=== PATIENT | male | born 1960 | race Caucasian/White ===

== ENCOUNTER 2017-07-10 01:08 | Emergency (ER) | payer OTHER ==
[~2017-07-10] VITALS: Ht 182.9 cm; Wt 97.9 kg
[2017-07-10 01:13] VITALS: TEMP 36.9; Ht 182.9 cm; Wt 97.9 kg
--- NOTE | 2017-07-10 01:40 | EMERGENCY ROOM VISIT NOTE ---
History Report prepared by [facility]: Adan Mead Under the Supervision of: Dr. Yulissa Tamez D.O. First contact with patient: 01:09 Chief Complaint: ABDOMINAL PAIN Stated Complaint: ABDOMINAL PAIN History of Present Illness The patient is a 57 year old male who presents to the Emergency Room with complaints of worsening abdominal pain beginning this morning. The patient states that he was diagnosed with bladder cancer two months ago. He notes that two weeks after his original diagnosis, he was called back in for a biopsy. He reports that he was told that his cancer metastasized to his right kidney. The patient states that he had a stent placed in his right kidney and notes that the stent is supposed to stay in for six months. He notes that he had a heart attack two months ago, and had two coronary stents placed in his heart. He also reports that he had a chest tube placed two months ago for pneumonia and pleural effusion. The patient states that he has not yet started chemotherapy or radiation. He notes that his pain started this morning and wrapped around to his right back. He reports that his pain felt like a stinging when he went to the bathroom, and that he had to strain to go. He also complains of nausea, vomiting x2, and a cough. He denies any fever, chills, SOB, CP, leg cramping, and leg swelling. The patient states that he is also blind in his right eye, but notes that he has no history of previous UTIs. He notes that he has had kidney stones in the past but reports that he never passed them. The patient states that he smokes 1-2 cigarettes every three days. He rates his pain as a 10 /10. Source of History: patient Onset: this morning Position: abdomen Symptom Intensity: 10/10 Quality: other (stinging) Timing: worsening Associated Symptoms: + cough, + nausea, + vomiting (x2), + back pain, No fevers, No chills, No chest pain, No SOB Note: The patient states that he had to strain to go to the bathroom. He also denies any leg cramping and leg swelling. Review of Systems See HPI for pertinent positives & negatives. A total of 10 systems reviewed and were otherwise negative. Past Medical & Surgical Medical Problems: (1) Abdominal pain of unknown etiology (2) Asthma (3) Back pain (4) Back pain (5) Back pain (6) Back strain (7) Bladder cancer (8) Blindness of right eye (9) Blindness of right eye (10) Cancer of kidney (11) Cellulitis (12) Chest tube in place (13) Chronic dental pain (14) Chronic dental pain (15) Coronary artery disease (16) Dental abscess (17) Dental abscess (18) Dental caries (19) Dental caries (20) Heart attack (21) Hypothyroidism (22) Kidney lesion (23) Kidney stone (24) Kidney stones (25) Low back pain potentially associated with radiculopathy (26) Lower back pain (27) Pain, dental (28) Pain, dental (29) Pain, dental (30) Pleural effusion (31) Pneumonia (32) Pulmonary nodule (33) Pulmonary nodules (34) Pulmonary nodules (35) Spasm of back muscles Surgical Problems: (1) H/O heart artery stent (2) S/P cholecystectomy (3) S/P hernia repair (4) Ureteral stenosis, right Family History Gallbladder disease Kidney disease Kidney stones Social History Smoking Status: Current Every Day Smoker Alcohol Use: none Drug Use: none Marital Status: single Housing Status: lives with significant other Occupation Status: employed Current/Historical Medications Scheduled Aspirin (Aspirin Ec), 81 MG PO DAILY Clopidogrel (Plavix), 75 MG PO DAILY Lisinopril (Zestril), 2.5 MG PO DAILY Metoprolol Tartrate (Lopressor) (Lopressor), 25 MG PO BID Allergies Coded Allergies: Morphine (Verified Allergy, Severe, ANAPHYLAXIS, 07/10/17) Penicillins (Unverified Allergy, Intermediate, HIVES, 07/12/15) Physical Exam Vital Signs Date Time Temp Pulse Resp B/P (MAP) Pulse Ox O2 Delivery O2 Flow Rate FiO2 07/10/17 04:26 88 18 181/101 97 07/10/17 02:32 80 18 162/98 97 Room Air 07/10/17 01:31 Room Air 07/10/17 01:13 36.9 83 18 178/139 97 Room Air Physical Exam HEENT: Head - normocephalic and atraumatic Pupils are equal, round, and reactive to light. Extraocular eye muscles are intact, and sclera are anicteric. Nose - moist nasal mucosa without discharge. Mouth - moist buccal mucosa. Oropharynx is nonerythematous and there is no tonsillar exudate or edema noted. Neck: Supple; no JVD, nuchal rigidity, cervical lymphadenopathy. Heart: Regular rhythm and tachycardic. There is a normal S1 and S2 with no murmurs, clicks, or gallops appreciated. Lungs: Clear to auscultation bilaterally with no wheezes, rales, or rhonchi. Abdomen: Soft, nondistended, with good bowel sounds. There are no palpable pulsatile masses or hepatosplenomegaly. There is no guarding, rigidity, or rebound noted. Pain to palpation to the RUQ, RLQ, and right flank. Extremities: No evidence of cyanosis, clubbing, or edema. There are easily palpable peripheral pulses. Skin: warm and dry with good turgor and no rashes. Medical Decision & Procedures ER Provider Diagnostic Interpretation: Radiology results as stated below per my review and interpretation: PORTABLE CHEST X-RAY: Significant elevated right hemidiaphragm. Pulmonary nodule in left chest, previously measured at 26mm but now measured to be 32mm. Compared to chest X-RAY from 07/12/15. Radiology results as stated below per my review and the radiologist's interpretation: US RENAL: No hydronephrosis. Distal aspect of right ureteral stent seen within bladder, but its proximal portion is not well-visualized. Ureteral jets are not visualized. Radiologist: Mio Pineda MD. Laboratory Results 07/10/17 01:50 Red Blood Count 5.06, Mean Corpuscular Volume 80.4, Mean Corpuscular Hemoglobin 27.3, Mean Corpuscular Hemoglobin Concent 33.9, Mean Platelet Volume 8.5, Neutrophils (%) (Auto) 58.2, Lymphocytes (%) (Auto) 27.8, Monocytes (%) (Auto) 8.6, Eosinophils (%) (Auto) 4.4, Basophils (%) (Auto) 0.3, Neutrophils # (Auto) 3.53, Lymphocytes # (Auto) 1.69, Monocytes # (Auto) 0.52, Eosinophils # (Auto) 0.27, Basophils # (Auto) 0.02 07/10/17 01:50 Test 07/10/17 01:50 07/10/17 01:55 07/10/17 02:03 White Blood Count 6.07 K/uL (4.8-10.8) Red Blood Count 5.06 M/uL (4.7-6.1) Hemoglobin 13.8 g/dL (14.0-18.0) Hematocrit 40.7 % (42-52) Mean Corpuscular Volume 80.4 fL (80-100) Mean Corpuscular Hemoglobin 27.3 pg (25-34) Mean Corpuscular Hemoglobin Concent 33.9 g/dl (32-36) Platelet Count 112 K/uL (130-400) Mean Platelet Volume 8.5 fL (7.4-10.4) Neutrophils (%) (Auto) 58.2 % Lymphocytes (%) (Auto) 27.8 % Monocytes (%) (Auto) 8.6 % Eosinophils (%) (Auto) 4.4 % Basophils (%) (Auto) 0.3 % Neutrophils # (Auto) 3.53 K/uL (1.4-6.5) Lymphocytes # (Auto) 1.69 K/uL (1.2-3.4) Monocytes # (Auto) 0.52 K/uL (0.11-0.59) Eosinophils # (Auto) 0.27 K/uL (0-0.5) Basophils # (Auto) 0.02 K/uL (0-0.2) RDW Standard Deviation 44.2 fL (36.4-46.3) RDW Coefficient of Variation 15.2 % (11.5-14.5) Immature Granulocyte % (Auto) 0.7 % Immature Granulocyte # (Auto) 0.04 K/uL (0.00-0.02) Prothrombin Time 10.0 SECONDS (9.0-12.0) Prothromb Time International Ratio 1.0 (0.9-1.1) Activated Partial Thromboplast Time 24.3 SECONDS (21.0-31.0) Partial Thromboplastin Ratio 0.9 Anion Gap 4.0 mmol/L (3-11) Est Creatinine Clear Calc Drug Dose 96.4 ml/min Estimated GFR () 95.1 Estimated GFR (Non- 82.0 BUN/Creatinine Ratio 13.1 (10-20) Calcium Level 9.4 mg/dl (8.5-10.1) Total Bilirubin 0.5 mg/dl (0.2-1) Aspartate Amino Transf (AST/SGOT) 30 U/L (15-37) Alanine Aminotransferase (ALT/SGPT) 27 U/L (12-78) Alkaline Phosphatase 129 U/L (45-117) Total Protein 9.1 gm/dl (6.4-8.2) Albumin 3.9 gm/dl (3.4-5.0) Globulin 5.2 gm/dl (2.5-4.0) Albumin/Globulin Ratio 0.8 (0.9-2) Urine Color YELLOW Urine Appearance CLEAR (CLEAR) Urine pH 5.5 (4.5-7.5) Urine Specific [place] 1.008 (1.000-1.030) Urine Protein NEG (NEG) Urine Glucose (UA) NEG (NEG) Urine Ketones NEG (NEG) Urine Occult Blood 1+ (NEG) Urine Nitrite NEG (NEG) Urine Bilirubin NEG (NEG) Urine Urobilinogen NEG (NEG) Urine Leukocyte Esterase NEG (NEG) Urine WBC (Auto) 1-5 /hpf (0-5) Urine RBC (Auto) 0-4 /hpf (0-4) Urine Hyaline Casts (Auto) 0 /lpf (0-5) Urine Epithelial Cells (Auto) 5-10 /lpf (0-5) Urine Bacteria (Auto) NEG (NEG) Bedside Lactic Acid Venous 1.03 mmol/L (0.90-1.70) Laboratory results per my review. Medications Administered Medications (Trade) Dose Ordered Sig/Bharat Route Start Time Stop Time Status Last Admin Dose Admin Hydromorphone HCl (Dilaudid Inj) 1 mg NOW STAT IV 07/10/17 02:11 07/10/17 02:13 DC 07/10/17 02:32 1 MG Procedure Dilaudid Inj 1mg IV IV Toradol-the patient refused ECG Per My Interpretation Indication: abdominal pain Rate (beats per minute): 85 Rhythm: normal sinus Findings: no ectopy, other (Prolonged QT at 492, no ischemia) ED Course 0127: The patient was evaluated in room B10. A complete history and physical examination were performed. Nursing notes and previous electronic medical records were reviewed. IV lock was established and labs were drawn as above. 0211: Dilaudid Inj 1mg IV 0303: I ordered an US of the patient's right kidney. 0400: I reevaluated and updated the patient. He is still in severe pain. I told him that I would not give him any stronger pain medication and suggested having a CT done because of his severe pain. He stated that he was not sure if a CT would be necessary. I stated again that we should have a CT done because of his pain. I offered him Toradol. 0411: The patient refused the Toradol and wanted his IV taken out. He states that he wants to go home and does not want a CT. I suggested that he follow up with [facility] about the location of the right ureteral stent. 0421: I spent some time again talking to the patient about the need for CT scan of the right lower quadrant to rule out appendicitis, small bowel obstruction, or diverticulitis. He was not interested in staying for this. He wanted to sign out AMA. 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 He notes that he went to rehab and is no longer addicted. His blood pressure is extremely high, and I suggested that he stay to have that lowered because he could have a stroke. He declined. I also spoke to him about his pulmonary nodule and said that it was important for him to follow up on it because it has gotten larger. 0431: The patient signed out against medical advice. Medical Decision The patient is a 57 year old male who presents to the Emergency Room with complaints of worsening abdominal pain beginning this morning. Differential diagnoses include: sepsis, kidney stone, diverticulitis UTI, appendicitis, small bowel obstruction, ureteral stent obstruction, and pneumonia. Lab Results Show: Normal white count. Stable H&H. Normal lactic. Normal renal function and glucose. Normal LFTs. Normal Coags. Urine 1+ blood but no RBCs. This is a 57-year-old male patient who presents to the emergency department with right lower quadrant abdominal pain, nausea and vomiting. The patient received IV Dilaudid and underwent ultrasound of the right renal collecting system as described above. I spoke with him about the location of the stent. He continued to describe discomfort in the right lower quadrant. There is no evidence of UTI. I ordered a CT scan of the abdomen/pelvis to further evaluate other surrounding structures but the patient declined wanting this test. I offered to give the patient Toradol for his discomfort but he declined stating that it does not work for him. He then decided that he wanted to leave the emergency department without any further testing. I discussed the hazards of this as described above. He was told that he can return to the emergency department at anytime if he wanted to pursue further testing. Medication Reconcilliation Current Medication List: was personally reviewed by me Blood Pressure Screening Patient's blood pressure: Elevated blood pressure Blood pressure disposition: Referred to PCP Impression Primary Impression: Right lower quadrant pain Scribe Attestation The scribe's documentation has been prepared under my direction and personally reviewed by me in its entirety. I confirm that the note above accurately reflects all work, treatment, procedures, and medical decision making performed by me. Departure Information Dispostion Against Medical Advice Referrals No Doctor, Assigned (PCP) Patient Instructions My [facility]
[2017-07-10 02:10] LABS: BASO % 0.3 %; BASO ABS # 0.02 K/uL (0-0.2); EOS % 4.4 %; EOS ABS # 0.27 K/uL (0-0.5); HEMATOCRIT 40.7 % (42-52); HEMOGLOBIN 13.8 g/dL (14.0-18.0); IG# 0.04 K/uL (0.00-0.02); LYMPH % 27.8 %; LYMPH ABS # 1.69 K/uL (1.2-3.4); MEAN CELL VOLUME 80.4 fL (80-100); MEAN CORPUSCULAR HEMOGLOBIN 27.3 pg (25-34); MEAN CORPUSCULAR HGB CONC 33.9 g/dl (32-36); MEAN PLATELET VOLUME 8.5 fL (7.4-10.4); MONO % 8.6 %; MONO ABS # 0.52 K/uL (0.11-0.59); NEUT % 58.2 %; NEUT ABS # 3.53 K/uL (1.4-6.5); PLATELET COUNT 112 K/uL (130-400); RED CELL DISTRIBUTION WIDTH CV 15.2 % (11.5-14.5); RED CELL DISTRIBUTION WIDTH SD 44.2 fL (36.4-46.3); WHITE BLOOD COUNT 6.07 K/uL (4.8-10.8)
[2017-07-10] MEDS ORDERED: HYDROmorphone INJ 1 MG/ML SYR IV STA (02:11)
[2017-07-10 02:19] LABS: PTT PATIENT 24.3 SECONDS (21.0-31.0)
[2017-07-10 02:29] LABS: ALBUMIN 3.9 gm/dl (3.4-5.0); CALCIUM 9.4 mg/dl (8.5-10.1); POTASSIUM 3.9 mmol/L (3.5-5.1)
[2017-07-10 02:32] LABS: TOTAL PROTEIN 9.1 gm/dl (6.4-8.2)
[2017-07-10] MEDS ORDERED: ASPI81TA28 PO (02:44)
[2017-07-10] MEDS ORDERED: METO25TA56 PO (02:45)
[2017-07-10] MEDS ORDERED: CLOP1TAB15 PO (02:45)
[2017-07-10] MEDS ORDERED: LISI-789 PO (02:47)
[2017-07-10] MEDS ORDERED: KETOROLAC TROMETHAMINE 30 MG/ML VIAL IV STA (04:03)
[2017-07-10 04:26] VITALS: BP 181/101; PULSE 88; O2SAT 97
--- NOTE | 2017-07-10 06:31 | DIAGNOSTIC IMAGING REPORT ---
CHEST ONE VIEW PORTABLE CLINICAL HISTORY: Sepsis dyspnea COMPARISON STUDY: 07/14/2015 FINDINGS: Mild elevation right hemidiaphragm with slight blunting right lateral costophrenic angle. Potential interstitial infiltrate right base. Slight increase in volume of a left upper lung nodule currently measuring 2.9 cm at maximum increased from 2.6 cm. IMPRESSION: 1. Potential early infiltrate combine with a small effusion right lung base. 2. Slight increase in volume of the left upper lobe nodule. The above report was generated using voice recognition software. It may contain grammatical, syntax or spelling errors. Electronically signed by: Benito Patel M.D. 07/10/2017 6:30 AM Dictated Date/Time: 07/10/2017 6:29 AM
--- NOTE | 2017-07-10 06:52 | DIAGNOSTIC IMAGING REPORT ---
(RENAL)RETROPERITON COMP HISTORY: Pain. Edema. eval right kidney and stent COMPARISON: None. FINDINGS: Right kidney: Maximum dimension 10.4 cm. No evidence for hydronephrosis. The proximal aspect of the right ureteral stent is not localized. Distal aspect of the stent is identified within the bladder. Normal corticomedullary differentiation and cortical thickness. Left kidney: Maximum dimension 11.2 cm. No evidence for hydronephrosis. Normal corticomedullary differentiation and cortical thickness. Bladder: No bladder wall thickening. The bilateral ureteral jets were identified. IMPRESSION: 1. No evidence renal hydronephrosis. 2. Right ureteral stent is not seen proximally but is confirmed at its distal aspect within the bladder. 3. Incidental note is made of mild splenomegaly at 12 cm. The above report was generated using voice recognition software. It may contain grammatical, syntax or spelling errors. Electronically signed by: Benito Patel M.D. 07/10/2017 6:51 AM Dictated Date/Time: 07/10/2017 6:49 AM
== END 2017-07-10 04:21 | disposition left against medical advice (07) ==
LOC: EDBD 01:08 → C.EDB 01:09
DX: R10.11 Right upper quadrant pain (principal); R10.31 Right lower quadrant pain; C67.9 Malignant neoplasm of bladder, unspecified; C79.01 Secondary malignant neoplasm of right kidney and renal pelvis; J45.909 Unspecified asthma, uncomplicated; I25.2 Old myocardial infarction; F17.200 Nicotine dependence, unspecified, uncomplicated; Z96.0 Presence of urogenital implants; Z95.9 Presence of cardiac and vascular implant and graft, unspecified; Z97.8 Presence of other specified devices; Z87.442 Personal history of urinary calculi; Z79.82 Long term (current) use of aspirin; Z79.899 Other long term (current) drug therapy; Z88.6 Allergy status to analgesic agent; Z88.0 Allergy status to penicillin

== ENCOUNTER 2018-12-24 17:52 | Inpatient (IN) ==
[2018-12-24] MEDS ORDERED: ONDANSETRON INJ 2 MG/ML 2 ML VIAL IV STA (18:06)
[2018-12-24] MEDS ORDERED: HYDROmorphone INJ 1 MG/ML SYRINGE IV STA ×4 (18:06→21:57)
[2018-12-24 18:41] LABS: Basophils # (auto) 0.03 K/uL (0-0.2); Basophils % (auto) 0.5 %; Eosinophils # (auto) 0.41 K/uL (0-0.5); Eosinophils % (auto) 6.4 %; Hematocrit (blood only) 34.3 % (42-52); Hemoglobin 11.6 g/dL (14.0-18.0); Immature Granulocytes # (auto) 0.02 K/uL (0.00-0.02); Immature Granulocytes % (auto) 0.3 %; Lymphocytes # (auto) 1.88 K/uL (1.2-3.4); Lymphocytes % (auto) 29.2 %; Mean Corpuscular Hemoglobin 28.4 pg (25-34); Mean Corpuscular Hgb Conc 33.8 g/dL (32-36); Mean Corpuscular Volume 83.9 fL (80-100); Monocytes # (auto) 0.63 K/uL (0.11-0.59); Monocytes % (auto) 9.8 %; Neutrophils # (auto) 3.47 K/uL (1.4-6.5); Neutrophils % (auto) 53.8 %; Platelet Count 106 K/uL (130-400); RDW Coefficient of Variation 13.3 % (11.5-14.5); RDW Standard Deviation 40.3 fL (36.4-46.3); Red Blood Count 4.09 M/uL (4.7-6.1); White Blood Count 6.44 K/uL (4.8-10.8)
[2018-12-24 18:49] LABS: INR 1.1 (0.9-1.1); Prothrombin Time 10.9 Seconds (9.0-12.0)
[2018-12-24 18:54] LABS: Appearance Urine Turbid (Clear); Bilirubin Urine Negative (Negative); Blood Urine 3+ (Negative); Color Urine Brown; Glucose Urine UA Negative (Negative); Ketones Urine Negative (Negative); Leukocyte Esterase Urine Trace (Negative); Nitrite Urine Positive (Negative); Protein Urine 2+ (Negative); Specific Gravity Urine 1.015 (1.000-1.030); Urobilinogen Urine Negative (Negative); pH Urine 5.5 (4.5-7.5)
[2018-12-24 18:59] LABS: Albumin Level 3.3 gm/dl (3.4-5.0); BUN Creatinine Ratio 16.8 (10-20); Calcium 8.5 mg/dl (8.5-10.1); Creatinine Clr Calc Pharmacy 71.9 ml/min; Est GFR (African American) 64.5; Est GFR (Non-African American) 55.7; Potassium 4.6 mmol/L (3.5-5.1)
[2018-12-24 19:01] LABS: Albumin Globulin Ratio 0.7 (0.9-2); Bacteria Urine 1+ (Negative); Bilirubin,Total 0.4 mg/dl (0.2-1); Globulin 4.5 gm/dl (2.5-4.0); RBC Urine >30 /hpf (0-4); Total Protein 7.8 gm/dl (6.4-8.2); WBC Urine >30 /hpf (0-5)
[2018-12-24] MEDS ORDERED: IOVERSOL 100ml IV PRN (19:27)
--- NOTE | 2018-12-24 20:36 | CT Scan Report ---
CT SCAN OF THE ABDOMEN AND PELVIS WITH IV CONTRAST CLINICAL HISTORY: Hematuria. Lower abdominal pain. History of bladder cancer. COMPARISON STUDY: Abdominal CT dated 07/12/2015. PET/CT dated 06/30/2018. TECHNIQUE: Following the IV administration of 94 cc of Optiray 320, CT scan of the abdomen and pelvi s is performed from the lung bases to the proximal femora. Images are reviewed in the axial, sagittal , and coronal planes. IV contrast was administered without complication. A dose lowering technique wa s utilized adhering to the principles of ALARA. CT DOSE: 1035.72 mGy.cm FINDINGS: Lung bases: The heart is normal in size and without pericardial effusion. The coronary arteries are d ensely calcified. There is a moderate hiatal hernia. There is chronic elevation of the right hemidiap hragm with right basilar atelectasis. There is no airspace consolidation typical for pneumonia or ple ural effusion. A 10 mm nodule the right lung base is seen on image #48. A 3 mm left lower lobe nodule is seen on image #146, and a 3 mm pleural-based nodule at the right lung base is seen on image #36. These are pathologically indeterminant but new from 07/12/2015. Scattered calcified granulomas are obse rved. Liver: The contrast-enhanced liver is cirrhotic in morphology and heterogeneous in attenuation. There is hypertrophy of the left lobe and caudate as well as nodularity of the surface contour. There is m ild central intrahepatic biliary ductal dilatation. The hepatic veins and portal veins are patent. Gallbladder: Surgically absent noting clips in the gallbladder fossa. Spleen: Normal in size and attenuation. Pancreas: Unremarkable. Adrenal glands: Unremarkable. Kidneys: The contrast enhanced kidneys demonstrate cortical atrophy. A right ureteral stent is in jeri ce. There is mild right-sided hydronephrosis. Urothelial thickening and enhancement is identified inv olving the right renal pelvis and the right ureter, and there is mild surrounding inflammation. There is moderate left hydronephrosis. There is heterogeneous enhancement of the right kidney. The left ki dney enhances homogeneously. A 12 mm complex cyst is again seen arising from the upper pole of the ri ght kidney. Subcentimeter cortical hypodensities likely represent cysts but are too small for definit polo characterization. Abdominal vasculature: There is advanced atherosclerotic calcification of the abdominal aorta. There is ectasia of the distal abdominal aorta which measures up to 2.8 cm. Bowel: There are scattered colonic diverticula without CT evidence of acute diverticulitis. No bowel obstruction is seen. The appendix is well-visualized and normal. Peritoneum: There is no intraperitoneal free air or abdominal ascites. There is a fat-containing umbi lical hernia. Lymphadenopathy: There are prominent retroperitoneal lymph nodes. A retrocaval node on image #196 reji sures 8 mm in short axis. Pelvic viscera: There is markedly asymmetric wall thickening seen involving the anterior and left wal l of the bladder consistent with bladder carcinoma. Bladder wall thickening is also seen at the left trigone. This is unchanged to slightly increased in size from the 06/30/2018 PET examination. The pros lópez gland is mildly enlarged and heterogeneous. There is evidence of previous left inguinal herniorr haphy. Skeletal structures: There is evidence of multifocal mixed lytic/blastic osseous metastatic disease. Large lesions are seen within the inferior pubic ring bilaterally, the left ilium, the right posterio r ilium, and several vertebral bodies. This has progressed from 06/30/2018. There is mild lumbosacral spondylosis. IMPRESSION: 1. There are large bladder masses as above. This is unchanged to increased in size from 06/30/2018 and consistent with bladder carcinoma. 2. A right ureteral stent is in place and there is mild right-sided hydronephrosis. 3. There is heterogeneous perfusion of the right kidney, as well as urothelial thickening within the right renal pelvis and the right ureter with surrounding inflammation. Although this could be related to the presence of an indwelling stent, the findings are concerning for superimposed urinary tract i nfection. Correlation with clinical findings and urinalysis will be required. 4. There is moderate left hydroureteronephrosis, likely related to an obstructing lesion at the justine ne. This is unchanged to slightly worsened from 06/30/2018. 5. There is evidence of multifocal mixed lytic/blastic osseous metastatic disease. This has progresse d from 06/30/2018. 6. There are pulmonary nodules present at both lung bases measuring up to 10 mm. These are pathologic ally indeterminant but new from 07/12/2015. These are concerning for metastatic disease. 7. There are pathologically indeterminant subcentimeter retroperitoneal lymph nodes. 8. Cirrhotic liver morphology. 9. Moderate hiatal hernia. 10. Additional findings as above. Electronically signed by: Ceasar Cheung M.D. 12/24/2018 8:33 PM
[2018-12-24] MEDS ORDERED: ONDANSETRON INJ 2 MG/ML 2 ML VIAL IV PRN (23:37)
[2018-12-24] MEDS ORDERED: ALUMINUM/MAGNESIUM/SIMETH (MAALOX MAX) 30 ML UDC PO PRN (23:37)
[2018-12-24] MEDS ORDERED: CHLORASEPTIC 1.4% SOLN 180 ML BTL MT PRN (23:37)
[2018-12-24] MEDS ORDERED: guaiFENesin SUGAR FREE 100 MG/5 ML UDC PO PRN (23:37)
[2018-12-24] MEDS ORDERED: NITROGLYCERIN SL 0.4 MG/TAB TAB SL PRN (23:37)
[2018-12-24] MEDS ORDERED: POLYETHYLENE (MIRALAX) 17 GM PACK PO PRN (23:37)
[2018-12-24] MEDS ORDERED: SODIUM CHLORIDE 0.65% NA SOLN 45 ML (OCEAN) PRN (23:37)
[2018-12-25] MEDS ORDERED: HYDROmorphone INJ 1 MG/ML SYRINGE IV STA (00:13)
--- NOTE | 2018-12-25 00:22 | Emergency Department Note ---
Entered by Libra Taylor acting as a scribe for Reed Cobb M.D. History of Present Illness General Chief complaint: Abdominal Pain Source: patient History of Present Illness Provider complaint: abdominal pain Onset (ago): hour(s) (this morning ) Location: abdomen Quality: + other (abdominal pain) Relieved By: not by medication (Percocet) Associated symptoms: + nausea/vomiting and + other (Positive dysuria; Positive erythuria; Negative fall; Negaitve upper body pain); no fever/chills Treatments prior to arrival: other (Percocet; Oxycodone) The patient, who is a 58 year old male with a medical history of bladder cancer, kidney cancer and coronary artery disease, presents to the Emergency Room with complaints of abdominal pain and erythruria that occurred this morning. The patient states that he had surgery on the of this month in which they "scrapped his bladder on the right side". The patient states that he experienced light erythruria the day after his operation but after had no complications for two weeks. The patient states that this morning he observed dark urine with blood clots, but is still able to urinate. The patient expresses that he has pain in his lower abdominal area. The patient states that his doctor advised that he go to the ED immediately if this is observed. The patient complains of nausea, vomiting and dysuria. The patient denies fever, falls and upper body pain. The patient states that he has been taking Percocet and oxycodone for pain but states that the Percocet is not working. The patient reports that he has bone cancer in his bilateral pelvis and has not had chemotherapy in months. The patient reports taking 91mg of aspirin. Home Medications Home Medications Medication Instructions Recorded Confirmed Type acetaminophen 650 mg PO Q4 PRN 12/24/18 12/24/18 History alum-mag hydroxide-simeth [Maalox 10 ml PO Q4 PRN 12/24/18 12/24/18 History Advanced] aspirin [Aspir-Low] 81 mg PO DAILY 12/24/18 12/24/18 History atorvastatin [Lipitor] 40 mg PO PM 12/24/18 12/24/18 History guaifenesin 200 mg PO Q6H PRN 12/24/18 12/24/18 History hyoscyamine sulfate 0.125 mg PO Q4 PRN 12/24/18 12/24/18 History levothyroxine 100 mcg PO DAILY 12/24/18 12/24/18 History metoprolol succinate 12.5 mg PO DAILY 12/24/18 12/24/18 History multivitamin 1 tab PO DAILY 12/24/18 12/24/18 History ondansetron HCl [Zofran] 4 mg PO QID PRN 12/24/18 12/24/18 History oxycodone [OxyContin] 30 mg PO Q12H 12/24/18 12/24/18 History oxycodone-acetaminophen [Percocet] 2 tab PO Q4 PRN 12/24/18 12/24/18 History phenol [Chloraseptic Throat [place]] 1.4 % MUCOUS MEMBRANE Q8 PRN 12/24/18 12/24/18 History polyethylene glycol 3350 [Miralax] 17 g PO DAILY 12/24/18 12/24/18 History sildenafil 50 mg PO DAILY PRN 12/24/18 12/24/18 History sodium chloride [Saline Nasal] 2 spray INTRANASAL .Q2HRS PRN 12/24/18 12/24/18 History tamsulosin [Flomax] 0.4 mg PO DAILY 12/24/18 12/24/18 History Allergies Allergy/AdvReac Type Severity Reaction Status Date / Time morphine Allergy Severe ANAPHYLAXIS Verified 12/24/18 18:53 Penicillins Allergy Intermediate HIVES Verified 12/24/18 18:53 ketorolac [From Toradol] AdvReac Intermediate Unknown Verified 12/24/18 18:53 Past Med/Surg History Medical History Hypothyroidism (08/31/12) Coronary artery disease (08/31/12) STENTS X 2 (1+ YEARS AGO) Asthma (08/31/12) Back pain Pulmonary nodule Bladder cancer Blindness of right eye Cancer of kidney Anemia CHRONIC; BASELINE HGB 8-9 RANGE PER CHART REVIEW BPH (benign prostatic hyperplasia) Hydroureter Hyperlipidemia Kidney stones Myocardial Infarction Surgical History History of transurethral destruction of bladder lesion S/P cholecystectomy S/P colonoscopy S/P hernia repair Social History Preferred Language: Kyrgyz Communication Ability: Effective 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 and A total of 10 systems reviewed and were otherwise negative Physical Exam Vital Signs Vital Signs - 24 hr 12/24/18 18:04 12/24/18 18:11 12/24/18 19:35 Temperature 36.5 C Temperature Source Oral Sepsis Recent Fever Within 48 Hours No Sepsis New/Unexplained Change in Mental Status No Sepsis Action Taken by Nursing No Action Required Pulse Rate 57 L 81 Pulse Rate [Right Finger] Pulse Rate from SpO2 Sensor 84 Respiratory Rate 18 20 Respiratory Effort / Characteristics Respiratory Depth Blood Pressure 146/102 H 153/87 H Blood Pressure [Right Arm] Blood Pressure Mean 116 109 Blood Pressure Mean [Right Arm] Pulse Oximetry 96 93 98 Oxygen Delivery Method Room Air Room Air 12/24/18 19:38 12/24/18 23:01 Temperature Temperature Source Sepsis Recent Fever Within 48 Hours Sepsis New/Unexplained Change in Mental Status Sepsis Action Taken by Nursing Pulse Rate Pulse Rate [Right Finger] 81 85 Pulse Rate from SpO2 Sensor Respiratory Rate 18 16 Respiratory Effort / Characteristics Non-Labored Respiratory Depth Normal Normal Blood Pressure Blood Pressure [Right Arm] 153/87 H 125/82 Blood Pressure Mean Blood Pressure Mean [Right Arm] 109 96 Pulse Oximetry 92 94 Oxygen Delivery Method Room Air Room Air GENERAL: Awake, alert, fatigue-appearing, in no distress HENT: Normocephalic, atraumatic. Oropharynx unremarkable. EYES: Normal conjunctiva. Sclera non-icteric. NECK: Supple. No nuchal rigidity. CHEST: Right upper chest wall port. RESPIRATORY: Clear to auscultation. No wheezes. Normal respiratory effort. CARDIAC: Normal rate. Normal rhythm. Extremities warm and well perfused. GI: Soft, non-distended. Moderate lower abdominal tenderness. No rebound or guarding. No masses. RECTAL: Deferred. MUSCULOSKELETAL: Atraumatic. Chest examination reveals no tenderness. There is no CVA tenderness to palpation. LOWER EXTREMITIES: Calves are equal size bilaterally and non-tender. No edema NEURO: Normal sensorium. No sensory or motor deficits noted. No facial droop. SKIN: Warm and dry. No rash or jaundice noted. Course 1800: Past medical records reviewed. The patient was evaluated in room B9. A complete history and physical exam was performed. 2149: I reviewed the patient's case with [facility]. He recommends a urine culture and wait on antibiotics. 2156: I reassessed the patient and updated him on my conversation with Dr. Adams. He has agreed to be admitted to [facility]. 2200: I [facility] the [facility] He will evaluate the patient for further management. Consultations Consultation #1: I reviewed the patient's case with [facility]. He recommends a urine culture and wait on antibiotics. Time: 21:50 Consultation #2: I reviewed the patient's case with Dr. Mixon [facility]. He will evaluate the patient for further management. Time: 22:01 Administered Medications Sodium Chloride (Nss 1000ml) 1,000 mls @ 100 mls/hr IV .Q10H TRAV Stop: 01/23/19 23:36 Last Admin: 12/25/18 00:38 Dose: 100 mls/hr Documented by: [id number] Oxycodone HCl (Oxycontin) 30 mg PO Q12 TRAV Stop: 01/07/19 23:36 Last Admin: 12/25/18 00:31 Dose: 30 mg Documented by: [id number] Discontinued Medications Hydromorphone HCl (Dilaudid) 1 mg IV NOW STA Stop: 12/24/18 18:07 Last Admin: 12/24/18 18:35 Dose: 1 mg Documented by: [id number] Hydromorphone HCl (Dilaudid) 1 mg IV NOW STA Stop: 12/24/18 19:13 Last Admin: 12/24/18 19:15 Dose: 1 mg Documented by: [id number] Hydromorphone HCl (Dilaudid) 1 mg IV NOW STA Stop: 12/24/18 20:37 Last Admin: 12/24/18 20:41 Dose: 1 mg Documented by: [id number] Hydromorphone HCl (Dilaudid) 1 mg IV NOW STA Stop: 12/24/18 21:58 Last Admin: 12/24/18 22:11 Dose: 1 mg Documented by: [id number] Hydromorphone HCl (Dilaudid) 1 mg IV NOW STA Stop: 12/25/18 00:14 Last Admin: 12/25/18 00:32 Dose: 1 mg Documented by: [id number] Ioversol (Optiray 320 100ml) 94 ml IV ONCE PRN PRN Reason: Interaction Checking Stop: 12/28/18 19:26 Last Admin: 12/24/18 19:29 Dose: 94 ml Documented by: [id number] Ondansetron HCl (Zofran) 4 mg IV NOW STA Stop: 12/24/18 18:07 Last Admin: 12/24/18 18:35 Dose: 4 mg Documented by: [id number] Medical Decision Making Differential Diagnosis Differential diagnosis includes: appendicitis, diverticulitis, PUD, biliary pathology, UTI, pancreatitis, obstruction, mesenteric ischemia, aortic pathology, infections, inflammatory bowel disease, renal colic, as well as others were entertained. Medical Records Attestation: I reviewed the patient's medical records. Home Medications Current Medication List: was personally reviewed by me Laboratory Data Attestation: I reviewed the patient's lab results. Result diagrams: 12/25/18 00:47 12/24/18 18:27 Lab Results 12/24/18 12/24/18 12/24/18 Range/Units 18:27 18:27 18:27 WBC 6.44 (4.8-10.8) K/uL RBC 4.09 L (4.7-6.1) M/uL Hgb 11.6 L (14.0-18.0) g/dL Hct 34.3 L (42-52) % MCV 83.9 (80-100) fL MCH 28.4 (25-34) pg MCHC 33.8 (32-36) g/dL RDW Std Deviation 40.3 (36.4-46.3) fL RDW Coeff of [place]are[place] 13.3 (11.5-14.5) % Plt Count 106 L (130-400) K/uL MPV 9.0 (7.4-10.4) fL Immature Gran % (Auto) 0.3 % Neut % (Auto) 53.8 % Lymph % (Auto) 29.2 % [place] % (Auto) 9.8 % Eos % (Auto) 6.4 % Baso % (Auto) 0.5 % Immature Gran # (Auto) 0.02 (0.00-0.02) K/uL Neut # (Auto) 3.47 (1.4-6.5) K/uL Lymph # (Auto) 1.88 (1.2-3.4) K/uL [place] # (Auto) 0.63 H (0.11-0.59) K/uL Eos # (Auto) 0.41 (0-0.5) K/uL Baso # (Auto) 0.03 (0-0.2) K/uL PT 10.9 (9.0-12.0) Seconds INR 1.1 (0.9-1.1) Sodium 134 L (136-145) mmol/L Potassium 4.6 (3.5-5.1) mmol/L Chloride 106 (98-107) mmol/L Carbon Dioxide 25 (21-32) mmol/L Anion Gap 3.0 (3-11) BUN 23 H (7-18) mg/dl Creatinine 1.37 (0.6-1.4) mg/dl Est Cr Clr Drug Dosing 71.9 ml/min Est GFR ( Amer) 64.5 Est GFR (Non-Af Amer) 55.7 BUN/Creatinine Ratio 16.8 (10-20) Glucose 85 (70-99) mg/dl Calcium 8.5 (8.5-10.1) mg/dl Total Bilirubin 0.4 (0.2-1) mg/dl AST 85 H (15-37) U/L ALT 130 H (12-78) U/L Alkaline Phosphatase 139 H (45-117) U/L Total Protein 7.8 (6.4-8.2) gm/dl Albumin 3.3 L (3.4-5.0) gm/dl Globulin 4.5 H (2.5-4.0) gm/dl Albumin/Globulin Ratio 0.7 L (0.9-2) Lipase 227 (73-393) U/L Urine Color Urine Appearance (Clear) Urine pH (4.5-7.5) Ur Specific [place] (1.000-1.030) Urine Protein (Negative) Urine Glucose (UA) (Negative) Urine Ketones (Negative) Urine Blood (Negative) Urine Nitrite (Negative) Urine Bilirubin (Negative) Urine Urobilinogen (Negative) Ur Leukocyte Esterase (Negative) Urine RBC (0-4) /hpf Urine WBC (0-5) /hpf Ur Epithelial Cells (0-5) /lpf Urine Bacteria (Negative) Hyaline Casts (0-5) /lpf 12/24/18 Range/Units 18:27 WBC (4.8-10.8) K/uL RBC (4.7-6.1) M/uL Hgb (14.0-18.0) g/dL Hct (42-52) % MCV (80-100) fL MCH (25-34) pg MCHC (32-36) g/dL RDW Std Deviation (36.4-46.3) fL RDW Coeff of Fareed (11.5-14.5) % Plt Count (130-400) K/uL MPV (7.4-10.4) fL Immature Gran % (Auto) % Neut % (Auto) % Lymph % (Auto) % [place] % (Auto) % Eos % (Auto) % Baso % (Auto) % Immature Gran # (Auto) (0.00-0.02) K/uL Neut # (Auto) (1.4-6.5) K/uL Lymph # (Auto) (1.2-3.4) K/uL [place] # (Auto) (0.11-0.59) K/uL Eos # (Auto) (0-0.5) K/uL Baso # (Auto) (0-0.2) K/uL PT (9.0-12.0) Seconds INR (0.9-1.1) Sodium (136-145) mmol/L Potassium (3.5-5.1) mmol/L Chloride (98-107) mmol/L Carbon Dioxide (21-32) mmol/L Anion Gap (3-11) BUN (7-18) mg/dl Creatinine (0.6-1.4) mg/dl Est Cr Clr Drug Dosing ml/min Est GFR ( Amer) Est GFR (Non-Af Amer) BUN/Creatinine Ratio (10-20) Glucose (70-99) mg/dl Calcium (8.5-10.1) mg/dl Total Bilirubin (0.2-1) mg/dl AST (15-37) U/L ALT (12-78) U/L Alkaline Phosphatase (45-117) U/L Total Protein (6.4-8.2) gm/dl Albumin (3.4-5.0) gm/dl Globulin (2.5-4.0) gm/dl Albumin/Globulin Ratio (0.9-2) Lipase (73-393) U/L Urine Color Brown Urine Appearance Turbid A (Clear) Urine pH 5.5 (4.5-7.5) Ur Specific [place] 1.015 (1.000-1.030) Urine Protein 2+ H (Negative) Urine Glucose (UA) Negative (Negative) Urine Ketones Negative (Negative) Urine Blood 3+ H (Negative) Urine Nitrite Positive A (Negative) Urine Bilirubin Negative (Negative) Urine Urobilinogen Negative (Negative) Ur Leukocyte Esterase Trace H (Negative) Urine RBC >30 H (0-4) /hpf Urine WBC >30 H (0-5) /hpf Ur Epithelial Cells 10-20 H (0-5) /lpf Urine Bacteria 1+ H (Negative) Hyaline Casts 10-30 H (0-5) /lpf Imaging Data Radiologist's Impression: Radiology results as stated below per my review and the radiologist's interpretation: CT SCAN OF THE ABDOMEN AND PELVIS WITH IV CONTRAST CLINICAL HISTORY: Hematuria. Lower abdominal pain. History of bladder cancer. COMPARISON STUDY: Abdominal CT dated 07/12/2015. PET/CT dated 06/30/2018. TECHNIQUE: Following the IV administration of 94 cc of Optiray 320, CT scan of the abdomen and pelvis is performed from the lung bases to the proximal femora. Images are reviewed in the axial, sagittal, and coronal planes. IV contrast was administered without complication. A dose lowering technique was utilized adhering to the principles of ALARA. CT DOSE: 1035.72 mGy.cm FINDINGS: Lung bases: The heart is normal in size and without pericardial effusion. The coronary arteries are densely calcified. There is a moderate hiatal hernia. The re is chronic elevation of the right hemidiaphragm with right basilar atelectasis. There is no airspace consolidation typical for pneumonia or pleural effusion. A 10 mm nodule the right lung base is seen on image #48. A 3 mm left lower lobe nodule is seen on image #146, and a 3 mm pleural-based nodule at the right lung base is seen on image #36. These are pathologically indeterminant but new from 07/12/2015. Scattered calcified granulomas are observed. Liver: The contrast-enhanced liver is cirrhotic in morphology and heterogeneous in attenuation. There is hypertrophy of the left lobe and caudate as well as nodularity of the surface contour. There is mild central intrahepatic biliary ductal dilatation. The hepatic veins and portal veins are patent. Gallbladder: Surgically absent noting clips in the gallbladder fossa. Spleen: Normal in size and attenuation. Pancreas: Unremarkable. Adrenal glands: Unremarkable. Kidneys: The contrast enhanced kidneys demonstrate cortical atrophy. A right ureteral stent is in place. There is mild right-sided hydronephrosis. Urothelial thickening and enhancement is identified involving the right renal pelvis and the right ureter, and there is mild surrounding inflammation. There is moderate left hydronephrosis. There is heterogeneous enhancement of the right kidney. The left kidney enhances homogeneously. A 12 mm complex cyst is again seen arising from the upper pole of the right kidney. Subcentimeter cortical hypodensities likely represent cysts but are too small for definitive characterization. Abdominal vasculature: There is advanced atherosclerotic calcification of the abdominal aorta. There is ectasia of the distal abdominal aorta which measures up to 2.8 cm. Bowel: There are scattered colonic diverticula without CT evidence of acute diverticulitis. No bowel obstruction is seen. The appendix is well-visualized and normal. Peritoneum: There is no intraperitoneal free air or abdominal ascites. There is a fat-containing umbilical hernia. Lymphadenopathy: There are prominent retroperitoneal lymph nodes. A retrocaval node on image #196 measures 8 mm in short axis. Pelvic viscera: There is markedly asymmetric wall thickening seen involving the anterior and left wall of the bladder consistent with bladder carcinoma. Bladder wall thickening is also seen at the left trigone. This is unchanged to slightly increased in size from the 06/30/2018 PET examination. The prostate gland is mildly enlarged and heterogeneous. There is evidence of previous left inguinal herniorrhaphy. Skeletal structures: There is evidence of multifocal mixed lytic/blastic osseous metastatic disease. Large lesions are seen within the inferior pubic ring bilaterally, the left ilium, the right posterior ilium, and several vertebral bodies. This has progressed from 06/30/2018. There is mild lumbosacral spondylosis. IMPRESSION: 1. There are large bladder masses as above. This is unchanged to increased in size from 06/30/2018 and consistent with bladder carcinoma. 2. A right ureteral stent is in place and there is mild right-sided hydronephros is. 3. There is heterogeneous perfusion of the right kidney, as well as urothelial thickening within the right renal pelvis and the right ureter with surrounding inflammation. Although this could be related to the presence of an indwelling stent, the findings are concerning for superimposed urinary tract infection. Correlation with clinical findings and urinalysis will be required. 4. There is moderate left hydroureteronephrosis, likely related to an obstructing lesion at the trigone. This is unchanged to slightly worsened from 06/30/2018. 5. There is evidence of multifocal mixed lytic/blastic osseous metastatic disease. This has progressed from 06/30/2018. 6. There are pulmonary nodules present at both lung bases measuring up to 10 mm. These are pathologically indeterminant but new from 07/12/2015. These are concerning for metastatic disease. 7. There are pathologically indeterminant subcentimeter retroperitoneal lymph nodes. 8. Cirrhotic liver morphology. 9. Moderate hiatal hernia. 10. Additional findings as above. Electronically signed by: Ceasar Cheung M.D. 12/24/2018 8:33 PM ECG Data Attestation: I personally reviewed and interpreted this ECG as follows: Indication: abdominal pain Rate (beats per minute): 84 Rhythm: normal sinus Findings: + other (Normal axis deviation; No ischemic changes); no PVC, no ST depression and no ST elevation Comparison ECG Date: from (07/10/2017) Blood Pressure Blood Pressure Findings: Elevated blood pressure Blood Pressure Disposition: further management by hospitalist NATALIE Richter Patient is a 58-year-old gentleman presenting via ambulance today with report of abdominal pain from [facility]. Patient has an unfortunate history of bladder cancer status post resection in September of this year as well as a history of hypothyroidism, CAD, asthma, and renal cancer. States he had a recent stent placement a bladder scraping on the fourth of this month. They have transient hematuria after that but then it stopped. This morning noted gross hematuria. Denies retention symptoms. Endorsing lower abdominal and pelvic pain. States he also has bone cancer in this area as well. His home oxycodone and Percocet are not helping with the pain. Follows closely at [facility] and saw oncology yesterday who plan to restart chemotherapy shortly. Has been off chemotherapy for a month. Laboratory studies show no significant leukocytosis and stable anemia. Renal function appears stable. Slight hyponatremia noted. LFTs slightly elevated without bilirubin elevation. No evidence of pancreatitis. Patient's urine has evidence of blood nitrate white and red cells. CT scan shows bladder masses and a right ureteral stent. Mild right hydronephrosis. Some urothelial thickening of the right pelvis questioning inflammation infection versus presence of the stent. No change in left hydronephrosis or lytic/blastic disease. Pulmonary nodules are noted. Given the positive urinalysis in the presence of stent I discussed this with urology at [facility]. Stated he would wait on urine culture and hold off on them back at this time. As the patient is not septic and has not had a fever in agreement. Discussed with the patient options. Given his poor pain control most of the pain medicine discussed with him admission here for further pain control. He was in agreement to stay for this. Impression & Plan Lower abdominal pain, Hematuria, Intractable pain Discharge Plan Visit Data *Final* Discharge Date/Time: 12/24/18 23:26 Chief Complaint: Abdominal Pain ED Provider: Reed Cobb Discharge Problem: Lower abdominal pain, Hematuria, Intractable pain Patient Disposition: Admitted As Inpatient Discharge Instructions Interventions: ED Discharge Assessment Last Done: 12/24/18 23:26 Discharge Problem: Hematuria Qualifiers: Hematuria type: other microscopic Qualified Code(s): R31.29 - Other microscopic hematuria The scribe's documentation has been prepared under my direction and personally reviewed by me in its entirety. I confirm that the note above accurately reflects all work, treatment, procedures, and medical decision making performed by me.
[2018-12-25] MEDS: OXYCODONE HCL 15 MG TABCR (OXYCONTIN) PO SCH ×3 (00:31→21:59)
[2018-12-25] MEDS: SODIUM CHLORIDE 0.9% 1000ML 1,000 ML IV SCH ×3 (00:38→22:50)
[2018-12-25 00:59] LABS: Hemoglobin 11.3 g/dL (14.0-18.0)
[2018-12-25] MEDS: OXYCODONE/ACETAMINOPHEN 5mg/325mg TAB PO PRN ×4 (02:48→20:09)
--- NOTE | 2018-12-25 02:57 | History and Physical Report ---
DATE OF ADMISSION: 12/24/2018 CHIEF COMPLAINT: Abdominal pain and hematuria. 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 The patient takes Percocet 2 tablets p.o. q. 4 hours p.r.n. and OxyContin for his chronic back pain and for his cancer pain. He recently saw palliative care and recommended to just take oxycodone IR instead of Percocet because of his elevated LFTs and also history of hep C, but the patient declined . He says the pain is under control with his home pain regimen, but today he woke up with hematuria and he has passed some clots and the pain got worse, his home pain medicine not helping, so he came here. In the ER, he received several doses of IV Dilaudid that calmed the pain down, but is coming back, so we are called to admit him for pain control. ER physician also spoke with the urologist timber poisoner from [facility]. His UA is positive. They recommended to follow the blood cultures. No antibiotics currently. Hemodynamics are stable. He has some mild headache, has some lightheadedness, no blurred vision, no earache, no runny nose, no sore throat, no difficulty swallowing. Appetite is okay. No cough, no fever, no chills, no chest pain, no shortness of breath, no nausea, was nauseous earlier, no vomiting. Severe pain in the lower abdomen. Still has hematuria. Denies any constipation or diarrhea, no blood in stools or black stools and also has some burning micturition, no swelling in the legs, no rash. Ambulates okay. ALLERGIES: PENICILLINS, MORPHINE, TORADOL. PAST MEDICAL HISTORY: As mentioned above. PAST SURGICAL HISTORY: Colonoscopy, cardiac catheterization, cystourethroscopy, with fulguration, right renal jugular port insertion, TURBT, thoracotomy. MEDICATIONS: Currently, the patient is on Tylenol 650 mg p.o. q. 4 hours p.r.n., aspirin 81 mg p.o. daily, Lipitor 40 mg p.o. q.p.m., Unasyn 200 mg p.o. q.6 p.r.n., hyoscyamine 0.125 mg p.o. q. 4 hours p.r.n., levothyroxine 100 mcg p.o. daily, Toprol-XL 12.5 mg p.o. daily, multivitamin 1 tablet daily, Zofran 4 mg p.o. q.i.d. p.r.n., OxyContin 30 mg p.o. q. 12 hours, Percocet 5/325 two tablets p.o. q. 4 hours p.r.n., Chloraseptic throat spray q. 8 hours p.r.n., MiraLAX 17 g p.o. daily, Viagra 50 mg p.o. daily p.r.n., nasal spray 2 sprays q. 2 hours p.r.n., Flomax 0.4 mg p.o. daily. FAMILY HISTORY: Significant for father had CAD, mother has CAD. SOCIAL HISTORY: Single, currently living in a residential. Smoked an average of 0.5 pack a day for 35 years. History of alcohol abuse. No drug use. REVIEW OF SYMPTOMS: As per HPI. Rest of the systems are negative. PHYSICAL EXAMINATION: GENERAL: The patient is of moderate build, not in acute distress. VITAL SIGNS: Temperature 36.5, pulse 85, respiratory rate 16, blood pressure 125/82, oxygen 94% room air. HEENT: No pallor, no icterus. Pupils equal, round, reactive to light. NECK: No JVD, no neck masses, no carotid bruits. CARDIOVASCULAR: S1, S2 heard, regular rate and rhythm, no murmur, no gallop. RESPIRATORY SYSTEM: Normal AP diameter. No thyromegaly, no wheezing, no crackles. ABDOMEN: Soft, bowel sounds present. Diffuse tenderness, no rebound tenderness. Mild guarding. No neck rigidity. No distention. CENTRAL NERVOUS SYSTEM: Alert and awake and oriented. Obeys commands. Moves extremities. EXTREMITIES: No edema, no erythema. LABORATORY DATA: WBC 6.4, hemoglobin 11.6, hematocrit 34.3, platelets 106. PT 10.9, INR 1.1, sodium 134, potassium 4.6, chloride 106, bicarbonate 25, BUN 26, creatinine 1.67, serum glucose 85, calcium 8.5, total bilirubin 0.4, AST 85, ALT 130, alkaline phosphatase 139,lipase 227. Urinalysis positive for leukocyte esterase and nitrite and 3+ positive for blood. CT of abdomen and pelvis shows there is large bladder mass, unchanged from 06/30/2018 consistent with bladder carcinoma, right ureteral stent in place and there is mid right-sided hydronephrosis, heterogeneous perfusion of the right kidney as well as urothelial thickening within the right renal pelvis and right ureter with surrounding inflammation. Also, this could be related to the presence of an indwelling stent. Findings are concerning for superimposed urinary tract infection, moderate left hydroureteronephrosis, likely related to an obstructing lesion in the trigone, this is unchanged to slightly worsened from 06/30/2018. There is evidence of multifocal mixed lytic blastic osseous metastatic disease. This has progressed from 06/30/2018. Pulmonary nodules present at both lung bases measuring up to 10 mm. These are pathological indeterminate, but new from 07/12/2015 this is concerning for metastatic disease. Pathological indeterminate subcentimeter retroperitoneal lymph nodes, cirrhotic liver morphology. ASSESSMENT AND PLAN: This is a 58-year-old male with metastatic bladder cancer, presents with hematuria and abdominal pain. 1. Abdominal pain and hematuria. The patient has chronic back pain from his injury and is on Percocet 2 tablets p.o. q. 4 hours p.r.n. and OxyContin 30 mg b.i.d., which generally controls his pain, but today he says he woke up with hematuria and clots and sense of belly pain. He says he still has hematuria, but his hemoglobin is stable He also has a history of drug-seeking behavior. CAT scan findings noted. ER physician talked to [facility] and they advised for follow the urine cultures. No antibiotics at this time. We are admitting for pain control. He was recently seen in the Palliative Care. Advised to stop Percocet as Tylenol can cause liver toxicity but patient declined. The patient says he has hepatology appointment at the end of the month and at that time if they recommends to stop Percocet,he will change it to Oxycodone IR. For now, to continue with Percocet. We will place him on IV Dilaudid p.r.n. Consult urology in a.m. We will keep him n.p.o. after midnight. 2. Hematuria: hematuria, but UA is also positive, but his hemoglobin is stable. Follow H&H. We will consult Urology. 3. Metastatic bladder cancer, getting chemo, follows with Hematology/Oncology and Urology and Radiation Oncology.pulmonary nodules. disease progression. await urology input. Consider Oncology consult. 4. Hypothyroidism: Continue Synthroid. 5. Hyperlipidemia: Continue statin. 6. History of coronary artery disease, status post stent more than a year ago. Continue his Lipitor and Toprol-XL. Hold his aspirin for now for his hematuria. Restart aspirin as possible. 7. Hepatitis C: Has an appointment with hepatology at the end of the month. Follow LFTs. 8. Deep venous thrombosis prophylaxis, sequential compression devices for now. DISPOSITION: Admit to med/surg tele. Level 1 full code. MTDD
[2018-12-25] MEDS: HYDROmorphone INJ 1 MG/ML SYRINGE IV PRN ×7 (03:30→22:49)
[2018-12-25] MEDS: LEVOTHYROXINE SODIUM 100 MCG TABLET PO SCH (06:05)
[2018-12-25 06:16] LABS: Basophils # (auto) 0.02 K/uL (0-0.2); Basophils % (auto) 0.4 %; Eosinophils # (auto) 0.44 K/uL (0-0.5); Eosinophils % (auto) 7.8 %; Hematocrit (blood only) 33.7 % (42-52); Immature Granulocytes # (auto) 0.01 K/uL (0.00-0.02); Immature Granulocytes % (auto) 0.2 %; Lymphocytes # (auto) 1.76 K/uL (1.2-3.4); Lymphocytes % (auto) 31.2 %; Mean Corpuscular Hemoglobin 27.9 pg (25-34); Mean Corpuscular Hgb Conc 32.6 g/dL (32-36); Mean Corpuscular Volume 85.5 fL (80-100); Mean Platelet Volume 9.5 fL (7.4-10.4); Monocytes # (auto) 0.58 K/uL (0.11-0.59); Monocytes % (auto) 10.3 %; Neutrophils # (auto) 2.84 K/uL (1.4-6.5); Neutrophils % (auto) 50.1 %; Platelet Count 102 K/uL (130-400); RDW Coefficient of Variation 13.5 % (11.5-14.5); RDW Standard Deviation 42.2 fL (36.4-46.3); Red Blood Count 3.94 M/uL (4.7-6.1); White Blood Count 5.65 K/uL (4.8-10.8)
[2018-12-25 06:42] LABS: BUN Creatinine Ratio 16.6 (10-20); Calcium 8.1 mg/dl (8.5-10.1); Creatinine Clr Calc Pharmacy 82.6 ml/min; Est GFR (African American) 75.7; Est GFR (Non-African American) 65.3; Magnesium 2.1 mg/dl (1.8-2.4); Potassium 4.3 mmol/L (3.5-5.1)
[2018-12-25] MEDS: MULTIVITAMIN TAB PO SCH (08:19)
[2018-12-25] MEDS: METOPROLOL SUCC 25MG EXT REL TAB PO SCH (08:19)
[2018-12-25] MEDS: HYOSCYAMINE SULFATE 0.125 MG TAB PO PRN (08:19)
[2018-12-25] MEDS: TAMSULOSIN HCL 0.4 MG CAP PO SCH (08:19)
[2018-12-25] MEDS: POLYETHYLENE (MIRALAX) 17 GM PACK PO SCH (08:21)
[2018-12-25] MEDS: HEPARIN 100 UNIT/ML 5ML FLUSH FLUSH PRN (09:35)
[2018-12-25 11:52] LABS: Hematocrit (blood only) 33.2 % (42-52); Hemoglobin 10.8 g/dL (14.0-18.0)
--- NOTE | 2018-12-25 12:54 | Hospitalist Progress Note ---
Date of Service December 25, 2018 Assessment & Plan (1) Hematuria: Admitted with hematuria since yesterday associated with pelvic and hypogastric pain Recent cystoscopy urethroscopy with fulguration in [place] The ER physician did consult with his urologist in [place] Still complains of hematuria Will monitor CBC , H&H and PRP UA suggestive of infection, antibiotic has not been started yet, await for culture and sensitivity Awaiting to be evaluated by local urologist (2) Bladder cancer metastasized to bone: Diagnosed to have metastatic bladder cancer Metastatic to bones and lung CT scan is showing a little progression of the disease We will continue with his outpatient pain medications He will require additional doses of pain medications in the hospital CT of the abdomen and pelvis: IMPRESSION: 1. There are large bladder masses as above. This is unchanged to increased in size from 06/30/2018 and consistent with bladder carcinoma. 2. A right ureteral stent is in place and there is mild right-sided hydronephr osis. 3. There is heterogeneous perfusion of the right kidney, as well as urothelial thickening within the right renal pelvis and the right ureter with surrounding inflammation. Although this could be related to the presence of an indwelling stent, the findings are concerning for superimposed urinary tract infection. Correlation with clinical findings and urinalysis will be required. 4. There is moderate left hydroureteronephrosis, likely related to an obstructing lesion at the trigone. This is unchanged to slightly worsened from 06/30/2018. 5. There is evidence of multifocal mixed lytic/blastic osseous metastatic disease. This has progressed from 06/30/2018. 6. There are pulmonary nodules present at both lung bases measuring up to 10 mm. These are pathologically indeterminant but new from 07/12/2015. These are concerning for metastatic disease. 7. There are pathologically indeterminant subcentimeter retroperitoneal lymph nodes. 8. Cirrhotic liver morphology. 9. Moderate hiatal hernia. 10. Additional findings as above. (3) Intractable pain: Secondary to bladder cancer with metastasis Likely to need additional doses of pain medication (4) Hypothyroidism: Continue supplement (5) Coronary artery disease: No acute pain (6) Asthma: Remains stable without any symptoms Subjective 12/25 The patient was seen and examined in medical floor He has been complaining of more pain in the pelvis and also hypogastrium He has stress for urinary bladder cancer and was admitted with hematuria with more pain in pelvis He denies any fever and/or chills or any other significant symptoms Hematuria has been persisting Review of Systems Review of Systems: All systems reviewed and are unremarkable except as noted below Genitourinary: + dysuria, + hematuria and + flank pain Musculoskeletal: + back pain Pain in the pelvis Physical Exam Physical Exam: Lying in bed with discomfort secondary to pelvic pain Constitutional: well developed, well nourished, + acute distress (Minimal distress due to pain in the pelvis and hypogastrium), + ill appearing and + obese Eyes: PERRL, conjunctivae normal, anicteric sclerae ENMT: external ear and nose normal, oropharynx normal Neck: trachea midline, no thyromegaly Respiratory: normal respiratory effort; no respiratory distress Auscultation: lungs clear to auscultation bilaterally Cardiovascular: Rate/Rhythm: regular rate and regular rhythm Heart Sounds: no murmur Gastrointestinal (Abdomen): Inspection/Auscultation: abdomen normal to inspection and normal bowel sounds Percussion/Palpation: abdomen soft Musculoskeletal: Pain in the pelvis Neurologic: moves all extremities; no focal motor deficits Lymphatic: no cervical or axillary lymphadenopathy Results & Data Vital Signs (Past 12 Hours) Vital Signs Temp Pulse Pulse Resp BP Pulse Ox 12/25/18 11:41 36.4 C L 58 L 16 106/68 97 12/25/18 07:43 36.6 C 62 16 119/72 98 12/25/18 07:21 70 12/25/18 03:41 36.5 C 69 18 115/76 96 12/25/18 02:00 74 Laboratory Results Short CBC 12/24/18 12/25/18 12/25/18 Range/Units 18:27 00:47 04:56 WBC 6.44 5.65 (4.8-10.8) K/uL Hgb 11.6 L 11.3 L 11.0 L (14.0-18.0) g/dL Hct 34.3 L 33.0 L 33.7 L (42-52) % Plt Count 106 L 102 L (130-400) K/uL 12/25/18 Range/Units 11:35 WBC (4.8-10.8) K/uL Hgb 10.8 L (14.0-18.0) g/dL Hct 33.2 L (42-52) % Plt Count (130-400) K/uL BMP 12/24/18 12/25/18 18:27 04:56 Sodium 134 L 137 Potassium 4.6 4.3 Chloride 106 108 H Carbon Dioxide 25 25 BUN 23 H 20 H Creatinine 1.37 1.20 Glucose 85 74 Calcium 8.5 8.1 L Liver Function 12/24/18 Range/Units 18:27 Total Bilirubin 0.4 (0.2-1) mg/dl AST 85 H (15-37) U/L ALT 130 H (12-78) U/L Alkaline Phosphatase 139 H (45-117) U/L Albumin 3.3 L (3.4-5.0) gm/dl Urine 12/24/18 Range/Units 18:27 Urine Color Brown Urine Appearance Turbid A (Clear) Urine pH 5.5 (4.5-7.5) Ur Specific [place] 1.015 (1.000-1.030) Urine Protein 2+ H (Negative) Urine Glucose (UA) Negative (Negative) Medications Administered Current Inpatient Medications Al Hydrox/Mg Hydrox/Simethicone (Maalox Max) 10 ml PO Q4 PRN PRN Reason: Heartburn Atorvastatin Calcium (Lipitor) 40 mg PO PM TRAV Stop: 01/24/19 20:59 Guaifenesin (Robitussin Sugar Free Syrup) 200 mg PO Q6H PRN PRN Reason: Cough Stop: 01/23/19 23:36 Heparin Sodium (Porcine) (Heparin Sod 100 Unit/Ml Flush) 5 ml FLUSH PRN PRN PRN Reason: Flush Stop: 01/24/19 00:44 Hydromorphone HCl (Dilaudid) 1 mg IV Q3H PRN PRN Reason: Pain Stop: 01/07/19 23:01 Last Admin: 12/25/18 12:28 Dose: 1 mg Documented by: Hyoscyamine (Levsin) 0.125 mg PO Q4 PRN PRN Reason: Bladder Spasms Stop: 01/23/19 23:36 Last Admin: 12/25/18 08:19 Dose: 0.125 mg Documented by: Sodium Chloride (Nss 1000ml) 1,000 mls @ 100 mls/hr IV .Q10H TRAV Stop: 01/23/19 23:36 Last Admin: 12/25/18 11:01 Dose: 100 mls/hr Documented by: Levothyroxine Sodium (Synthroid) 100 mcg PO DAILYBB [facility] Stop: 01/24/19 06:29 Last Admin: 12/25/18 06:05 Dose: 100 mcg Documented by: Metoprolol Succinate (Toprol Xl) 12.5 mg PO DAILY [facility] Stop: 01/24/19 08:59 Last Admin: 12/25/18 08:19 Dose: 12.5 mg Documented by: Multivitamins (Multivitamin Tab) 1 tab PO DAILY [facility] Stop: 01/24/19 08:59 Last Admin: 12/25/18 08:19 Dose: 1 tab Documented by: Nitroglycerin (Nitrostat) 0.4 mg SL UD PRN PRN Reason: Chest Pain Stop: 01/23/19 23:36 Ondansetron HCl (Zofran) 4 mg IV Q6H PRN PRN Reason: Nausea Stop: 01/23/19 23:36 Oxycodone HCl (Oxycontin) 30 mg PO Q12 [facility] Stop: 01/07/19 23:36 Last Admin: 12/25/18 08:18 Dose: 30 mg Documented by: Oxycodone/Acetaminophen (Percocet 5mg/325mg) 2 tab PO Q4 PRN PRN Reason: PAIN 8-10 Stop: 01/07/19 23:36 Last Admin: 12/25/18 08:24 Dose: 2 tab Documented by: Phenol (Chloraseptic 1.4% [place]) 2 sprays MT Q8 PRN PRN Reason: Sore Throat Stop: 01/23/19 23:36 Polyethylene Glycol (Miralax Powder Packet) 17 gm PO DAILY [facility] Stop: 01/24/19 08:59 Last Admin: 12/25/18 08:21 Dose: Not Given Documented by: Polyethylene Glycol (Miralax Powder Packet) 17 gm PO DAILY PRN PRN Reason: Constipation Stop: 01/23/19 23:36 Sodium Chloride ([place]ade Nasal) 2 sprays NA .Q2HRS PRN PRN Reason: Nasal Congestion Stop: 01/23/19 23:36 Tamsulosin HCl (Flomax) 0.4 mg PO DAILY [facility] Stop: 01/24/19 08:59 Last Admin: 12/25/18 08:19 Dose: 0.4 mg Documented by: (1) Hematuria Hematuria type: other microscopic Qualified Code(s): R31.29 - Other microscopic hematuria; R31.2 - Other microscopic hematuria
[2018-12-25 17:30] LABS: Hematocrit (blood only) 33.9 % (42-52); Hemoglobin 11.1 g/dL (14.0-18.0)
[2018-12-25] MEDS: ATORVASTATIN 40 MG TAB PO SCH (20:08)
[2018-12-25] MEDS ORDERED: Nursing to Pharmacy Communication ONE (22:21)
--- NOTE | 2018-12-25 23:51 | Urology Consultation ---
Date of Consultation December 25, 2018 Assessment & Plan (1) Bladder cancer metastasized to bone: Agree with recs of [place] urology. Wait for cultures to finalize. Broad spec abx in the meantime Palliative care Pain control No need for surgical intervention at this time (2) Lower abdominal pain: History of Present Illness Attending Physician: Ayan Fritz MD 58 y/o male with a complex past med hx including met urothelial ca. He presented to the ED with severe abd and pelvic pain. The ED staff discussed his case with Urology in [place] who rec admission and follow cultures. CT scan shows progression of disease with large bladder mass and stent. The patient reports abd pain, dysuria, hematuria, and intermit flank pain. Allergies Allergy/AdvReac Type Severity Reaction Status Date / Time morphine Allergy Severe ANAPHYLAXIS Verified 12/24/18 18:53 Penicillins Allergy Intermediate HIVES Verified 12/24/18 18:53 ketorolac [From Toradol] AdvReac Intermediate Unknown Verified 12/24/18 18:53 Home Medications Home Medications Medication Instructions Recorded Confirmed Type acetaminophen 650 mg PO Q4 PRN 12/24/18 12/24/18 History alum-mag hydroxide-simeth [Maalox 10 ml PO Q4 PRN 12/24/18 12/24/18 History Advanced] aspirin [Aspir-Low] 81 mg PO DAILY 12/24/18 12/24/18 History atorvastatin [Lipitor] 40 mg PO PM 12/24/18 12/24/18 History guaifenesin 200 mg PO Q6H PRN 12/24/18 12/24/18 History hyoscyamine sulfate 0.125 mg PO Q4 PRN 12/24/18 12/24/18 History levothyroxine 100 mcg PO DAILY 12/24/18 12/24/18 History metoprolol succinate 12.5 mg PO DAILY 12/24/18 12/24/18 History multivitamin 1 tab PO DAILY 12/24/18 12/24/18 History ondansetron HCl [Zofran] 4 mg PO QID PRN 12/24/18 12/24/18 History oxycodone [OxyContin] 30 mg PO Q12H 12/24/18 12/24/18 History oxycodone-acetaminophen [Percocet] 2 tab PO Q4 PRN 12/24/18 12/24/18 History phenol [Chloraseptic Throat Turin] 1.4 % MUCOUS MEMBRANE Q8 PRN 12/24/18 12/24/18 History polyethylene glycol 3350 [Miralax] 17 g PO DAILY 12/24/18 12/24/18 History sildenafil 50 mg PO DAILY PRN 12/24/18 12/24/18 History sodium chloride [Saline Nasal] 2 spray INTRANASAL .Q2HRS PRN 12/24/18 12/24/18 History tamsulosin [Flomax] 0.4 mg PO DAILY 12/24/18 12/24/18 History Patient History Medical History Hypothyroidism (08/31/12) Coronary artery disease (08/31/12) STENTS X 2 (1+ YEARS AGO) Asthma (08/31/12) Back pain Pulmonary nodule Bladder cancer Blindness of right eye Cancer of kidney Anemia CHRONIC; BASELINE HGB 8-9 RANGE PER CHART REVIEW BPH (benign prostatic hyperplasia) Hydroureter Hyperlipidemia Kidney stones Myocardial Infarction Surgical History History of transurethral destruction of bladder lesion S/P cholecystectomy S/P colonoscopy S/P hernia repair Social History Preferred Language: Hebrew Communication Ability: Effective 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 Beliefs That Will Affect Care: None Current Living Situation: Jail Current Living Situation Comment: [facility] Other Information That Helps Us Care for You: No Feels Safe at Home: Yes Safety Concerns: Feels Safe At This Time Smoking Status: Current some day smoker Tobacco Type: cigarettes ; Cigarettes Per Day: 0-2 ; Do You Dip or Chew Tobacco: No ; Second Hand Exposure: No ; Tobacco Cessation Education Requested by Patient: No Hx Alcohol Use: No Hx Substance Use: No Review of Systems Review of Systems: All systems reviewed & are unremarkable except as noted in HPI & below Physical Exam Constitutional: WD/WN, vitals as above Eyes: PERRL, conjunctivae normal, anicteric sclerae Cardiovascular: RRR, no murmur, no edema Gastrointestinal (Abdomen): Percussion/Palpation: + abdomen tender Skin: no rashes, warm and dry Psychiatric: A+Ox3, euthymic affect Lymphatic: no cervical or axillary lymphadenopathy Results & Data Vital Signs (Past 12 Hours) Vital Signs Temp Pulse Pulse Resp BP Pulse Ox 12/25/18 19:21 36.6 C 64 18 120/77 97 12/25/18 17:51 56 L 12/25/18 15:56 36.3 C L 57 L 16 103/66 96
[2018-12-26] MEDS: OXYCODONE/ACETAMINOPHEN 5mg/325mg TAB PO PRN ×6 (00:13→23:04)
[2018-12-26] MEDS: HYDROmorphone INJ 1 MG/ML SYRINGE IV PRN ×7 (02:05→20:53)
[2018-12-26] MEDS ORDERED: MICONAZOLE NITRATE POWDER 43 GM EXT PRN (02:52)
[2018-12-26] MEDS: LEVOTHYROXINE SODIUM 100 MCG TABLET PO SCH (05:53)
[2018-12-26 07:44] LABS: Hematocrit (blood only) 32.4 % (42-52); Hemoglobin 10.7 g/dL (14.0-18.0); Mean Corpuscular Volume 84.8 fL (80-100); RDW Coefficient of Variation 13.3 % (11.5-14.5); RDW Standard Deviation 40.9 fL (36.4-46.3); Red Blood Count 3.82 M/uL (4.7-6.1)
[2018-12-26 08:26] LABS: Calcium 8.3 mg/dl (8.5-10.1); Creatinine Clr Calc Pharmacy 87.1 ml/min; Est GFR (African American) 79.7; Est GFR (Non-African American) 68.8; Potassium 4.4 mmol/L (3.5-5.1)
[2018-12-26 08:37] LABS: Mean Platelet Volume 8.6 fL (7.4-10.4); Platelet Count 77 K/uL (130-400)
[2018-12-26 08:38] LABS: Basophils # (auto) 0.01 K/uL (0-0.2); Basophils % (auto) 0.2 %; Eosinophils # (auto) 0.44 K/uL (0-0.5); Eosinophils % (auto) 10.5 %; Immature Granulocytes # (auto) 0.01 K/uL (0.00-0.02); Immature Granulocytes % (auto) 0.2 %; Lymphocytes # (auto) 1.37 K/uL (1.2-3.4); Lymphocytes % (auto) 32.6 %; Monocytes # (auto) 0.34 K/uL (0.11-0.59); Monocytes % (auto) 8.1 %; Neutrophils # (auto) 2.03 K/uL (1.4-6.5); Neutrophils % (auto) 48.4 %; Platelet Estimate Decreased (Normal)
[2018-12-26] MEDS: SODIUM CHLORIDE 0.9% 1000ML 1,000 ML IV SCH ×2 (08:49→18:30)
[2018-12-26] MEDS: OXYCODONE HCL 15 MG TABCR (OXYCONTIN) PO SCH ×2 (08:49→20:58)
[2018-12-26] MEDS: MULTIVITAMIN TAB PO SCH (08:50)
[2018-12-26] MEDS: METOPROLOL SUCC 25MG EXT REL TAB PO SCH (08:50)
[2018-12-26] MEDS: TAMSULOSIN HCL 0.4 MG CAP PO SCH (08:50)
[2018-12-26] MEDS: POLYETHYLENE (MIRALAX) 17 GM PACK PO SCH (09:42)
--- NOTE | 2018-12-26 11:50 | Hospitalist Progress Note ---
Date of Service December 26, 2018 Assessment & Plan (1) Hematuria: Admitted with hematuria since yesterday associated with pelvic and hypogastric pain Recent cystoscopy urethroscopy with fulguration in [place] The ER physician did consult with his urologist in [place] Still complains of hematuria Will monitor CBC , H&H and PRP UA suggestive of infection, antibiotic has not been started yet, await for culture and sensitivity Awaiting to be evaluated by local urologist-appreciate input and recommendation No procedure needed Hematuria has been improving (2) Bladder cancer metastasized to bone: Diagnosed to have metastatic bladder cancer Metastatic to bones and lung CT scan is showing a little progression of the disease We will continue with his outpatient pain medications He will require additional doses of pain medications in the hospital We will get palliative care consult tomorrow for further management of his bladder cancer CT of the abdomen and pelvis: IMPRESSION: 1. There are large bladder masses as above. This is unchanged to increased in size from 06/30/2018 and consistent with bladder carcinoma. 2. A right ureteral stent is in place and there is mild right-sided hydronephrosis. 3. There is heterogeneous perfusion of the right kidney, as well as urothelial thickening within the right renal pelvis and the right ureter with surrounding inflammation. Although this could be related to the presence of an indwelling stent, the findings are concerning for superimposed urinary tract infection. Correlation with clinical findings and urinalysis will be required. 4. There is moderate left hydroureteronephrosis, likely related to an obstructing lesion at the trigone. This is unchanged to slightly worsened from 06/30/2018. 5. There is evidence of multifocal mixed lytic/blastic osseous metastatic dise ase. This has progressed from 06/30/2018. 6. There are pulmonary nodules present at both lung bases measuring up to 10 mm. These are pathologically indeterminant but new from 07/12/2015. These are concer crissy for metastatic disease. 7. There are pathologically indeterminant subcentimeter retroperitoneal lymph nodes. 8. Cirrhotic liver morphology. 9. Moderate hiatal hernia. 10. Additional findings as above. (3) Intractable pain: Secondary to bladder cancer with metastasis Likely to need additional doses of pain medication We will continue with his usual pain medications Advised to ambulate more (4) Hypothyroidism: Continue supplement (5) Coronary artery disease: No acute pain (6) Asthma: Remains stable without any symptoms Likely discharge tomorrow Subjective 12/25 The patient was seen and examined in medical floor He has been complaining of more pain in the pelvis and also hypogastrium He has stress for urinary bladder cancer and was admitted with hematuria with more pain in pelvis He denies any fever and/or chills or any other significant symptoms Hematuria has been persisting 12/26 The patient was seen and examined in medical telemetry unit He has been complaining of a lot of pain in the pelvis and hypogastrium as before His hematuria seems to be improving Will ask for a palliative care consult Review of Systems Review of Systems: All systems reviewed and are unremarkable except as noted below Genitourinary: + dysuria, + hematuria and + flank pain Musculoskeletal: + back pain Pain in the pelvis Physical Exam Physical Exam: Lying in bed with some discomfort due to pain Constitutional: well developed, well nourished, + acute distress (Minimal distress due to pain in the pelvis and hypogastrium), + ill appearing and + obese Eyes: PERRL, conjunctivae normal, anicteric sclerae ENMT: external ear and nose normal, oropharynx normal Neck: trachea midline, no thyromegaly Respiratory: normal respiratory effort; no respiratory distress Auscultation: lungs clear to auscultation bilaterally Cardiovascular: Rate/Rhythm: regular rate and regular rhythm Heart Sounds: no murmur Gastrointestinal (Abdomen): Inspection/Auscultation: abdomen normal to inspection and normal bowel sounds Percussion/Palpation: abdomen soft Musculoskeletal: No acute arthritis involving any joint but has pain in the pelvis secondary to metastasis Neurologic: moves all extremities; no focal motor deficits Lymphatic: no cervical or axillary lymphadenopathy Results & Data Vital Signs (Past 12 Hours) Vital Signs Temp Pulse Pulse Resp BP Pulse Ox 12/26/18 07:53 36.4 C L 62 16 134/76 96 12/26/18 07:24 66 12/26/18 03:58 36.7 C 61 18 127/75 93 12/26/18 00:00 36.9 C 66 18 113/76 94 Laboratory Results Short CBC 12/25/18 12/25/18 12/26/18 Range/Units 11:35 17:19 07:31 WBC 4.20 L (4.8-10.8) K/uL Hgb 10.8 L 11.1 L 10.7 L (14.0-18.0) g/dL Hct 33.2 L 33.9 L 32.4 L (42-52) % Plt Count 77 L (130-400) K/uL BMP 12/26/18 07:31 Sodium 139 Potassium 4.4 Chloride 111 H Carbon Dioxide 25 BUN 20 H Creatinine 1.15 Glucose 109 H Calcium 8.3 L Medications Administered Current Inpatient Medications Al Hydrox/Mg Hydrox/Simethicone (Maalox Max) 10 ml PO Q4 PRN PRN Reason: Heartburn Atorvastatin Calcium (Lipitor) 40 mg PO PM TRAV Stop: 01/24/19 20:59 Last Admin: 12/25/18 20:08 Dose: 40 mg Documented by: Guaifenesin (Robitussin Sugar Free Syrup) 200 mg PO Q6H PRN PRN Reason: Cough Stop: 01/23/19 23:36 Heparin Sodium (Porcine) (Heparin Sod 100 Unit/Ml Flush) 5 ml FLUSH PRN PRN PRN Reason: Flush Stop: 01/24/19 00:44 Hydromorphone HCl (Dilaudid) 1 mg IV Q3H PRN PRN Reason: Pain Stop: 01/07/19 23:01 Last Admin: 12/26/18 08:52 Dose: 1 mg Documented by: Hyoscyamine (Levsin) 0.125 mg PO Q4 PRN PRN Reason: Bladder Spasms Stop: 01/23/19 23:36 Last Admin: 12/25/18 08:19 Dose: 0.125 mg Documented by: Sodium Chloride (Nss 1000ml) 1,000 mls @ 100 mls/hr IV .Q10H TRAV Stop: 01/23/19 23:36 Last Admin: 12/26/18 08:49 Dose: 100 mls/hr Documented by: Levothyroxine Sodium (Synthroid) 100 mcg PO DAILYBB TRAV Stop: 01/24/19 06:29 Last Admin: 12/26/18 05:53 Dose: 100 mcg Documented by: Metoprolol Succinate (Toprol Xl) 12.5 mg PO DAILY TRAV Stop: 01/24/19 08:59 Last Admin: 12/26/18 08:50 Dose: 12.5 mg Documented by: Miconazole Nitrate (Desenex) 1 appln EXT PRN PRN PRN Reason: Affected Skin Folds Stop: 01/25/19 02:51 Multivitamins (Multivitamin Tab) 1 tab PO DAILY [facility] Stop: 01/24/19 08:59 Last Admin: 12/26/18 08:50 Dose: 1 tab Documented by: Nitroglycerin (Nitrostat) 0.4 mg SL UD PRN PRN Reason: Chest Pain Stop: 01/23/19 23:36 Ondansetron HCl (Zofran) 4 mg IV Q6H PRN PRN Reason: Nausea Stop: 01/23/19 23:36 Oxycodone HCl (Oxycontin) 30 mg PO Q12 TRAV Stop: 01/07/19 23:36 Last Admin: 12/26/18 08:49 Dose: 30 mg Documented by: Oxycodone/Acetaminophen (Percocet 5mg/325mg) 2 tab PO Q4 PRN PRN Reason: PAIN 8-10 Stop: 01/07/19 23:36 Last Admin: 12/26/18 10:26 Dose: 2 tab Documented by: Phenol (Chloraseptic 1.4% Nelson) 2 sprays MT Q8 PRN PRN Reason: Sore Throat Stop: 01/23/19 23:36 Polyethylene Glycol (Miralax Powder Packet) 17 gm PO DAILY TRAV Stop: 01/24/19 08:59 Last Admin: 12/26/18 09:42 Dose: Not Given Documented by: Polyethylene Glycol (Miralax Powder Packet) 17 gm PO DAILY PRN PRN Reason: Constipation Stop: 01/23/19 23:36 Last Admin: 12/25/18 20:20 Dose: 17 gm Documented by: Sodium Chloride ([place] Nasal) 2 sprays NA .Q2HRS PRN PRN Reason: Nasal Congestion Stop: 01/23/19 23:36 Tamsulosin HCl (Flomax) 0.4 mg PO DAILY TRAV Stop: 01/24/19 08:59 Last Admin: 12/26/18 08:50 Dose: 0.4 mg Documented by: (1) Hematuria Hematuria type: other microscopic Qualified Code(s): R31.29 - Other microscopic hematuria; R31.2 - Other microscopic hematuria
[2018-12-26] MEDS: ATORVASTATIN 40 MG TAB PO SCH (20:54)
[2018-12-27] MEDS: HYDROmorphone INJ 1 MG/ML SYRINGE IV PRN ×7 (03:14→20:51)
[2018-12-27] MEDS: OXYCODONE/ACETAMINOPHEN 5mg/325mg TAB PO PRN ×4 (04:24→22:01)
[2018-12-27] MEDS: SODIUM CHLORIDE 0.9% 1000ML 1,000 ML IV SCH ×2 (04:27→17:06)
[2018-12-27] MEDS ORDERED: HYDROmorphone INJ 0.5 MG/0.5 ML SYR IV STA (04:41)
[2018-12-27] MEDS: HYOSCYAMINE SULFATE 0.125 MG TAB PO PRN (04:56)
[2018-12-27] MEDS: LEVOTHYROXINE SODIUM 100 MCG TABLET PO SCH (05:50)
[2018-12-27 06:37] LABS: Hematocrit (blood only) 33.7 % (42-52); Hemoglobin 10.9 g/dL (14.0-18.0); Mean Corpuscular Hemoglobin 27.9 pg (25-34); Mean Corpuscular Hgb Conc 32.3 g/dL (32-36); Mean Corpuscular Volume 86.4 fL (80-100); RDW Coefficient of Variation 13.6 % (11.5-14.5); RDW Standard Deviation 42.8 fL (36.4-46.3); White Blood Count 4.72 K/uL (4.8-10.8)
[2018-12-27 06:39] LABS: Mean Platelet Volume 9.3 fL (7.4-10.4); Platelet Count 88 K/uL (130-400)
[2018-12-27 07:14] LABS: BUN Creatinine Ratio 14.2 (10-20); Calcium 8.1 mg/dl (8.5-10.1); Creatinine Clr Calc Pharmacy 78.9 ml/min; Est GFR (African American) 70.7; Potassium 4.9 mmol/L (3.5-5.1)
[2018-12-27 07:25] LABS: Basophils # (auto) 0.02 K/uL (0-0.2); Basophils % (auto) 0.4 %; Eosinophils # (auto) 0.44 K/uL (0-0.5); Eosinophils % (auto) 9.3 %; Immature Granulocytes # (auto) 0.01 K/uL (0.00-0.02); Immature Granulocytes % (auto) 0.2 %; Lymphocytes # (auto) 1.49 K/uL (1.2-3.4); Lymphocytes % (auto) 31.6 %; Monocytes # (auto) 0.49 K/uL (0.11-0.59); Monocytes % (auto) 10.4 %; Neutrophils # (auto) 2.27 K/uL (1.4-6.5); Neutrophils % (auto) 48.1 %; Toxic Granulation 1+
[2018-12-27] MEDS: POLYETHYLENE (MIRALAX) 17 GM PACK PO SCH (09:37)
[2018-12-27] MEDS: TAMSULOSIN HCL 0.4 MG CAP PO SCH (09:37)
[2018-12-27] MEDS: OXYCODONE HCL 15 MG TABCR (OXYCONTIN) PO SCH ×3 (09:37→20:57)
[2018-12-27] MEDS: MULTIVITAMIN TAB PO SCH (09:37)
[2018-12-27] MEDS: METOPROLOL SUCC 25MG EXT REL TAB PO SCH (09:38)
--- NOTE | 2018-12-27 10:19 | Palliative Care Consultation ---
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 Patient has somewhat recently-diagnosed TCC with osseous lesions of both acetabulums and pelvic ring. He is seen and followed apparently by [facility] in [place]. Patient has positive UA. Urology has been consulted here, and patient's physician in [place] was consulted unofficially, regarding treatment plan-- hold off on abx for now and follow cultures. Hospitalist is managing. Palliative care consulted for "further management of bladder cancer." -Met with patient in room 276-1. He is somewhat drowsy as he just had Dilaudid administered as well as PRN Percocet 10mg/650. Oriented x4. Patient has been living at the [facility] for about a year, apparently due to his severe back pain and debilitation. patient reports being "completely independent," and wants to eventually go back home with his fiance. Patient has children who are not involved much in his care. -I have no records from [facility] to know what the status of his bladder cancer is. Do not know what the plans are, but patient states he plans to undergo further chemo and XRT. Patient wants to continue with treatment, but did acknowledge that "this is stage IV and there is no cure." -Patient states his pain has not been managed with his regimen at the [facility] which is: Oxycontin 30mg PO BID, Percocet 10/650 Q4h PRN breakthrough. Patient states his pubic/pelvic pain is 10+/10 at its worst, is "stabbing." Also has pain in "both hips," that is 10+/10 at its worst as well. patient states the Oxycontin BID is tolerated well, but he continues to have ongoing breakthrough pain. After PRN dose of Percocet, pain reduces to 3/10 at times. Patient states a 5/10 is an acceptable pain level for him. -Patient has been receiving Dilaudid 1mg IV Q3h PRN and is pretty much taking it on the dot when he is able to receive it. He had 8 doses in 24 hours. Also had 5 doses of percocet in 8 hours. The chart notes concern of drug-seeking behavior. Patient has been in [facility] for about a year, so his narcotic use is currently under management. -Given that patient's pain is somewhat controlled with the Oxycontin and Percocet, but he just feels it doesn't last long enough, will increase the Oxycontin to 30mg TID scheduled. -Continue Percocet 10/650 Q4h PRN breakthrough pain. Per record, patient was seen by "palliative care and recommended to use Oxycodone IR instead of Percocet to decrease apap use, but patient refused." Patient stated to me that he has never seen palliative care. -Would recommend decreasing Dilaudid to 0.5mg IV Q4h PRN after 2pm when Oxycontin dose is administered. Discussed with patient needing to back off of IV Dilaudid to ensure he can be managed with PO medications. -Patient states to me that he prefers to do all of his doctoring at [facility]. If patient wishes to follow with palliative care team, would refer him to [facility]'s team. -Patient has documented aggressive behavior at SNF, would not order Decadron. (2) Bladder cancer metastasized to bone: (3) Intractable pain: (4) Hematuria: Hematuria type: other microscopic Qualified Code(s): R31.29 - Other microscopic hematuria; R31.2 - Other microscopic hematuria Supervising Physician Co-Signing Physician Notes Chart reviewed, patient seen and examined, collaborated with JOEY Lauren Patient seen and examined briefly, PT was at bedside. Collaborated with Chapis Campos regarding increasing his OxyContin to every 8 hours, will monitor his PRN Dilaudid/Percocet use. Agree with not starting Decadron for bone pain as the patient already has anger and behavioral issues as mentioned in his significant records. PE: Patient awake and alert, no acute distress, moving around in bed easily without facial grimace HEENT: EOMI, hearing within normal limits Respiratory: Unlabored CV: Appears well perfused, appears to tolerate with low heart rate -heart rate drops into the high 50s Abdomen: Not distended Neuro: Alert and oriented Agree with above note, assessment and plan as per JOEY Lauren. Patient prefers to have his physician visits in [place]-we will have [place] oncology refer to the [place] palliative clinic. 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 Patient has somewhat recently-diagnosed TCC with osseous lesions of both acetabulums and pelvic ring. He is seen and followed apparently by [facility] in [place]. Patient has positive UA. Urology has been consulted here, and patient's physician in [place] was consulted unofficially, regarding treatment plan-- hold off on abx for now and follow cultures. Hospitalist is managing. Palliative care consulted for "further management of bladder cancer." Thank you kindly for this consult. Palliative care team will follow as needed. Allergies Allergy/AdvReac Type Severity Reaction Status Date / Time morphine Allergy Severe ANAPHYLAXIS Verified 12/24/18 18:53 Penicillins Allergy Intermediate HIVES Verified 12/24/18 18:53 ketorolac [From Toradol] AdvReac Intermediate Unknown Verified 12/24/18 18:53 Home Medications Home Medications Medication Instructions Recorded Confirmed Type acetaminophen 650 mg PO Q4 PRN 12/24/18 12/24/18 History alum-mag hydroxide-simeth [Maalox 10 ml PO Q4 PRN 12/24/18 12/24/18 History Advanced] aspirin [Aspir-Low] 81 mg PO DAILY 12/24/18 12/24/18 History atorvastatin [Lipitor] 40 mg PO PM 12/24/18 12/24/18 History guaifenesin 200 mg PO Q6H PRN 12/24/18 12/24/18 History hyoscyamine sulfate 0.125 mg PO Q4 PRN 12/24/18 12/24/18 History levothyroxine 100 mcg PO DAILY 12/24/18 12/24/18 History metoprolol succinate 12.5 mg PO DAILY 12/24/18 12/24/18 History multivitamin 1 tab PO DAILY 12/24/18 12/24/18 History ondansetron HCl [Zofran] 4 mg PO QID PRN 12/24/18 12/24/18 History oxycodone [OxyContin] 30 mg PO Q12H 12/24/18 12/24/18 History oxycodone-acetaminophen [Percocet] 2 tab PO Q4 PRN 12/24/18 12/24/18 History phenol [Chloraseptic Throat [place]] 1.4 % MUCOUS MEMBRANE Q8 PRN 12/24/18 12/24/18 History polyethylene glycol 3350 [Miralax] 17 g PO DAILY 12/24/18 12/24/18 History sildenafil 50 mg PO DAILY PRN 12/24/18 12/24/18 History sodium chloride [[place] Nasal] 2 spray INTRANASAL .Q2HRS PRN 12/24/18 12/24/18 History tamsulosin [Flomax] 0.4 mg PO DAILY 12/24/18 12/24/18 History Patient History Medical History Hypothyroidism (08/31/12) Coronary artery disease (08/31/12) STENTS X 2 (1+ YEARS AGO) Asthma (08/31/12) Back pain Pulmonary nodule Bladder cancer Blindness of right eye Cancer of kidney Anemia CHRONIC; BASELINE HGB 8-9 RANGE PER CHART REVIEW BPH (benign prostatic hyperplasia) Hydroureter Hyperlipidemia Kidney stones Myocardial Infarction Surgical History History of transurethral destruction of bladder lesion S/P cholecystectomy S/P colonoscopy S/P hernia repair Social History Preferred Language: Martiniquais Communication Ability: Effective 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: No Beliefs That Will Affect Care: None Current Living Situation: [facility] Current Living Situation Comment: [facility] Other Information That Helps Us Care for You: No Feels Safe at Home: Yes Safety Concerns: Feels Safe At This Time Smoking Status: Current some day smoker Tobacco Type: cigarettes ; Cigarettes Per Day: 0-2 ; Do You Dip or Chew Tobacco: No ; Second Hand Exposure: No ; Tobacco Cessation Education Requested by Patient: No Hx Alcohol Use: No Hx Substance Use: No Review of Systems Review of Systems: Const: No weakness, fever, chills ENMT: No dysphagia Resp: No SOB, no cough Cardio: No chest pain, no edema GI: No abdominal pain, no N/V MS: +6/10 in BL hips Neuro: No confusion Psych: No anxiety Physical Exam Constitutional: well developed and well nourished; no acute distress Eyes: PERRL (pinpoint pupils) ENMT: external ear and nose normal, oropharynx normal Respiratory: normal respiratory effort, lungs clear to auscultation Cardiovascular: RRR, no murmur, no edema Gastrointestinal (Abdomen): Inspection/Auscultation: normal bowel sounds Percussion/Palpation: + abdomen tender (mild) and abdomen soft Neurologic: moves all extremities and awake Psychiatric: A+Ox3, euthymic affect Results & Data Vital Signs (Past 12 Hours) Vital Signs Temp Pulse Pulse Resp BP Pulse Ox 12/27/18 09:40 57 L 12/27/18 07:33 36.4 C L 60 20 122/78 95 12/27/18 04:31 36.3 C L 74 20 113/84 96 Time Spent Midlevel 70 minutes with >50% of the time spent at bedside with patient discussing POC and pain management.
--- NOTE | 2018-12-27 11:55 | Hospitalist Progress Note ---
Date of Service December 27, 2018 Assessment & Plan (1) Hematuria: Admitted with hematuria since yesterday associated with pelvic and hypogastric pain Recent cystoscopy urethroscopy with fulguration in [place] The ER physician did consult with his urologist in [place] Still complains of hematuria Will monitor CBC , H&H and PRP UA suggestive of infection, antibiotic has not been started yet, await for culture and sensitivity Awaiting to be evaluated by local urologist-appreciate input and recommendation No procedure needed Hematuria stopped Hemoglobin is maintained and the patient will be going home this afternoon (2) Bladder cancer metastasized to bone: Diagnosed to have metastatic bladder cancer Metastatic to bones and lung CT scan is showing a little progression of the disease We will continue with his outpatient pain medications He will require additional doses of pain medications in the hospital We will get palliative care consult tomorrow for further management of his bladder cancer Appreciate palliative care input and recommendation CT of the abdomen and pelvis: IMPRESSION: 1. There are large bladder masses as above. This is unchanged to increased in size from 06/30/2018 and consistent with bladder carcinoma. 2. A right ureteral stent is in place and there is mild right-sided hydronephrosis. 3. There is heterogeneous perfusion of the right kidney, as well as urothelial thickening within the right renal pelvis and the right ureter with surrounding inflammation. Although this could be related to the presence of an indwelling stent, the findings are concerning for superimposed urinary tract infection. Correlation with clinical findings and urinalysis will be required. 4. There is moderate left hydroureteronephrosis, likely related to an obstructing lesion at the trigone. This is unchanged to slightly worsened from 06/30/2018. 5. There is evidence of multifocal mixed lytic/blastic osseous metastatic disease. This has progressed from 06/30/2018. 6. There are pulmonary nodules present at both lung bases measuring up to 10 mm. These are pathologically indeterminant but new from 07/12/2015. These are concerning for metastatic disease. 7. There are pathologically indeterminant subcentimeter retroperitoneal lymph nodes. 8. Cirrhotic liver morphology. 9. Moderate hiatal hernia. 10. Additional findings as above. (3) Intractable pain: Secondary to bladder cancer with metastasis Likely to need additional doses of pain medication We will continue with his usual pain medications Advised to ambulate more Pain is reasonably controlled with current dose of narcotics Will not provide any additional dose or any increase of the dose at discharge from this hospital Likely be discharged this afternoon Advised to keep appointment with his urologist in [place] (4) Hypothyroidism: Continue supplement (5) Coronary artery disease: No acute pain (6) Asthma: Remains stable without any symptoms Likely discharge tomorrow Subjective 12/25 The patient was seen and examined in medical floor He has been complaining of more pain in the pelvis and also hypogastrium He has stress for urinary bladder cancer and was admitted with hematuria with more pain in pelvis He denies any fever and/or chills or any other significant symptoms Hematuria has been persisting 12/26 The patient was seen and examined in medical telemetry unit He has been complaining of a lot of pain in the pelvis and hypogastrium as before His hematuria seems to be improving Will ask for a palliative care consult 12/27 The patient was seen and examined in medical floor Complains to have increasing pain in the pelvis but his hematuria is completely resolved Has been ambulating with some difficulty Denies any other symptoms except pain Review of Systems Review of Systems: All systems reviewed and are unremarkable except as noted below Genitourinary: + dysuria and + flank pain; no hematuria Musculoskeletal: + back pain Pain in the pelvis Physical Exam Physical Exam: Lying in bed with some discomfort and generalized weakness Constitutional: well developed, well nourished, + acute distress (Minimal distress due to pain in the pelvis and hypogastrium), + ill appearing and + obese Eyes: PERRL, conjunctivae normal, anicteric sclerae ENMT: external ear and nose normal, oropharynx normal Neck: trachea midline, no thyromegaly Respiratory: normal respiratory effort; no respiratory distress Auscultation: lungs clear to auscultation bilaterally Cardiovascular: Rate/Rhythm: regular rate and regular rhythm Heart Sounds: no murmur Gastrointestinal (Abdomen): Inspection/Auscultation: abdomen normal to inspection and normal bowel sounds Percussion/Palpation: abdomen soft Neurologic: moves all extremities; no focal motor deficits Lymphatic: no cervical or axillary lymphadenopathy Results & Data Vital Signs (Past 12 Hours) Vital Signs Temp Pulse Pulse Pulse Resp BP Pulse Ox 12/27/18 11:48 36.4 C L 58 L 20 128/82 96 12/27/18 09:40 57 L 12/27/18 08:00 60 12/27/18 07:33 36.4 C L 60 20 122/78 95 12/27/18 04:31 36.3 C L 74 20 113/84 96 Laboratory Results Short CBC 12/27/18 Range/Units 06:02 WBC 4.72 L (4.8-10.8) K/uL Hgb 10.9 L (14.0-18.0) g/dL Hct 33.7 L (42-52) % Plt Count 88 L (130-400) K/uL BMP 12/27/18 06:02 Sodium 139 Potassium 4.9 Chloride 110 H Carbon Dioxide 26 BUN 18 Creatinine 1.27 Glucose 83 Calcium 8.1 L Medications Administered Current Inpatient Medications Al Hydrox/Mg Hydrox/Simethicone (Maalox Max) 10 ml PO Q4 PRN PRN Reason: Heartburn Atorvastatin Calcium (Lipitor) 40 mg PO PM TRAV Stop: 01/24/19 20:59 Last Admin: 12/26/18 20:54 Dose: 40 mg Documented by: Guaifenesin (Robitussin Sugar Free Syrup) 200 mg PO Q6H PRN PRN Reason: Cough Stop: 01/23/19 23:36 Heparin Sodium (Porcine) (Heparin Sod 100 Unit/Ml Flush) 5 ml FLUSH PRN PRN PRN Reason: Flush Stop: 01/24/19 00:44 Hydromorphone HCl (Dilaudid) 1 mg IV Q3H PRN PRN Reason: Pain Stop: 01/07/19 23:01 Last Admin: 12/27/18 09:28 Dose: 1 mg Documented by: Hyoscyamine (Levsin) 0.125 mg PO Q4 PRN PRN Reason: Bladder Spasms Stop: 01/23/19 23:36 Last Admin: 12/27/18 04:56 Dose: 0.125 mg Documented by: Sodium Chloride (Nss 1000ml) 1,000 mls @ 100 mls/hr IV .Q10H TRAV Stop: 01/23/19 23:36 Last Admin: 12/27/18 04:27 Dose: 100 mls/hr Documented by: Levothyroxine Sodium (Synthroid) 100 mcg PO DAILYBB TRAV Stop: 01/24/19 06:29 Last Admin: 12/27/18 05:50 Dose: 100 mcg Documented by: Metoprolol Succinate (Toprol Xl) 12.5 mg PO DAILY TRAV Stop: 01/24/19 08:59 Last Admin: 12/27/18 09:38 Dose: Not Given Documented by: Miconazole Nitrate (Desenex) 1 appln EXT PRN PRN PRN Reason: Affected Skin Folds Stop: 01/25/19 02:51 Multivitamins (Multivitamin Tab) 1 tab PO DAILY [facility] Stop: 01/24/19 08:59 Last Admin: 12/27/18 09:37 Dose: 1 tab Documented by: Nitroglycerin (Nitrostat) 0.4 mg SL UD PRN PRN Reason: Chest Pain Stop: 01/23/19 23:36 Ondansetron HCl (Zofran) 4 mg IV Q6H PRN PRN Reason: Nausea Stop: 01/23/19 23:36 Oxycodone HCl (Oxycontin) 30 mg PO TID [facility] Stop: 01/10/19 13:59 Oxycodone/Acetaminophen (Percocet 5mg/325mg) 2 tab PO Q4 PRN PRN Reason: PAIN 8-10 Stop: 01/07/19 23:36 Last Admin: 12/27/18 10:38 Dose: 2 tab Documented by: Phenol (Chloraseptic 1.4% [place]) 2 sprays MT Q8 PRN PRN Reason: Sore Throat Stop: 01/23/19 23:36 Polyethylene Glycol (Miralax Powder Packet) 17 gm PO DAILY [facility] Stop: 01/24/19 08:59 Last Admin: 12/27/18 09:37 Dose: 17 gm Documented by: Polyethylene Glycol (Miralax Powder Packet) 17 gm PO DAILY PRN PRN Reason: Constipation Stop: 01/23/19 23:36 Last Admin: 12/25/18 20:20 Dose: 17 gm Documented by: Sodium Chloride ([place] Nasal) 2 sprays NA .Q2HRS PRN PRN Reason: Nasal Congestion Stop: 01/23/19 23:36 Tamsulosin HCl (Flomax) 0.4 mg PO DAILY [facility] Stop: 01/24/19 08:59 Last Admin: 12/27/18 09:37 Dose: 0.4 mg Documented by: (1) Hematuria Hematuria type: other microscopic Qualified Code(s): R31.29 - Other microscopic hematuria; R31.2 - Other microscopic hematuria
[2018-12-27] MEDS: HEPARIN 100 UNIT/ML 5ML FLUSH FLUSH PRN (15:32)
--- NOTE | 2018-12-27 17:53 | Urology Progress Note ---
Date of Service December 27, 2018 Assessment & Plan (1) Bladder cancer metastasized to bone: hematuria spontaneously resolved. Urine growing staph. Looks sensitive to macrobid. His most recent episode of gross hematuria thankfully did not make him anemic. continue care at [facility]. will sing off. Present on Admission?: Yes Subjective Patient sitting up at bedside. He is alert and awake. has filled the bedside urinal half way with yellow urine, no blood no clots. No difficulty passing urine. Pain control improved and he is not overly sedated. Review of Systems Review of Systems: no fever no chills, no shortness of breath. No pain at present, no chest pain. Physical Exam Constitutional: well developed, + well hydrated, average body habitus, well groomed, cooperative and comfortable; no acute distress Psychiatric: A+Ox3, euthymic affect Results & Data Vital Signs (Past 12 Hours) Vital Signs Temp Pulse Pulse Pulse Resp BP Pulse Ox 12/27/18 15:55 36.5 C 67 19 134/83 96 12/27/18 11:48 36.4 C L 58 L 20 128/82 96 12/27/18 09:40 57 L 12/27/18 08:00 60 12/27/18 07:33 36.4 C L 60 20 122/78 95
[2018-12-27] MEDS: ATORVASTATIN 40 MG TAB PO SCH (20:53)
[2018-12-28] MEDS: HYDROmorphone INJ 1 MG/ML SYRINGE IV PRN ×3 (00:44→09:53)
[2018-12-28] MEDS: OXYCODONE/ACETAMINOPHEN 5mg/325mg TAB PO PRN ×3 (02:01→10:54)
[2018-12-28] MEDS: SODIUM CHLORIDE 0.9% 1000ML 1,000 ML IV SCH ×2 (03:14→10:58)
[2018-12-28] MEDS: LEVOTHYROXINE SODIUM 100 MCG TABLET PO SCH (05:56)
[2018-12-28] MEDS: POLYETHYLENE (MIRALAX) 17 GM PACK PO SCH (08:02)
[2018-12-28] MEDS: MULTIVITAMIN TAB PO SCH (08:02)
[2018-12-28] MEDS: METOPROLOL SUCC 25MG EXT REL TAB PO SCH (08:02)
[2018-12-28] MEDS: TAMSULOSIN HCL 0.4 MG CAP PO SCH (08:03)
[2018-12-28] MEDS: OXYCODONE HCL 15 MG TABCR (OXYCONTIN) PO SCH (08:09)
--- NOTE | 2018-12-28 09:59 | Hospitalist Progress Note ---
Date of Service December 28, 2018 Assessment & Plan (1) Hematuria: Admitted with hematuria since yesterday associated with pelvic and hypogastric pain Recent cystoscopy urethroscopy with fulguration in [place] The ER physician did consult with his urologist in [place] Still complains of hematuria Will monitor CBC , H&H and PRP UA suggestive of infection, antibiotic has not been started yet, await for culture and sensitivity Awaiting to be evaluated by local urologist-appreciate input and recommendation No procedure needed Hematuria stopped Hemoglobin is maintained and the patient will be going home this afternoon No more hematuria Will be discharged to [facility] today and is advised to keep appointment with urologist in [place] (2) Bladder cancer metastasized to bone: Diagnosed to have metastatic bladder cancer Metastatic to bones and lung CT scan is showing a little progression of the disease We will continue with his outpatient pain medications He will require additional doses of pain medications in the hospital We will get palliative care consult tomorrow for further management of his bladder cancer Appreciate palliative care input and recommendation Keep appointment with urologist at [place] CT of the abdomen and pelvis: IMPRESSION: 1. There are large bladder masses as above. This is unchanged to increased in size from 06/30/2018 and consistent with bladder carcinoma. 2. A right ureteral stent is in place and there is mild right-sided hydronephrosis. 3. There is heterogeneous perfusion of the right kidney, as well as urothelial thickening within the right renal pelvis and the right ureter with surrounding inflammation. Although this could be related to the presence of an indwelling stent, the findings are concerning for superimposed urinary tract infection. Correlation with clinical findings and urinalysis will be required. 4. There is moderate left hydroureteronephrosis, likely related to an obstructing lesion at the trigone. This is unchanged to slightly worsened from 06/30/2018. 5. There is evidence of multifocal mixed lytic/blastic osseous metastatic disease. This has progressed from 06/30/2018. 6. There are pulmonary nodules present at both lung bases measuring up to 10 mm. These are pathologically indeterminant but new from 07/12/2015. These are concerning for metastatic disease. 7. There are pathologically indeterminant subcentimeter retroperitoneal lymph nodes. 8. Cirrhotic liver morphology. 9. Moderate hiatal hernia. 10. Additional findings as above. (3) Intractable pain: Secondary to bladder cancer with metastasis Likely to need additional doses of pain medication We will continue with his usual pain medications Advised to ambulate more Pain is reasonably controlled with current dose of narcotics Will not provide any additional dose or any increase of the dose at discharge from this hospital Likely be discharged this afternoon Advised to keep appointment with his urologist in [place] We will continue current pain medications (4) Hypothyroidism: Continue supplement (5) Coronary artery disease: No acute pain (6) Asthma: Remains stable without any symptoms Will discharge today Subjective 12/25 The patient was seen and examined in medical floor He has been complaining of more pain in the pelvis and also hypogastrium He has stress for urinary bladder cancer and was admitted with hematuria with more pain in pelvis He denies any fever and/or chills or any other significant symptoms Hematuria has been persisting 12/26 The patient was seen and examined in medical telemetry unit He has been complaining of a lot of pain in the pelvis and hypogastrium as before His hematuria seems to be improving Will ask for a palliative care consult 12/27 The patient was seen and examined in medical floor Complains to have increasing pain in the pelvis but his hematuria is completely resolved Has been ambulating with some difficulty Denies any other symptoms except pain 12/28 The patient was seen and examined in medical floor He has been complaining of more pain He continues to move around without any significant symptoms and even goes out to smoke Will be discharged today to [facility] Review of Systems Review of Systems: All systems reviewed and are unremarkable except as noted below Genitourinary: + dysuria and + flank pain; no hematuria Musculoskeletal: + back pain Pain in the pelvis Physical Exam Physical Exam: No apparent distress at rest Constitutional: well developed, well nourished, + acute distress (Minimal distress due to pain in the pelvis and hypogastrium), + ill appearing and + obese Eyes: PERRL, conjunctivae normal, anicteric sclerae ENMT: external ear and nose normal, oropharynx normal Neck: trachea midline, no thyromegaly Respiratory: normal respiratory effort; no respiratory distress Auscultation: lungs clear to auscultation bilaterally Cardiovascular: Rate/Rhythm: regular rate and regular rhythm Heart Sounds: no murmur Gastrointestinal (Abdomen): Inspection/Auscultation: abdomen normal to inspection and normal bowel sounds Percussion/Palpation: abdomen soft Musculoskeletal: Bilateral hip pain and pelvic pain with movements of the lower extremities Neurologic: moves all extremities; no focal motor deficits Lymphatic: no cervical or axillary lymphadenopathy Results & Data Vital Signs (Past 12 Hours) Vital Signs Temp Pulse Pulse Resp BP Pulse Ox 12/28/18 07:42 93 H 12/28/18 07:00 36.7 C 88 20 119/77 91 12/28/18 04:00 36.6 C 103 H 20 118/72 97 12/28/18 00:20 68 12/28/18 00:00 36.4 C L 68 20 150/89 H 94 12/27/18 22:24 77 Medications Administered Current Inpatient Medications Al Hydrox/Mg Hydrox/Simethicone (Maalox Max) 10 ml PO Q4 PRN PRN Reason: Heartburn Atorvastatin Calcium (Lipitor) 40 mg PO PM TRAV Stop: 01/24/19 20:59 Last Admin: 12/27/18 20:53 Dose: 40 mg Documented by: Guaifenesin (Robitussin Sugar Free Syrup) 200 mg PO Q6H PRN PRN Reason: Cough Stop: 01/23/19 23:36 Heparin Sodium (Porcine) (Heparin Sod 100 Unit/Ml Flush) 5 ml FLUSH PRN PRN PRN Reason: Flush Stop: 01/24/19 00:44 Last Admin: 12/27/18 15:32 Dose: 5 ml Documented by: Hydromorphone HCl (Dilaudid) 0.5 mg IV Q4H PRN PRN Reason: Pain Stop: 01/07/19 23:01 Last Admin: 12/28/18 09:53 Dose: 0.5 mg Documented by: Hyoscyamine (Levsin) 0.125 mg PO Q4 PRN PRN Reason: Bladder Spasms Stop: 01/23/19 23:36 Last Admin: 12/27/18 04:56 Dose: 0.125 mg Documented by: Sodium Chloride (Nss 1000ml) 1,000 mls @ 100 mls/hr IV .Q10H TRAV Stop: 01/23/19 23:36 Last Admin: 12/28/18 03:14 Dose: 100 mls/hr Documented by: Levothyroxine Sodium (Synthroid) 100 mcg PO DAILYBB TRAV Stop: 01/24/19 06:29 Last Admin: 12/28/18 05:56 Dose: 100 mcg Documented by: Metoprolol Succinate (Toprol Xl) 12.5 mg PO DAILY [facility] Stop: 01/24/19 08:59 Last Admin: 12/28/18 08:02 Dose: 12.5 mg Documented by: Miconazole Nitrate (Desenex) 1 appln EXT PRN PRN PRN Reason: Affected Skin Folds Stop: 01/25/19 02:51 Multivitamins (Multivitamin Tab) 1 tab PO DAILY [facility] Stop: 01/24/19 08:59 Last Admin: 12/28/18 08:02 Dose: 1 tab Documented by: Nitroglycerin (Nitrostat) 0.4 mg SL UD PRN PRN Reason: Chest Pain Stop: 01/23/19 23:36 Ondansetron HCl (Zofran) 4 mg IV Q6H PRN PRN Reason: Nausea Stop: 01/23/19 23:36 Oxycodone HCl (Oxycontin) 30 mg PO TID [facility] Stop: 01/10/19 13:59 Last Admin: 12/28/18 08:09 Dose: 30 mg Documented by: Oxycodone/Acetaminophen (Percocet 5mg/325mg) 2 tab PO Q4 PRN PRN Reason: PAIN 8-10 Stop: 01/07/19 23:36 Last Admin: 12/28/18 05:56 Dose: 2 tab Documented by: Phenol (Chloraseptic 1.4% [place]) 2 sprays MT Q8 PRN PRN Reason: Sore Throat Stop: 01/23/19 23:36 Polyethylene Glycol (Miralax Powder Packet) 17 gm PO DAILY [facility] Stop: 01/24/19 08:59 Last Admin: 12/28/18 08:02 Dose: Not Given Documented by: Polyethylene Glycol (Miralax Powder Packet) 17 gm PO DAILY PRN PRN Reason: Constipation Stop: 01/23/19 23:36 Last Admin: 12/25/18 20:20 Dose: 17 gm Documented by: Sodium Chloride ([place] Nasal) 2 sprays NA .Q2HRS PRN PRN Reason: Nasal Congestion Stop: 01/23/19 23:36 Tamsulosin HCl (Flomax) 0.4 mg PO DAILY [facility] Stop: 01/24/19 08:59 Last Admin: 12/28/18 08:03 Dose: 0.4 mg Documented by: (1) Hematuria Hematuria type: other microscopic Qualified Code(s): R31.29 - Other micros copic hematuria; R31.2 - Other microscopic hematuria
[2018-12-28] MEDS ORDERED: HYDROmorphone INJ 1 MG/ML SYRINGE IV STA (12:41)
--- NOTE | 2018-12-29 09:05 | Discharge Summary ---
Date of Service December 29, 2018 Admission HPI Per Admitting Provider DICTATED BY: Amadeo Mixon MD DATE OF ADMISSION: 12/24/2018 CHIEF COMPLAINT: Abdominal pain and hematuria. HISTORY OF PRESENT ILLNESS: This is a 58-year-old male with past medical history significant for metastatic transitional bladder cancer with bone mets, status post chemo, history of hepatitis C, history of chronic lower back pain from back injury, history of hypertension, iron deficiency anemia, drug-seeking behavior as per the Epic notes, history of hematuria, history of CAD status post stent, history of MIKIE, currently at [facility] for his chronic back pain, presents with hematuria , severe abdominal pain and pelvic pain. The patient takes Percocet 2 tablets p.o. q. 4 hours p.r.n. and OxyContin for his chronic back pain and for his cancer pain. He recently saw palliative care and recommended to just take oxycodone IR instead of Percocet because of his elevated LFTs and also history of hep C, but the patient declined . He says the pain is under control with his home pain regimen, but today he woke up with hematuria and he has passed some clots and the pain got worse, his home pain medicine not helping, so he came here. In the ER, he received several doses of IV Dilaudid that calmed the pain down, but is coming back, so we are called to admit him for pain control. ER physician also spoke with the urologist pulmonologist intensivist from [place]. His UA is positive. They recommended to follow the blood cultures. No antibiotics currently. Hemodynamics are stable. He has some mild headache, has some lightheadedness, no blurred vision, no earache, no runny nose, no sore throat, no difficulty swallowing. Appetite is okay. No cough, no fever, no chills, no chest pain, no shortness of breath, no nausea, was nauseous earlier, no vomiting. Severe pain in the lower abdomen. Still has hematuria. Denies any constipation or diarrhea, no blood in stools or black stools and also has some burning micturition, no swelling in the legs, no rash. Ambulates okay. Admission Exam Per Admitting Provider GENERAL: The patient is of moderate build, not in acute distress. VITAL SIGNS: Temperature 36.5, pulse 85, respiratory rate 16, blood pressure 125/82, oxygen 94% room air. HEENT: No pallor, no icterus. Pupils equal, round, reactive to light. NECK: No JVD, no neck masses, no carotid bruits. CARDIOVASCULAR: S1, S2 heard, regular rate and rhythm, no murmur, no gallop. RESPIRATORY SYSTEM: Normal AP diameter. No thyromegaly, no wheezing, no crackles. ABDOMEN: Soft, bowel sounds present. Diffuse tenderness, no rebound tenderness. Mild guarding. No neck rigidity. No distention. CENTRAL NERVOUS SYSTEM: Alert and awake and oriented. Obeys commands. Moves extremities. EXTREMITIES: No edema, no erythema. Principal Diagnosis Hematuria-resolved,Metastatic Bladder Cancer,Cancer related pain Discharge Exam Constitutional well developed, well nourished, + acute distress (Minimal distress due to pain in the pelvis and hypogastrium), + ill appearing and + obese Eyes PERRL, conjunctivae normal, anicteric sclerae ENMT external ear and nose normal, oropharynx normal Neck trachea midline, no thyromegaly Respiratory normal respiratory effort; no respiratory distress Auscultation: lungs clear to auscultation bilaterally Cardiovascular Rate/Rhythm: regular rate and regular rhythm Heart Sounds: no murmur Gastrointestinal (Abdomen) Inspection/Auscultation: abdomen normal to inspection and normal bowel sounds Percussion/Palpation: abdomen soft Neurologic moves all extremities; no focal motor deficits Lymphatic no cervical or axillary lymphadenopathy Discharge Data Allergies Allergy/AdvReac Type Severity Reaction Status Date / Time morphine Allergy Severe ANAPHYLAXIS Verified 12/24/18 18:53 Penicillins Allergy Intermediate HIVES Verified 12/24/18 18:53 ketorolac [From Toradol] AdvReac Intermediate Unknown Verified 12/24/18 18:53 Consultations 12/24/18 21:57 ED Decision to Admit Stat 12/24/18 23:37 Consult Case Management - Discharge Planning Routine 12/25/18 08:00 Consult Urology Routine 12/26/18 11:51 Consult Palliative Care Routine Ordered Studies 12/24/18 18:06 CT abd pelvis IV con only Stat Hospital Course (1) Hematuria: Admitted with hematuria since yesterday associated with pelvic and hypogastric pain Recent cystoscopy urethroscopy with fulguration in [place] The ER physician did consult with his urologist in [place] Still complains of hematuria Will monitor CBC , H&H and PRP UA suggestive of infection, antibiotic has not been started yet, await for culture and sensitivity Awaiting to be evaluated by local urologist-appreciate input and recommendation No procedure needed Hematuria stopped Hemoglobin is maintained and the patient will be going home this afternoon No more hematuria Will be discharged to [facility] today and is advised to keep appointment with urologist in [place] (2) Bladder cancer metastasized to bone: Diagnosed to have metastatic bladder cancer Metastatic to bones and lung CT scan is showing a little progression of the disease We will continue with his outpatient pain medications He will require additional doses of pain medications in the hospital We will get palliative care consult tomorrow for further management of his bladder cancer Appreciate palliative care input and recommendation Keep appointment with urologist at [place] CT of the abdomen and pelvis: IMPRESSION: 1. There are large bladder masses as above. This is unchanged to increased in size from 06/30/2018 and consistent with bladder carcinoma. 2. A right ureteral stent is in place and there is mild right-sided hydronephrosis. 3. There is heterogeneous perfusion of the right kidney, as well as urothelial thickening within the right renal pelvis and the right ureter with surrounding inflammation. Although this could be related to the presence of an indwelling stent, the findings are concerning for superimposed urinary tract infection. Correlation with clinical findings and urinalysis will be required. 4. There is moderate left hydroureteronephrosis, likely related to an obstructing lesion at the trigone. This is unchanged to slightly worsened from 06/30/2018. 5. There is evidence of multifocal mixed lytic/blastic osseous metastatic disease. This has progressed from 06/30/2018. 6. There are pulmonary nodules present at both lung bases measuring up to 10 mm. These are pathologically indeterminant but new from 07/12/2015. These are concerning for metastatic disease. 7. There are pathologically indeterminant subcentimeter retroperitoneal lymph nodes. 8. Cirrhotic liver morphology. 9. Moderate hiatal hernia. 10. Additional findings as above. (3) Intractable pain: Secondary to bladder cancer with metastasis Likely to need additional doses of pain medication We will continue with his usual pain medications Advised to ambulate more Pain is reasonably controlled with current dose of narcotics Will not provide any additional dose or any increase of the dose at discharge from this hospital Likely be discharged this afternoon Advised to keep appointment with his urologist in [place] We will continue current pain medications (4) Hypothyroidism: Continue supplement (5) Coronary artery disease: No acute pain (6) Asthma: Remains stable without any symptoms Will discharge today Total Time Total Time Spent Total Time Spent (In Minutes): 35 minutes Total Time Includes: Examination of the Patient, Discharge Planning, Medication Reconciliation and Communication With Other Providers Discharge Plan Discharge Items Patient Disposition: Transfer Detention Fac Reason For Visit: HEMATURIA,PELVIC PAIN Discharge Diagnosis: Hematuria-resolved,Metastatic Bladder Cancer,Cancer related pain Condition on Discharge: Fair Activity: Resume your previous activity Non-emergency contact: Primary Care Provider Call non-emergency contact if: you have any medication questions and your symptoms worsen Follow-up/Referrals: Keyur Piña [Primary Care Provider] - (Please keep appointment with Urologist in [place]) Diet: Heart Healthy Addtl Attending Provider Instructions: Ms contin has been increased Pending Studies at Discharge: No Stand-Alone Forms: Call Back Authorization, [facility] Skilled Items Patient informed of condition?: Yes DNR: No Discharge Level of Care: Skilled Communicable Disease: No Discharge Prognosis: Stable Lines: None Urinary Catheter: No Medications and DC Order Prescriptions: Continued atorvastatin [Lipitor] 40 mg Tablet 40 mg PO PM RF: 0 polyethylene glycol 3350 [Miralax] 17 gram Powder In Packet 17 g PO DAILY RF: 0 aspirin [Aspir-Low] 81 mg Tablet,Delayed Release (Dr/Ec) 81 mg PO DAILY RF: 0 levothyroxine 100 mcg Tablet 100 mcg PO DAILY RF: 0 tamsulosin [Flomax] 0.4 mg Capsule 0.4 mg PO DAILY RF: 0 metoprolol succinate 25 mg Tablet Extended Release 24 Hr 12.5 mg PO DAILY RF: 0 multivitamin Tablet 1 tab PO DAILY RF: 0 acetaminophen 325 mg Tablet 650 mg PO Q4 PRN (Reason: Fever Or Pain) RF: 0 sildenafil 50 mg Tablet 50 mg PO DAILY PRN (Reason: ERECTILE DISFUNCTION) RF: 0 ondansetron HCl [Zofran] 4 mg Tablet 4 mg PO QID PRN (Reason: Nausea) RF: 0 guaifenesin 100 mg/5 mL Liquid 200 mg PO Q6H PRN (Reason: Cough) RF: 0 oxycodone-acetaminophen [Percocet] 5-325 mg Tablet 2 tab PO Q4 PRN (Reason: PAIN 8-10) RF: 0 hyoscyamine sulfate 0.125 mg Tablet, Sublingual 0.125 mg PO Q4 PRN (Reason: Bladder Spasms) RF: 0 alum-mag hydroxide-simeth [Maalox Advanced] 200-200-20 mg/5 mL Suspension 10 ml PO Q4 PRN (Reason: Heartburn) RF: 0 Chloraseptic Throat Velma 1.4 % Aerosol,Velma 1.4 % MUCOUS MEMBRANE Q8 PRN (Reason: Sore Throat) RF: 0 sodium chloride [Saline Nasal] 0.65 % Aerosol,Velma 2 spray INTRANASAL .Q2HRS PRN (Reason: Nasal Congestion) RF: 0 oxycodone [OxyContin] 30 mg Tablet,Oral Only,Ext.Rel.12 Hr 30 mg PO Q12H RF: 0 Discharge Orders: Discharge Order (Routine); Ordered 12/28/18 Ordered By: Ayan Fritz Admission Data Admit Date/Time: 12/24/18 23:02 Attending Provider: Ayan Fritz Admit Provider: Amadeo Mixon Primary Care Provider: Keyur Piña Other Providers: Amadeo Mixon ; Yuli Ng ; Salome Murdock Other Interventions: Discharge Summary Assessment (RN) Last Done: 12/28/18 11:19 DC Date/Time DO NOT enter until pt leaves facility: 12/28/18 13:25
== END 2018-12-28 13:25 | DRG 687 ==
LOC: ED 17:52 → 2N 23:02

== ENCOUNTER 2019-04-20 07:55 | Inpatient (IN) ==
[2019-04-20] MEDS ORDERED: ONDANSETRON INJ 2 MG/ML 2 ML VIAL IV STA (08:14)
[2019-04-20] MEDS: HYDROmorphone INJ 1 MG/ML SYRINGE IV PRN ×10 (08:21→23:33)
[2019-04-20 08:40] LABS: Basophils # (auto) 0.02 K/uL (0-0.2); Basophils % (auto) 0.2 %; Eosinophils # (auto) 0.14 K/uL (0-0.5); Eosinophils % (auto) 1.5 %; Hematocrit (blood only) 35.4 % (42-52); Hemoglobin 11.7 g/dL (14.0-18.0); Immature Granulocytes # (auto) 0.03 K/uL (0.00-0.02); Immature Granulocytes % (auto) 0.3 %; Lymphocytes # (auto) 1.54 K/uL (1.2-3.4); Lymphocytes % (auto) 16.9 %; Mean Corpuscular Hemoglobin 27.5 pg (25-34); Mean Corpuscular Hgb Conc 33.1 g/dL (32-36); Mean Corpuscular Volume 83.1 fL (80-100); Mean Platelet Volume 8.1 fL (7.4-10.4); Monocytes # (auto) 0.68 K/uL (0.11-0.59); Monocytes % (auto) 7.5 %; Neutrophils # (auto) 6.71 K/uL (1.4-6.5); Neutrophils % (auto) 73.6 %; Platelet Count 102 K/uL (130-400); RDW Coefficient of Variation 14.1 % (11.5-14.5); RDW Standard Deviation 42.3 fL (36.4-46.3); Red Blood Count 4.26 M/uL (4.7-6.1); White Blood Count 9.12 K/uL (4.8-10.8)
[2019-04-20 08:48] LABS: Appearance Urine Cloudy (Clear); Bacteria Urine Automated 1+ (Negative); Bilirubin Urine Negative (Negative); Blood Urine 3+ (Negative); Color Urine Yellow; Epithelial Cell Urine Auto 0-5 /lpf (0-5); Glucose Urine UA Negative (Negative); Ketones Urine Negative (Negative); Leukocyte Esterase Urine 2+ (Negative); Nitrite Urine Positive (Negative); Protein Urine 1+ (Negative); Specific Gravity Urine 1.012 (1.000-1.030); Urobilinogen Urine Negative (Negative); WBC Urine Automated >30 /hpf (0-5)
[2019-04-20 09:00] LABS: Alanine Aminotransferase 43 U/L (12-78); Albumin Level 3.3 gm/dl (3.4-5.0); Aspartate Aminotransferase 50 U/L (15-37); BUN Creatinine Ratio 12.8 (10-20); Blood Urea Nitrogen 29 mg/dl (7-18); Calcium 9.4 mg/dl (8.5-10.1); Carbon Dioxide 23 mmol/L (21-32); Chloride 107 mmol/L (98-107); Est GFR (African American) 34.6; Est GFR (Non-African American) 29.9; Glucose 90 mg/dl (70-99); Sodium 135 mmol/L (136-145)
[2019-04-20 09:03] LABS: Albumin Globulin Ratio 0.6 (0.9-2); Alkaline Phosphatase 439 U/L (45-117); Bilirubin,Total 0.5 mg/dl (0.2-1); Globulin 5.3 gm/dl (2.5-4.0); RBC Urine Automated >30 /hpf (0-4); Total Protein 8.6 gm/dl (6.4-8.2)
[2019-04-20] MEDS ORDERED: cefTRIAXone SODIUM 1,000 MG/50 ML BAG IV STA (09:28)
--- NOTE | 2019-04-20 10:06 | CT Scan Report ---
CT pelvis wo con CT DOSE: 1324.59 mGy.cm CLINICAL HISTORY: severe hip and pelvic pain, known mets TECHNIQUE: Helical images were acquired through the pelvis. No intravenous contrast was administered. A dose lowering technique was utilized adhering to the principles of ALARA. COMPARISON STUDY: CT scan dated 12/24/2018 FINDINGS: There is a right-sided nephroureteral stent. There is ectasia of the infrarenal abdominal aorta which measures 28 mm. There is left-sided hydroureter. There are enlarging bladder masses with evidence of transmural extension. There is no pathologic bowel dilatation. The appendix appears normal. There is no acute diverticuliti s. There are small fat-containing right inguinal hernia. Stable left pelvic soft tissue mass adjacent to the inguinal canal, possibly representing the sequela of prior inguinal hernia repair There are osseous metastasis involving the inferior pubic rami bilaterally with evidence of a patholo gic fracture on the left. There is an enlarging blastic lesion involving the posterior aspect of the right iliac bone currently measuring 16 mm. There is a mixed lytic and sclerotic left acetabular region measuring 25 mm, consis tent with a metastatic deposit. There are mixed lytic and sclerotic changes within the iliac bones, c onsistent with metastasis. IMPRESSION: 1. Progressive skeletal metastasis. Pathologic fracture of the left inferior pubic ramus. 2. No evidence of bowel obstruction. 3. Enlarging bladder masses with transmural extension 4. Moderate left-sided hydroureter. Indwelling right-sided nephroureteral stent 5. Normal appendix. No evidence of acute diverticulitis. ACT 112: Negative or not required by law. Electronically signed by: Leandro Avila M.D. 04/20/2019 10:05 AM
--- NOTE | 2019-04-20 11:51 | Emergency Department Note ---
ED Visit Note Pt seen and examined in conjunction with Dr. Ash. Please see their note for any medical decision making. . Resident Activity Tracking Resident Involvement: Resident Care Provided Care Provided: Adult ED
--- NOTE | 2019-04-20 12:02 | History & Physical Report ---
Date of Service April 20, 2019 Assessment & Plan (1) Pathological fracture of pelvis: (2) Intractable pain: Pt is 59 y/o M Metastatic bladder cancer with mets to thoracic and lumbar spine and pelvis s/p palliative radiation x1 without improvement, palliative chemo, HTN, COPD, iron deficiency anemia, chronic back pain, hepatitis C, CAD S/p stent, right-sided double-J stent presented to ER with complaint of left hip and pelvic pain x1 day. Patient reports chronic low back pain and chronic pelvic and bilateral hip pain however increased pain yesterday to left hip that radiates down left leg. Denies fever/chills, LE or saddle paresthesias In ER vitals stable. No leukocytosis. CT PELVIS:1. Progressive skeletal metastasis. Pathologic fracture of the left inferior pubic ramus. 2. No evidence of bowel obstruction. 3. Enlarging bladder masses with transmural extension. 4. Moderate left-sided hydroureter. Indwelling right-sided nephroureteral stent. 5. Normal appendix. No evidence of acute diverticulitis. -In ER given total of Dilaudid 4mg IV, zofran with some improvement of pain -Continue chronic oxycodone 40mg BID -Hold home Percocet secondary to Tylenol and elevated LFTs and change to oxycodone IR 10mg Q4H -Dilaudid for breakthrough pain -Ortho consult -PT/OT consult -Pain management consult (3) MIKIE (acute kidney injury): BUN: 29, Cr: 2.28, GFR: 29.9 -IVF -Monitor renal functions -Avoid nephrotoxic agents when possible (4) UTI (urinary tract infection): Dysuria x 1 day. UA: +nitrite, 2+leuk esterase, >30 WBC, >30 RBC, 1+ bacteria -In ER given Rocephin -Urine culture pending -Continue Rocephin (5) 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: H/O Metastatic bladder cancer with mets to thoracic and lumbar spine and pelvis s/p palliative radiation x1 without improvement, palliative chemo with last treatment on 10/2018 and further treatments held secondary to elevated LFTs. Follows with Dr Mon - consideration to further chemo treatments if improvement in LFTs - has appointment 04/22/2019 (6) Chronic anemia: Hgb: 11.7. At baseline -Monitor H&H (7) Coronary artery disease: S/P stent Denies CP -Continue metoprolol, statin, aspirin (8) Hypothyroidism: -Continue levothyroxine (9) Hepatitis C: Followed with GI. no treatment started secondary to limited life expectancy with his metastatic bladder CA DVT Prophylaxis -Heparin SQ Full Code as per discussion with pt Follows with Dr Damian at [facility] for routine care Pt was seen and care coordinated with Dr Palacio. See addendum History of Present Illness Chief Complaint: Left pelvic/hip pain Primary Care Provider: Keyur Waltergisell - Dr Damian Pt is 59 y/o M Metastatic bladder cancer with mets to thoracic and lumbar spine and pelvis s/p palliative radiation x1 without improvement, palliative chemo, HTN, COPD, iron deficiency anemia, chronic back pain, hepatitis C, CAD S/p stent, right-sided double-J stent presented to ER with complaint of left hip and pelvic pain x1 day. Patient reports chronic low back pain and chronic pelvic and bilateral hip pain however increased pain yesterday to left hip that radiates down left leg. Patient denies any numbness or tingling. He reports increased pain with any type of movement or attempting ambulation. Patient on chronic Percocet and oxycodone and reports that normally controls his chronic pain for several hours however has not helped with this pain over the past day. He also reports yesterday he started with dysuria. Reports is noticed some hematuria intermittently over the past 3 weeks. Patient denies flank pain, fever, chills. Last chemo treatment October 2018. Further chemo was held secondary to liver abnormalities. Plan was to resume palliative chemo in April 2019 if improvement of LFTs. Reports chronic constipation. Denies fever/chills, diaphoresis, N/V/D, GRAJEDA, dizziness, syncope, vision changes, neck pain, CP, SOB, palpitations, cough, sore throat, choking, otalgia, rhinorrhea, abdominal pain, paresthesias, extremity weakness, extremity edema, rashes, uri nary symptoms. Allergies Allergy/AdvReac Type Severity Reaction Status Date / Time morphine Allergy Severe ANAPHYLAXIS Verified 04/20/19 09:04 Penicillins Allergy Intermediate HIVES Verified 04/20/19 09:04 ketorolac [From Toradol] AdvReac Intermediate Unknown Verified 04/20/19 09:04 Home Medications Home Medications Medication Instructions Recorded Confirmed Type Chloraseptic Throat [place] 1.4 % MUCOUS MEMBRANE Q8 PRN 12/24/18 04/20/19 History acetaminophen 650 mg PO Q4 PRN 12/24/18 04/20/19 History alum-mag hydroxide-simeth [Maalox 10 ml PO Q4 PRN 12/24/18 04/20/19 History Advanced] aspirin [Aspir-Low] 81 mg PO DAILY 12/24/18 04/20/19 History atorvastatin [Lipitor] 40 mg PO PM 12/24/18 04/20/19 History hyoscyamine sulfate 0.125 mg PO Q4 PRN 12/24/18 04/20/19 History levothyroxine 100 mcg PO DAILY 12/24/18 04/20/19 History metoprolol succinate 12.5 mg PO DAILY 12/24/18 04/20/19 History multivitamin 1 tab PO DAILY 12/24/18 04/20/19 History polyethylene glycol 3350 [Miralax] 17 g PO DAILY 12/24/18 04/20/19 History sildenafil 50 mg PO DAILY PRN 12/24/18 04/20/19 History sodium chloride [Saline Nasal] 2 spray INTRANASAL Q2H PRN 12/24/18 04/20/19 History tamsulosin [Flomax] 0.4 mg PO DAILY 12/24/18 04/20/19 History albuterol sulfate 2.5 mg INHALATION Q6H PRN 04/20/19 04/20/19 History bisacodyl 10 mg CA DAILY PRN 04/20/19 04/20/19 History magnesium hydroxide [Milk of 800 mg PO DAILY PRN 04/20/19 04/20/19 History Magnesia] oxycodone [OxyContin] 40 mg PO BID 04/20/19 04/20/19 History oxycodone-acetaminophen [Percocet] 1 tab PO Q4H PRN 04/20/19 04/20/19 History sodium phosphates [Fleet Enema] 118 ml CA DAILY PRN 04/20/19 04/20/19 History Past Med/Surg History Medical History (Updated 04/20/19 @ 13:46 by Amber Miranda PA-C) Anemia CHRONIC; BASELINE HGB 8-9 RANGE PER CHART REVIEW Asthma (08/31/12) Back pain Bladder cancer Blindness of right eye BPH (benign prostatic hyperplasia) Cancer of kidney Chronic anemia Coronary artery disease (08/31/12) STENTS X 2 (1+ YEARS AGO) Hepatitis C Hydroureter Hyperlipidemia Hypothyroidism (08/31/12) Kidney stones Myocardial Infarction Pulmonary nodule Surgical History History of transurethral destruction of bladder lesion S/P cholecystectomy S/P colonoscopy S/P hernia repair Family History (Updated 04/20/19 @ 12:19 by Amber Miranda PA-C) Other Coronary heart disease Diabetes Social History Preferred Language: Portuguese Communication Ability: Effective Director Of Slot Operations Required: No Beliefs That Will Affect Care: None Current Living Situation: Senior Living Current Living Situation Comment: [facility] Other Information That Helps Us Care for You: No Feels Safe at Home: Yes Safety Concerns: Feels Safe At This Time Smoking Status: Current some day smoker Tobacco Type: cigarettes ; Cigarettes Per Day: 0-3 ; Do You Dip or Chew Tobacco: No ; Second Hand Exposure: No ; Tobacco Cessation Education Requested by Patient: No Hx Alcohol Use: No Hx Substance Use: Yes substance use type: prescription drug Substance Use Type Other:: percocet, oxycontin Last Used Substance: Unknown Review of Systems Review of Systems: All systems reviewed & are unremarkable except as noted in HPI & below Physical Exam Physical Exam: General: no acute distress, obese Head: normocephalic, atraumatic Eyes: PERRL, EOM's intact, conjunctiva non-injected, anicteric ENT: normal inspection external ears, nose, mucous membranes moist Neck: supple, trachea midline, non-tender Lungs: clear, no respiratory distress, no wheezing/rhonchi/rales CV: RRR, no murmur, no pretibial edema Abd: normal BS, soft, non-tender Back: no spinous process tenderness to palpation Ext: no cyanosis, no calf tenderness; left hip tenderness to palpation and tender with flexion of hip; distal pulses intact, sensation to light touch intact Neuro: A&O x 3, no focal deficits noted, normal affect Skin: warm, dry Results & Data Vital Signs (Past 12 Hours) Vital Signs Temp Pulse Resp BP Pulse Ox 04/20/19 11:30 81 11 L 04/20/19 11:01 86 14 95 04/20/19 11:00 90 19 160/94 H 92 04/20/19 10:30 85 16 90 04/20/19 10:01 85 14 90 04/20/19 10:00 84 17 164/90 H 91 04/20/19 09:56 85 12 181/91 H 91 04/20/19 09:30 101 H 16 97 04/20/19 09:01 91 H 13 96 04/20/19 09:00 92 H 14 162/94 H 96 04/20/19 08:30 96 H 16 95 04/20/19 08:26 78 17 159/119 H 97 04/20/19 08:10 36.9 C 104 H 24 206/126 H 98 04/20/19 08:01 99 H 16 97 04/20/19 07:59 99 H 16 206/126 H 99 Laboratory Results Short CBC 04/20/19 Range/Units 08:30 WBC 9.12 (4.8-10.8) K/uL Hgb 11.7 L (14.0-18.0) g/dL Hct 35.4 L (42-52) % Plt Count 102 L (130-400) K/uL BMP 04/20/19 08:30 Sodium 135 L Potassium 5.0 Chloride 107 Carbon Dioxide 23 BUN 29 H Creatinine 2.28 H Glucose 90 Calcium 9.4 Liver Function 04/20/19 Range/Units 08:30 Total Bilirubin 0.5 (0.2-1) mg/dl AST 50 H (15-37) U/L ALT 43 (12-78) U/L Alkaline Phosphatase 439 H (45-117) U/L Albumin 3.3 L (3.4-5.0) gm/dl Urine 04/20/19 Range/Units 08:30 Urine Color Yellow Urine Appearance Cloudy A (Clear) Urine pH 7.0 (4.5-7.5) Ur Specific [place] 1.012 (1.000-1.030) Urine Protein 1+ H (Negative) Urine Glucose (UA) Negative (Negative) Diagnostic Findings CT PELVIS: IMPRESSION: 1. Progressive skeletal metastasis. Pathologic fracture of the left inferior pubic ramus. 2. No evidence of bowel obstruction. 3. Enlarging bladder masses with transmural extension 4. Moderate left-sided hydroureter. Indwelling right-sided nephroureteral stent 5. Normal appendix. No evidence of acute diverticulitis. Code Status & VTE Plan VTE Prophylaxis Plan VTE Prophylaxis will be ordered: Yes Supervising Physician Co-Signing Physician Notes I saw this patient with the physician geriatric assistant, I participated in the history, physical, review of systems, and physical exam. I reviewed the medications with the patient and the physician geriatric assistant and helped reconcile the medications. I helped take a detailed family and social history as well. I formulated the assessment and plan personally with the physician geriatric assistant and went over it with the patient. Physical Exam Gen-AAO x 3, NAD, Afebrile Head-NCAT, EOMI, PERRLA, Anicteric Sclera, No Posterior Pharyngeal Erythema Neck-Supple, No JVD, No Thyromegaly, No Masses, No LAD, No Bruits Lungs-Clear to Auscultation Bilaterally, No Rales, No Rhonchi, No Wheezing, No Crepitus Chest-No S4, +S1, +S2, No S3, No Murmurs, No Rubs, No Gallops, No Ectopy Abdomen-Soft, Bowel Sounds Present, Non Tender, Non Distended, No Hepatomegaly, No Splenomegaly, No Palpable Masses, No Rebound, No Rigidity, No Guarding Musculoskeletal-Full Range of Motion Bilaterally, No CVAT Extremities-No Cyanosis, No Clubbing, No Edema Nuero-Cranial Nerves II-XII grossly intact, Motor WNL, DTRs WNL, Strength WNL, Non Focal Psych-Normal Mood (1) Pathological fracture of pelvis Encounter type: initial encounter Pathology associated with fracture: unspecified disease Qualified Code(s): M84.454A - Pathological fracture, pelvis, initial encounter for fracture
[2019-04-20] MEDS ORDERED: bisacodyL 10 MG SUPP PR PRN (13:03)
[2019-04-20] MEDS ORDERED: ONDANSETRON INJ 2 MG/ML 2 ML VIAL IV PRN (13:03)
[2019-04-20] MEDS ORDERED: ALBUTEROL 0.083% NEBU SOLN 3 ML VIAL INH PRN (13:03)
[2019-04-20] MEDS ORDERED: OXYCODONE HCL 40 MG TABCR (OXYCONTIN) PO PRN (13:03)
[2019-04-20] MEDS ORDERED: HYOSCYAMINE SULFATE 0.125 MG TAB PO PRN (13:03)
[2019-04-20] MEDS: SODIUM CHLORIDE 0.9% 1000ML 1,000 ML IV SCH (13:22)
[2019-04-20] MEDS: OXYCODONE HCL 40 MG TABCR (OXYCONTIN) PO SCH ×2 (14:01→20:07)
[2019-04-20] MEDS: OXYCODONE HCL IR 5 MG TAB (IMMEDIATE RELEASE) PO PRN ×3 (15:54→23:34)
--- NOTE | 2019-04-20 15:56 | Orthopedic Consultation ---
Date of Consultation April 20, 2019 Assessment & Plan (1) Pathological fracture of pelvis: Pathologic pelvic ring fracture involving left superior pubic ramus. Some peripheral acetabular mets that do not involve the dome and I do not feel he be at risk for placing weight on his leg but will be painful due to the fracture. Will need protected weightbearing just due to the pain using a walker can advance weightbearing as tolerated. Treatment plan for the metastases is per oncology treatment plan for the metastases and pain management. History of Present Illness Attending Physician: Robbin Palacio DO History of Present Illness 59-year-old male history of metastatic CA acute onset left hip pain Allergies Allergy/AdvReac Type Severity Reaction Status Date / Time morphine Allergy Severe ANAPHYLAXIS Verified 04/20/19 09:04 Penicillins Allergy Intermediate HIVES Verified 04/20/19 09:04 ketorolac [From Toradol] AdvReac Intermediate Unknown Verified 04/20/19 09:04 Home Medications Home Medications Medication Instructions Recorded Confirmed Type Chloraseptic Throat [place] 1.4 % MUCOUS MEMBRANE Q8 PRN 12/24/18 04/20/19 History acetaminophen 650 mg PO Q4 PRN 12/24/18 04/20/19 History alum-mag hydroxide-simeth [Maalox 10 ml PO Q4 PRN 12/24/18 04/20/19 History Advanced] aspirin [Aspir-Low] 81 mg PO DAILY 12/24/18 04/20/19 History atorvastatin [Lipitor] 40 mg PO PM 12/24/18 04/20/19 History hyoscyamine sulfate 0.125 mg PO Q4 PRN 12/24/18 04/20/19 History levothyroxine 100 mcg PO DAILY 12/24/18 04/20/19 History metoprolol succinate 12.5 mg PO DAILY 12/24/18 04/20/19 History multivitamin 1 tab PO DAILY 12/24/18 04/20/19 History polyethylene glycol 3350 [Miralax] 17 g PO DAILY 12/24/18 04/20/19 History sildenafil 50 mg PO DAILY PRN 12/24/18 04/20/19 History sodium chloride [Saline Nasal] 2 spray INTRANASAL Q2H PRN 12/24/18 04/20/19 History tamsulosin [Flomax] 0.4 mg PO DAILY 12/24/18 04/20/19 History albuterol sulfate 2.5 mg INHALATION Q6H PRN 04/20/19 04/20/19 History bisacodyl 10 mg RI DAILY PRN 04/20/19 04/20/19 History magnesium hydroxide [Milk of 800 mg PO DAILY PRN 04/20/19 04/20/19 History Magnesia] oxycodone [OxyContin] 40 mg PO BID 04/20/19 04/20/19 History oxycodone-acetaminophen [Percocet] 1 tab PO Q4H PRN 04/20/19 04/20/19 History sodium phosphates [Fleet Enema] 118 ml RI DAILY PRN 04/20/19 04/20/19 History Patient History Medical History (Updated 04/20/19 @ 13:46 by Amber Miranda PA-C) Anemia CHRONIC; BASELINE HGB 8-9 RANGE PER CHART REVIEW Asthma (08/31/12) Back pain Bladder cancer Blindness of right eye BPH (benign prostatic hyperplasia) Cancer of kidney Chronic anemia Coronary artery disease (08/31/12) STENTS X 2 (1+ YEARS AGO) Hepatitis C Hydroureter Hyperlipidemia Hypothyroidism (08/31/12) Kidney stones Myocardial Infarction Pulmonary nodule Surgical History History of transurethral destruction of bladder lesion S/P cholecystectomy S/P colonoscopy S/P hernia repair Family History (Updated 04/20/19 @ 12:19 by Amber Miranda PA-C) Other Coronary heart disease Diabetes Social History Preferred Language: American Communication Ability: Effective Face Painter Required: No Beliefs That Will Affect Care: None Current Living Situation[facility] Current Living Situation Comment: [facility] Other Information That Helps Us Care for You: No Feels Safe at Home: Yes Safety Concerns: Feels Safe At This Time Smoking Status: Current some day smoker Tobacco Type: cigarettes ; Cigarettes Per Day: 0-3 ; Do You Dip or Chew Tobacco: No ; Second Hand Exposure: No ; Tobacco Cessation Education Requested by Patient: No Hx Alcohol Use: No Hx Substance Use: Yes substance use type: prescription drug Substance Use Type Other:: percocet, oxycontin Last Used Substance: Unknown Review of Systems Review of Systems: Did not present with chronic pain prior to acute pain in left hip. Physical Exam Physical Exam: Right hip was not painful, range of motion left hip he cannot raise off the bed due to pain. He has painful range of motion of the hip his leg is out to length normal length is normal circulation sensorimotor exam normal muscle mass in the left leg. Results & Data ([facility]) Vital Signs (Past 12 Hours) Vital Signs Temp Pulse Pulse Resp BP BP BP 04/20/19 14:31 36.5 C 83 20 119/70 04/20/19 12:45 36.4 C L 85 18 101/67 04/20/19 12:08 84 04/20/19 12:00 132/84 04/20/19 11:30 81 11 L 04/20/19 11:01 86 14 04/20/19 11:00 90 19 160/94 H 04/20/19 10:30 85 16 04/20/19 10:01 85 14 04/20/19 10:00 84 17 164/90 H 04/20/19 09:56 85 12 181/91 H 04/20/19 09:30 101 H 16 04/20/19 09:01 91 H 13 04/20/19 09:00 92 H 14 162/94 H 04/20/19 08:30 96 H 16 04/20/19 08:26 78 17 159/119 H 04/20/19 08:10 36.9 C 104 H 24 206/126 H 04/20/19 08:01 99 H 16 04/20/19 07:59 99 H 16 206/126 H Pulse Ox 04/20/19 14:31 95 04/20/19 12:45 94 04/20/19 12:08 04/20/19 12:00 04/20/19 11:30 04/20/19 11:01 95 04/20/19 11:00 92 04/20/19 10:30 90 04/20/19 10:01 90 04/20/19 10:00 91 04/20/19 09:56 91 04/20/19 09:30 97 04/20/19 09:01 96 04/20/19 09:00 96 04/20/19 08:30 95 04/20/19 08:26 97 04/20/19 08:10 98 04/20/19 08:01 97 04/20/19 07:[address] scan reviewed demonstrates lytic lesion in the left superior pubic ramus with pathological fracture. Infrapubic ramus intact. Also could be some lytic type lesions in the anterior lateral acetabulum but not involving the dome which would be involved in weightbearing. The hip is not involved. (1) Pathological fracture of pelvis Encounter type: initial encounter Pathology associated with fracture: unspecified disease Qualified Code(s): M84.454A - Pathological fracture, pelvis, initial encounter for fracture
--- NOTE | 2019-04-20 16:43 | Emergency Department Note ---
Entered by Mariel Lopez acting as a scribe for Galo Greene MD ED Provider Note CHIEF COMPLAINT: Hip pain HISTORY OF PRESENT ILLNESS: The patient is a 59 year old male who presents to the Emergency Room with complaints of worsening hip pain starting 1 day ago. The patient reports that his hips are severely painful. He currently rates this pain 10/10. He states that he has experienced this pain before as he attribute it to his bladder cancer that metastasized to his bones and then lungs. He explains that he resides in a [facility] and when he experienced this pain yesterday took a Percocet that didnt improve his pain. He notes that trying to walk or move worsens his pain. He adds that he feels generally weak. The patient reports that he has lower abdominal pain. He states that he gets intermittent constipation. He explains that he has been following with [facility] oncology and receives chemotherapy treatments at [facility]. Pt denies LOC, headache, fevers, chills, diaphoresis, visual changes, neck pain, chest pain, breathing difficulties, nausea, vomiting, abdominal pain, melena, hematochezia, urinary symptoms, numbness, lymphadenopathy, rash, or other complaints. REVIEW OF SYSTEMS: See HPI for pertinent positives and negatives. A total of ten systems were reviewed and were otherwise negative. PMHx/PSHx: See pertinent past medical and surgical history lists. SOCIAL HISTORY: Patient lives in [facility]. PHYSICAL EXAM: GENERAL: Patient is uncomfortable appearing. Awake, alert, in no distress HENT: Normocephalic, atraumatic. Oropharynx unremarkable. EYES: PERRL. Normal conjunctiva. Sclera non-icteric. NECK: Inspection normal. Non-tender. Supple. No nuchal rigidity. FROM. No masses. RESPIRATORY: Clear to auscultation. No wheezes. No rales. Normal respiratory effort. CARDIAC: Normal rate. Normal rhythm. No murmurs. No rubs. Extremities warm and well perfused. Pulses equal. No JVD. GI: Suprapubic tenderness to palpation. Soft, non-distended. No rebound or guarding. No masses. RECTAL: Deferred. MUSCULOSKELETAL: ROM left hip limited secondary to pain. Atraumatic. Chest examination reveals no tenderness. The back is symmetrical on inspection without obvious abnormality. There is no CVA tenderness to palpation. No joint edema. LOWER EXTREMITIES: Calves are equal size bilaterally and non-tender. No edema. No discoloration. NEURO: Normal sensorium. No sensory or motor deficits noted. SKIN: No rash or jaundice noted. EMERGENCY DEPARTMENT COURSE: 918: Past medical records reviewed. The patient was evaluated in room C10, and a complete history and physical examination were performed. 1102: I updated the patient at this time. 1115: I discussed the patients case with Dr. Vivian Vincent hospitalist. He will evaluate the patient for further management. MEDICAL DECISION MAKING: Prior records reviewed and summarized above. Triage Nursing notes reviewed and agree them. The patient's history was concerning for pelvic pain and a history of bladder CA that has metastasized Differential diagnosis: Etiologies such as pathologic fracture, dislocation, neurovascular compromise, compartment syndrome, soft tissue injury, as well as others were entertained. Physical examination: No focal findings. Tenderness and discomfort with range of motion of left hip. ER treatment provided: IV lock Zofran 4mg IV IV Dilaudid 1 mg times multiple doses IV Rocephin Bedrest On reassessment the patient felt better. Diagnostics interpreted by me: The labs revealed an unremarkable CBC, coags, and chemistry panel. Baseline renal insufficiency. Urinalysis concerning for infection Imaging studies: CT imaging of the pelvis was performed as noted below. The patient has an isolated pelvic fracture with UTI and will need admission to the hospital. Consultation: A consultation was placed with internal medicine. The case was discussed and diagnostics were reviewed. The patient was evaluated in the ER for further treatment. 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 I confirm that the note above accurately reflects all work, treatment, procedures, and medical decision making performed by me. 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, Acute UTI Past Med/Surg History Medical History (Updated 04/20/19 @ 13:46 by Amber Miranda PA-C) Anemia CHRONIC; BASELINE HGB 8-9 RANGE PER CHART REVIEW Asthma (08/31/12) Back pain Bladder cancer Blindness of right eye BPH (benign prostatic hyperplasia) Cancer of kidney Chronic anemia Coronary artery disease (08/31/12) STENTS X 2 (1+ YEARS AGO) Hepatitis C Hydroureter Hyperlipidemia Hypothyroidism (08/31/12) Kidney stones Myocardial Infarction Pulmonary nodule Surgical History History of transurethral destruction of bladder lesion S/P cholecystectomy S/P colonoscopy S/P hernia repair Family History (Updated 04/20/19 @ 12:19 by Amber Miranda PA-C) Other Coronary heart disease Diabetes Social History Preferred Language: Irish Communication Ability: Effective Pathology Assistant Required: No Beliefs That Will Affect Care: None Current Living Situation: [facility] Current Living Situation Comment: [facility] Other Information That Helps Us Care for You: No Feels Safe at Home: Yes Safety Concerns: Feels Safe At This Time Smoking Status: Current some day smoker Tobacco Type: cigarettes ; Cigarettes Per Day: 0-3 ; Do You Dip or Chew Tobacco: No ; Second Hand Exposure: No ; Tobacco Cessation Education Requested by Patient: No Hx Alcohol Use: No Hx Substance Use: Yes substance use type: prescription drug Substance Use Type Other:: percocet, oxycontin Last Used Substance: Unknown Results & Data Vital Signs Vital Signs - 24 hr 04/20/19 07:59 04/20/19 08:01 04/20/19 08:10 Temperature 36.9 C Temperature Source Oral Pulse Rate 99 H 99 H 104 H Pulse Rate from SpO2 Sensor 99 H 100 H Pulse Rhythm Regular Pulse Strength Normal Respiratory Rate 16 16 24 Respiratory Effort / Characteristics Non-Labored Spontaneous Respiratory Depth Normal Respiratory Pattern Regular Blood Pressure 206/126 H 206/126 H Blood Pressure Mean 155 152 Pulse Oximetry 99 97 98 Oxygen Delivery Method Room Air Sepsis Recent Fever Within 48 Hours No Sepsis Action Taken by Nursing No Action Required 04/20/19 08:21 04/20/19 08:26 04/20/19 08:30 Temperature Temperature Source Pulse Rate 78 96 H Pulse Rate from SpO2 Sensor 98 H 97 H Pulse Rhythm Pulse Strength Respiratory Rate 17 16 Respiratory Effort / Characteristics Respiratory Depth Respiratory Pattern Blood Pressure 159/119 H Blood Pressure Mean 135 Pulse Oximetry 97 95 Oxygen Delivery Method Room Air Sepsis Recent Fever Within 48 Hours Sepsis Action Taken by Nursing 04/20/19 09:00 04/20/19 09:01 04/20/19 09:30 Temperature Temperature Source Pulse Rate 92 H 91 H 101 H Pulse Rate from SpO2 Sensor 91 H 91 H 97 H Pulse Rhythm Pulse Strength Respiratory Rate 14 13 16 Respiratory Effort / Characteristics Respiratory Depth Respiratory Pattern Blood Pressure 162/94 H Blood Pressure Mean 122 Pulse Oximetry 96 96 97 Oxygen Delivery Method Sepsis Recent Fever Within 48 Hours Sepsis Action Taken by Nursing 04/20/19 09:56 04/20/19 10:00 04/20/19 10:01 Temperature Temperature Source Pulse Rate 85 84 85 Pulse Rate from SpO2 Sensor 85 84 84 Pulse Rhythm Pulse Strength Respiratory Rate 12 17 14 Respiratory Effort / Characteristics Respiratory Depth Respiratory Pattern Blood Pressure 181/91 H 164/90 H Blood Pressure Mean 115 104 Pulse Oximetry 91 91 90 Oxygen Delivery Method Sepsis Recent Fever Within 48 Hours Sepsis Action Taken by Nursing 04/20/19 10:30 04/20/19 11:00 04/20/19 11:01 Temperature Temperature Source Pulse Rate 85 90 86 Pulse Rate from SpO2 Sensor 85 90 86 Pulse Rhythm Pulse Strength Respiratory Rate 16 19 14 Respiratory Effort / Characteristics Respiratory Depth Respiratory Pattern Blood Pressure 160/94 H Blood Pressure Mean 109 Pulse Oximetry 90 92 95 Oxygen Delivery Method Sepsis Recent Fever Within 48 Hours Sepsis Action Taken by Nursing 04/20/19 11:30 Temperature Temperature Source Pulse Rate 81 Pulse Rate from SpO2 Sensor Pulse Rhythm Pulse Strength Respiratory Rate 11 L Respiratory Effort / Characteristics Respiratory Depth Respiratory Pattern Blood Pressure Blood Pressure Mean Pulse Oximetry Oxygen Delivery Method Sepsis Recent Fever Within 48 Hours Sepsis Action Taken by Correction Medications Current Medication List: was personally reviewed by me Laboratory Data Attestation: I reviewed the patient's lab results. Result diagrams: 04/20/19 08:30 04/20/19 08:30 Lab Results 04/20/19 04/20/19 04/20/19 Range/Units 08:30 08:30 08:30 WBC 9.12 (4.8-10.8) K/uL RBC 4.26 L (4.7-6.1) M/uL Hgb 11.7 L (14.0-18.0) g/dL Hct 35.4 L (42-52) % MCV 83.1 (80-100) fL MCH 27.5 (25-34) pg MCHC 33.1 (32-36) g/dL RDW Std Deviation 42.3 (36.4-46.3) fL RDW Coeff of [place] 14.1 (11.5-14.5) % Plt Count 102 L (130-400) K/uL MPV 8.1 (7.4-10.4) fL Immature Gran % (Auto) 0.3 % Neut % (Auto) 73.6 % Lymph % (Auto) 16.9 % [place] % (Auto) 7.5 % Eos % (Auto) 1.5 % Baso % (Auto) 0.2 % Immature Gran # (Auto) 0.03 H (0.00-0.02) K/uL Neut # (Auto) 6.71 H (1.4-6.5) K/uL Lymph # (Auto) 1.54 (1.2-3.4) K/uL [place] # (Auto) 0.68 H (0.11-0.59) K/uL Eos # (Auto) 0.14 (0-0.5) K/uL Baso # (Auto) 0.02 (0-0.2) K/uL Sodium 135 L (136-145) mmol/L Potassium 5.0 (3.5-5.1) mmol/L Chloride 107 (98-107) mmol/L Carbon Dioxide 23 (21-32) mmol/L Anion Gap 5.0 (3-11) BUN 29 H (7-18) mg/dl Creatinine 2.28 H (0.6-1.4) mg/dl Est Cr Clr Drug Dosing Not Reportable Est GFR ( Amer) 34.6 Est GFR (Non-Af Amer) 29.9 BUN/Creatinine Ratio 12.8 (10-20) Glucose 90 (70-99) mg/dl Calcium 9.4 (8.5-10.1) mg/dl Total Bilirubin 0.5 (0.2-1) mg/dl AST 50 H (15-37) U/L ALT 43 (12-78) U/L Alkaline Phosphatase 439 H (45-117) U/L Total Protein 8.6 H (6.4-8.2) gm/dl Albumin 3.3 L (3.4-5.0) gm/dl Globulin 5.3 H (2.5-4.0) gm/dl Albumin/Globulin Ratio 0.6 L (0.9-2) Urine Color Yellow Urine Appearance Cloudy A (Clear) Urine pH 7.0 (4.5-7.5) Ur Specific [place] 1.012 (1.000-1.030) Urine Protein 1+ H (Negative) Urine Glucose (UA) Negative (Negative) Urine Ketones Negative (Negative) Urine Blood 3+ H (Negative) Urine Nitrite Positive A (Negative) Urine Bilirubin Negative (Negative) Urine Urobilinogen Negative (Negative) Ur Leukocyte Esterase 2+ H (Negative) Urine WBC (Auto) >30 H (0-5) /hpf Urine RBC (Auto) >30 H (0-4) /hpf U Hyaline Cast (Auto) 1-5 (0-5) /lpf U Epithel Cells (Auto) 0-5 (0-5) /lpf Urine Bacteria (Auto) 1+ H (Negative) Urine Yeast Not Reportable Administered Medications Hydromorphone HCl (Dilaudid) 1 mg IV Q2H PRN PRN Reason: Severe Pain Stop: 05/04/19 13:02 Last Admin: 04/20/19 15:50 Dose: 1 mg Documented by: [id number] Admin: 04/20/19 13:22 Dose: 1 mg Documented by: [id number] Sodium Chloride (Nss 1000ml) 1,000 mls @ 80 mls/hr IV .[id number] [facility] Stop: 04/21/19 14:02 Last Admin: 04/20/19 13:22 Dose: 80 mls/hr Documented by: [id number] Oxycodone HCl (Roxicodone Immediate Rel) 10 mg PO Q4H PRN PRN Reason: Pain Stop: 05/04/19 13:02 Last Admin: 04/20/19 15:54 Dose: 10 mg Documented by: [id number] Oxycodone HCl (Oxycontin) 40 mg PO BID [facility] Stop: 05/04/19 13:44 Last Admin: 04/20/19 14:01 Dose: 40 mg Documented by: [id number] Discontinued Medications Hydromorphone HCl (Dilaudid) 1 mg IV Q15M PRN PRN Reason: Pain Stop: 05/04/19 08:13 Last Admin: 04/20/19 12:30 Dose: 1 mg Documented by: [id number] Admin: 04/20/19 11:04 Dose: 1 mg Documented by: [id number] Admin: 04/20/19 09:36 Dose: 1 mg Documented by: [id number] Admin: 04/20/19 08:47 Dose: 1 mg Documented by: [id number] Admin: 04/20/19 08:21 Dose: 1 mg Documented by: [id number] Ceftriaxone Sodium (Rocephin) 1,000 mg in 50 mls @ 100 mls/hr IV NOW STA Stop: 04/20/19 09:57 Last Infusion: 04/20/19 11:25 Dose: 0 mls/hr Documented by: [id number] Admin: 04/20/19 09:35 Dose: 100 mls/hr Documented by: [id number] Ondansetron HCl (Zofran) 4 mg IV NOW STA Stop: 04/20/19 08:15 Last Admin: 04/20/19 08:21 Dose: 4 mg Documented by: [id number] Imaging Data Radiologist's Impression: Radiology results as stated below per my review and th e radiologist's interpretation: CT pelvis wo con CT DOSE: 1324.59 mGy.cm CLINICAL HISTORY: severe hip and pelvic pain, known mets TECHNIQUE: Helical images were acquired through the pelvis. No intravenous contrast was administered. A dose lowering technique was utilized adhering to the principles of ALARA. COMPARISON STUDY: CT scan dated 12/24/2018 FINDINGS: There is a right-sided nephroureteral stent. There is ectasia of the infrarenal abdominal aorta which measures 28 mm. There is left-sided hydroureter. There are enlarging bladder masses with evidence of transmural extension. There is no pathologic bowel dilatation. The appendix appears normal. There is no acute diverticulitis. There are small fat-containing right inguinal hernia. Stable left pelvic soft tissue mass adjacent to the inguinal canal, possibly representing the sequela of prior inguinal hernia repair There are osseous metastasis involving the inferior pubic rami bilaterally with evidence of a pathologic fracture on the left. There is an enlarging blastic lesion involving the posterior aspect of the right iliac bone currently measuring 16 mm. There is a mixed lytic and sclerotic left acetabular region measuring 25 mm, consistent with a metastatic deposit. There are mixed lytic and sclerotic changes within the iliac bones, consistent with metastasis. IMPRESSION: 1. Progressive skeletal metastasis. Pathologic fracture of the left inferior pubic ramus. 2. No evidence of bowel obstruction. 3. Enlarging bladder masses with transmural extension 4. Moderate left-sided hydroureter. Indwelling right-sided nephroureteral stent 5. Normal appendix. No evidence of acute diverticulitis. ACT 112: Negative or not required by law. Electronically signed by: Leandro Avila M.D. 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 I confirm that the note above accurately re flects all work, treatment, procedures, and medical decision making performed by me.
[2019-04-20] MEDS: ATORVASTATIN 40 MG TAB PO SCH (20:06)
[2019-04-20] MEDS: DOCUSATE SODIUM 100 MG CAP PO SCH (20:06)
[2019-04-20] MEDS: HEPARIN SOD 5,000 UNIT/0.5 ML VIAL SQ SCH (20:06)
[2019-04-21] MEDS: HYDROmorphone INJ 1 MG/ML SYRINGE IV PRN ×9 (01:49→22:37)
[2019-04-21] MEDS: SODIUM CHLORIDE 0.9% 1000ML 1,000 ML IV SCH ×2 (02:47→20:30)
[2019-04-21] MEDS: OXYCODONE HCL IR 5 MG TAB (IMMEDIATE RELEASE) PO PRN ×3 (04:47→17:24)
[2019-04-21] MEDS: LEVOTHYROXINE SODIUM 100 MCG TABLET PO SCH (06:01)
[2019-04-21 06:31] LABS: Hematocrit (blood only) 32.1 % (42-52); Hemoglobin 10.8 g/dL (14.0-18.0); Mean Corpuscular Hemoglobin 28.1 pg (25-34); Mean Corpuscular Hgb Conc 33.6 g/dL (32-36); Mean Corpuscular Volume 83.4 fL (80-100); RDW Coefficient of Variation 14.4 % (11.5-14.5); RDW Standard Deviation 43.9 fL (36.4-46.3); Red Blood Count 3.85 M/uL (4.7-6.1); White Blood Count 7.14 K/uL (4.8-10.8)
[2019-04-21 06:54] LABS: Mean Platelet Volume 7.8 fL (7.4-10.4); Platelet Count 95 K/uL (130-400); Platelet Estimate Decreased (Normal)
[2019-04-21 07:06] LABS: BUN Creatinine Ratio 14.5 (10-20); Calcium 8.9 mg/dl (8.5-10.1); Creatinine Clr Calc Pharmacy 43.3 ml/min; Est GFR (African American) 33.9; Est GFR (Non-African American) 29.2; Potassium 4.7 mmol/L (3.5-5.1)
[2019-04-21] MEDS: cefTRIAXone SODIUM 2,000 MG in DEXTROSE 5% 50 ML IV SCH (08:27)
[2019-04-21] MEDS: MULTIVITAMIN TAB PO SCH (08:28)
[2019-04-21] MEDS: DOCUSATE SODIUM 100 MG CAP PO SCH (08:29)
[2019-04-21] MEDS: OXYCODONE HCL 40 MG TABCR (OXYCONTIN) PO SCH ×3 (08:29→21:03)
[2019-04-21] MEDS: ASPIRIN 81 MG ECTAB PO SCH (08:29)
[2019-04-21] MEDS: METOPROLOL SUCC 25MG EXT REL TAB PO SCH (08:30)
[2019-04-21] MEDS: TAMSULOSIN HCL 0.4 MG CAP PO SCH (08:30)
[2019-04-21] MEDS: HEPARIN SOD 5,000 UNIT/0.5 ML VIAL SQ SCH ×2 (08:31→20:31)
[2019-04-21] MEDS: POLYETHYLENE (MIRALAX) 17 GM PACK PO SCH (08:34)
--- NOTE | 2019-04-21 08:44 | Pain Management Consultation ---
Date of Consultation April 21, 2019 Assessment & Plan (1) Bladder cancer metastasized to bone: (2) Inferior pubic ramus fracture: (3) Intractable pain: 1. OxyContin was increased from 40mg BID to 40mg TID for extra pain relief during this acute flare up of pain. 2. Continue Oxycodone 10mg PRN breakthrough pain. Patient states that the Oxycodone is not as effective as the Percocet he was previously taking. Given elevated LTFs, I explained to the patient that he is not to receive Tylenol. 3. Dilaudid IV will remain if needed for breakthrough pain. I have urged the importance of relying only on the oral pain medications to prepare him for discharge back to [facility]. He is understanding. 4. An order for Narcan if needed for overdose give the high amount of opioids he is receiving. 5. Will check on the patient's progress tomorrow. History of Present Illness Attending Physician: Milton Rodriguez MD History of Present Illness Mr. Ding is a 59 year old white male with metastatic bladder cancer with metastasis to the thoracic and lumbar spine. He did come into the hospital for left hip pain. He was found to have a pubic ramus fracture. Orthopedics recommends weight bearing as tolerated and no surgical intervention. He describes a deep aching and intermittent sharp stabbing pain along the left hip. He has tried walking once yesterday but the pain was so severe he has not tried again. Patient has been on OxyContin and Percocet for over a year and has required several dosage increases. The Percocet was switched to Oxycodone due to elevate LFTs. He states that the Oxycodone is not providing adequate pain relief like Percocet typically does. OxyContin does provide moderate pain relief. He has been receiving IV Dilaudid since admission which is effective towards diminishing his pain. He does report improvement in pain since yesterday. No bowel/bladder incontinence, saddle anesthesia, foot drop, falls. Case discussed with Dr. Yuli Oreilly Pain Assessment Full Body Front + Back: 1. [facility] Combined Pain Scale: 6-Mod to Severe - Significant limitations of ADLs. Hard to do anything Allergies Allergy/AdvReac Type Severity Reaction Status Date / Time morphine Allergy Severe ANAPHYLAXIS Verified 04/20/19 09:04 Penicillins Allergy Intermediate HIVES Verified 04/20/19 09:04 ketorolac [From Toradol] AdvReac Intermediate Unknown Verified 04/20/19 09:04 Home Medications Home Medications Medication Instructions Recorded Confirmed Type Chloraseptic Throat [place] 1.4 % MUCOUS MEMBRANE Q8 PRN 12/24/18 04/20/19 History acetaminophen 650 mg PO Q4 PRN 12/24/18 04/20/19 History alum-mag hydroxide-simeth [Maalox 10 ml PO Q4 PRN 12/24/18 04/20/19 History Advanced] aspirin [Aspir-Low] 81 mg PO DAILY 12/24/18 04/20/19 History atorvastatin [Lipitor] 40 mg PO PM 12/24/18 04/20/19 History hyoscyamine sulfate 0.125 mg PO Q4 PRN 12/24/18 04/20/19 History levothyroxine 100 mcg PO DAILY 12/24/18 04/20/19 History metoprolol succinate 12.5 mg PO DAILY 12/24/18 04/20/19 History multivitamin 1 tab PO DAILY 12/24/18 04/20/19 History polyethylene glycol 3350 [Miralax] 17 g PO DAILY 12/24/18 04/20/19 History sildenafil 50 mg PO DAILY PRN 12/24/18 04/20/19 History sodium chloride [Saline Nasal] 2 spray INTRANASAL Q2H PRN 12/24/18 04/20/19 History tamsulosin [Flomax] 0.4 mg PO DAILY 12/24/18 04/20/19 History albuterol sulfate 2.5 mg INHALATION Q6H PRN 04/20/19 04/20/19 History bisacodyl 10 mg [place] DAILY PRN 04/20/19 04/20/19 History magnesium hydroxide [Milk of 800 mg PO DAILY PRN 04/20/19 04/20/19 History Magnesia] oxycodone [OxyContin] 40 mg PO BID 04/20/19 04/20/19 History oxycodone-acetaminophen [Percocet] 1 tab PO Q4H PRN 04/20/19 04/20/19 History sodium phosphates [Fleet Enema] 118 ml MO DAILY PRN 04/20/19 04/20/19 History Patient History Medical History Anemia CHRONIC; BASELINE HGB 8-9 RANGE PER CHART REVIEW Asthma (08/31/12) Back pain Bladder cancer Blindness of right eye BPH (benign prostatic hyperplasia) Cancer of kidney Chronic anemia Coronary artery disease (08/31/12) STENTS X 2 (1+ YEARS AGO) Hepatitis C Hydroureter Hyperlipidemia Hypothyroidism (08/31/12) Kidney stones Myocardial Infarction Pulmonary nodule Surgical History History of transurethral destruction of bladder lesion S/P cholecystectomy S/P colonoscopy S/P hernia repair Family History Other Coronary heart disease Diabetes Social History Preferred Language: Afghan Communication Ability: Effective 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: No Beliefs That Will Affect Care: None Current Living Situation: Long Term Current Living Situation Comment: [facility] Other Information That Helps Us Care for You: No Feels Safe at Home: Yes Safety Concerns: Feels Safe At This Time Smoking Status: Current some day smoker Tobacco Type: cigarettes ; Cigarettes Per Day: 0-3 ; Do You Dip or Chew Tobacco: No ; Second Hand Exposure: No ; Tobacco Cessation Education Requested by Patient: No Hx Alcohol Use: No Hx Substance Use: Yes substance use type: prescription drug Substance Use Type Other:: percocet, oxycontin Last Used Substance: Unknown Physical Exam Physical Exam: General: This is a 59 year old white male that is resting comfortable in the hospital bed. Head/face: Normocephalic and atraumatic. Eyes: No drainage or conjunctival injection. ENT: Nose without bleeding or discharge. Oral mucosa moist. Neck: Full ROM without apparent pain. No swelling or masses noted. Respiratory: Patient with unlabored breathing. No signs of respiratory distress. Chest/Axilla: Chest movement symmetrical. No deformities noted. Back: Moves without difficulty Skin: [place], warm and dry. No rash noted. MS/Extremity: No swelling, no deformities. Able to internally and externally rotate left hip without pain. Slight pain with left hip flexion. Tenderness along the pubis. Neuro: Alert and appears oriented. Speech is fluent. Cranial Nerves are grossly intact. Psych: Alert, pleasant, affect is calm Results Diagnostic Review CT Findings: CT pelvis wo con CT DOSE: 1324.59 mGy.cm CLINICAL HISTORY: severe hip and pelvic pain, known mets TECHNIQUE: Helical images were acquired through the pelvis. No intravenous contrast was administered. A dose lowering technique was utilized adhering to the principles of ALARA. COMPARISON STUDY: CT scan dated 12/24/2018 FINDINGS: There is a right-sided nephroureteral stent. There is ectasia of the infrarenal abdominal aorta which measures 28 mm. There is left-sided hydroureter. There are enlarging bladder masses with evidence of transmural extension. There is no pathologic bowel dilatation. The appendix appears normal. There is no acute diverticulitis. There are small fat-containing right inguinal hernia. Stable left pelvic soft tissue mass adjacent to the inguinal canal, possibly representing the sequela of prior inguinal hernia repair There are osseous metastasis involving the inferior pubic rami bilaterally with evidence of a pathologic fracture on the left. There is an enlarging blastic lesion involving the posterior aspect of the right iliac bone currently measuring 16 mm. There is a mixed lytic and sclerotic left acetabular region measuring 25 mm, consistent with a metastatic deposit. There are mixed lytic and sclerotic changes within the iliac bones, consistent with metastasis. IMPRESSION: 1. Progressive skeletal metastasis. Pathologic fracture of the left inferior pubic ramus. 2. No evidence of bowel obstruction. 3. Enlarging bladder masses with transmural extension 4. Moderate left-sided hydroureter. Indwelling right-sided nephroureteral stent 5. Normal appendix. No evidence of acute diverticulitis.
[2019-04-21] MEDS ORDERED: NALOXONE HCL 0.4 MG/1 ML VIAL/CARP IV PRN (09:04)
--- NOTE | 2019-04-21 09:52 | Nephrology Consultation ---
Date of Consultation April 21, 2019 Assessment & Plan (1) MIKIE (acute kidney injury): Patient with acute kidney injury likely due to obstructive uropathy. He could have ischemic ATN in setting of infection. Baseline creatinine of 1.2. Creatinine is now up to 2.[address] scan showed enlarging bladder mass, moderate left hydronephrosis and right-sided stent. -Agree with continuing fluids -Urology consultation -Avoid nephrotoxins such as contrast unless lifesaving. (2) 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: Patient is status post palliative chemoradiation. Bladder mass appears to be increasing on CT scan. Patient is being seen by palliative care. We will continue conservative management including pain control and IV fluids as needed. Patient is not a candidate for dialysis if needed due to advanced cancer (3) UTI (urinary tract infection): UA showing pyuria and hematuria. Patient is receiving ceftriaxone per primary team. Follow-up urine cultures. History of Present Illness Reason for Consultation: Acute kidney injury Requesting Physician: Milton Rodriguez MD Attending Physician: Milton Rodriguez MD History of Present Illness This is a 59-year-old male being seen for acute kidney injury with admission creatinine of 2.2 from a fairly normal baseline of 1.2 in December 2018. Past medical history of metastatic bladder cancer with mets to thoracic and lumbar spine and pelvis. He had obstructive uropathy in setting of bladder cancer status post right-sided ureteral stent. He is s/p palliative radiation x1 without improvement, palliative chemo, last chemo in October 2018. Other past medical history include HTN, COPD, iron deficiency anemia, chronic back pain, hepatitis C, and CAD S/p stent. He presented with worsening back and hip pain. He denied NSAID use. No shortness of breath. No gross hematuria. CT abdomen done yesterday still showing moderate left hydronephrosis, enlarging bladder mass and right-sided ureteral stent. His creatinine is up trending to 2.3 today. No vomiting or diarrhea. Patient does not want See catheter. Allergies Allergy/AdvReac Type Severity Reaction Status Date / Time morphine Allergy Severe ANAPHYLAXIS Verified 04/20/19 09:04 Penicillins Allergy Intermediate HIVES Verified 04/20/19 09:04 ketorolac [From Toradol] AdvReac Intermediate Unknown Verified 04/20/19 09:04 Home Medications Home Medications Medication Instructions Recorded Confirmed Type Chloraseptic Throat [place] 1.4 % MUCOUS MEMBRANE Q8 PRN 12/24/18 04/20/19 History acetaminophen 650 mg PO Q4 PRN 12/24/18 04/20/19 History alum-mag hydroxide-simeth [Maalox 10 ml PO Q4 PRN 12/24/18 04/20/19 History Advanced] aspirin [Aspir-Low] 81 mg PO DAILY 12/24/18 04/20/19 History atorvastatin [Lipitor] 40 mg PO PM 12/24/18 04/20/19 History hyoscyamine sulfate 0.125 mg PO Q4 PRN 12/24/18 04/20/19 History levothyroxine 100 mcg PO DAILY 12/24/18 04/20/19 History metoprolol succinate 12.5 mg PO DAILY 12/24/18 04/20/19 History multivitamin 1 tab PO DAILY 12/24/18 04/20/19 History polyethylene glycol 3350 [Miralax] 17 g PO DAILY 12/24/18 04/20/19 History sildenafil 50 mg PO DAILY PRN 12/24/18 04/20/19 History sodium chloride [Saline Nasal] 2 spray INTRANASAL Q2H PRN 12/24/18 04/20/19 History tamsulosin [Flomax] 0.4 mg PO DAILY 12/24/18 04/20/19 History albuterol sulfate 2.5 mg INHALATION Q6H PRN 04/20/19 04/20/19 History bisacodyl 10 mg [place] DAILY PRN 04/20/19 04/20/19 History magnesium hydroxide [Milk of 800 mg PO DAILY PRN 04/20/19 04/20/19 History Magnesia] oxycodone [OxyContin] 40 mg PO BID 04/20/19 04/20/19 History oxycodone-acetaminophen [Percocet] 1 tab PO Q4H PRN 04/20/19 04/20/19 History sodium phosphates [Fleet Enema] 118 ml [place] DAILY PRN 04/20/19 04/20/19 History Patient History Medical History (Updated 04/21/19 @ 08:57 by Noreen Wei PA-C) Anemia CHRONIC; BASELINE HGB 8-9 RANGE PER CHART REVIEW Asthma (08/31/12) Back pain Bladder cancer Blindness of right eye BPH (benign prostatic hyperplasia) Cancer of kidney Chronic anemia Coronary artery disease (08/31/12) STENTS X 2 (1+ YEARS AGO) Hepatitis C Hydroureter Hyperlipidemia Hypothyroidism (08/31/12) Inferior pubic ramus fracture Kidney stones Myocardial Infarction Pulmonary nodule Surgical History History of transurethral destruction of bladder lesion S/P cholecystectomy S/P colonoscopy S/P hernia repair Family History Other Coronary heart disease Diabetes Social History Preferred Language: Gibraltarian Communication Ability: Effective Linker Up Required: No Beliefs That Will Affect Care: None Current Living Situation: Snf Current Living Situation Comment: [facility] Other Information That Helps Us Care for You: No Feels Safe at Home: Yes Safety Concerns: Feels Safe At This Time Smoking Status: Current some day smoker Tobacco Type: cigarettes ; Cigarettes Per Day: 0-3 ; Do You Dip or Chew Tobacco: No ; Second Hand Exposure: No ; Tobacco Cessation Education Requested by Patient: No Hx Alcohol Use: No Hx Substance Use: Yes substance use type: prescription drug Substance Use Type Other:: percocet, oxycontin Last Used Substance: Unknown Review of Systems Review of Systems: All systems reviewed & are unremarkable except as noted in HPI & below Physical Exam Physical Exam: General exam: Appears comfortable, no acute distress HEENT: Pupils are equal and reactive to light Neck: No JVD, neck is supple trachea is midline Respiratory system: Clear breath sounds bilaterally. Gastrointestinal: Abdomen is soft, non distended, non tender, bowel sounds are present CVS: Regular rate and rhythm. No murmurs, rubs or gallops Musculoskeletal: No joint or muscle tenderness Extremities: Non tender, no edema, peripheral pulses are present Neuro: Oriented, no tremors, no focal neurological deficits Skin: No rashes Results & Data Vital Signs (Past 12 Hours) Vital Signs Temp Pulse Resp BP Pulse Ox 04/21/19 07:26 36.6 C 74 18 133/84 94 04/21/19 03:19 36.7 C 78 20 128/79 96 04/20/19 23:00 36.8 C 79 20 112/74 92 Laboratory Results 04/21/19 06:16 04/21/19 06:16 WBC 7.14 RBC 3.85 L MCV 83.4 MCH 28.1 MCHC 33.6 RDW Std Deviation 43.9 RDW Coeff of Fareed 14.4 Plt Count 95 L MPV 7.8
--- NOTE | 2019-04-21 18:09 | Ultrasound Report ---
US venous doppler lower extremity bilateral CLINICAL HISTORY: Bilateral lower extremity swelling COMPARISON STUDY: No previous studies for comparison. FINDINGS: Real-time and color flow Doppler imaging were performed. Flow was seen within the femoral, popliteal and calf veins with no intraluminal thrombus demonstrated. The saphenous vein is patent. IMPRESSION: No evidence of lower extremity DVT. ACT 112: Negative or not required by law. Electronically signed by: Leandro Avila M.D. 04/21/2019 6:08 PM
--- NOTE | 2019-04-21 19:46 | Hospitalist Progress Note ---
Date of Service April 21, 2019 Assessment & Plan (1) Pathological fracture of pelvis: (2) Intractable pain: Per admitting service notes Pt is 59 y/o M Metastatic bladder cancer with mets to thoracic and lumbar spine and pelvis s/p palliative radiation x1 without improvement, palliative chemo, HTN, COPD, iron deficiency anemia, chronic back pain, hepatitis C, CAD S/p stent, right-sided double-J stent presented to ER with complaint of left hip and pelvic pain x1 day. Patient reports chronic low back pain and chronic pelvic and bilateral hip pain however increased pain yesterday to left hip that radiates down left leg. Denies fever/chills, LE or saddle paresthesias In ER vitals stable. No leukocytosis. CT PELVIS:1. Progressive skeletal metastasis. Pathologic fracture of the left inferior pubic ramus. 2. No evidence of bowel obstruction. 3. Enlarging bladder masses with transmural extension. 4. Moderate left-sided hydroureter. Indwelling right-sided nephroureteral stent. 5. Normal appendix. No evidence of acute diverticulitis. 04/21/2019 Evaluated by Ortho service, recommend conservative management at this point Evaluate with pain management service, OxyContin increase to 3 times daily, continue PRN oxycodone and IV Dilaudid Continue to monitor closely (3) MIKIE (acute kidney injury): On admission: BUN: 29, Cr: 2.28, GFR: 29.9 Creatinine still elevated today at 2.3 Nephrology service consulted, appreciate recommendations Continue IV fluids Acute renal failure could be secondary to obstructive uropathy given history of hydronephrosis, right ureter stent placement, increasing bladder mass Urologist consulted (4) UTI (urinary tract infection): Per admitting service notes: Dysuria x 1 day. UA: +nitrite, 2+leuk esterase, >30 WBC, >30 RBC, 1+ bacteria -Urine culture pending -Continue Rocephin (5) 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: Per admitting service notes H/O Metastatic bladder cancer with mets to thoracic and lumbar spine and pelvis s/p palliative radiation x1 without improvement, palliative chemo with last treatment on 10/2018 and further treatments held secondary to elevated LFTs. Follows with Dr Mon - consideration to further chemo treatments if improvement in LFTs - has appointment 04/22/2019 (6) Chronic anemia: Hgb: 11.7. -Hemoglobin 10.8, no signs of active bleeding -Monitor H&H (7) Coronary artery disease: S/P stent -No cardiac symptoms -Continue metoprolol, statin, aspirin (8) Hypothyroidism: -Continue levothyroxine (9) Hepatitis C: Followed with GI. no treatment started secondary to limited life expectancy with his metastatic bladder CA DVT Prophylaxis -Heparin SQ Full Code as per discussion with pt Follows with Dr Damian at [facility] for routine care Admission and Anticipated Discharge Date Admission Date: April 20, 2019 Subjective Follow-up for left inferior pubic rami fracture, pain, acute renal failure Seen resting in bed, comfortable, not in distress Appears somewhat weak Reports left hip/groin pain about the same as yesterday, may be slightly better Denies problems with urination No chest pain, shortness of breath, palpitations, dizziness, abdominal pain, nausea or vomiting No fevers or chills Denies other symptoms Review of Systems Review of Systems: All systems reviewed & are unremarkable except as noted in HPI & below Physical Exam Physical Exam: General- oriented x 3, not in distress, speaks in sentences with no effort or accessory muscle use Head- atraumatic Eyes- PERRL, EOMI, anicteric ENT- oropharynx clear Neck- supple, no JVD, no adenopathy, no thyromegaly; carotids +2/2, no bruits appreciated Lungs- clear to auscultation bilaterally, no rales/wheezes Heart- normal rate, regular rhythm; no murmur, no gallop, no rub appreciated Abdomen- normal bowel sounds, nondistended, soft, nontender, no masses or hepatosplenomegaly Extremities-positive mild lower leg edema, no calf tenderness; peripheral pulses intact Neuro- alert, oriented x 3; CN 2-12 grossly intact; motor 5/5 bilaterally;sensation 100% on all extremities; no other gross focal neurologic deficits Skin- warm & dry Results & Data ([facility]) Vital Signs (Past 12 Hours) Vital Signs Temp Pulse Resp BP BP Pulse Ox 04/21/19 19:27 36.9 C 82 18 110/75 95 04/21/19 15:16 36.8 C 75 18 117/77 92 04/21/19 11:16 36.8 C 80 18 121/81 91 Laboratory Results Laboratory Results - last 24 hr 04/21/19 04/21/19 06:16 06:16 WBC 7.14 RBC 3.85 L Hgb 10.8 L Hct 32.1 L MCV 83.4 MCH 28.1 MCHC 33.6 RDW Std Deviation 43.9 RDW Coeff of Fareed 14.4 Plt Count 95 L MPV 7.8 Platelet Estimate Decreased L Sodium 136 Potassium 4.7 Chloride 108 H Carbon Dioxide 24 Anion Gap 5.0 BUN 34 H Creatinine 2.32 H Est Cr Clr Drug Dosing 43.3 Est GFR ( Amer) 33.9 Est GFR (Non-Af Amer) 29.2 BUN/Creatinine Ratio 14.5 Glucose 83 Calcium 8.9 (1) Pathological fracture of pelvis Encounter type: initial encounter Pathology associated with fracture: unspecified disease Qualified Code(s): M84.454A - Pathological fracture, pelvis, initial encounter for fracture
[2019-04-21] MEDS: ATORVASTATIN 40 MG TAB PO SCH (20:30)
[2019-04-21] MEDS: DOCUSATE SODIUM/SENNA 50/8.6MG TAB PO SCH (21:03)
[2019-04-22] MEDS: HYDROmorphone INJ 1 MG/ML SYRINGE IV PRN ×11 (00:35→23:29)
[2019-04-22] MEDS: OXYCODONE HCL IR 5 MG TAB (IMMEDIATE RELEASE) PO PRN ×2 (04:10→11:38)
[2019-04-22] MEDS: LEVOTHYROXINE SODIUM 100 MCG TABLET PO SCH (06:05)
[2019-04-22] MEDS: MULTIVITAMIN TAB PO SCH (08:14)
[2019-04-22] MEDS: cefTRIAXone SODIUM 2,000 MG in DEXTROSE 5% 50 ML IV SCH (08:14)
[2019-04-22] MEDS: METOPROLOL SUCC 25MG EXT REL TAB PO SCH (08:14)
[2019-04-22] MEDS: OXYCODONE HCL 40 MG TABCR (OXYCONTIN) PO SCH ×3 (08:14→20:54)
[2019-04-22] MEDS: DOCUSATE SODIUM/SENNA 50/8.6MG TAB PO SCH (08:15)
[2019-04-22] MEDS: POLYETHYLENE (MIRALAX) 17 GM PACK PO SCH (08:17)
[2019-04-22] MEDS: TAMSULOSIN HCL 0.4 MG CAP PO SCH (08:18)
[2019-04-22] MEDS: ASPIRIN 81 MG ECTAB PO SCH (08:18)
[2019-04-22] MEDS: HEPARIN SOD 5,000 UNIT/0.5 ML VIAL SQ SCH ×2 (08:19→20:54)
[2019-04-22] MEDS: SODIUM CHLORIDE 0.9% 1000ML 1,000 ML IV SCH ×2 (08:43→20:54)
[2019-04-22 09:28] LABS: Calcium 8.8 mg/dl (8.5-10.1); Est GFR (African American) 34.4; Est GFR (Non-African American) 29.7; Potassium 4.1 mmol/L (3.5-5.1)
--- NOTE | 2019-04-22 10:06 | Nephrology Progress Note ---
Date of Service April 22, 2019 Assessment & Plan (1) MIKIE (acute kidney injury): Patient with acute kidney injury likely due to obstructive uropathy. He could have ischemic ATN in setting of infection. Baseline creatinine of 1.2. Creatinine is stable at 2.[address] scan showed enlarging bladder mass, moderate left hydronephrosis and right-sided stent. -Agree with continuing fluids -Await urology consultation -Avoid nephrotoxins such as contrast unless lifesaving. (2) 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: Patient is status post palliative chemoradiation. Bladder mass appears to be increasing on CT scan. Patient is being seen by palliative care. We will continue conservative management including pain control and IV fluids as needed. Patient is not a candidate for dialysis if needed due to advanced cancer (3) UTI (urinary tract infection): UA showing pyuria and hematuria. Patient is receiving ceftriaxone per primary team. Follow-up urine cultures. Admission and Anticipated Discharge Date Admission Date: April 20, 2019 Subjective Patient complains of bone pain in the hips and back. No vomiting or diarrhea. He continues to make urine about 1.5 L in the past 24 hours. Review of Systems Review of Systems: All systems reviewed & are unremarkable except as noted in HPI & below Physical Exam Physical Exam: General exam: Appears comfortable, no acute distress HEENT: Pupils are equal and reactive to light Neck: No JVD, neck is supple trachea is midline Respiratory system: Clear breath sounds bilaterally. Gastrointestinal: Abdomen is soft, non distended, non tender, bowel sounds are present CVS: Regular rate and rhythm. No murmurs, rubs or gallops Musculoskeletal: No joint or muscle tenderness Extremities: Non tender, no edema, peripheral pulses are present Neuro: Oriented, no tremors, no focal neurological deficits Skin: No rashes Results & Data ([facility]) Vital Signs (Past 12 Hours) Vital Signs Temp Pulse Resp BP BP Pulse Ox 04/22/19 07:21 36.8 C 71 16 117/76 95 04/22/19 07:13 74 18 90 04/22/19 04:04 36.5 C 68 18 128/81 90 04/21/19 23:09 36.7 C 81 18 120/77 94 Laboratory Results 04/22/19 08:53
[2019-04-22] MEDS ORDERED: OXYCODONE/ACETAMINOPHEN 5mg/325mg TAB PO PRN (16:50)
[2019-04-22] MEDS ORDERED: HYDROmorphone HCL 0.5MG/ML 50 ML CASSETTE IV PRN (17:29)
--- NOTE | 2019-04-22 17:46 | Urology Consultation ---
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 If it is to be decompressed he would need a nephrostomy tube in [place]. Given his widely metastatic cancer and progression I do not think a neph tube is going to prolong his survival and it will decrease his quality of life due to tube discomfort and not uncommon tube malfunction and maintenance. He was surprised to hear his cancer is so advanced and his life expectancy shortened. He agreed he did not want to pursue the nephrostomy tube. We discussed him pain management and he would like increased dilaudid iv push every few hours instead of a RECON[employer]ISSANCE MAN pump. He has tried RECONNAISSANCE MAN pumps in past after chest tubes for pneumonia and it did not work. He also wants his percocet changed from 5mg to 10mg because 5mg does not work for him. I made that change. He also decided later that he wants to keep fighting his cancer, that he is not ready to give up. I suggest we get comment from oncology as to if there are any possible additional treatment options for him in near future. If there are, then he is likely going to need neph tube on left to improve kidney function to allow for chemotherapy. I do not think I can place a stent from below due to the bulky tumor over the left trigone seen on CT scan. Present on Admission?: Yes History of Present Illness Reason for Consultation: left hydroureteronephrosis Requesting Physician: Dr Rodriguez Attending Physician: Milton Rodriguez MD History of Present Illness I am asked by Dr Rodriguez to evaluate and treat patient for hydronephrosis. He has locally advanced and metastatic bladder cancer which is progressing on therapy. He has a right sided nephroureteral stent from prior and left sided hydroureteronephrosis on his CT scans Dec 2018 and 04/20/19. He has new pathologic pelvic fracture and is having a lot of pain. His urine culture is growing staph but he admits that when he gave the specimen it was not likely he used clean technique. He was in a lot of pain at the time and is obese. Allergies Allergy/AdvReac Type Severity Reaction Status Date / Time morphine Allergy Severe ANAPHYLAXIS Verified 04/20/19 09:04 Penicillins Allergy Intermediate HIVES Verified 04/20/19 09:04 ketorolac [From Toradol] AdvReac Intermediate Unknown Verified 04/20/19 09:04 Home Medications Home Medications Medication Instructions Recorded Confirmed Type Chloraseptic Throat [place] 1.4 % MUCOUS MEMBRANE Q8 PRN 12/24/18 04/20/19 History acetaminophen 650 mg PO Q4 PRN 12/24/18 04/20/19 History alum-mag hydroxide-simeth [Maalox 10 ml PO Q4 PRN 12/24/18 04/20/19 History Advanced] aspirin [Aspir-Low] 81 mg PO DAILY 12/24/18 04/20/19 History atorvastatin [Lipitor] 40 mg PO PM 12/24/18 04/20/19 History hyoscyamine sulfate 0.125 mg PO Q4 PRN 12/24/18 04/20/19 History levothyroxine 100 mcg PO DAILY 12/24/18 04/20/19 History metoprolol succinate 12.5 mg PO DAILY 12/24/18 04/20/19 History multivitamin 1 tab PO DAILY 12/24/18 04/20/19 History polyethylene glycol 3350 [Miralax] 17 g PO DAILY 12/24/18 04/20/19 History sildenafil 50 mg PO DAILY PRN 12/24/18 04/20/19 History sodium chloride [Saline Nasal] 2 spray INTRANASAL Q2H PRN 12/24/18 04/20/19 History tamsulosin [Flomax] 0.4 mg PO DAILY 12/24/18 04/20/19 History albuterol sulfate 2.5 mg INHALATION Q6H PRN 04/20/19 04/20/19 History bisacodyl 10 mg PA DAILY PRN 04/20/19 04/20/19 History magnesium hydroxide [Milk of 800 mg PO DAILY PRN 04/20/19 04/20/19 History Magnesia] oxycodone [OxyContin] 40 mg PO BID 04/20/19 04/20/19 History oxycodone-acetaminophen [Percocet] 1 tab PO Q4H PRN 04/20/19 04/20/19 History sodium phosphates [Fleet Enema] 118 ml PA DAILY PRN 04/20/19 04/20/19 History Patient History Medical History (Updated 04/22/19 @ 17:50 by Yuli Ng MD) Anemia CHRONIC; BASELINE HGB 8-9 RANGE PER CHART REVIEW Asthma (08/31/12) Back pain Bladder cancer Blindness of right eye BPH (benign prostatic hyperplasia) Cancer of kidney Chronic anemia Coronary artery disease (08/31/12) STENTS X 2 (1+ YEARS AGO) Hepatitis C Hydroureter Hyperlipidemia Hypothyroidism (08/31/12) Inferior pubic ramus fracture Kidney stones Myocardial Infarction Pulmonary nodule Surgical History History of transurethral destruction of bladder lesion S/P cholecystectomy S/P colonoscopy S/P hernia repair Family History Other Coronary heart disease Diabetes Social History Preferred Language: Dutch Communication Ability: Effective [employer] Supervisor Required: No Beliefs That Will Affect Care: None Current Living Situation: Shelter Current Living Situation Comment: [facility] Other Information That Helps Us Care for You: No Feels Safe at Home: Yes Safety Concerns: Feels Safe At This Time Smoking Status: Current some day smoker Tobacco Type: cigarettes ; Cigarettes Per Day: 0-3 ; Do You Dip or Chew Tobacco: No ; Second Hand Exposure: No ; Tobacco Cessation Education Requested by Patient: No Hx Alcohol Use: No Hx Substance Use: Yes substance use type: prescription drug Substance Use Type Other:: percocet, oxycontin Last Used Substance: Unknown Review of Systems Review of Systems: Soc- + tobacco no alcohol retired Fam Hx no cancer ROS- no fever or chills, appetite fine, bowels moving well, no rash, no cough no chest pain Physical Exam Constitutional: + well hydrated, + obese and + in distress Respiratory: normal respiratory effort, lungs clear to auscultation Gastrointestinal (Abdomen): normal bowel sounds, soft, nontender, no hepatosplenomegaly Skin: no rashes, warm and dry Psychiatric: Orientation: alert, oriented x 3 and cooperative Apperance: appropriately groomed Results & Data Vital Signs (Past 12 Hours) Vital Signs Temp Pulse Resp BP Pulse Ox 04/22/19 16:18 36.7 C 82 18 125/72 95 04/22/19 07:21 36.8 C 71 16 117/76 95 04/22/19 07:13 74 18 90 (1) Pathological fracture of pelvis Encounter type: initial encounter Pathology associated with fracture: unspecified disease Qualified Code(s): M84.454A - Pathological fracture, pelvis, initial encounter for fracture
[2019-04-22] MEDS: OXYCODONE/ACETAMINOPHEN 10-325 TAB PO PRN ×2 (17:48→22:24)
--- NOTE | 2019-04-22 18:09 | Hospitalist Progress Note ---
Date of Service April 22, 2019 Assessment & Plan (1) Pathological fracture of pelvis: (2) Intractable pain: Per admitting service notes Pt is 59 y/o M Metastatic bladder cancer with mets to thoracic and lumbar spine and pelvis s/p palliative radiation x1 without improvement, palliative chemo, HTN, COPD, iron deficiency anemia, chronic back pain, hepatitis C, CAD S/p stent, right-sided double-J stent presented to ER with complaint of left hip and pelvic pain x1 day. Patient reports chronic low back pain and chronic pelvic and bilateral hip pain however increased pain yesterday to left hip that radiates down left leg. Denies fever/chills, LE or saddle paresthesias In ER vitals stable. No leukocytosis. CT PELVIS:1. Progressive skeletal metastasis. Pathologic fracture of the left inferior pubic ramus. 2. No evidence of bowel obstruction. 3. Enlarging bladder masses with transmural extension. 4. Moderate left-sided hydroureter. Indwelling right-sided nephroureteral stent. 5. Normal appendix. No evidence of acute diverticulitis. 04/22/2019 change oxycodone to Percocet increase Dilaudid to 1.5mg IV q2h monitor (3) MIKIE (acute kidney injury): On admission: BUN: 29, Cr: 2.28, GFR: 29.9 Creatinine still elevated today at 2.29 Nephrology service consulted, appreciate recommendations Continue IV fluids Acute renal failure could be secondary to obstructive uropathy given history of hydronephrosis, right ureter stent placement, increasing bladder mass Urologist consulted--> discussed with Dr. Ng, no further procedures recommended (4) UTI (urinary tract infection): Per admitting service notes: Dysuria x 1 day. 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 Follows with Dr Mon - consideration to further chemo treatments if improvement in LFTs - has appointment 04/22/2019 (6) Chronic anemia: Hgb: 11.7. -Hemoglobin 10.8, no signs of active bleeding -Monitor H&H (7) Coronary artery disease: S/P stent -No cardiac symptoms -Continue metoprolol, statin, aspirin (8) Hypothyroidism: -Continue levothyroxine (9) Hepatitis C: Followed with GI. no treatment started secondary to limited life expectancy with his metastatic bladder CA DVT Prophylaxis -Heparin SQ Full Code as per discussion with pt Follows with Dr Damian at [facility] for routine care Admission and Anticipated Discharge Date Admission Date: April 20, 2019 Subjective ff up for pelvic fracture seen resting in bed, not in distress states left hip pain is about the same- requesting his usual percocet denies problems with urination no other symptoms Review of Systems Review of Systems: All systems reviewed & are unremarkable except as noted in HPI & below Physical Exam Physical Exam: General- oriented x 3, not in distress, speaks in sentences with no effort or accessory muscle use Eyes- anicteric Neck- no JVD Lungs- clear breath sounds bilaterally Heart- normal rate, regular rhythm; no murmurs Abdomen- normal bowel sounds, nondistended, soft, nontender Extremities- no pretibial edema, no calf tenderness Neuro- alert, oriented x 3; no gross focal neurologic deficits Skin- warm & dry Results & Data ([facility]) Vital Signs (Past 12 Hours) Vital Signs Temp Pulse Resp BP Pulse Ox 04/22/19 16:18 36.7 C 82 18 125/72 95 04/22/19 07:21 36.8 C 71 16 117/76 95 04/22/19 07:13 74 18 90 Laboratory Results Laboratory Results - last 24 hr 04/22/19 08:53 Sodium 136 Potassium 4.1 Chloride 107 Carbon Dioxide 24 Anion Gap 5.0 BUN 32 H Creatinine 2.29 H Est Cr Clr Drug Dosing 44.0 Est GFR ( Amer) 34.4 Est GFR (Non-Af Amer) 29.7 BUN/Creatinine Ratio 14.0 Glucose 156 H Calcium 8.8 (1) Pathological fracture of pelvis Encounter type: initial encounter Pathology associated with fracture: unspecified disease Qualified Code(s): M84.454A - Pathological fracture, pelvis, initial encounter for fracture
[2019-04-22] MEDS ORDERED: CALCIUM CARBONATE 500 MG CHEWABLE TAB PO PRN (19:48)
[2019-04-22] MEDS: ATORVASTATIN 40 MG TAB PO SCH (20:54)
[2019-04-23] MEDS ORDERED: Nursing to Pharmacy Communication ONE (00:40)
[2019-04-23] MEDS: HYDROmorphone INJ 1 MG/ML SYRINGE IV PRN ×10 (01:31→22:00)
[2019-04-23] MEDS: OXYCODONE/ACETAMINOPHEN 10-325 TAB PO PRN ×5 (02:22→18:59)
[2019-04-23] MEDS: LEVOTHYROXINE SODIUM 100 MCG TABLET PO SCH (05:49)
[2019-04-23] MEDS: TAMSULOSIN HCL 0.4 MG CAP PO SCH (08:44)
[2019-04-23] MEDS: MULTIVITAMIN TAB PO SCH (08:45)
[2019-04-23] MEDS: HEPARIN SOD 5,000 UNIT/0.5 ML VIAL SQ SCH ×2 (08:45→19:52)
[2019-04-23] MEDS: ASPIRIN 81 MG ECTAB PO SCH (08:45)
[2019-04-23] MEDS: DOCUSATE SODIUM/SENNA 50/8.6MG TAB PO SCH (08:47)
[2019-04-23] MEDS: METOPROLOL SUCC 25MG EXT REL TAB PO SCH (08:47)
[2019-04-23] MEDS: OXYCODONE HCL 40 MG TABCR (OXYCONTIN) PO SCH ×3 (08:54→21:26)
[2019-04-23] MEDS: POLYETHYLENE (MIRALAX) 17 GM PACK PO SCH (08:54)
[2019-04-23] MEDS: cefTRIAXone SODIUM 2,000 MG in DEXTROSE 5% 50 ML IV SCH (09:49)
[2019-04-23] MEDS: SODIUM CHLORIDE 0.9% 1000ML 1,000 ML IV SCH ×2 (10:00→21:26)
[2019-04-23] MEDS ORDERED: DAPTOMYCIN CONSULT ACTIVE PRN (15:16)
[2019-04-23 15:50] LABS: BUN Creatinine Ratio 13.3 (10-20); Calcium 9.1 mg/dl (8.5-10.1); Creatinine Clr Calc Pharmacy 47.8 ml/min; Est GFR (African American) 37.6; Est GFR (Non-African American) 32.4; Potassium 4.5 mmol/L (3.5-5.1)
[2019-04-23] MEDS: DAPTOmycin 325 MG in SYRINGE 0 ML IV SCH (15:53)
[2019-04-23] MEDS ORDERED: CALCIUM CARBONATE 500 MG CHEWABLE TAB PO PRN (16:49)
--- NOTE | 2019-04-23 17:56 | Hospitalist Progress Note ---
Date of Service April 23, 2019 Assessment & Plan (1) Pathological fracture of pelvis: (2) Intractable pain: Per admitting service notes Pt is 59 y/o M Metastatic bladder cancer with mets to thoracic and lumbar spine and pelvis s/p palliative radiation x1 without improvement, palliative chemo, HTN, COPD, iron deficiency anemia, chronic back pain, hepatitis C, CAD S/p stent, right-sided double-J stent presented to ER with complaint of left hip and pelvic pain x1 day. Patient reports chronic low back pain and chronic pelvic and bilateral hip pain however increased pain yesterday to left hip that radiates down left leg. Denies fever/chills, LE or saddle paresthesias In ER vitals stable. No leukocytosis. CT PELVIS:1. Progressive skeletal metastasis. Pathologic fracture of the left inferior pubic ramus. 2. No evidence of bowel obstruction. 3. Enlarging bladder masses with transmural extension. 4. Moderate left-sided hydroureter. Indwelling right-sided nephroureteral stent. 5. Normal appendix. No evidence of acute diverticulitis. Pain better controlled today Continue OxyContin 3 times daily, Percocet as needed, Dilaudid 1.5 mg IV as needed Possible transition to oral Dilaudid on Thursday, discussed with pain management service Palliative care also consulted (3) MIKIE (acute kidney injury): On admission: BUN: 29, Cr: 2.28, GFR: 29.9 Creatinine slightly better today at 2.13 Nephrology service consulted, appreciate recommendations Continue IV fluids Acute renal failure could be secondary to obstructive uropathy given history of hydronephrosis, right ureter stent placement, increasing bladder mass Urologist consulted--> discussed with Dr. Ng, no further procedures recommended (4) UTI (urinary tract infection): Per admitting service notes: Dysuria x 1 day. 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 Follows with Dr Mon - consideration to further chemo treatments if improvement in LFTs - has appointment 04/22/2019 however, patient is currently admitted --Palliative care service consulted (6) Chronic anemia: Hgb: 11.7. -Hemoglobin 10.8, no signs of active bleeding -Monitor H&H (7) Coronary artery disease: S/P stent -No cardiac symptoms -Continue metoprolol, statin, aspirin (8) Hypothyroidism: -Continue levothyroxine (9) Hepatitis C: Followed with GI. no treatment started secondary to limited life expectancy with his metastatic bladder CA DVT Prophylaxis -Heparin SQ Full Code as per discussion with pt Follows with Dr Damian at [facility] for routine care Admission and Anticipated Discharge Date Admission Date: April 20, 2019 Subjective Follow-up for left pelvic fracture, bladder cancer with mets, acute renal failure, possible obstructive uropathy Seen sitting up in bed, more alert, brighter States pain control is much better now Ambulating is better Denies problems with urination, no hematuria Denies other symptoms Review of Systems Review of Systems: All systems reviewed & are unremarkable except as noted in HPI & below Physical Exam Physical Exam: General- oriented x 3, not in distress, speaks in sentences with no effort or accessory muscle use Eyes- anicteric Neck- no JVD Lungs- clear breath sounds bilaterally, no rales/wheezes Heart- normal rate, regular rhythm; no murmurs Abdomen- normal bowel sounds, nondistended, soft, nontender Extremities- trace pretibial edema, no calf tenderness Neuro- alert, oriented x 3; no gross focal neurologic deficits Skin- warm & dry Results & Data ([facility]) Vital Signs (Past 12 Hours) Vital Signs Temp Pulse Resp BP BP Pulse Ox 04/23/19 14:50 36.6 C 80 18 118/83 90 04/23/19 07:34 36.6 C 76 16 117/76 90 Laboratory Results Laboratory Results - last 24 hr 04/23/19 15:24 Sodium 139 Potassium 4.5 Chloride 109 H Carbon Dioxide 25 Anion Gap 5.0 BUN 28 H Creatinine 2.13 H Est Cr Clr Drug Dosing 47.8 Est GFR ( Amer) 37.6 Est GFR (Non-Af Amer) 32.4 BUN/Creatinine Ratio 13.3 Glucose 97 Calcium 9.1 (1) Pathological fracture of pelvis Encounter type: initial encounter Pathology associated with fracture: unspecified disease Qualified Code(s): M84.454A - Pathological fracture, pelvis, initial encounter for fracture
[2019-04-23] MEDS: ATORVASTATIN 40 MG TAB PO SCH (19:52)
[2019-04-24] MEDS: HYDROmorphone INJ 1 MG/ML SYRINGE IV PRN (00:05)
[2019-04-24] MEDS: HYDROmorphone INJ 2 MG/ML SYR/VIAL IV PRN ×10 (02:34→23:46)
[2019-04-24] MEDS: OXYCODONE/ACETAMINOPHEN 10-325 TAB PO PRN ×5 (02:56→20:20)
[2019-04-24] MEDS: LEVOTHYROXINE SODIUM 100 MCG TABLET PO SCH (06:22)
[2019-04-24 06:49] LABS: BUN Creatinine Ratio 12.7 (10-20); Calcium 8.8 mg/dl (8.5-10.1); Creatinine Clr Calc Pharmacy 50.5 ml/min; Est GFR (African American) 40.1; Est GFR (Non-African American) 34.6; Potassium 4.8 mmol/L (3.5-5.1)
[2019-04-24] MEDS: POLYETHYLENE (MIRALAX) 17 GM PACK PO SCH (08:08)
[2019-04-24] MEDS: OXYCODONE HCL 40 MG TABCR (OXYCONTIN) PO SCH ×3 (08:08→21:08)
[2019-04-24] MEDS: MULTIVITAMIN TAB PO SCH (08:10)
[2019-04-24] MEDS: ASPIRIN 81 MG ECTAB PO SCH (08:10)
[2019-04-24] MEDS: METOPROLOL SUCC 25MG EXT REL TAB PO SCH (08:11)
[2019-04-24] MEDS: DOCUSATE SODIUM/SENNA 50/8.6MG TAB PO SCH (08:11)
[2019-04-24] MEDS: TAMSULOSIN HCL 0.4 MG CAP PO SCH (08:12)
[2019-04-24] MEDS: HEPARIN SOD 5,000 UNIT/0.5 ML VIAL SQ SCH ×2 (08:13→20:21)
[2019-04-24] MEDS: SODIUM CHLORIDE 0.9% 1000ML 1,000 ML IV SCH (10:03)
--- NOTE | 2019-04-24 15:35 | Hospitalist Progress Note ---
Date of Service April 24, 2019 Assessment & Plan (1) Pathological fracture of pelvis: (2) Intractable pain: Per admitting service notes Pt is 59 y/o M Metastatic bladder cancer with mets to thoracic and lumbar spine and pelvis s/p palliative radiation x1 without improvement, palliative chemo, HTN, COPD, iron deficiency anemia, chronic back pain, hepatitis C, CAD S/p stent, right-sided double-J stent presented to ER with complaint of left hip and pelvic pain x1 day. Patient reports chronic low back pain and chronic pelvic and bilateral hip pain however increased pain yesterday to left hip that radiates down left leg. Denies fever/chills, LE or saddle paresthesias In ER vitals stable. No leukocytosis. CT PELVIS:1. Progressive skeletal metastasis. Pathologic fracture of the left inferior pubic ramus. 2. No evidence of bowel obstruction. 3. Enlarging bladder masses with transmural extension. 4. Moderate left-sided hydroureter. Indwelling right-sided nephroureteral stent. 5. Normal appendix. No evidence of acute diverticulitis. Pain well controlled Continue OxyContin 3 times daily, Percocet as needed, Dilaudid 1.5 mg IV as needed Possible transition to oral Dilaudid on Thursday, discussed with pain management service Palliative care also consulted (3) MIKIE (acute kidney injury): On admission: BUN: 29, Cr: 2.28, GFR: 29.9 Creatinine improved to 2.0 today Nephrology service consulted, appreciate recommendations has received IV NSS x 4 days, d/c for now Acute renal failure could be secondary to obstructive uropathy given history of hydronephrosis, right ureter stent placement, increasing bladder mass Urologist consulted--> discussed with Dr. Ng, no further procedures recommended (4) UTI (urinary tract infection): Per admitting service notes: Dysuria x 1 day. 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 Follows with Dr Mon - consideration to further chemo treatments if improvement in LFTs - has appointment 04/22/2019 however, patient is currently admitted --Palliative care service consulted (6) Chronic anemia: Hgb: 11.7. -Hemoglobin 10.8, no signs of active bleeding -Monitor H&H (7) Coronary artery disease: S/P stent -No cardiac symptoms -Continue metoprolol, statin, aspirin (8) Hypothyroidism: -Continue levothyroxine (9) Hepatitis C: Followed with GI. no treatment started secondary to limited life expectancy with his metastatic bladder CA DVT Prophylaxis -Heparin SQ Full Code as per discussion with pt Follows with Dr Damian at [facility] for routine care Admission and Anticipated Discharge Date Admission Date: April 20, 2019 Subjective ff up for pelvic fracture, acute renal failure seen resting in bed, comfortable states he feels fine overall pain well controlled no problems with urination no other symptoms Review of Systems Review of Systems: All systems reviewed & are unremarkable except as noted in HPI & below Physical Exam Physical Exam: General- oriented x 3, not in distress, speaks in sentences with no effort or accessory muscle use Eyes- anicteric Neck- no JVD Lungs- clear BS BL Heart- normal rate, regular rhythm; no murmurs Abdomen- normal bowel sounds, nondistended, soft, nontender Extremities- mild pretibial edema, no calf tenderness Neuro- alert, oriented x 3; no gross focal neurologic deficits Skin- warm & dry Results & Data ([facility]) Vital Signs (Past 12 Hours) Vital Signs Temp Pulse Resp BP BP Pulse Ox 04/24/19 14:43 36.6 C 79 18 139/74 92 04/24/19 11:48 36.6 C 82 18 132/84 90 04/24/19 06:53 36.7 C 71 18 146/90 H 93 04/24/19 04:05 36.6 C 67 19 150/84 H 94 Laboratory Results Laboratory Results - last 24 hr 04/23/19 04/24/19 15:24 05:42 Sodium 139 139 Potassium 4.5 4.8 Chloride 109 H 110 H Carbon Dioxide 25 25 Anion Gap 5.0 4.0 BUN 28 H 26 H Creatinine 2.13 H 2.02 H Est Cr Clr Drug Dosing 47.8 50.5 Est GFR ( Amer) 37.6 40.1 Est GFR (Non-Af Amer) 32.4 34.6 BUN/Creatinine Ratio 13.3 12.7 Glucose 97 104 H Calcium 9.1 8.8 (1) Pathological fracture of pelvis Encounter type: initial encounter Pathology associated with fracture: unspecified disease Qualified Code(s): M84.454A - Pathological fracture, pelvis, initial encounter for fracture
[2019-04-24] MEDS: DAPTOmycin 325 MG in SYRINGE 0 ML IV SCH (16:12)
[2019-04-24 18:42] LABS: Hematocrit (blood only) 29.4 % (42-52); Hemoglobin 9.7 g/dL (14.0-18.0); Mean Corpuscular Hemoglobin 27.4 pg (25-34); Mean Corpuscular Volume 83.1 fL (80-100); RDW Coefficient of Variation 14.1 % (11.5-14.5); RDW Standard Deviation 43.1 fL (36.4-46.3); Red Blood Count 3.54 M/uL (4.7-6.1); White Blood Count 6.47 K/uL (4.8-10.8)
[2019-04-24 18:51] LABS: Mean Platelet Volume 7.8 fL (7.4-10.4); Platelet Count 91 K/uL (130-400)
[2019-04-24 19:06] LABS: Basophils # (auto) 0.01 K/uL (0-0.2); Basophils % (auto) 0.2 %; Eosinophils # (auto) 0.21 K/uL (0-0.5); Eosinophils % (auto) 3.2 %; Immature Granulocytes # (auto) 0.04 K/uL (0.00-0.02); Immature Granulocytes % (auto) 0.6 %; Lymphocytes # (auto) 1.32 K/uL (1.2-3.4); Lymphocytes % (auto) 20.4 %; Monocytes # (auto) 0.61 K/uL (0.11-0.59); Monocytes % (auto) 9.4 %; Neutrophils # (auto) 4.28 K/uL (1.4-6.5); Neutrophils % (auto) 66.2 %
--- NOTE | 2019-04-24 19:21 | Ultrasound Report ---
ULTRASOUND BILATERAL LOWER EXTREMITY VENOUS CLINICAL HISTORY: Leg pain. COMPARISON STUDY: Bilateral lower extremity venous ultrasound dated 04/21/2019. TECHNIQUE: Real-time, grayscale, and color Doppler sonography of the deep veins of the right and left lower extremity was performed from the inguinal crease to the calf. Compression and augmentation wer e utilized. FINDINGS: There is no sonographic evidence of deep venous thrombosis identified in the right or left lower extremity. The common femoral, superficial femoral, and popliteal veins are patent and normally compressible bilaterally. The greater saphenous vein and the profunda femoris vein at the junction w ith the common femoral vein are clear in both legs. The visualized calf veins are patent bilaterally. IMPRESSION: There is no sonographic evidence of deep venous thrombosis identified in the right or lef t lower extremity. ACT 112: Negative or not required by law. Electronically signed by: Ceasar Cheung M.D. 04/24/2019 7:19 PM
[2019-04-24] MEDS: ATORVASTATIN 40 MG TAB PO SCH (20:21)
[2019-04-25] MEDS: OXYCODONE/ACETAMINOPHEN 10-325 TAB PO PRN ×5 (00:44→18:42)
[2019-04-25] MEDS: HYDROmorphone INJ 2 MG/ML SYR/VIAL IV PRN ×8 (02:17→21:35)
[2019-04-25] MEDS: HEPARIN 100 UNIT/ML 5ML FLUSH FLUSH PRN ×6 (02:17→21:35)
[2019-04-25] MEDS: LEVOTHYROXINE SODIUM 100 MCG TABLET PO SCH (06:07)
[2019-04-25 06:34] LABS: BUN Creatinine Ratio 12.9 (10-20); Calcium 8.9 mg/dl (8.5-10.1); Est GFR (African American) 41.5; Est GFR (Non-African American) 35.8; Potassium 4.6 mmol/L (3.5-5.1)
[2019-04-25] MEDS: METOPROLOL SUCC 25MG EXT REL TAB PO SCH (07:40)
[2019-04-25] MEDS: TAMSULOSIN HCL 0.4 MG CAP PO SCH (07:40)
[2019-04-25] MEDS: OXYCODONE HCL 40 MG TABCR (OXYCONTIN) PO SCH (07:40)
[2019-04-25] MEDS: MULTIVITAMIN TAB PO SCH (07:41)
[2019-04-25] MEDS: HEPARIN SOD 5,000 UNIT/0.5 ML VIAL SQ SCH ×2 (07:41→20:59)
[2019-04-25] MEDS: DOCUSATE SODIUM/SENNA 50/8.6MG TAB PO SCH (07:42)
[2019-04-25] MEDS: ASPIRIN 81 MG ECTAB PO SCH (07:42)
[2019-04-25] MEDS: POLYETHYLENE (MIRALAX) 17 GM PACK PO SCH (07:50)
--- NOTE | 2019-04-25 11:39 | Palliative Care Consultation ---
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 Patient found to have a pathologic pelvic fracture. At the [facility], patient was on Oxycontin extended release 30mg PO TID, it has been increased to 40mg TID. He has oxycodone 10/650 ordered PRN Q4h breakthrough pain. In hospital, he has also been using Dilaudid 1.5mg IV Q2h PRN-- had 11 doses in 24 hours. Patient follows with heme/onc in [place]. Uncertain at this point if there is any further treatment options for him. Palliative care is consulted to discuss goals of care and assist with pain management. -Met with patient in room 450. He is AA&O x4. Despite patient's widely metastatic disease, he is surprisingly quite healthy appearing. He is of normal body habitus, is fully independent in his care. Ambulating in the hallways with a cane and no difficulty. No sedation or distress. -Patient states that his pain is mostly in both of his hips, left groin, left leg down to knee, and in his back. It is a 10/10 at its worst. Currently the Oxycontin, oxycodone, and Dilaudid are controlling it well. He has tried fentanyl patches-- does not work. -Need to increase long-acting medication to try and wean off the IV Dilaudid. In 24 hours, patient used: -16.5mg IV Dilaudid-- 330 OME-- which converts to 165mg oxycodone (75% incomplete cross tolerance). -60mg oxycodone short-acting -120mg Oxycontin long-acting -Can safely increase Oxycontin to 60mg TID-- equals 180mg of long-acting daily. Monitor for signs of sedation or respiratory depression. -Hopefully this will decrease IV Dilaudid use. If pain continues to be an issue and patient is sedated from pain medication, can consider methadone. He would need to follow up with palliative as an outpatient to have this managed if this is the route we take. -Patient has a history of agitation and aggressive behavior at the [facility]-- will not order dexamethasone. -We will continue to follow. (2) Goals of care, counseling/discussion: -Patient states that he currently wants to remain a full code and full treatment. -Patient states that he has been told that his prognosis is six months to a year, and he was told that three months ago. He states that this is always in the back of his mind. However, he does not have any plans for if/when things get worse. -I asked about who would be his surrogate decision maker if he was unable to make decisions, and/or if he has a living will. Patient stated he has no family and "I have no one." He does not have a living will. I later found out that patient has a "girlfriend" who he gets a pass to go and visit. Patient did not mention her to me. I encouraged him to contact a close friend for support and see if anyone would be willing to be his medical POA if needed. -Patient did stated, "Now if six months down the road I'm a lot sicker and in worse shape, I might consider that (being a DNR)." -Consider reaching out to patient's heme/onc to see what his options are as far as treatment for the cancer. ?XRT consult as well. -Patient is a resident of the [facility]. He states that his low, fixed-income prevents him from moving to an apartment or personal halfway. 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 Patient found to have a pathologic pelvic fracture. At the [facility], patient was on Oxycontin extended release 30mg PO TID, it has been increased to 40mg TID. He has oxycodone 10/650 ordered PRN Q4h breakthrough pain. In hospital, he has also been using Dilaudid 1.5mg IV Q2h PRN-- had 11 doses in 24 hours. Patient follows with heme/onc in [place]. Uncertain at this point if there is any further treatment options for him. Palliative care is consulted to discuss goals of care and assist with pain management. Thank you kindly for this consult. Palliative care team will follow as needed. Allergies Allergy/AdvReac Type Severity Reaction Status Date / Time morphine Allergy Severe ANAPHYLAXIS Verified 04/20/19 09:04 Penicillins Allergy Intermediate HIVES Verified 04/20/19 09:04 ketorolac [From Toradol] AdvReac Intermediate Unknown Verified 04/20/19 09:04 Home Medications Home Medications Medication Instructions Recorded Confirmed Type Chloraseptic Throat [place] 1.4 % MUCOUS MEMBRANE Q8 PRN 12/24/18 04/20/19 History acetaminophen 650 mg PO Q4 PRN 12/24/18 04/20/19 History alum-mag hydroxide-simeth [Maalox 10 ml PO Q4 PRN 12/24/18 04/20/19 History Advanced] aspirin [Aspir-Low] 81 mg PO DAILY 12/24/18 04/20/19 History atorvastatin [Lipitor] 40 mg PO PM 12/24/18 04/20/19 History hyoscyamine sulfate 0.125 mg PO Q4 PRN 12/24/18 04/20/19 History levothyroxine 100 mcg PO DAILY 12/24/18 04/20/19 History metoprolol succinate 12.5 mg PO DAILY 12/24/18 04/20/19 History multivitamin 1 tab PO DAILY 12/24/18 04/20/19 History polyethylene glycol 3350 [Miralax] 17 g PO DAILY 12/24/18 04/20/19 History sildenafil 50 mg PO DAILY PRN 12/24/18 04/20/19 History sodium chloride [Saline Nasal] 2 spray INTRANASAL Q2H PRN 12/24/18 04/20/19 History tamsulosin [Flomax] 0.4 mg PO DAILY 12/24/18 04/20/19 History albuterol sulfate 2.5 mg INHALATION Q6H PRN 04/20/19 04/20/19 History bisacodyl 10 mg TN DAILY PRN 04/20/19 04/20/19 History magnesium hydroxide [Milk of 800 mg PO DAILY PRN 04/20/19 04/20/19 History Magnesia] oxycodone [OxyContin] 40 mg PO BID 04/20/19 04/20/19 History oxycodone-acetaminophen [Percocet] 1 tab PO Q4H PRN 04/20/19 04/20/19 History sodium phosphates [Fleet Enema] 118 ml TN DAILY PRN 04/20/19 04/20/19 History Patient History Medical History (Updated 04/25/19 @ 15:52 by JOEY Fermin) Anemia CHRONIC; BASELINE HGB 8-9 RANGE PER CHART REVIEW Asthma (08/31/12) Back pain Bladder cancer Blindness of right eye BPH (benign prostatic hyperplasia) Cancer of kidney Cancer related pain Chronic anemia Coronary artery disease (08/31/12) STENTS X 2 (1+ YEARS AGO) Hepatitis C Hydroureter Hyperlipidemia Hypothyroidism (08/31/12) Inferior pubic ramus fracture Kidney stones Myocardial Infarction Pulmonary nodule Surgical History History of transurethral destruction of bladder lesion S/P cholecystectomy S/P colonoscopy S/P hernia repair Family History Other Coronary heart disease Diabetes Social History Preferred Language: [place] Communication Ability: Effective 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: No Beliefs That Will Affect Care: None Current Living Situation: Shelter Current Living Situation Comment: [facility] Other Information That Helps Us Care for You: No Feels Safe at Home: Yes Safety Concerns: Feels Safe At This Time Smoking Status: Current some day smoker Tobacco Type: cigarettes ; Cigarettes Per Day: 0-3 ; Do You Dip or Chew Tobacco: No ; Second Hand Exposure: No ; Tobacco Cessation Education Requested by Patient: No Hx Alcohol Use: No Hx Substance Use: Yes substance use type: prescription drug Substance Use Type Other:: percocet, oxycontin Last Used Substance: Unknown Review of Systems Constitutional: no weakness Ear, Nose, Mouth, Throat: no dysphagia Respiratory: no cough and no dyspnea Cardiovascular: no chest pain Gastrointestinal: no abdominal pain, no nausea and no vomiting Musculoskeletal: as per Subjective / HPI Neurologic: no confusion Physical Exam Constitutional: well developed and well nourished; no acute distress Eyes: PERRL (2mm bilaterally) ENMT: external ear and nose normal, oropharynx normal Respiratory: normal respiratory effort; no labored breathing Cardiovascular: Rate/Rhythm: regular rate and regular rhythm Neurologic: moves all extremities and awake; not confused Psychiatric: A+Ox3, euthymic affect Results & Data Vital Signs (Past 12 Hours) Vital Signs Temp Pulse Resp BP Pulse Ox 04/25/19 11:20 36.8 C 80 16 138/81 91 04/25/19 07:30 36.6 C 67 18 115/82 93 04/25/19 04:00 36.6 C 72 18 118/77 93 Coding Level of Care Code 66627 Inpt Consult Level 3 Diagnoses Cancer related pain G89.3 Goals of care, counseling/discussion Z71.89 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
[2019-04-25] MEDS: OXYCODONE HCL 20 MG TABCR (OXYCONTIN) PO SCH ×2 (13:51→21:00)
[2019-04-25] MEDS: DAPTOmycin 325 MG in SYRINGE 0 ML IV SCH (16:03)
--- NOTE | 2019-04-25 18:04 | Hospitalist Progress Note ---
Date of Service April 25, 2019 Assessment & Plan (1) Pathological fracture of pelvis: (2) Intractable pain: Per admitting service notes Pt is 59 y/o M Metastatic bladder cancer with mets to thoracic and lumbar spine and pelvis s/p palliative radiation x1 without improvement, palliative chemo, HTN, COPD, iron deficiency anemia, chronic back pain, hepatitis C, CAD S/p stent, right-sided double-J stent presented to ER with complaint of left hip and pelvic pain x1 day. Patient reports chronic low back pain and chronic pelvic and bilateral hip pain however increased pain yesterday to left hip that radiates down left leg. Denies fever/chills, LE or saddle paresthesias In ER vitals stable. No leukocytosis. CT PELVIS:1. Progressive skeletal metastasis. Pathologic fracture of the left inferior pubic ramus. 2. No evidence of bowel obstruction. 3. Enlarging bladder masses with transmural extension. 4. Moderate left-sided hydroureter. Indwelling right-sided nephroureteral stent. 5. Normal appendix. No evidence of acute diverticulitis. Pain well controlled Continue OxyContin 3 times daily--> increased today, Percocet as needed, Dilaudid 1.5 mg IV as needed patient declines oral dilaudid Palliative care also consulted--> appreciate the recommendations (3) MIKIE (acute kidney injury): On admission: BUN: 29, Cr: 2.28, GFR: 29.9 Creatinine improved to 1.9 today Nephrology service consulted, appreciate recommendations has received IV NSS x 4 days, d/c for now Acute renal failure could be secondary to obstructive uropathy given history of hydronephrosis, right ureter stent placement, increasing bladder mass Urologist consulted--> discussed with Dr. Ng, no further procedures recommended -- reporting right flank pain messaged Dr. Ng, awaiting recommendations (4) UTI (urinary tract infection): Per admitting service notes: Dysuria x 1 day. 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 Follows with Dr Mon - consideration to further chemo treatments if improvement in LFTs - has appointment 04/22/2019 however, patient is currently admitted -- Palliative care service consulted -- will need to ff up with Oncologist upon discharge (6) Chronic anemia: Hgb: 11.7. -Hemoglobin 10.8, no signs of active bleeding -Monitor H&H (7) Coronary artery disease: S/P stent -No cardiac symptoms -Continue metoprolol, statin, aspirin (8) Hypothyroidism: -Continue levothyroxine (9) Hepatitis C: Followed with GI. no treatment started secondary to limited life expectancy with his metastatic bladder CA DVT Prophylaxis -Heparin SQ Full Code as per discussion with pt Follows with Dr Damian at [facility] for routine care Admission and Anticipated Discharge Date Admission Date: April 20, 2019 Subjective ff up for pelvic fracture, acute renal failure seen resting in bed, comfortable states he feels fine overall pain well controlled does report r flank pain today, reminiscent of when his stent needed to be changed denies urinary symptoms ambulating with no problems Review of Systems Review of Systems: All systems reviewed & are unremarkable except as noted in HPI & below Physical Exam Physical Exam: General- oriented x 3, not in distress, speaks in sentences with no effort or accessory muscle use Eyes- anicteric Neck- no JVD Lungs- clear BS BL Heart- normal rate, regular rhythm; no murmurs Abdomen- normal bowel sounds, nondistended, soft, nontender Extremities- trace pretibial edema, no calf tenderness Neuro- alert, oriented x 3; no gross focal neurologic deficits Skin- warm & dry Results & Data ([facility]) Vital Signs (Past 12 Hours) Vital Signs Temp Pulse Resp BP Pulse Ox 04/25/19 15:01 36.7 C 83 19 155/91 H 92 04/25/19 11:20 36.8 C 80 16 138/81 91 04/25/19 07:30 36.6 C 67 18 115/82 93 Laboratory Results Laboratory Results - last 24 hr 04/24/19 04/25/19 18:31 05:35 Immature Gran % (Auto) 0.6 Neut % (Auto) 66.2 Lymph % (Auto) 20.4 [place] % (Auto) 9.4 Eos % (Auto) 3.2 Baso % (Auto) 0.2 Immature Gran # (Auto) 0.04 H Neut # (Auto) 4.28 Lymph # (Auto) 1.32 [place] # (Auto) 0.61 H Eos # (Auto) 0.21 Baso # (Auto) 0.01 Sodium 140 Potassium 4.6 Chloride 111 H Carbon Dioxide 27 Anion Gap 2.0 L BUN 25 H Creatinine 1.96 H Est Cr Clr Drug Dosing 52.0 Est GFR ( Amer) 41.5 Est GFR (Non-Af Amer) 35.8 BUN/Creatinine Ratio 12.9 Glucose 89 Calcium 8.9 (1) Pathological fracture of pelvis Encounter type: initial encounter Pathology associated with fracture: unspecified disease Qualified Code(s): M84.454A - Pathological fracture, pelvis, initial encounter for fracture
--- NOTE | 2019-04-25 18:45 | Nephrology Progress Note ---
Date of Service April 25, 2019 Assessment & Plan (1) MIKIE (acute kidney injury): Patient with acute kidney injury likely due to obstructive uropathy. He could also have ischemic ATN in setting of infection. Baseline creatinine of 1.2. Creatinine peaked at 2.3; has been stable at 2.[address] scan showed enlarging bladder mass, moderate left hydronephrosis and right-sided stent. urology does not believe further surgical intervention appropriate at this time -monitor renal function off of IVF -he wishes at this point to remain full code: with unrelieved obstructive uropathy, it is only a matter of time until renal function worsens again; there may be few interventions we can offer apart from IV fluid and/or lab monitoring; nevertheless given his current goals of care, will continue to work to meet pt's needs will sign off; care coordinated w/ Dr Rodriguez; pls call if ? 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 Bladder mass appears to be increasing on CT scan. Patient is being seen by palliative care. Patient is not a candidate for dialysis if needed due to advanced cancer (3) UTI (urinary tract infection): UA showing pyuria and hematuria>> + for 2 types CoNS. Patient is receiving daptomycin per primary team, inf dzs Admission and Anticipated Discharge Date Admission Date: April 20, 2019 Subjective seen on rounds at 1010 this am. pt c/o L chronic groin pain and new R groin/flank pain "like when I needed stent exchange." denies sob, n/v; anxious for f/u plan, for d/c back to facility Review of Systems Review of Systems: All systems reviewed & are unremarkable except as noted in HPI & below Physical Exam Constitutional: well developed, well nourished and + obese; no acute distress in street clothes; smells like cigarette smoke Eyes: EOM intact bilaterally ENMT: Ears: no external ear abnormality Nose: no external nose abnormality Mouth: + dry oral mucous membranes Neck: no nuchal rigidity Respiratory: normal respiratory effort Auscultation: + diminished lung sounds Cardiovascular: Rate/Rhythm: regular rate (distant HS) and regular rhythm Extremities: no edema Gastrointestinal (Abdomen): Inspection/Auscultation: normal bowel sounds Percussion/Palpation: abdomen soft; abdomen nontender Musculoskeletal: Extremities: strength 5/5 throughout Skin: no rashes, warm and dry Neurologic: murrell, fluent speech; + RUE resting tremor Psychiatric: Orientation: alert and oriented x 3 Speech: normal rate/rhythm/volume of speech Affect: euthymic affect and + anxious affect Results & Data ([facility]) Vital Signs (Past 12 Hours) Vital Signs Temp Pulse Resp BP Pulse Ox 04/25/19 15:01 36.7 C 83 19 155/91 H 92 04/25/19 11:20 36.8 C 80 16 138/81 91 04/25/19 07:30 36.6 C 67 18 115/82 93 Laboratory Results 04/24/19 18:31 04/25/19 05:35
[2019-04-25] MEDS: ATORVASTATIN 40 MG TAB PO SCH (21:00)
[2019-04-26] MEDS: HEPARIN 100 UNIT/ML 5ML FLUSH FLUSH PRN ×4 (01:15→15:43)
[2019-04-26] MEDS: HYDROmorphone INJ 2 MG/ML SYR/VIAL IV PRN ×5 (01:15→19:30)
[2019-04-26] MEDS: OXYCODONE/ACETAMINOPHEN 10-325 TAB PO PRN ×5 (03:26→23:17)
[2019-04-26] MEDS: LEVOTHYROXINE SODIUM 100 MCG TABLET PO SCH (06:04)
[2019-04-26 06:52] LABS: BUN Creatinine Ratio 11.5 (10-20); Creatinine Clr Calc Pharmacy 46.9 ml/min; Est GFR (African American) 37.2; Est GFR (Non-African American) 32.1; Potassium 4.5 mmol/L (3.5-5.1)
[2019-04-26] MEDS: ASPIRIN 81 MG ECTAB PO SCH (07:41)
[2019-04-26] MEDS: DOCUSATE SODIUM/SENNA 50/8.6MG TAB PO SCH (07:41)
[2019-04-26] MEDS: POLYETHYLENE (MIRALAX) 17 GM PACK PO SCH (07:41)
[2019-04-26] MEDS: OXYCODONE HCL 20 MG TABCR (OXYCONTIN) PO SCH ×3 (07:42→20:47)
[2019-04-26] MEDS: MULTIVITAMIN TAB PO SCH (07:42)
[2019-04-26] MEDS: METOPROLOL SUCC 25MG EXT REL TAB PO SCH (07:42)
[2019-04-26] MEDS: HEPARIN SOD 5,000 UNIT/0.5 ML VIAL SQ SCH ×2 (07:42→20:47)
[2019-04-26] MEDS: TAMSULOSIN HCL 0.4 MG CAP PO SCH (07:42)
--- NOTE | 2019-04-26 10:34 | Palliative Care Progress Note ---
Date of Service April 26, 2019 Assessment & Plan (1) Cancer related pain: -In 24 hours, patient used: -10.5mg IV Dilaudid-- much less than the 16.5 he used in the 24 hours prior -50mg oxycodone short-acting -160mg Oxycontin long-acting-- one dose of 40mg, two doses of 60mg. -Will keep the Oxycontin 60mg TID scheduled. Continue the 10mg oxcodone for breakthrough pain Q4h PRN. -Decrease Dilaudid to 1mg IV Q4h PRN severe pain. Plan to decrease this again to 0.5mg IV Q6h PRN if patient is tolerating. -Discussed with the patient that the goal is for pain to be at a "manageable" level, not at zero. The goal is for him to be able to live his life, ambulate, go out with his "girlfriend" for visits. He agreed that he just wants to be able to live comfortably and do the things he likes to do. He agrees that he does not expect his pain to be a zero. (2) Goals of care, counseling/discussion: -Patient states that he currently wants to remain a full code and full treatment. -Patient is a resident of the [facility]. He states that his low, fixed-income prevents him from moving to an apartment or personal chcf. Plan is for him to return there. -Patient follows with Dr. Mon at [facility] for his metastatic bladder cancer. He states that he was given a prognosis of six months to a year, three months ago. He was to start chemo on 04/22, but ended up in the hospital for this intractable pain. He does not know the medication that was going to be started, but he does still plan on pursuing further chemo. His appointment will obviously need to be rescheduled. -Again, patient stated that he is overwhelmed and scared in regards to his prognosis. He said, "Every day I go to sleep afraid that I might not wake up." I listened and provided support. He again says that he does not have any family or friends who he would currently want to name as his POA, but he is going to think about it. He states that his "girlfriend" is more of a "friend" to him, but he does enjoy her company. 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 Patient states his pain is 7/10 at this time, but said, "I do feel like the increased oxycontin is working." Review of Systems Review of Systems: mild weakness today no dysphagia no cough and no dyspnea no chest pain no abdominal pain, no nausea and no vomiting pain: as per Subjective / HPI no confusion Physical Exam Constitutional: well developed and well nourished; no acute distress Eyes: PERRL (2mm bilaterally) ENMT: external ear and nose normal, oropharynx normal Respiratory: normal respiratory effort; no labored breathing Cardiovascular: Rate/Rhythm: regular rate and regular rhythm Neurologic: moves all extremities and awake; not confused Psychiatric: A+Ox3, euthymic affect Results & Data Vital Signs (Past 12 Hours) Vital Signs Temp Pulse Resp BP BP Pulse Ox 04/26/19 07:24 36.8 C 72 16 145/85 H 92 04/25/19 23:00 36.7 C 81 18 158/92 H 94 Coding Level of Care Code 91146 Subseq Hosp Care Lvl 3 Diagnoses Cancer related pain G89.3 Goals of care, counseling/discussion Z71.89 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
--- NOTE | 2019-04-26 13:42 | Infectious Disease Consult ---
Date of Consultation April 26, 2019 Assessment & Plan (1) Acute UTI: can continue IV abx while in hospital, upon d/c suggest doxy 100mg po bid, min 14 . days due to stent. History of Present Illness Attending Physician: Milton Rodriguez MD p admitted with pelvic pain, has h/o advanced metastatic bladder cancer, found to have pathologic fracture. also found on 04/20 ua and culture to have meth resistnat [employer] uti. has stent in right ureter. changed often. no f/c. on dapto. afebrile since admission. wbc low, chronic. no abd pain, no n/v/d. tolerating abx. being followed by urology, nephrology and palliative care. no complaints on my exam. ID consulted for uti Allergies Allergy/AdvReac Type Severity Reaction Status Date / Time morphine Allergy Severe ANAPHYLAXIS Verified 04/20/19 09:04 Penicillins Allergy Intermediate HIVES Verified 04/20/19 09:04 ketorolac [From Toradol] AdvReac Intermediate Unknown Verified 04/20/19 09:04 Home Medications Home Medications Medication Instructions Recorded Confirmed Type Chloraseptic Throat Seaman 1.4 % MUCOUS MEMBRANE Q8 PRN 12/24/18 04/20/19 History acetaminophen 650 mg PO Q4 PRN 12/24/18 04/20/19 History alum-mag hydroxide-simeth [Maalox 10 ml PO Q4 PRN 12/24/18 04/20/19 History Advanced] aspirin [Aspir-Low] 81 mg PO DAILY 12/24/18 04/20/19 History atorvastatin [Lipitor] 40 mg PO PM 12/24/18 04/20/19 History hyoscyamine sulfate 0.125 mg PO Q4 PRN 12/24/18 04/20/19 History levothyroxine 100 mcg PO DAILY 12/24/18 04/20/19 History metoprolol succinate 12.5 mg PO DAILY 12/24/18 04/20/19 History multivitamin 1 tab PO DAILY 12/24/18 04/20/19 History polyethylene glycol 3350 [Miralax] 17 g PO DAILY 12/24/18 04/20/19 History sildenafil 50 mg PO DAILY PRN 12/24/18 04/20/19 History sodium chloride [Saline Nasal] 2 spray INTRANASAL Q2H PRN 12/24/18 04/20/19 History tamsulosin [Flomax] 0.4 mg PO DAILY 12/24/18 04/20/19 History albuterol sulfate 2.5 mg INHALATION Q6H PRN 04/20/19 04/20/19 History bisacodyl 10 mg WA DAILY PRN 04/20/19 04/20/19 History magnesium hydroxide [Milk of 800 mg PO DAILY PRN 04/20/19 04/20/19 History Magnesia] oxycodone [OxyContin] 40 mg PO BID 04/20/19 04/20/19 History oxycodone-acetaminophen [Percocet] 1 tab PO Q4H PRN 04/20/19 04/20/19 History sodium phosphates [Fleet Enema] 118 ml WA DAILY PRN 04/20/19 04/20/19 History Patient History Medical History Anemia CHRONIC; BASELINE HGB 8-9 RANGE PER CHART REVIEW Asthma (08/31/12) Back pain Bladder cancer Blindness of right eye BPH (benign prostatic hyperplasia) Cancer of kidney Cancer related pain Chronic anemia Coronary artery disease (08/31/12) STENTS X 2 (1+ YEARS AGO) Hepatitis C Hydroureter Hyperlipidemia Hypothyroidism (08/31/12) Inferior pubic ramus fracture Kidney stones Myocardial Infarction Pulmonary nodule Surgical History History of transurethral destruction of bladder lesion S/P cholecystectomy S/P colonoscopy S/P hernia repair Family History Other Coronary heart disease Diabetes Social History Preferred Language: Ukrainian Communication Ability: Effective Resident Care Spec Required: No Beliefs That Will Affect Care: None Current Living Situation: Custodial Current Living Situation Comment: [facility] Other Information That Helps Us Care for You: No Feels Safe at Home: Yes Safety Concerns: Feels Safe At This Time Smoking Status: Current some day smoker Tobacco Type: cigarettes ; Cigarettes Per Day: 0-3 ; Do You Dip or Chew Tobacco: No ; Second Hand Exposure: No ; Tobacco Cessation Education Requested by Patient: No Hx Alcohol Use: No Hx Substance Use: Yes substance use type: prescription drug Substance Use Type Other:: percocet, oxycontin Last Used Substance: Unknown Review of Systems Review of Systems: All systems reviewed & are unremarkable except as noted in HPI & below Physical Exam Constitutional: WD/WN, vitals as above Eyes: PERRL, conjunctivae normal, anicteric sclerae ENMT: external ear and nose normal, oropharynx normal Neck: normal visual inspection Respiratory: normal respiratory effort, lungs clear to auscultation Cardiovascular: RRR, no murmur, no edema Gastrointestinal (Abdomen): normal bowel sounds, soft, nontender, no hepatosplenomegaly Musculoskeletal: no cyanosis or clubbing, extremities motor strength 5/5 Skin: no rashes, warm and dry Psychiatric: A+Ox3, euthymic affect Results & Data ([facility] Vital Signs (Past 12 Hours) Vital Signs Temp Pulse Resp BP Pulse Ox 04/26/19 11:18 36.9 C 85 16 122/80 92 04/26/19 07:24 36.8 C 72 16 145/85 H 92 Laboratory Results Microbiology 04/20/19 08:30 Urine,Clean Catch Urine Culture - Final Coag negative Staphylococcus Coag negative Staphylococcus#2 PG Care Time/CCT Total # of Minutes Spent Total Time Spent with Patient: Total time spent is greater than 50% in coordination of care (as documented) at patient's floor/unit and/or counseling patient: Coding Level of Care Code 19506 Inpt Consult Level 4 Diagnoses Acute UTI N39.0
[2019-04-26] MEDS: DAPTOmycin 325 MG in SYRINGE 0 ML IV SCH (15:43)
--- NOTE | 2019-04-26 17:08 | Urology Progress Note ---
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 If it is to be decompressed he would need a nephrostomy tube in [place]. Given his widely metastatic cancer and progression I do not think a neph tube is going to prolong his survival and it will decrease his quality of life due to tube discomfort and not uncommon tube malfunction and maintenance. On the admission ct scan the right ureteral stent appeared to be functional. I will send a message to Dr Oreilly about getting pt in for outpatient stent change soon. If pain returns in a more consistent patter might need to get an renal ultrasound. Pain gone today. Subjective Patient with much better pain control overall. the left hip hurts sometimes impairing leg movment in bed. Still smoking. Had right flank pain yesterday. better today. When he had the right flank pain it felt like kidney pain which has indicated in past the stent needs to be changed. He believes he is due for stent change on right side about now. He goes about every [address] Oreilly in [facility] . Review of Systems Review of Systems: appetitie fine, no fever no chills, bowels a little tight, no hematuria Results & Data Vital Signs (Past 12 Hours) Vital Signs Temp Pulse Resp BP BP Pulse Ox 04/26/19 15:05 36.7 C 72 20 145/90 H 90 04/26/19 11:18 36.9 C 85 16 122/80 92 04/26/19 07:24 36.8 C 72 16 145/85 H 92 (1) Pathological fracture of pelvis Encounter type: initial encounter Pathology associated with fracture: unspecified disease Qualified Code(s): M84.454A - Pathological fracture, pelvis, initial encounter for fracture
[2019-04-26] MEDS: ATORVASTATIN 40 MG TAB PO SCH (20:47)
[2019-04-27] MEDS: HYDROmorphone INJ 2 MG/ML SYR/VIAL IV PRN (03:37)
[2019-04-27] MEDS: OXYCODONE/ACETAMINOPHEN 10-325 TAB PO PRN ×2 (05:48→11:03)
[2019-04-27] MEDS: LEVOTHYROXINE SODIUM 100 MCG TABLET PO SCH (05:48)
[2019-04-27] MEDS: HEPARIN 100 UNIT/ML 5ML FLUSH FLUSH PRN ×2 (05:50→12:06)
[2019-04-27 07:13] LABS: BUN Creatinine Ratio 11.8 (10-20); Calcium 8.9 mg/dl (8.5-10.1); Creatinine Clr Calc Pharmacy 45.1 ml/min; Est GFR (African American) 35.2; Est GFR (Non-African American) 30.3; Potassium 4.7 mmol/L (3.5-5.1)
[2019-04-27] MEDS: ASPIRIN 81 MG ECTAB PO SCH (09:05)
[2019-04-27] MEDS: TAMSULOSIN HCL 0.4 MG CAP PO SCH (09:05)
[2019-04-27] MEDS: POLYETHYLENE (MIRALAX) 17 GM PACK PO SCH (09:06)
[2019-04-27] MEDS: OXYCODONE HCL 20 MG TABCR (OXYCONTIN) PO SCH (09:06)
[2019-04-27] MEDS: METOPROLOL SUCC 25MG EXT REL TAB PO SCH (09:06)
[2019-04-27] MEDS: DOCUSATE SODIUM/SENNA 50/8.6MG TAB PO SCH (09:06)
[2019-04-27] MEDS: MULTIVITAMIN TAB PO SCH (09:06)
[2019-04-27] MEDS: HEPARIN SOD 5,000 UNIT/0.5 ML VIAL SQ SCH (09:09)
--- NOTE | 2019-04-27 10:18 | Palliative Care Progress Note ---
Date of Service April 27, 2019 Assessment & Plan (1) Cancer related pain: -Patient was sitting in his bed in no apparent distress. He was requesting to go home. -Patient has been tolerating Oxycodone 60 mg po TID. -He has taken Percocet (Oxycodone 10 mg/Acetaminophen 325mg) FOUR times in past 24 hours. -He has utilized 3 doses of IV Dilaudid over the past 24 hours. -Will D/C IV Dilaudid. Discussed with patient, he is comfortable with this as well. -Discussed with the patient that the goal is for pain to be at a "manageable" level, not at zero. -Plan for patient to be discharged today, discussed with hospitalist. -PPS: 60% (2) Goals of care, counseling/discussion: -Patient follows with Dr. Mon at [facility] for his metastatic bladder cancer. He states that he was given a prognosis of six months to a year, three months ago. He was to start chemo on 04/22, but ended up in the hospital for this intractable pain. He does not know the medication that was going to be started, but he does still plan on pursuing further chemo. His appointment needs to be rescheduled. Hospitalist aware. 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 Please see A/P for further details. Review of Systems Review of Systems: All systems reviewed & are unremarkable except as noted in HPI & below Physical Exam Constitutional: well developed and well nourished; no acute distress Eyes: PERRL (2mm bilaterally) ENMT: external ear and nose normal, oropharynx normal Respiratory: normal respiratory effort; no labored breathing Cardiovascular: Rate/Rhythm: regular rate and regular rhythm Neurologic: moves all extremities and awake; not confused Psychiatric: A+Ox3, euthymic affect Results & Data Vital Signs (Past 12 Hours) Vital Signs Temp Pulse Resp BP Pulse Ox 04/27/19 06:41 36.8 C 86 20 122/82 98 04/27/19 03:52 36.7 C 70 18 118/71 93 04/26/19 23:00 36.9 C 83 20 115/72 93 PG Care Time/CCT Total # of Minutes Spent Total Time Spent with Patient: Total time spent is greater than 50% in coordination of care (as documented) at patient's floor/unit and/or counseling patient: 35 Coding Level of Care Code 92477 Subseq Hosp Care Lvl 3 Diagnoses Cancer related pain G89.3 Goals of care, counseling/discussion Z71.89 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 C67.9; C79.51 Inferior pubic ramus fracture S32.599A Time Spent (min) 35 Time Spent Midlevel Total time spent 35 minutes with > 50% of that time spent assessing the patient, discussing goals of care and pain management, all while discussing with IDT.
--- NOTE | 2019-04-27 11:10 | Hospitalist Progress Note ---
Date of Service April 27, 2019 Assessment & Plan (1) Pathological fracture of pelvis: (2) Intractable pain: Per admitting service notes Pt is 59 y/o M Metastatic bladder cancer with mets to thoracic and lumbar spine and pelvis s/p palliative radiation x1 without improvement, palliative chemo, HTN, COPD, iron deficiency anemia, chronic back pain, hepatitis C, CAD S/p stent, right-sided double-J stent presented to ER with complaint of left hip and pelvic pain x1 day. Patient reports chronic low back pain and chronic pelvic and bilateral hip pain however increased pain yesterday to left hip that radiates down left leg. Denies fever/chills, LE or saddle paresthesias In ER vitals stable. No leukocytosis. CT PELVIS:1. Progressive skeletal metastasis. Pathologic fracture of the left inferior pubic ramus. 2. No evidence of bowel obstruction. 3. Enlarging bladder masses with transmural extension. 4. Moderate left-sided hydroureter. Indwelling right-sided nephroureteral stent. 5. Normal appendix. No evidence of acute diverticulitis. Patient treated with increased dose of OxyContin and IV Dilaudid PRN Pain gradually improved, pain well controlled on discharge day On discharge, continue OxyContin 60 mg p.o. 3 times daily, continue usual Percocet as needed patient declines oral dilaudid Palliative care also consulted--> recommend to follow-up with palliative care service of [facility] as an outpatient for further evaluation and management Continue PT and OT (3) MIKIE (acute kidney injury): On admission: BUN: 29, Cr: 2.28, GFR: 29.9 Baseline creatinine is 1.2 Nephrology service consulted, appreciate recommendations has received IV NSS x 4 days, creatinine remained elevated, 2.25 on discharge day Acute renal failure could be secondary to obstructive uropathy given history of hydronephrosis, right ureter stent placement, increasing bladder mass Urologist consulted--> Dr. Yuli Ng, hydroureteronephrosis similar to December 2018 no further interventions recommended Per Dr. Ng notes: "If it is to be decompressed he would need a nephrostomy tube in [place]. Given his widely metastatic cancer and progression I do not think a neph tube is going to prolong his survival and it will decrease his quality of life due to tube discomfort and not uncommon tube malfunction and maintenance. On the admission ct scan the right ureteral stent appeared to be functional. I will send a message to Dr Oreilly about getting pt in for outpatient stent change soon. If pain returns in a more consistent patter might need to get an renal ultrasound. Pain gone today." --Repeat BMP in 2 to 3 days, then regularly Close outpatient follow-up with nephrology and urology service (4) UTI (urinary tract infection): Per admitting service notes: Dysuria x 1 day. UA: +nitrite, 2+leuk esterase, >30 WBC, >30 RBC, 1+ bacteria -Urine culture Staph, MRSA -Changed ceftriaxone to daptomycin, received for 4 days consulted infectious disease, Dr. 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 Follows with Dr Mon - consideration to further chemo treatments if improvement in LFTs - has appointment 04/22/2019 however, patient is currently admitted -- Palliative care service consulted -- will need to ff up with Oncologist upon discharge We will need to follow-up with outpatient palliative care service [facility] for further evaluation management (6) Chronic anemia: Hgb: 11.7. -Hemoglobin stable around 10-11 -Monitor hemoglobin as outpatient (7) Coronary artery disease: S/P stent -No cardiac symptoms -Continue metoprolol, statin, aspirin (8) Hypothyroidism: -Continue levothyroxine (9) Hepatitis C: Followed with GI. no treatment started secondary to limited life expectancy with his metastatic bladder CA DVT Prophylaxis -Heparin SQ was given Full Code as per discussion with pt Follow-up with Dr Damian at [facility] for routine care Follow-up with oncologist within 1 week Follow-up with nephrology, urology in 2 weeks Establish outpatient follow-up with [facility] physicians [facility] palliative care service Admission and Anticipated Discharge Date Admission Date: April 20, 2019 Subjective Follow-up for pelvic fracture, acute renal failure Resting in bed, comfortable, not in distress Pain is well controlled No problems with urination Ambulating with no problems States he is ready and would like to be discharged today Review of Systems Review of Systems: All systems reviewed & are unremarkable except as noted in HPI & below Physical Exam Physical Exam: General- oriented x 3, not in distress, speaks in sentences with no effort or accessory muscle use Eyes- anicteric Neck- no JVD Lungs- clear breath sounds bilaterally, no crackles, no wheezing bilateral Heart- normal rate, regular rhythm; no murmurs Abdomen- normal bowel sounds, nondistended, soft, tenderness Extremities-trace pretibial edema, no calf tenderness Neuro- alert, oriented x 3; no gross focal neurologic deficits Skin- warm & dry Results & Data ([facility]) Vital Signs (Past 12 Hours) Vital Signs Temp Pulse Resp BP Pulse Ox 04/27/19 06:41 36.8 C 86 20 122/82 98 04/27/19 03:52 36.7 C 70 18 118/71 93 Laboratory Results Laboratory Results - last 24 hr 04/27/19 05:52 Sodium 138 Potassium 4.7 Chloride 109 H Carbon Dioxide 26 Anion Gap 3.0 BUN 26 H Creatinine 2.25 H Est Cr Clr Drug Dosing 45.1 Est GFR ( Amer) 35.2 Est GFR (Non-Af Amer) 30.3 BUN/Creatinine Ratio 11.8 Glucose 85 Calcium 8.9 (1) Pathological fracture of pelvis Encounter type: initial encounter Pathology associated with fracture: unspecified disease Qualified Code(s): M84.454A - Pathological fracture, pelvis, initial encounter for fracture
--- NOTE | 2019-04-27 11:10 | Hospitalist Progress Note ---
Date of Service Delayed entry date of service 04/26/2019 April 27, 2019 Assessment & Plan (1) Pathological fracture of pelvis: (2) Intractable pain: Per admitting service notes Pt is 59 y/o M Metastatic bladder cancer with mets to thoracic and lumbar spine and pelvis s/p palliative radiation x1 without improvement, palliative chemo, HTN, COPD, iron deficiency anemia, chronic back pain, hepatitis C, CAD S/p stent, right-sided double-J stent presented to ER with complaint of left hip and pelvic pain x1 day. Patient reports chronic low back pain and chronic pelvic and bilateral hip pain however increased pain yesterday to left hip that radiates down left leg. Denies fever/chills, LE or saddle paresthesias In ER vitals stable. No leukocytosis. CT PELVIS:1. Progressive skeletal metastasis. Pathologic fracture of the left inferior pubic ramus. 2. No evidence of bowel obstruction. 3. Enlarging bladder masses with transmural extension. 4. Moderate left-sided hydroureter. Indwelling right-sided nephroureteral stent. 5. Normal appendix. No evidence of acute diverticulitis. Pain well controlled Continue OxyContin 3 times daily, Percocet as needed, Dilaudid 1.5 mg IV as needed patient declines oral dilaudid Palliative care also consulted--> appreciate the recommendations Discussed with palliative care service today (3) MIKIE (acute kidney injury): On admission: BUN: 29, Cr: 2.28, GFR: 29.9 Creatinine improved Nephrology service consulted, appreciate recommendations has received IV NSS x 4 days, d/c for now Acute renal failure could be secondary to obstructive uropathy given history of hydronephrosis, right ureter stent placement, increasing bladder mass Urologist consulted--> discussed with Dr. Ng, no further procedures recommended -- reporting right flank pain messaged Dr. Ng, awaiting recommendations --Flank pain resolved, no further interventions per Dr. Ng (4) UTI (urinary tract infection): Per admitting service notes: Dysuria x 1 day. 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 Follows with Dr Mon - consideration to further chemo treatments if improvement in LFTs - has appointment 04/22/2019 however, patient is currently admitted -- Palliative care service consulted -- will need to ff up with Oncologist upon discharge We will need to follow-up with outpatient palliative care service [facility] for further evaluation management (6) Chronic anemia: Hgb: 11.7. -Hemoglobin 10.8, no signs of active bleeding -Monitor H&H (7) Coronary artery disease: S/P stent -No cardiac symptoms -Continue metoprolol, statin, aspirin (8) Hypothyroidism: -Continue levothyroxine (9) Hepatitis C: Followed with GI. no treatment started secondary to limited life expectancy with his metastatic bladder CA DVT Prophylaxis -Heparin SQ Full Code as per discussion with pt Follows with Dr Damian at [facility] for routine care Admission and Anticipated Discharge Date Admission Date: April 20, 2019 Subjective Follow-up for pelvic fracture, acute renal failure Seen resting in bed, comfortable, not in distress Pain well controlled Flank pain resolved, no problems with urination Denies chest pain, shortness of breath, palpitations, dizziness No problems with ambulation Positive BMs Other symptom Review of Systems Review of Systems: All systems reviewed & are unremarkable except as noted in HPI & below Physical Exam Physical Exam: General- oriented x 3, not in distress, speaks in sentences with no effort or accessory muscle use Eyes- anicteric Neck- no JVD Lungs- clear breath sounds, no crackles, no wheezing bilaterally Heart- normal rate, regular rhythm; no murmurs Abdomen- normal bowel sounds, nondistended, soft, no tenderness Extremities-trace pretibial edema, no calf tenderness Neuro- alert, oriented x 3; no gross focal neurologic deficits Skin- warm & dry Results & Data ([facility]) Vital Signs (Past 12 Hours) Vital Signs Temp Pulse Resp BP Pulse Ox 04/27/19 06:41 36.8 C 86 20 122/82 98 04/27/19 03:52 36.7 C 70 18 118/71 93 Laboratory Results All noted and reviewed (1) Pathological fracture of pelvis Encounter type: initial encounter Pathology associated with fracture: unspecified disease Qualified Code(s): M84.454A - Pathological fracture, pelvis, initial encounter for fracture
--- NOTE | 2019-04-27 11:39 | Discharge Summary ---
Date of Service April 27, 2019 Admission HPI Per Admitting Provider Pt is 59 y/o M Metastatic bladder cancer with mets to thoracic and lumbar spine and pelvis s/p palliative radiation x1 without improvement, palliative chemo, HTN, COPD, iron deficiency anemia, chronic back pain, hepatitis C, CAD S/p stent, right-sided double-J stent presented to ER with complaint of left hip and pelvic pain x1 day. Patient reports chronic low back pain and chronic pelvic and bilateral hip pain however increased pain yesterday to left hip that radiates down left leg. Patient denies any numbness or tingling. He reports increased pain with any type of movement or attempting ambulation. Patient on chronic Percocet and oxycodone and reports that normally controls his chronic pain for several hours however has not helped with this pain over the past day. He also reports yesterday he started with dysuria. Reports is noticed some hematuria intermittently over the past 3 weeks. Patient denies flank pain, fever, chills. Last chemo treatment October 2018. Further chemo was held secondary to liver abnormalities. Plan was to resume palliative chemo in April 2019 if improvement of LFTs. Reports chronic constipation. Denies fever/chills, diaphoresis, N/V/D, GRAJEDA, dizziness, syncope, vision changes, neck pain, CP, SOB, palpitations, cough, sore throat, choking, otalgia, rhinorrhea, abdominal pain, paresthesias, extremity weakness, extremity edema, rashes, urinary symptoms. Admission Exam Per Admitting Provider General: no acute distress, obese Head: normocephalic, atraumatic Eyes: PERRL, EOM's intact, conjunctiva non-injected, anicteric ENT: normal inspection external ears, nose, mucous membranes moist Neck: supple, trachea midline, non-tender Lungs: clear, no respiratory distress, no wheezing/rhonchi/rales CV: RRR, no murmur, no pretibial edema Abd: normal BS, soft, non-tender Back: no spinous process tenderness to palpation Ext: no cyanosis, no calf tenderness; left hip tenderness to palpation and tender with flexion of hip; distal pulses intact, sensation to light touch intact Neuro: A&O x 3, no focal deficits noted, normal affect Skin: warm, dry Principal Diagnosis INTRACTABLE PAIN SECONDARY TO SUPERIOR PUBIC RAMUS FRACTURE, ACUTE RENAL FAILURE LIKELY SECONDARY TO OBSTRUCTIVE UROPATHY Discharge Exam General- oriented x 3, not in distress, speaks in sentences with no effort or accessory muscle use Eyes- anicteric Neck- no JVD Lungs- clear breath sounds bilaterally, no crackles, no wheezing bilateral Heart- normal rate, regular rhythm; no murmurs Abdomen- normal bowel sounds, nondistended, soft, tenderness Extremities-trace pretibial edema, no calf tenderness Neuro- alert, oriented x 3; no gross focal neurologic deficits Skin- warm & dry Discharge Data Allergies Allergy/AdvReac Type Severity Reaction Status Date / Time morphine Allergy Severe ANAPHYLAXIS Verified 04/20/19 09:04 Penicillins Allergy Intermediate HIVES Verified 04/20/19 09:04 ketorolac [From Toradol] AdvReac Intermediate Unknown Verified 04/20/19 09:04 Consultations 04/20/19 11:26 ED Decision to Admit Stat 04/20/19 13:03 Consult Case Management - Discharge Planning Routine Consult Pain Management Routine 04/20/19 13:47 Consult Orthopedic Surgery Routine 04/21/19 07:46 Consult Nephrology Routine 04/21/19 15:53 Consult Urology Routine 04/22/19 17:31 Consult Palliative Care Routine 04/25/19 17:52 Consult Infectious Diseases Routine Ordered Studies 04/20/19 09:27 CT pelvis wo con Stat COMPARISON STUDY: CT scan dated 12/24/2018 FINDINGS: There is a right-sided nephroureteral stent. There is ectasia of the infrarenal abdominal aorta which measures 28 mm. There is left-sided hydroureter. There are enlarging bladder masses with evidence of transmural extension. There is no pathologic bowel dilatation. The appendix appears normal. There is no acute diverticulitis. There are small fat-containing right inguinal hernia. Stable left pelvic soft tissue mass adjacent to the inguinal canal, possibly representing the sequela of prior inguinal hernia repair There are osseous metastasis involving the inferior pubic rami bilaterally with evidence of a pathologic fracture on the left. There is an enlarging blastic lesion involving the posterior aspect of the right iliac bone currently measuring 16 mm. There is a mixed lytic and sclerotic left acetabular region measuring 25 mm, consistent with a metastatic deposit. There are mixed lytic and sclerotic changes within the iliac bones, consistent with metastasis. IMPRESSION: 1. Progressive skeletal metastasis. Pathologic fracture of the left inferior pubic ramus. 2. No evidence of bowel obstruction. 3. Enlarging bladder masses with transmural extension 4. Moderate left-sided hydroureter. Indwelling right-sided nephroureteral stent 5. Normal appendix. No evidence of acute diverticulitis. 04/21/19 16:07 US venous doppler LE BI Stat COMPARISON STUDY: No previous studies for comparison. FINDINGS: Real-time and color flow Doppler imaging were performed. Flow was seen within the femoral, popliteal and calf veins with no intraluminal thrombus demonstrated. The saphenous vein is patent. IMPRESSION: No evidence of lower extremity DVT. 04/24/19 18:12 US venous doppler LE BI Stat IMPRESSION: There is no sonographic evidence of deep venous thrombosis identified in the right or left lower extremity. Hospital Course (1) Pathological fracture of pelvis: (2) Intractable pain: Per admitting service notes Pt is 59 y/o M Metastatic bladder cancer with mets to thoracic and lumbar spine and pelvis s/p palliative radiation x1 without improvement, palliative chemo, HTN, COPD, iron deficiency anemia, chronic back pain, hepatitis C, CAD S/p stent, right-sided double-J stent presented to ER with complaint of left hip and pelvic pain x1 day. Patient reports chronic low back pain and chronic pelvic and bilateral hip pain however increased pain yesterday to left hip that radiates down left leg. Denies fever/chills, LE or saddle paresthesias In ER vitals stable. No leukocytosis. CT PELVIS:1. Progressive skeletal metastasis. Pathologic fracture of the left inferior pubic ramus. 2. No evidence of bowel obstruction. 3. Enlarging bladder masses with transmural extension. 4. Moderate left-sided hydroureter. Indwelling right-sided nephroureteral stent. 5. Normal appendix. No evidence of acute diverticulitis. Orthopedic consulted, Dr. Lara Recommend conservative management, pain control, protected weightbearing Patient treated with increased dose of OxyContin and IV Dilaudid PRN Pain gradually improved, pain well controlled on discharge day On discharge, continue OxyContin 60 mg p.o. 3 times daily, continue usual Percocet as needed Daily Senokot-S Continue PT and OT Palliative care also consulted--> recommend to follow-up with palliative care service of [facility] as an outpatient for further evaluation and management Continue PT and OT (3) MIKIE (acute kidney injury): On admission: BUN: 29, Cr: 2.28, GFR: 29.9 Baseline creatinine is 1.2 Nephrology service consulted, appreciate recommendations has received IV NSS x 4 days, creatinine remained elevated, 2.25 on discharge day Acute renal failure could be secondary to obstructive uropathy given history of hydronephrosis, right ureter stent placement, increasing bladder mass Urologist consulted--> Dr. Yuli Ng, hydroureteronephrosis similar to December 2018 no further interventions recommended Per Dr. Ng notes: "If it is to be decompressed he would need a nephrostomy tube in [place]. Given his widely metastatic cancer and progression I do not think a neph tube is going to prolong his survival and it will decrease his quality of life due to tube discomfort and not uncommon tube malfunction and maintenance. On the admission ct scan the right ureteral stent appeared to be functional. I will send a message to Dr Oreilly about getting pt in for outpatient stent change soon. If pain returns in a more consistent patter might need to get an renal ultrasound. Pain gone today." --Repeat BMP in 2 to 3 days, then weekly, forward results to [facility] briefcase sewer Dr. Dalila Lyons No NSAIDs Close outpatient follow-up with nephrology and urology service (4) UTI (urinary tract infection): Per admitting service notes: Dysuria x 1 day. UA: +nitrite, 2+leuk esterase, >30 WBC, >30 RBC, 1+ bacteria -Urine culture Staph, MRSA -Changed ceftriaxone to daptomycin, received for 4 days consulted infectious disease, Dr. Yuli Payne, recommending 14 days total of doxycycline 100 mg p.o. 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 Follows with Dr Mon - consideration to further chemo treatments if improvement in LFTs - has appointment 04/22/2019 however, patient was admitted -- Palliative care service consulted -- will need to ff up with Oncologist upon discharge will need to follow-up with outpatient palliative care service [facility] for further evaluation management (6) Chronic anemia: Hgb: 11.7. -Hemoglobin stable around 10-11 -Monitor hemoglobin as outpatient (7) Coronary artery disease: S/P stent -No cardiac symptoms -Continue metoprolol, statin, aspirin (8) Hypothyroidism: -Continue levothyroxine (9) Hepatitis C: Followed with GI. no treatment started secondary to limited life expectan cy with his metastatic bladder CA DVT Prophylaxis -Heparin SQ was given Full Code as per discussion with pt Follow-up with Dr Damian at [facility] for routine care Follow-up with oncologist within 1 week Follow-up with nephrology, urology in 2 weeks Establish outpatient follow-up with [facility] palliative care service Total Time Total Time Spent Total Time Spent (In Minutes): 60 minutes Discharge Plan Discharge Items Patient Disposition: Transfer [facility] Fac Reason For Visit: INTRACTABLE PAIN, PELVIC FRACTURE Discharge Diagnosis: INTRACTABLE PAIN SECONDARY TO SUPERIOR PUBIC RAMUS FRACTURE, LEFT; ACUTE RENAL FAILURE, POSSIBLE OBSTRUCTIVE UROPATHY Activity: As commented below Activity Comment: Continue PT and OT, resume activity gradually as tolerated Driving/Machine Use: No driving Non-emergency contact: Primary Care Provider and Oncologist Call non-emergency contact if: you have any medication questions, your symptoms worsen, your pain is not controlled, your pain is worsening, your pain is unusual for you, your pain is concerning for you and you have a fever Follow-up/Referrals: Jesús Lara MD [Surgeon] - (Follow up with Dr. Lara in 3-4 weeks for x- rays.) Yuli Ng [facility] [Physician[facility] - Angelina Mon MD [Hospitalist] - Diet: Heart Healthy Addtl Attending Provider Instructions: Continue PT/OT, Protected weightbearing. Follow up with Oncologist Dr. Mon in 1 week. Follow up with [facility] Therapist Asst, Urologist. Establish with [facility] Palliative Care Service as outpatient. Please refer to accompanying hospital discharge summary for further details. 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 Instructions: -recommend weekly monitoring of bmp at d/c--[facility] nephrology will order from [facility] -f/u w/ renal physician in CKD clinic 2-4 weeks after d/c in [place] -avoid nephrotoxins such as NSAIDS, diuretics unless goals of care change and labs no longer followed Pending Studies at Discharge: Yes Studies:: -recommend weekly monitoring of bmp at d/c--[facility] will order from [facility] -Please refer to accompanying hospital discharge summary for further details Stand-Alone Forms: My [facility] Skilled Items Patient informed of condition?: Yes DNR: No Discharge Level of Care: Skilled Communicable Disease: No Discharge Prognosis: Stable Lines: None Urinary Catheter: No Medications and DC Order Prescriptions: New doxycycline hyclate 100 mg capsule 100 mg PO BID 14 Days Qty: 28 RF: 0 Culturelle 10 billion cell capsule 1 cap PO DAILY Qty: 30 RF: 2 oxycodone [OxyContin] 20 mg Tablet,Oral Only,Ext.Rel.12 Hr 60 mg PO TID 7 Days Qty: 63 RF: 0 sennosides-docusate sodium [Senokot-S] 8.6-50 mg Tablet 1 tab PO QAM 30 Days Qty: 30 RF: 1 Continued atorvastatin [Lipitor] 40 mg Tablet 40 mg PO PM RF: 0 polyethylene glycol 3350 [Miralax] 17 gram Powder In Packet 17 g PO DAILY RF: 0 aspirin [Aspir-Low] 81 mg Tablet,Delayed Release (Dr/Ec) 81 mg PO DAILY RF: 0 levothyroxine 100 mcg Tablet 100 mcg PO DAILY RF: 0 tamsulosin [Flomax] 0.4 mg Capsule 0.4 mg PO DAILY RF: 0 metoprolol succinate 25 mg Tablet Extended Release 24 Hr 12.5 mg PO DAILY RF: 0 multivitamin Tablet 1 tab PO DAILY RF: 0 acetaminophen 325 mg Tablet 650 mg PO Q4 PRN (Reason: Fever Or Pain) RF: 0 sildenafil 50 mg Tablet 50 mg PO DAILY PRN (Reason: ERECTILE DISFUNCTION) RF: 0 hyoscyamine sulfate 0.125 mg Tablet, Sublingual 0.125 mg PO Q4 PRN (Reason: Bladder Spasms) RF: 0 alum-mag hydroxide-simeth [Maalox Advanced] 200-200-20 mg/5 mL Suspension 10 ml PO Q4 PRN (Reason: Heartburn) RF: 0 Chloraseptic Throat [place] 1.4 % Aerosol,[place] 1.4 % MUCOUS MEMBRANE Q8 PRN (Reason: Sore Throat) RF: 0 sodium chloride [Saline Nasal] 0.65 % Aerosol,[place] 2 spray INTRANASAL Q2H PRN (Reason: Nasal Congestion) RF: 0 albuterol sulfate 2.5 mg /3 mL (0.083 %) Solution For Nebulization 2.5 mg INHALATION Q6H PRN (Reason: Shortness Of Breath) RF: 0 magnesium hydroxide [Milk of Magnesia] 400 mg/5 mL Suspension 800 mg PO DAILY PRN (Reason: Constipation) RF: 0 oxycodone-acetaminophen [Percocet] 10-325 mg Tablet 1 tab PO Q4H PRN (Reason: Pain) RF: 0 bisacodyl 10 mg Suppository 10 mg ND DAILY PRN (Reason: Constipation) RF: 0 Fleet Enema 19-7 gram/118 mL Enema 118 ml ND DAILY PRN (Reason: Constipation) RF: 0 Discontinued oxycodone [OxyContin] 40 mg Tablet,Oral Only,Ext.Rel.12 Hr 40 mg PO BID RF: 0 Discharge Orders: Discharge Order (Routine); Ordered 04/27/19 Ordered By: Milton Rodriguez Admission Data Admit Date/Time: 04/20/19 11:45 Attending Provider: Milton Rodriguez Admit Provider: Robbin Palacio Primary Care Provider: Keyur Piña Other Providers: Robbin Palacio ; Yuli Oreilly ; Dmitri Fraga ; Yuly Kc ; Yuli Ng ; Salome Murdock ; Yuli Payne
== END 2019-04-27 12:13 | DRG 543 ==
LOC: ED 07:55 → SUATTDRO 11:45 → 4W 11:45

== ENCOUNTER 2019-08-15 11:20 | Inpatient (IN) ==
[2019-08-15] MEDS ORDERED: PROMETHAZINE HCL 6.25 MG in SODIUM CHLORIDE 0.9% 50 ML IV STA (12:07)
[2019-08-15] MEDS ORDERED: LORazepam 1 MG/2 ML VIAL IV STA (12:07)
[2019-08-15] MEDS ORDERED: SODIUM CHLORIDE 0.9% 500 ML IV SCH (12:15)
--- NOTE | 2019-08-15 12:20 | Emergency Department Note ---
Impression & Plan Medication overdose, Suicidal ideation, Acute UTI, Tachycardia ED Provider Note NAME: STEPHEN LOPEZ AGE: 59 SEX: M : 1960 ARRIVES VIA: Ambulance INFORMANT: [Patient][nurses] ED PROVIDER(S): [Ceasar Wolff MD] CHIEF COMPLAINT: Narcotic overdose HISTORY OF PRESENT ILLNESS: The patient is a 59-year-old male who was brought by ambulance for ingesting a large amount of narcotics, Percocet, about 6 hours ago. The exact number of tablets is unknown as he has been holding them and then took a lot just today about 6 hours ago. Patient was noted to be somewhat altered and that is how the staff determined what had happened. The patient admits to ingesting the pills in a suicide attempt. The patient denies any other medication ingestion in excess. He has metastatic bladder cancer and is unhappy with his life and with his care at [facility]. The patient states that he currently feels that his heart is quite fast. He feels a little bit anxious. He does feel lightheaded and dizzy. The patient states that the Percocet tablets were 10/325 in strength. Again, he is not sure how many he took. Despite all the narcotic ingested, he still has pain in the bladder, the back and hips, he has chronic pain in this area because of his cancer. It has spread to the bone. Of note, the patient is apparently on hospice care. REVIEW OF SYSTEMS: See HPI for pertinent positives and negatives. A total of ten systems were reviewed and were otherwise negative. PMHx/PSHx: See Below SOCIAL HISTORY: See Below. PHYSICAL EXAM: GENERAL: Patient is in mild distress from pain. Seems anxious. HEENT: No acute trauma, normocephalic atraumatic, mucous membranes moist, no nasal congestion, no scleral icterus. Pupils equal and reactive to light. NECK: No stridor, no adenopathy, no meningismus, trachea is midline. LUNGS: Clear to auscultation bilaterally, no wheeze, no rhonchi, breath sounds equal. HEART: Tachycardic, regular rhythm, no murmurs. ABDOMEN: Soft, tender in the lower abdomen bilaterally, bowel sounds positive, no hernias, no peritonitis. EXTREMITIES: No cyanosis or edema, full range of motion of all the joints without pain or difficulty, no signs for acute trauma. NEUROLOGIC: Oriented x 3, no acute motor or sensory deficits, no focal weakness. No speech slur noted. No somnolence. SKIN: No rash, no jaundice, no diaphoresis. DIFFERENTIAL DIAGNOSIS: Overdose, toxicologic, infection, hypoglycemia, electrolyte abnormalities, cardiac sources, intracerebral event, neurologic, trauma, as well as other path ologies. EMERGENCY DEPARTMENT COURSE/PROCEDURES: ECG: Indication was tachycardia. The ECG shows a sinus tachycardia with a rate of 115. The QTc is 470. There is no ST elevation. There is an old inferior infarct. No PVCs. Continuous Cardiac Monitoring: An order was placed for continuous cardiac monitoring. The monitor shows a rate of 100 with sinus tachycardia. Critical Care Note: I have personally spent greater than 38 minutes of critical care time in the direct management of this patient. This includes bedside care, interpretation of diagnostic studies, and testing, discussion with consultants, patient, and family members, and other required patient management activities. This 38 minutes is in excess of all separately billable procedures. MEDICAL DECISION MAKING: There is no leukocytosis. The patient does have a mild anemia but this is baseline looking back at previous testing. Platelet count somewhat low at 124. There was no coagulopathy. There was some renal insufficiency but this appears baseline looking back at previous testing. No significant electrolyte abnormality requiring correction. Alk phos was elevated, likely consistent with his bony metastases. The patient's TSH was elevated however, the T4 was normal. EKG showed a sinus tachycardia, no acute ischemia. Cardiac enzyme testing x1 is not consistent with acute cardiac injury. Chest film does not show pneumonia or pneumothorax. Urinalysis is consistent with infection. Tylenol and aspirin levels were undetectable. Coronavirus testing returned negative. Urine tox did show opiates. The patient received IV Ativan for anxiety. He received IV saline for hydration. He was given IV ceftriaxone as empiric antibiotic therapy. He received IV Phenergan for nausea. He was ordered for IV labetalol for his elevated blood pressure. Since treatment, the patient does appear more comfortable. His heart rate and blood pressure have improved. I did speak with psychiatry case management. The patient is not someone who can be hospitalized on a psychiatry service, he has too many medical issues ongoing and will require monitoring on a medical service. I spoke to the patient, I talked to case management. The patient is going to be brought in on the medicine service. His hydration can be addressed, his UTI can be addressed. He can be watched for any decline in mental status. Psychiatry can been consulted for the suicidal ideation. The patient is aware of his findings, he seems much more comfortable than when he first arrived. Past Med/Surg History Medical History Acute UTI (Inactive) MIKIE (acute kidney injury) Alcoholic pancreatitis Anemia CHRONIC; BASELINE HGB 8-9 RANGE PER CHART REVIEW Asthma (08/31/12) Back pain Bladder cancer Blindness of right eye BPH (benign prostatic hyperplasia) Cancer of kidney Cancer related pain Chronic anemia Coronary artery disease (08/31/12) STENTS X 2 (1+ YEARS AGO) Encounter for pre-operative examination Hematuria (Inactive) Hepatitis C History of chemotherapy Finished 10/08/2018 - Carboplatin/Gemcitabine x 2 cycles Hydroureter Hydroureter on left Hyperlipidemia Hypothyroidism (08/31/12) Inferior pubic ramus fracture Intractable pain (Inactive) Kidney stones Lower abdominal pain (Inactive) Myocardial Infarction Pathological fracture of pelvis (Inactive) Pulmonary nodule Screening for colon cancer UTI (urinary tract infection) Surgical History History of transurethral destruction of bladder lesion S/P cholecystectomy S/P colonoscopy S/P hernia repair Family History Mother , age 69 [place] No problems noted. Father , age 75 diab. comp No problems noted. Brother , age 45 drug overdose No problems noted. Brother , age 34 No problems noted. Sister Kidney disease Sister No problems noted. Daughter No problems noted. Daughter No problems noted. Son No problems noted. Son No problems noted. Son No problems noted. Son No problems noted. Son No problems noted. Son No problems noted. 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 Kindergarten Required: No Beliefs That Will Affect Care: None Current Living Situation: Shelter Current Living Situation Comment: [facility] current occupational status: unemployed current occupation: [employer] Feels Safe at Home: Yes Smoking Status: Unknown if ever smoked Hx Alcohol Use: No Hx Substance Use: Yes substance use type: prescription drug Substance Use Type Other:: percocet, oxycontin Last Used Substance: Unknown Childhood Exposure to Second-Hand Smoke: Yes caffeine: Yes (one cup ) during the past year weight has: other Dental Care, Regularly: No Physical Activity Frequency: Does not Exercise Seatbelt Use: always Sunscreen Use: Yes Allergies Allergies Allergy/AdvReac Type Severity Reaction Status Date / Time morphine Allergy Severe ANAPHYLAXIS Verified 08/15/19 13:24 Penicillins Allergy Intermediate HIVES Verified 08/15/19 13:24 ketorolac [From Toradol] AdvReac Intermediate Unknown Verified 08/15/19 13:24 Home Meds Home Medications Medication Instructions Recorded Confirmed levothyroxine 100 mcg PO DAILY@0500 12/24/18 08/15/19 polyethylene glycol 3350 [Miralax] 17 g PO DAILY PRN 12/24/18 08/15/19 acetaminophen 650 mg PO Q6 PRN MDD 3gm/24hr 06/08/19 08/15/19 alum-mag hydroxide-simeth [Maalox 15 ml PO Q4 PRN 06/08/19 08/15/19 Advanced] fluticasone furoate-vilanterol 1 inh INHALATION DAILY@0800 06/08/19 08/15/19 [Breo Ellipta] ondansetron HCl 8 mg PO Q8H PRN 06/08/19 08/15/19 oxybutynin chloride 5 mg PO Q6 PRN 06/08/19 08/15/19 oxycodone [OxyContin] 80 mg PO BID 06/08/19 08/15/19 prochlorperazine maleate 10 mg PO Q6H PRN 06/08/19 08/15/19 sennosides [senna] 8.6 mg PO BID 06/08/19 08/15/19 lorazepam 1 mg tablet 1 mg PO TID 06/30/19 08/15/19 oxycodone-acetaminophen 10 mg-325 1 tab PO Q4H PRN 06/30/19 08/15/19 mg tablet acetaminophen 650 mg PO Q6 PRN MDD 3gm 07/18/19 08/15/19 buspirone 5 mg PO TID 07/18/19 08/15/19 Results & Data (ED) Vital Signs Vital Signs - 24 hr 08/15/19 11:20 08/15/19 11:31 08/15/19 12:00 Temperature 36.7 C Temperature Source Oral Pulse Rate 118 H 118 H 116 H Pulse Rate from SpO2 Sensor 118 H 116 H Pulse Rhythm Regular Pulse Strength Normal Respiratory Rate 14 20 16 Respiratory Effort / Characteristics Non-Labored Spontaneous Respiratory Depth Normal Respiratory Pattern Regular Blood Pressure 161/103 H 161/103 H 180/115 H Blood Pressure Mean 122 115 128 Blood Pressure Position Lying Pulse Oximetry 96 99 97 Oxygen Delivery Method Nasal Cannula Nasal Cannula Nasal Cannula Oxygen Flow Rate 2 2 2 Sepsis Recent Fever Within 48 Hours No Sepsis New/Unexplained Change in Mental Status No Sepsis Action Taken by Nursing No Action Required 08/15/19 12:07 08/15/19 12:30 08/15/19 13:00 Temperature Temperature Source Pulse Rate 117 H 107 H Pulse Rate from SpO2 Sensor 117 H 108 H Pulse Rhythm Pulse Strength Respiratory Rate 17 20 Respiratory Effort / Characteristics Respiratory Depth Respiratory Pattern Blood Pressure 168/132 H 172/108 H Blood Pressure Mean 152 128 Blood Pressure Position Pulse Oximetry 97 97 Oxygen Delivery Method Nasal Cannula Nasal Cannula Nasal Cannula Oxygen Flow Rate 2 2 Sepsis Recent Fever Within 48 Hours Sepsis New/Unexplained Change in Mental Status Sepsis Action Taken by Nursing 08/15/19 13:30 08/15/19 14:00 08/15/19 14:30 Temperature Temperature Source Pulse Rate 101 H 101 H 101 H Pulse Rate from SpO2 Sensor 100 H Pulse Rhythm Pulse Strength Respiratory Rate 17 19 17 Respiratory Effort / Characteristics Respiratory Depth Respiratory Pattern Blood Pressure 135/95 153/95 H 154/85 H Blood Pressure Mean 110 104 102 Blood Pressure Position Pulse Oximetry 99 97 97 Oxygen Delivery Method Nasal Cannula Nasal Cannula Nasal Cannula Oxygen Flow Rate 2 2 2 Sepsis Recent Fever Within 48 Hours Sepsis New/Unexplained Change in Mental Status Sepsis Action Taken by Nursing 08/15/19 15:00 Temperature Temperature Source Pulse Rate 107 H Pulse Rate from SpO2 Sensor Pulse Rhythm Pulse Strength Respiratory Rate 20 Respiratory Effort / Characteristics Respiratory Depth Respiratory Pattern Blood Pressure 161/97 H Blood Pressure Mean 129 Blood Pressure Position Pulse Oximetry 95 Oxygen Delivery Method Nasal Cannula Oxygen Flow Rate 2 Sepsis Recent Fever Within 48 Hours Sepsis New/Unexplained Change in Mental Status Sepsis Action Taken by Shelter Medications Current Medication List: was personally reviewed by me Laboratory Data Attestation: I reviewed the patient's lab results. Result diagrams: 08/15/19 11:45 08/15/19 11:45 Lab Results 08/15/19 08/15/19 08/15/19 Range/Units 11:45 11:45 11:45 WBC 9.73 (4.8-10.8) K/uL RBC 4.13 L (4.7-6.1) M/uL Hgb 10.7 L (14.0-18.0) g/dL Hct 32.9 L (42-52) % MCV 79.7 L (80-100) fL MCH 25.9 (25-34) pg MCHC 32.5 (32-36) g/dL RDW Std Deviation 43.6 (36.4-46.3) fL RDW Coeff of Fareed 15.1 H (11.5-14.5) % Plt Count 124 L (130-400) K/uL MPV 7.9 (7.4-10.4) fL Immature Gran % (Auto) 0.6 % Neut % (Auto) 80.2 % Lymph % (Auto) 11.3 % [place] % (Auto) 7.0 % Eos % (Auto) 0.7 % Baso % (Auto) 0.2 % Immature Gran # (Auto) 0.06 H (0.00-0.02) K/uL Neut # (Auto) 7.80 H (1.4-6.5) K/uL Lymph # (Auto) 1.10 L (1.2-3.4) K/uL [place] # (Auto) 0.68 H (0.11-0.59) K/uL Eos # (Auto) 0.07 (0-0.5) K/uL Baso # (Auto) 0.02 (0-0.2) K/uL PT 11.2 (9.0-12.0) Seconds INR 1.1 (0.9-1.1) APTT 30.4 (21.0-31.0) Seconds PTT Ratio 1.1 Sodium 138 (136-145) mmol/L Potassium 4.5 (3.5-5.1) mmol/L Chloride 105 (98-107) mmol/L Carbon Dioxide 28 (21-32) mmol/L Anion Gap 5.0 (3-11) BUN 23 H (7-18) mg/dl Creatinine 1.66 H (0.6-1.4) mg/dl Est Cr Clr Drug Dosing 55.7 ml/min Est GFR ( Amer) 50.8 Est GFR (Non-Af Amer) 43.8 BUN/Creatinine Ratio 13.6 (10-20) Glucose 95 (70-99) mg/dl Calcium 9.3 (8.5-10.1) mg/dl Magnesium 2.1 (1.8-2.4) mg/dl Total Bilirubin 0.5 (0.2-1) mg/dl AST 23 (15-37) U/L ALT 30 (12-78) U/L Alkaline Phosphatase 618 H (45-117) U/L Total Creatine Kinase 42 (39-308) U/L Troponin I < 0.015 (0-0.045) ng/ml Total Protein 8.5 H (6.4-8.2) gm/dl Albumin 2.6 L (3.4-5.0) gm/dl Globulin 5.9 H (2.5-4.0) gm/dl Albumin/Globulin Ratio 0.4 L (0.9-2) TSH 6.270 H (0.300-4.500) uIu/ml Free T4 1.34 (0.8-1.6) ng/dl Urine Color Urine Appearance (Clear) Urine pH (4.5-7.5) Ur Specific [place] (1.000-1.030) Urine Protein (Negative) Urine Glucose (UA) (Negative) Urine Ketones (Negative) Urine Blood (Negative) Urine Nitrite (Negative) Urine Bilirubin (Negative) Urine Urobilinogen (Negative) Ur Leukocyte Esterase (Negative) Urine WBC (Auto) (0-5) /hpf Urine RBC (Auto) (0-4) /hpf U Hyaline Cast (Auto) U Epithel Cells (Auto) (0-5) /lpf Urine Bacteria (Auto) (Negative) Urine Yeast Salicylates (2.8-20) mg/dl Urine Opiates Screen (Neg) Ur Methadone, Qual (Neg) Acetaminophen (10-30) ug/ml Urine Barbiturates (Neg) Ur Phencyclidine (PCP) (Neg) U Amphetamin/Meth Scrn (Neg) MDMA (Ecstasy) Screen (Neg) U Benzodiazepines Scrn (Neg) Ur Cocaine Metabolite (Neg) U Marijuana (THC) Screen (Neg) Ethyl Alcohol mg/dL (0-3) mg/dl COVID-19 PCR (Negative) 08/15/19 08/15/19 08/15/19 Range/Units 11:45 12:30 12:30 WBC (4.8-10.8) K/uL RBC (4.7-6.1) M/uL Hgb (14.0-18.0) g/dL Hct (42-52) % MCV (80-100) fL MCH (25-34) pg MCHC (32-36) g/dL RDW Std Deviation (36.4-46.3) fL RDW Coeff of Fareed (11.5-14.5) % Plt Count (130-400) K/uL MPV (7.4-10.4) fL Immature Gran % (Auto) % Neut % (Auto) % Lymph % (Auto) % [place] % (Auto) % Eos % (Auto) % Baso % (Auto) % Immature Gran # (Auto) (0.00-0.02) K/uL Neut # (Auto) (1.4-6.5) K/uL Lymph # (Auto) (1.2-3.4) K/uL [place] # (Auto) (0.11-0.59) K/uL Eos # (Auto) (0-0.5) K/uL Baso # (Auto) (0-0.2) K/uL PT (9.0-12.0) Seconds INR (0.9-1.1) APTT (21.0-31.0) Seconds PTT Ratio Sodium (136-145) mmol/L Potassium (3.5-5.1) mmol/L Chloride (98-107) mmol/L Carbon Dioxide (21-32) mmol/L Anion Gap (3-11) BUN (7-18) mg/dl Creatinine (0.6-1.4) mg/dl Est Cr Clr Drug Dosing ml/min Est GFR ( Amer) Est GFR (Non-Af Amer) BUN/Creatinine Ratio (10-20) Glucose (70-99) mg/dl Calcium (8.5-10.1) mg/dl Magnesium (1.8-2.4) mg/dl Total Bilirubin (0.2-1) mg/dl AST (15-37) U/L ALT (12-78) U/L Alkaline Phosphatase (45-117) U/L Total Creatine Kinase (39-308) U/L Troponin I (0-0.045) ng/ml Total Protein (6.4-8.2) gm/dl Albumin (3.4-5.0) gm/dl Globulin (2.5-4.0) gm/dl Albumin/Globulin Ratio (0.9-2) TSH (0.300-4.500) uIu/ml Free T4 (0.8-1.6) ng/dl Urine Color Yellow Urine Appearance Turbid A (Clear) Urine pH 6.0 (4.5-7.5) Ur Specific [place] 1.014 (1.000-1.030) Urine Protein 2+ H (Negative) Urine Glucose (UA) Negative (Negative) Urine Ketones Negative (Negative) Urine Blood 3+ H (Negative) Urine Nitrite Positive A (Negative) Urine Bilirubin Negative (Negative) Urine Urobilinogen Negative (Negative) Ur Leukocyte Esterase 3+ H (Negative) Urine WBC (Auto) >30 H (0-5) /hpf Urine RBC (Auto) 10-30 H (0-4) /hpf U Hyaline Cast (Auto) Not Reportable U Epithel Cells (Auto) 5-10 H (0-5) /lpf Urine Bacteria (Auto) 4+ H (Negative) Urine Yeast Not Reportable Salicylates < 1.7 L (2.8-20) mg/dl Urine Opiates Screen Pos H (Neg) Ur Methadone, Qual Neg (Neg) Acetaminophen < 2 L (10-30) ug/ml Urine Barbiturates Neg (Neg) Ur Phencyclidine (PCP) Neg (Neg) U Amphetamin/Meth Scrn Neg (Neg) MDMA (Ecstasy) Screen Neg (Neg) U Benzodiazepines Scrn Neg (Neg) Ur Cocaine Metabolite Neg (Neg) U Marijuana (THC) Screen Neg (Neg) Ethyl Alcohol mg/dL (0-3) mg/dl COVID-19 PCR (Negative) 08/15/19 08/15/19 Range/Units 13:01 13:50 WBC (4.8-10.8) K/uL RBC (4.7-6.1) M/uL Hgb (14.0-18.0) g/dL Hct (42-52) % MCV (80-100) fL MCH (25-34) pg MCHC (32-36) g/dL RDW Std Deviation (36.4-46.3) fL RDW Coeff of Fareed (11.5-14.5) % Plt Count (130-400) K/uL MPV (7.4-10.4) fL Immature Gran % (Auto) % Neut % (Auto) % Lymph % (Auto) % [place] % (Auto) % Eos % (Auto) % Baso % (Auto) % Immature Gran # (Auto) (0.00-0.02) K/uL Neut # (Auto) (1.4-6.5) K/uL Lymph # (Auto) (1.2-3.4) K/uL [place] # (Auto) (0.11-0.59) K/uL Eos # (Auto) (0-0.5) K/uL Baso # (Auto) (0-0.2) K/uL PT (9.0-12.0) Seconds INR (0.9-1.1) APTT (21.0-31.0) Seconds PTT Ratio Sodium (136-145) mmol/L Potassium (3.5-5.1) mmol/L Chloride (98-107) mmol/L Carbon Dioxide (21-32) mmol/L Anion Gap (3-11) BUN (7-18) mg/dl Creatinine (0.6-1.4) mg/dl Est Cr Clr Drug Dosing ml/min Est GFR ( Amer) Est GFR (Non-Af Amer) BUN/Creatinine Ratio (10-20) Glucose (70-99) mg/dl Calcium (8.5-10.1) mg/dl Magnesium (1.8-2.4) mg/dl Total Bilirubin (0.2-1) mg/dl AST (15-37) U/L ALT (12-78) U/L Alkaline Phosphatase (45-117) U/L Total Creatine Kinase (39-308) U/L Troponin I (0-0.045) ng/ml Total Protein (6.4-8.2) gm/dl Albumin (3.4-5.0) gm/dl Globulin (2.5-4.0) gm/dl Albumin/Globulin Ratio (0.9-2) TSH (0.300-4.500) uIu/ml Free T4 (0.8-1.6) ng/dl Urine Color Urine Appearance (Clear) Urine pH (4.5-7.5) Ur Specific [place] (1.000-1.030) Urine Protein (Negative) Urine Glucose (UA) (Negative) Urine Ketones (Negative) Urine Blood (Negative) Urine Nitrite (Negative) Urine Bilirubin (Negative) Urine Urobilinogen (Negative) Ur Leukocyte Esterase (Negative) Urine WBC (Auto) (0-5) /hpf Urine RBC (Auto) (0-4) /hpf U Hyaline Cast (Auto) U Epithel Cells (Auto) (0-5) /lpf Urine Bacteria (Auto) (Negative) Urine Yeast Salicylates (2.8-20) mg/dl Urine Opiates Screen (Neg) Ur Methadone, Qual (Neg) Acetaminophen (10-30) ug/ml Urine Barbiturates (Neg) Ur Phencyclidine (PCP) (Neg) U Amphetamin/Meth Scrn (Neg) MDMA (Ecstasy) Screen (Neg) U Benzodiazepines Scrn (Neg) Ur Cocaine Metabolite (Neg) U Marijuana (THC) Screen (Neg) Ethyl Alcohol mg/dL < 3.0 (0-3) mg/dl COVID-19 PCR NEGATIVE (Negative) Administered Medications Dextrose/Sodium Chloride (D5w And Nss) 1,000 mls @ 125 mls/hr IV .Q8H [facility] Stop: 09/14/19 18:19 Last Admin: 08/15/19 18:31 Dose: 125 mls/hr Documented by: [id number] Discontinued Medications Sodium Chloride (Nss) 500 mls @ 999 mls/hr IV .Q31M [facility] Stop: 08/15/19 12:45 Last Infusion: 08/15/19 13:18 Dose: 0 mls/hr Documented by: [id number] Admin: 08/15/19 12:41 Dose: 999 mls/hr Documented by: [id number] Promethazine HCl 6.25 mg/ (Sodium Chloride) 50.25 mls @ 201 mls/hr IV NOW [facility] Stop: 08/15/19 12:21 Last Infusion: 08/15/19 12:59 Dose: 0 mls/hr Documented by: [id number] Admin: 08/15/19 12:40 Dose: 201 mls/hr Documented by: [id number] Lorazepam (Ativan) 1 mg in 2 mls @ 2 mls/min IV NOW [facility] Stop: 08/15/19 12:08 Last Admin: 08/15/19 12:44 Dose: 2 mls/min Documented by: [id number] Ceftriaxone Sodium (Rocephin) 2,000 mg in 70 mls @ 140 mls/hr IV NOW STA Stop: 08/15/19 13:35 Last Infusion: 08/15/19 14:21 Dose: 0 mls/hr Documented by: [id number] Admin: 08/15/19 13:50 Dose: 140 mls/hr Documented by: [id number] Sodium Chloride (Nss 1000ml) 500 mls @ 999 mls/hr IV .Q31M ONE Stop: 08/15/19 13:37 Last Infusion: 08/15/19 15:06 Dose: 0 mls/hr Documented by: [id number] Admin: 08/15/19 13:54 Dose: 999 mls/hr Documented by: [id number] Labetalol HCl (Normodyne) 10 mg IV NOW STA Stop: 08/15/19 13:47 Last Admin: 08/15/19 16:10 Dose: Not Given Documented by: [id number] Promethazine HCl (Phenergan) Confirm Administered Dose 6.25 mg IV .STK-MED ONE Stop: 08/15/19 12:24 Last Admin: 08/15/19 12:41 Dose: Not Given Documented by: [id number] Imaging Data Radiologist's Impression: XR chest 1V portable HISTORY: 59 years-old Male weakness acute weakness COMPARISON: Chest CT 07/17/2019, chest radiograph 06/08/2019 TECHNIQUE: Portable AP view of the chest FINDINGS: Cardiomediastinal and hilar silhouettes are within normal limits. Pulmonary metastatic disease redemonstrated. 3.1 cm centrally calcified mass of the left upper lobe redemonstrated. Moderate right hemidiaphragmatic elevation. Mild pulmonary vascular congestion. The heart is upper limits of normal in size. No pneumothorax, large pleural effusion or overt pulmonary edema. Right IJ [id number] catheter is unchanged with distal tip terminating in the expected location of the brachiocephalic SVC confluence. Degenerative changes of the shoulders and spine. Osteoblastic metastatic disease is better appreciated on comparison CT studies. IMPRESSION: 1. Suggestion of mild pulmonary vascular congestion. 2. Pulmonary metastatic disease redemonstrated. 3. Moderate right hemidiaphragmatic elevation. Blood Pressure Blood Pressure Findings: Elevated blood pressure Blood Pressure Disposition: further management by hospitalist Discharge Plan Visit Data *Final* Discharge Date/Time: 08/15/19 17:30 Chief Complaint: Overdose (Accidental) Stated Complaint: Altered - OD ED Provider: Ceasar Wolff Discharge Problem: Medication overdose, Suicidal ideation, Acute UTI, Tachycardia Patient Disposition: Admitted As Inpatient Condition: Fair Discharge Instructions Interventions: ED Discharge Assessment Last Done: 08/15/19 17:30 Discharge Problem: Medication overdose Qualifiers: Encounter type: initial encounter Injury intent: intentional self-harm Qualified Code(s): T50.902A - Poisoning by unspecified drugs, medicaments and biological substances, intentional self-harm, initial encounter
[2019-08-15] MEDS ORDERED: PROMETHAZINE 6.25 MG/50.25 ML NSS IV ONE (12:23)
[2019-08-15 12:29] LABS: Basophils # (auto) 0.02 K/uL (0-0.2); Basophils % (auto) 0.2 %; Eosinophils # (auto) 0.07 K/uL (0-0.5); Eosinophils % (auto) 0.7 %; Hematocrit (blood only) 32.9 % (42-52); Hemoglobin 10.7 g/dL (14.0-18.0); Immature Granulocytes # (auto) 0.06 K/uL (0.00-0.02); Immature Granulocytes % (auto) 0.6 %; Lymphocytes % (auto) 11.3 %; Mean Corpuscular Hemoglobin 25.9 pg (25-34); Mean Corpuscular Hgb Conc 32.5 g/dL (32-36); Mean Corpuscular Volume 79.7 fL (80-100); Mean Platelet Volume 7.9 fL (7.4-10.4); Monocytes # (auto) 0.68 K/uL (0.11-0.59); Neutrophils % (auto) 80.2 %; Platelet Count 124 K/uL (130-400); RDW Coefficient of Variation 15.1 % (11.5-14.5); RDW Standard Deviation 43.6 fL (36.4-46.3); Red Blood Count 4.13 M/uL (4.7-6.1); White Blood Count 9.73 K/uL (4.8-10.8)
[2019-08-15 12:36] LABS: INR 1.1 (0.9-1.1); Partial Thromboplastin Ratio 1.1; Partial Thromboplastin Time 30.4 Seconds (21.0-31.0); Prothrombin Time 11.2 Seconds (9.0-12.0)
[2019-08-15 12:41] LABS: Alanine Aminotransferase 30 U/L (12-78); Albumin Level 2.6 gm/dl (3.4-5.0); Aspartate Aminotransferase 23 U/L (15-37); BUN Creatinine Ratio 13.6 (10-20); Blood Urea Nitrogen 23 mg/dl (7-18); Calcium 9.3 mg/dl (8.5-10.1); Carbon Dioxide 28 mmol/L (21-32); Chloride 105 mmol/L (98-107); Creatinine Clr Calc Pharmacy 55.7 ml/min; Est GFR (African American) 50.8; Est GFR (Non-African American) 43.8; Glucose 95 mg/dl (70-99); Magnesium 2.1 mg/dl (1.8-2.4); Potassium 4.5 mmol/L (3.5-5.1); Sodium 138 mmol/L (136-145)
[2019-08-15 12:45] LABS: Appearance Urine Turbid (Clear); Bacteria Urine Automated 4+ (Negative); Bilirubin Urine Negative (Negative); Blood Urine 3+ (Negative); Color Urine Yellow; Glucose Urine UA Negative (Negative); Ketones Urine Negative (Negative); Leukocyte Esterase Urine 3+ (Negative); Nitrite Urine Positive (Negative); Protein Urine 2+ (Negative); Specific Gravity Urine 1.014 (1.000-1.030); Urobilinogen Urine Negative (Negative); WBC Urine Automated >30 /hpf (0-5)
[2019-08-15 12:52] LABS: Albumin Globulin Ratio 0.4 (0.9-2); Alkaline Phosphatase 618 U/L (45-117); Bilirubin,Total 0.5 mg/dl (0.2-1); Creatine Kinase 42 U/L (39-308); Globulin 5.9 gm/dl (2.5-4.0); Total Protein 8.5 gm/dl (6.4-8.2); Troponin I < 0.015 ng/ml (0-0.045)
[2019-08-15 12:53] LABS: Acetaminophen < 2 ug/ml (10-30)
[2019-08-15 12:54] LABS: Salicylate < 1.7 mg/dl (2.8-20)
[2019-08-15 13:06] LABS: T4 Free Thyroxine 1.34 ng/dl (0.8-1.6)
[2019-08-15] MEDS ORDERED: cefTRIAXone SODIUM 2,000 MG/70 ML BAG IV STA (13:06)
[2019-08-15] MEDS ORDERED: SODIUM CHLORIDE 0.9% 1000ML 500 ML IV ONE (13:07)
[2019-08-15 13:13] LABS: Amphetamines+Metham, Urine Neg (Neg); Barbiturates, Urine Neg (Neg); Benzodiazepine, Urine Neg (Neg); Cocaine, Urine Neg (Neg); MDMA (Ecstacy), Urine Neg (Neg); Methadone, Urine Neg (Neg); Opiate, Urine Pos (Neg); Phencyclidine, Urine Neg (Neg)
--- NOTE | 2019-08-15 13:20 | XRay Report ---
XR chest 1V portable HISTORY: 59 years-old Male weakness acute weakness COMPARISON: Chest CT 07/17/2019, chest radiograph 06/08/2019 TECHNIQUE: Portable AP view of the chest FINDINGS: Cardiomediastinal and hilar silhouettes are within normal limits. Pulmonary metastatic disease redemo nstrated. 3.1 cm centrally calcified mass of the left upper lobe redemonstrated. Moderate right hemid iaphragmatic elevation. Mild pulmonary vascular congestion. The heart is upper limits of normal in si ze. No pneumothorax, large pleural effusion or overt pulmonary edema. Right IJ [id number] catheter is unchanged with distal tip terminating in the expected location of the brachiocephalic SVC conflue nce. Degenerative changes of the shoulders and spine. Osteoblastic metastatic disease is better appre ciated on comparison CT studies. IMPRESSION: 1. Suggestion of mild pulmonary vascular congestion. 2. Pulmonary metastatic disease redemonstrated. 3. Moderate right hemidiaphragmatic elevation. ACT 112: Negative or not required by law. The above report was generated using voice recognition software. It may contain grammatical, syntax o r spelling errors. Electronically signed by: Darnell Hines M.D. 08/15/2019 1:18 PM
[2019-08-15] MEDS ORDERED: LABETALOL HCL IV 5 MG/ML 20ML IV STA (13:46)
[2019-08-15] MEDS ORDERED: D5W AND NSS 1,000 ML IV SCH (18:20)
[2019-08-15] MEDS ORDERED: DAPTOMYCIN CONSULT ACTIVE PRN (18:25)
[2019-08-15] MEDS ORDERED: ALUMINUM/MAGNESIUM/SIMETH (MAALOX MAX) 30 ML UDC PO PRN (18:25)
--- NOTE | 2019-08-15 19:22 | History & Physical Report ---
Date of Service August 15, 2019 Assessment & Plan (1) Medication overdose: (2) Suicidal ideation: 59-year-old male with history of bladder cancer with bone mets to the thoracic/lumbar spine, and pelvis, Status post positive radiation and chemotherapy, CAD status post stent placement, and other problems noted below presenting with Intentional drug overdose. Medication overdose, intentional Suicidal attempt -Received at the ER anxious appearing, tachycardic, hypertensive -Patient reports taking a handful of his usual medications, which she has been hiding from the nurses at the [place] [facility] Medications include Percocet, OxyContin, oxybutynin, levothyroxine, ris peridone, lorazepam -QT interval: Not prolonged -Poison control center contacted, recommend conservative management at this point and close monitoring Recommend to obtain repeat Tylenol level, LFTs, CPK, INR -Psychiatry service consulted, discussed case with psychiatric liaison Continue one-to-one observation, MedSurg with telemetry monitoring We will hold patient's usual medications at this time monitor free T4 as the patient may have ingested additional levothyroxine -Repeat labs tomorrow including EKG to monitor QTC Bladder cancer with metastasis to the thoracic and lumbar spine, pelvis Status post palliative radiation and chemo -Follows with Dr. Mon for oncology Enrolled in hospice services 2 weeks ago Palliative care consult placed History of UTI History of right ureteral stent placement, with nephrostomy tube, hematuria, MRSA UTI --Urine cultures pending Previously grew MRSA and E. coli --Daptomycin and ceftriaxone ordered History of CAD, status post in place --No cardiac symptoms CKD stage III-IV --Baseline creatinine 1.6-1.8 --Stable Hypothyroidism --Patient may have taken additional levothyroxine pills Monitor free T4 daily History of hepatitis C --Has not undergone treatment DVT prophylaxis SCDs for now Has history of hematuria CODE STATUS Full code per patient Disposition COVID negative Anticipate return to [facility] with hospice service upon discharge Admission and Anticipated Discharge Date Admission Date: August 15, 2019 History of Present Illness 59-year-old male with history of bladder cancer with bone mets to the thoracic/lumbar spine, and pelvis, Status post positive radiation and chemotherapy, CAD status post stent placement, and other problems noted below presenting with Intentional drug overdose. He is a resident of [facility]. History obtained from staff at [facility]. Patient recently enrolled under hospice services about 2 weeks ago for bladder cancer with bone metastasis to the thoracic and lumbar spine, and pelvis. Apparently radiation and chemotherapy are not recommended at this time anymore. As per [facility] staff, the patient was noted to be behaving strangely this morning, more paranoid and anxious. Upon interview, the patient admitted to have taken a handful of pills, mostly his Percocet that he has been hiding for the past few days. He was then brought to the ER for evaluation. At the ER, the patient was received hypertensive and tachycardic. He was given IV Ativan and labetalol with improvement. Urine drug screen positive for opiates, rest of the screen pending. Tylenol level , aspirin level, alcohol level undetectable. On exam, the patient is seen with RN at the bedside. He is awake alert oriented x3, answers questions appropriately. He reports taking a handful of his regular medications which she has been hiding for the past few days-includes Percocet and OxyContin among others. Admits doing this to end his life, as his cancer is already incurable. He denies having any problems with his family. On exam, the patient states that he feels fine overall except for pain on the thoracic region which is chronic. Denies headache, dizziness, change in vision, chest pain, shortness of breath, abdominal pain, nausea vomiting. Denies any other symptoms. Primary Care Provider: Hussein Piña Allergies Allergy/AdvReac Type Severity Reaction Status Date / Time morphine Allergy Severe ANAPHYLAXIS Verified 08/15/19 13:24 Penicillins Allergy Intermediate HIVES Verified 08/15/19 13:24 ketorolac [From Toradol] AdvReac Intermediate Unknown Verified 08/15/19 13:24 Home Medications Home Medications Medication Instructions Recorded Confirmed Type levothyroxine 100 mcg PO DAILY@0500 12/24/18 08/15/19 History polyethylene glycol 3350 [Miralax] 17 g PO DAILY PRN 12/24/18 08/15/19 History acetaminophen 650 mg PO Q6 PRN MDD 3gm/24hr 06/08/19 08/15/19 History alum-mag hydroxide-simeth [Maalox 15 ml PO Q4 PRN 06/08/19 08/15/19 History Advanced] fluticasone furoate-vilanterol 1 inh INHALATION DAILY@0800 06/08/19 08/15/19 History [Breo Ellipta] ondansetron HCl 8 mg PO Q8H PRN 06/08/19 08/15/19 History oxybutynin chloride 5 mg PO Q6 PRN 06/08/19 08/15/19 History oxycodone [OxyContin] 80 mg PO BID 06/08/19 08/15/19 History prochlorperazine maleate 10 mg PO Q6H PRN 06/08/19 08/15/19 History sennosides [senna] 8.6 mg PO BID 06/08/19 08/15/19 History lorazepam 1 mg tablet 1 mg PO TID 06/30/19 08/15/19 History oxycodone-acetaminophen 10 mg-325 1 tab PO Q4H PRN 06/30/19 08/15/19 History mg tablet acetaminophen 650 mg PO Q6 PRN MDD 3gm 07/18/19 08/15/19 History buspirone 5 mg PO TID 07/18/19 08/15/19 History Past Med/Surg History Medical History Acute UTI (Inactive) MIKIE (acute kidney injury) Alcoholic pancreatitis Anemia CHRONIC; BASELINE HGB 8-9 RANGE PER CHART REVIEW Asthma (08/31/12) Back pain Bladder cancer Blindness of right eye BPH (benign prostatic hyperplasia) Cancer of kidney Cancer related pain Chronic anemia Coronary artery disease (08/31/12) STENTS X 2 (1+ YEARS AGO) Encounter for pre-operative examination Hematuria (Inactive) Hepatitis C History of chemotherapy Finished 10/08/2018 - Carboplatin/Gemcitabine x 2 cycles Hydroureter Hydroureter on left Hyperlipidemia Hypothyroidism (08/31/12) Inferior pubic ramus fracture Intractable pain (Inactive) Kidney stones Lower abdominal pain (Inactive) Myocardial Infarction Pathological fracture of pelvis (Inactive) Pulmonary nodule Screening for colon cancer UTI (urinary tract infection) Surgical History History of transurethral destruction of bladder lesion S/P cholecystectomy S/P colonoscopy S/P hernia repair Family History (Updated 06/30/19 @ 08:47 by Jennifer Thibodeaux RN) Mother , age 69 [place] No problems noted. Father , age 75 diab. comp No problems noted. Brother , age 45 drug overdose No problems noted. Brother , age 34 No problems noted. Sister Kidney disease Sister No problems noted. Daughter No problems noted. Daughter No problems noted. Son No problems noted. Son No problems noted. Son No problems noted. Son No problems noted. Son No problems noted. Son No problems noted. Other Coronary heart disease Diabetes Social History (Updated 06/30/19 @ 08:51 by Jennifer Thibodeaux RN) Preferred Language: Colombian Communication Ability: Effective Visual Impairment: No Limitations Tank Refinisher Required: No Beliefs That Will Affect Care: None Current Living Situation: [facility] Current Living Situation Comment: [facility] current occupational status: unemployed current occupation: [employer] Feels Safe at Home: Yes Safety Concerns: Feels Safe At This Time Smoking Status: Former smoker Tobacco Type: cigarettes ; Age Started Using Tobacco: 13 ; packs per day: 1 ; Cigarettes Per Day: 0-3 ; Second Hand Exposure: No ; Hx Alcohol Use: Yes Hx Substance Use: Yes substance use type: painkillers Substance Use Type Other:: percocet, oxycontin Last Used Substance: Unknown Childhood Exposure to Second-Hand Smoke: Yes caffeine: Yes (one cup ) during the past year weight has: other Dental Care, Regularly: No Physical Activity Frequency: Does not Exercise Seatbelt Use: always Sunscreen Use: Yes Review of Systems Review of Systems: All systems reviewed & are unremarkable except as noted in HPI & below Physical Exam Physical Exam: General- oriented x 3, not in distress, speaks in sentences with no effort or accessory muscle use Head- atraumatic Eyes- PERRL, EOMI, anicteric ENT- oropharynx clear Neck- supple, no JVD, no adenopathy, no thyromegaly; carotids +2/2, no bruits appreciated Lungs- clear to auscultation bilaterally, no rales/wheezes Heart- normal rate, regular rhythm; no murmur, no gallop, no rub appreciated Abdomen- normal bowel sounds, nondistended, soft, nontender, no masses or hepatosplenomegaly Extremities- no pretibial edema, no calf tenderness; peripheral pulses intact Neuro- alert, oriented x 3; CN 2-12 grossly intact; motor 5/5 bilaterally;sensation 100% on all extremities; no other gross focal neurologic deficits Skin- warm & dry Results & Data Results & Data ([facility]) Vital Signs (Past 12 Hours) Vital Signs Temp Pulse Resp BP Pulse Ox 08/15/19 16:25 100 H 141/81 H 95 08/15/19 15:20 182/97 H 97 08/15/19 15:00 107 H 20 161/97 H 95 08/15/19 14:30 101 H 17 154/85 H 97 08/15/19 14:00 101 H 19 153/95 H 97 08/15/19 13:30 101 H 17 135/95 99 08/15/19 13:00 107 H 20 172/108 H 97 08/15/19 12:30 117 H 17 168/132 H 97 08/15/19 12:00 116 H 16 180/115 H 97 08/15/19 11:31 118 H 20 161/103 H 99 08/15/19 11:20 36.7 C 118 H 14 161/103 H 96 Laboratory Results Laboratory Results - last 24 hr 08/15/19 08/15/19 08/15/19 11:45 11:45 11:45 WBC 9.73 RBC 4.13 L Hgb 10.7 L Hct 32.9 L MCV 79.7 L MCH 25.9 MCHC 32.5 RDW Std Deviation 43.6 RDW Coeff of Fareed 15.1 H Plt Count 124 L MPV 7.9 Immature Gran % (Auto) 0.6 Neut % (Auto) 80.2 Lymph % (Auto) 11.3 [place] % (Auto) 7.0 Eos % (Auto) 0.7 Baso % (Auto) 0.2 Immature Gran # (Auto) 0.06 H Neut # (Auto) 7.80 H Lymph # (Auto) 1.10 L [place] # (Auto) 0.68 H Eos # (Auto) 0.07 Baso # (Auto) 0.02 PT 11.2 INR 1.1 APTT 30.4 PTT Ratio 1.1 Sodium 138 Potassium 4.5 Chloride 105 Carbon Dioxide 28 Anion Gap 5.0 BUN 23 H Creatinine 1.66 H Est Cr Clr Drug Dosing 55.7 Est GFR ( Amer) 50.8 Est GFR (Non-Af Amer) 43.8 BUN/Creatinine Ratio 13.6 Glucose 95 Calcium 9.3 Magnesium 2.1 Total Bilirubin 0.5 AST 23 ALT 30 Alkaline Phosphatase 618 H Total Creatine Kinase 42 Troponin I < 0.015 Total Protein 8.5 H Albumin 2.6 L Globulin 5.9 H Albumin/Globulin Ratio 0.4 L TSH 6.270 H Free T4 1.34 Urine Color Urine Appearance Urine pH Ur Specific [place] Urine Protein Urine Glucose (UA) Urine Ketones Urine Blood Urine Nitrite Urine Bilirubin Urine Urobilinogen Ur Leukocyte Esterase Urine WBC (Auto) Urine RBC (Auto) U Hyaline Cast (Auto) U Epithel Cells (Auto) Urine Bacteria (Auto) Urine Yeast Salicylates Urine Opiates Screen U Codeine Confrm GC/MS Ur Morphine (GC/MS) Ur Hydrocodone (GC/MS) Ur Norhydrocodone Ur Noroxycodone Urine Oxycodone (GC/MS) U Oxymorphone GC/MS Ur Methadone, Qual Ur Hydromorphone (GC/MS) Acetaminophen Urine Barbiturates Ur Phencyclidine (PCP) U Amphetamin/Meth Scrn MDMA (Ecstasy) Screen U Benzodiazepines Scrn Ur Cocaine Metabolite U Marijuana (THC) Screen Drug Screen Comment Ethyl Alcohol mg/dL COVID-19 PCR 08/15/19 08/15/19 08/15/19 11:45 12:30 12:30 WBC RBC Hgb Hct MCV MCH MCHC RDW Std Deviation RDW Coeff of Fareed Plt Count MPV Immature Gran % (Auto) Neut % (Auto) Lymph % (Auto) [place] % (Auto) Eos % (Auto) Baso % (Auto) Immature Gran # (Auto) Neut # (Auto) Lymph # (Auto) [place] # (Auto) Eos # (Auto) Baso # (Auto) PT INR APTT PTT Ratio Sodium Potassium Chloride Carbon Dioxide Anion Gap BUN Creatinine Est Cr Clr Drug Dosing Est GFR ( Amer) Est GFR (Non-Af Amer) BUN/Creatinine Ratio Glucose Calcium Magnesium Total Bilirubin AST ALT Alkaline Phosphatase Total Creatine Kinase Troponin I Total Protein Albumin Globulin Albumin/Globulin Ratio TSH Free T4 Urine Color Yellow Urine Appearance Turbid A Urine pH 6.0 Ur Specific [place] 1.014 Urine Protein 2+ H Urine Glucose (UA) Negative Urine Ketones Negative Urine Blood 3+ H Urine Nitrite Positive A Urine Bilirubin Negative Urine Urobilinogen Negative Ur Leukocyte Esterase 3+ H Urine WBC (Auto) >30 H Urine RBC (Auto) 10-30 H U Hyaline Cast (Auto) Not Reportable U Epithel Cells (Auto) 5-10 H Urine Bacteria (Auto) 4+ H Urine Yeast Not Reportable Salicylates < 1.7 L Urine Opiates Screen Pos H U Codeine Confrm GC/MS Ur Morphine (GC/MS) Ur Hydrocodone (GC/MS) Ur Norhydrocodone Ur Noroxycodone Urine Oxycodone (GC/MS) U Oxymorphone GC/MS Ur Methadone, Qual Neg Ur Hydromorphone (GC/MS) Acetaminophen < 2 L Urine Barbiturates Neg Ur Phencyclidine (PCP) Neg U Amphetamin/Meth Scrn Neg MDMA (Ecstasy) Screen Neg U Benzodiazepines Scrn Neg Ur Cocaine Metabolite Neg U Marijuana (THC) Screen Neg Drug Screen Comment Ethyl Alcohol mg/dL COVID-19 PCR 08/15/19 08/15/19 08/15/19 12:30 13:01 13:50 WBC RBC Hgb Hct MCV MCH MCHC RDW Std Deviation RDW Coeff of Fareed Plt Count MPV Immature Gran % (Auto) Neut % (Auto) Lymph % (Auto) [place] % (Auto) Eos % (Auto) Baso % (Auto) Immature Gran # (Auto) Neut # (Auto) Lymph # (Auto) [place] # (Auto) Eos # (Auto) Baso # (Auto) PT INR APTT PTT Ratio Sodium Potassium Chloride Carbon Dioxide Anion Gap BUN Creatinine Est Cr Clr Drug Dosing Est GFR ( Amer) Est GFR (Non-Af Amer) BUN/Creatinine Ratio Glucose Calcium Magnesium Total Bilirubin AST ALT Alkaline Phosphatase Total Creatine Kinase Troponin I Total Protein Albumin Globulin Albumin/Globulin Ratio TSH Free T4 Urine Color Urine Appearance Urine pH Ur Specific [place] Urine Protein Urine Glucose (UA) Urine Ketones Urine Blood Urine Nitrite Urine Bilirubin Urine Urobilinogen Ur Leukocyte Esterase Urine WBC (Auto) Urine RBC (Auto) U Hyaline Cast (Auto) U Epithel Cells (Auto) Urine Bacteria (Auto) Urine Yeast Salicylates Urine Opiates Screen U Codeine Confrm GC/MS Pending Ur Morphine (GC/MS) Pending Ur Hydrocodone (GC/MS) Pending Ur Norhydrocodone Pending Ur Noroxycodone Pending Urine Oxycodone (GC/MS) Pending U Oxymorphone GC/MS Pending Ur Methadone, Qual Ur Hydromorphone (GC/MS) Pending Acetaminophen Urine Barbiturates Ur Phencyclidine (PCP) U Amphetamin/Meth Scrn MDMA (Ecstasy) Screen U Benzodiazepines Scrn Ur Cocaine Metabolite U Marijuana (THC) Screen Drug Screen Comment Pending Ethyl Alcohol mg/dL < 3.0 COVID-19 PCR NEGATIVE Code Status & VTE Plan Code Status Full code upon discussion with patient VTE Prophylaxis Plan VTE Prophylaxis will be ordered: Yes (1) Medication overdose Encounter type: initial encounter Injury intent: intentional self-harm Qualified Code(s): T50.902A - Poisoning by unspecified drugs, medicaments and biological substances, intentional self-harm, initial encounter
[2019-08-15 19:34] LABS: INR 1.1 (0.9-1.1); Prothrombin Time 11.4 Seconds (9.0-12.0)
[2019-08-15 19:47] LABS: Alanine Aminotransferase 25 U/L (12-78); Albumin Level 2.2 gm/dl (3.4-5.0); Alkaline Phosphatase 538 U/L (45-117); Aspartate Aminotransferase 21 U/L (15-37); Bilirubin Direct < 0.1 mg/dl (0-0.2); Bilirubin,Total 0.3 mg/dl (0.2-1); Creatine Kinase 44 U/L (39-308); Total Protein 7.6 gm/dl (6.4-8.2)
[2019-08-15] MEDS: DAPTOmycin 300 MG in SYRINGE 0 ML IV SCH (20:27)
[2019-08-15] MEDS: OXYCODONE HCL IR 5 MG TAB (IMMEDIATE RELEASE) PO PRN (20:28)
[2019-08-15] MEDS: SODIUM CHLORIDE 0.9% 1000ML 1,000 ML IV SCH (23:29)
[2019-08-16] MEDS: OXYCODONE HCL IR 5 MG TAB (IMMEDIATE RELEASE) PO PRN ×3 (03:24→11:04)
[2019-08-16] MEDS: HYDROmorphone INJ 0.5 MG/0.5 ML SYR IV PRN ×2 (05:12→09:11)
[2019-08-16 05:51] LABS: Hematocrit (blood only) 30.4 % (42-52); Hemoglobin 9.3 g/dL (14.0-18.0); Mean Corpuscular Hemoglobin 24.8 pg (25-34); Mean Corpuscular Hgb Conc 30.6 g/dL (32-36); Mean Corpuscular Volume 81.1 fL (80-100); RDW Coefficient of Variation 15.4 % (11.5-14.5); RDW Standard Deviation 45.4 fL (36.4-46.3); Red Blood Count 3.75 M/uL (4.7-6.1); White Blood Count 8.36 K/uL (4.8-10.8)
[2019-08-16 05:52] LABS: Mean Platelet Volume 7.6 fL (7.4-10.4); Platelet Count 93 K/uL (130-400)
--- NOTE | 2019-08-16 06:05 | Electrocardiogram Report ---
Test Reason : Blood Pressure : / mmHG Vent. Rate : 115 BPM Atrial Rate : 115 BPM P-R Int : 136 ms QRS Dur : 088 ms QT Int : 340 ms P-R-T Axes : 041 032 016 degrees QTc Int : 470 ms Sinus tachycardia Possible Left atrial enlargement Possible Inferior infarct (cited on or before 17-JUL-2019) Abnormal ECG When compared with ECG of 17-JUL-2019 22:53, No significant change was found Confirmed by Genaro Zamarripa ([id number]) on 08/16/2019 6:05:26 AM Referred By: REFERRED SELF Confirmed By:Genaro Zamarripa
[2019-08-16 06:08] LABS: Basophils # (auto) 0.01 K/uL (0-0.2); Basophils % (auto) 0.1 %; Eosinophils # (auto) 0.11 K/uL (0-0.5); Eosinophils % (auto) 1.3 %; Hypochromasia Present; Immature Granulocytes # (auto) 0.04 K/uL (0.00-0.02); Immature Granulocytes % (auto) 0.5 %; Lymphocytes # (auto) 0.88 K/uL (1.2-3.4); Lymphocytes % (auto) 10.5 %; Monocytes % (auto) 9.6 %; Neutrophils # (auto) 6.52 K/uL (1.4-6.5)
[2019-08-16 06:22] LABS: Alanine Aminotransferase 23 U/L (12-78); Albumin Level 2.1 gm/dl (3.4-5.0); Aspartate Aminotransferase 17 U/L (15-37); BUN Creatinine Ratio 14.6 (10-20); Bilirubin Direct < 0.1 mg/dl (0-0.2); Blood Urea Nitrogen 25 mg/dl (7-18); Calcium 9.1 mg/dl (8.5-10.1); Carbon Dioxide 27 mmol/L (21-32); Chloride 107 mmol/L (98-107); Creatinine Clr Calc Pharmacy 53.3 ml/min; Est GFR (African American) 48.3; Est GFR (Non-African American) 41.7; Glucose 151 mg/dl (70-99); Sodium 139 mmol/L (136-145)
[2019-08-16 06:34] LABS: Alkaline Phosphatase 532 U/L (45-117); Bilirubin,Total 0.2 mg/dl (0.2-1); Creatine Kinase 44 U/L (39-308); T4 Free Thyroxine 1.18 ng/dl (0.8-1.6); Total Protein 7.3 gm/dl (6.4-8.2)
[2019-08-16] MEDS ORDERED: PHENAZOPYRIDINE HCL 100 MG TAB PO PRN (06:36)
[2019-08-16 06:49] LABS: INR 1.1 (0.9-1.1); Prothrombin Time 11.5 Seconds (9.0-12.0)
[2019-08-16] MEDS: SODIUM CHLORIDE 0.9% 1000ML 1,000 ML IV SCH ×3 (08:03→23:42)
[2019-08-16] MEDS ORDERED: POLYETHYLENE (MIRALAX) 17 GM PACK PO PRN (08:04)
[2019-08-16] MEDS: LORazepam 0.5 MG/1 ML VIAL IV PRN ×2 (09:15→23:42)
--- NOTE | 2019-08-16 09:59 | Palliative Care Consultation ---
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 Patient reports taking a "handful" of his medications that he had been hoarding for several days, which included Percocet and Oxycontin. He states he did this to end his life, in light of his terminal cancer. Apparently patient had entered hospice care about two weeks ago. Patient is also known to the palliative care service from several previous hospital admissions when we saw him for intractable pain due to his metastatic cancer. Patient is admitted for observation of overdose symptoms and suicide watch. Psychiatry is consulted. Palliative care is consulted for goals of care. -Again, patient known to our service. He will be seen and examined by palliative MD this afternoon. -Patient and I have had several discussions in the past. He was last seen by me in April 2019. We got his pain under control with Oxycontin 60mg TID and Percocet 10/325 Q4h PRN breakthrough pain. He was discharged back to the [facility] and planned to pursue chemotherapy. -Patient has to have started chemo on 04/22, but he was admitted to the hospital during that time. It is currently unclear to me if patient every did receive chemo, but according to admitting physician's note, chemotherapy has been discontinued either way. Patient sees Dr. Mon from [facility]/onc. -At any rate, patient apparently entered hospice care two weeks ago. Will ask for case management's assistance in finding out which agency so we can make a referral back to them. -Patient still wants to be a full code per the admitting physician. This will be discussed with him further. I have had several discussions with the patient in the past about his prognosis. He is fearful of and has struggled with it immensely. Will look forward to psych's input as well. Need to continue providing support. Will have home health care case manager ask the hospice agency to have their manager social media provide extra support to the patient as well. -Further recommendations to follow once goals are discussed with patient. (2) Suicidal ideation: (3) Medication overdose: Encounter type: initial encounter Injury intent: intentional self-harm Qualified Code(s): T50.902A - Poisoning by unspecified drugs, medicaments and biological substances, intentional self-harm, initial encounter (4) Cancer related pain: Supervising Physician Co-Signing Physician Notes Chart reviewed, patient seen and examined on 2 separate occasions. First occasion was alone-discussed events leading up to his attempted suicide. Patient states he is in pain all the time, some of it may be emotional pain not all physical pain. Patient was able to take 1 as needed Percocet and pocket the other every 4 hours to accumulate several doses. When asked how his pain was taking only 1 Percocet he said it was not too bad. Patient talking in circles- states he does not want to be resuscitated but wants to live to see his daughter and granddaughter. After prolonged conversation, patient also wanted to speak with Dr. Goldstein regarding his pain meds -spoke with Dr. Yost we both returned on his second visit. We agreed on giving the patient 110/325 Percocet every 4 hours as needed and increase his as needed Dilaudid to 1 mg every 3 hours as needed. Patient was satisfied with this arrangement. Patient also stated he just wanted to be comfortable and did not want to be resuscitated.-He stated this to both myself and -CODE STATUS changed to DNR. Patient states his family told him to come live with them for right upper time he had left. Patient has not been able to contact his daughter or his sister at this time to make arrangements. Will continue to work on pain control, patient may need to return to the higher side when pain well controlled until arrangements to move out of state with his family can be made. Patient states he did receive treatments of XRT for his bone pain-he did not tolerate this-he stated it made him "sick". Patient states he was told he only has 3 months to live. Patient has end-stage bladder cancer with left nephrostomy tube and right ureteral stent.. Patient states he has "every kind of cancer there is", as well as hep C that limited his ability to continue with chemo. Patient has had a partial MRI of the spine which shows mets throughout the entire spine. PE: Patient mildly agitated, appears comfortable at rest before entering the room. HEENT: EOMI, hearing within normal limits Respirations: Unlabored CV: Regular rate Abdomen: Soft, nontender Neuro: Alert and oriented, circular reasoning. Agree with above note, assessment and plan as per JOEY Lauren. We will continue to follow patient and assist with pain management, CODE STATUS changed to DNR. 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 Patient reports taking a "handful" of his medications that he had been hoarding for several days, which included Percocet and Oxycontin. He states he did this to end his life, in light of his terminal cancer. Apparently patient had entered hospice care about two weeks ago. Patient is also known to the palliative care service from several previous hospital admissions when we saw him for intractable pain due to his metastatic cancer. Patient is admitted for observation of overdose symptoms and suicide watch. Psychiatry is consulted. Palliative care is consulted for goals of care. Thank you kindly for this consult. Palliative care team will follow as needed. Allergies Allergy/AdvReac Type Severity Reaction Status Date / Time morphine Allergy Severe ANAPHYLAXIS Verified 08/15/19 13:24 Penicillins Allergy Intermediate HIVES Verified 08/15/19 13:24 ketorolac [From Toradol] AdvReac Intermediate Unknown Verified 08/15/19 13:24 Home Medications Home Medications Medication Instructions Recorded Confirmed Type levothyroxine 100 mcg PO DAILY@0500 12/24/18 08/15/19 History polyethylene glycol 3350 [Miralax] 17 g PO DAILY PRN 12/24/18 08/15/19 History acetaminophen 650 mg PO Q6 PRN MDD 3gm/24hr 06/08/19 08/15/19 History alum-mag hydroxide-simeth [Maalox 15 ml PO Q4 PRN 06/08/19 08/15/19 History Advanced] fluticasone furoate-vilanterol 1 inh INHALATION DAILY@0800 06/08/19 08/15/19 History [Breo Ellipta] ondansetron HCl 8 mg PO Q8H PRN 06/08/19 08/15/19 History oxybutynin chloride 5 mg PO Q6 PRN 06/08/19 08/15/19 History oxycodone [OxyContin] 80 mg PO BID 06/08/19 08/15/19 History prochlorperazine maleate 10 mg PO Q6H PRN 06/08/19 08/15/19 History sennosides [senna] 8.6 mg PO BID 06/08/19 08/15/19 History lorazepam 1 mg tablet 1 mg PO TID 06/30/19 08/15/19 History oxycodone-acetaminophen 10 mg-325 1 tab PO Q4H PRN 06/30/19 08/15/19 History mg tablet acetaminophen 650 mg PO Q6 PRN MDD 3gm 07/18/19 08/15/19 History buspirone 5 mg PO TID 07/18/19 08/15/19 History Patient History Medical History Acute UTI (Inactive) MIKIE (acute kidney injury) Alcoholic pancreatitis Anemia CHRONIC; BASELINE HGB 8-9 RANGE PER CHART REVIEW Asthma (08/31/12) Back pain Bladder cancer Blindness of right eye BPH (benign prostatic hyperplasia) Cancer of kidney Cancer related pain Chronic anemia Coronary artery disease (08/31/12) STENTS X 2 (1+ YEARS AGO) Encounter for pre-operative examination Hematuria (Inactive) Hepatitis C History of chemotherapy Finished 10/08/2018 - Carboplatin/Gemcitabine x 2 cycles Hydroureter Hydroureter on left Hyperlipidemia Hypothyroidism (08/31/12) Inferior pubic ramus fracture Intractable pain (Inactive) Kidney stones Lower abdominal pain (Inactive) Myocardial Infarction Pathological fracture of pelvis (Inactive) Pulmonary nodule Screening for colon cancer UTI (urinary tract infection) Surgical History History of transurethral destruction of bladder lesion S/P cholecystectomy S/P colonoscopy S/P hernia repair Family History Mother , age 69 [place] No problems noted. Father , age 75 diab. comp No problems noted. Brother , age 45 drug overdose No problems noted. Brother , age 34 No problems noted. Sister Kidney disease Sister No problems noted. Daughter No problems noted. Daughter No problems noted. Son No problems noted. Son No problems noted. Son No problems noted. Son No problems noted. Son No problems noted. Son No problems noted. Other Coronary heart disease Diabetes Social History Preferred Language: Estonian Communication Ability: Effective Visual Impairment: No Limitations Crab Butcher Required: No Beliefs That Will Affect Care: None marital status: Current Living Situation: Skilled Nursing Current Living Situation Comment: [facility] current occupational status: unemployed current occupation: [employer] Feels Safe at Home: Yes Safety Concerns: Feels Safe At This Time Smoking Status: Former smoker Tobacco Type: cigarettes ; Age Started Using Tobacco: 13 ; packs per day: 1 ; Cigarettes Per Day: 0-3 ; Second Hand Exposure: No ; Hx Alcohol Use: Yes Hx Substance Use: Yes substance use type: painkillers Substance Use Type Other:: percocet, oxycontin Last Used Substance: Unknown Childhood Exposure to Second-Hand Smoke: Yes caffeine: Yes (one cup ) during the past year weight has: other Dental Care, Regularly: No Physical Activity Frequency: Does not Exercise Seatbelt Use: always Sunscreen Use: Yes Results & Data Vital Signs (Past 12 Hours) Vital Signs Temp Pulse Pulse Resp BP Pulse Ox 08/16/19 09:17 109 H 20 128/81 08/16/19 03:52 95 H 08/15/19 23:35 36.8 C 88 20 113/71 96 PG Care Time/CCT Prolonged Care Time Prolonged Care Time: Yes Total Prolonged Care Time: 35 105 Coding Level of Care Code 33943 Inpt Consult Level 3 Diagnoses Goals of care, counseling/discussion Z71.89 Suicidal ideation R45.851 Medication overdose T50.902A Encounter type: initial encounter Injury intent: intentional self-harm Cancer related pain G89.3 Additional Codes Prolonged Care Time - Prolonged Care Time: Yes ([id number]) Time Spent (min) 105 Time Spent Midlevel A total of 50 minutes spent by this ADULT BASIC EDUCATION MANAGER in reviewing chart, discussing with physicians and IDT regarding patient's condition, pain, goals and plan of care. Attending Spent a total of 55 minutes on 2 separate visits-100% of the time was spent at bedside assessing patient's current condition as well as developing a plan to control his pain. Discussed CODE STATUS-patient stated he did not want to be resuscitated.
[2019-08-16] MEDS ORDERED: HYDROmorphone INJ 0.5 MG/0.5 ML SYR IV PRN (10:13)
[2019-08-16] MEDS ORDERED: HYDROmorphone INJ 0.5 MG/0.5 ML SYR ONE (10:16)
--- NOTE | 2019-08-16 12:23 | Psychiatric Consultation ---
Date of Consultation August 16, 2019 Impression / Recommendations Impression Impression Dr. Chapis Strauss was directly involved in review and discussion of the patient's case and participated in medical decision making regarding treatment recommendations. Recommendations: -Patient denies current active/passive suicidal ideation during the today's assessment and is even future oriented and excited with expectation that he can see his daughter and a 12-year-old granddaughter this Thursday, whom he has not seen due to family dynamics for the past past 12 years, even though he is in a lot of pain. -He is at increased risk of suicide but given his medical conditions, inpatient psychiatric treatment is not recommended at this time. -Even though his suicidal ideation is minimized and patient denies it during today's assessment, a concrete safety plan, which will be coordinated with his outpatient hospice care, should be arranged before he is discharged. -His hospice care will be contacted by psychiatric liaison nurse and we will try to figure out how we can prevent from the similar suicidal attempts, such as switching his medications to liquid or monitoring his intake of medications more closely. -Also his family members will be contacted after getting ASHLY for family members and we will try to figure out how family can participate in his treatment. -One-to-one observation is still recommended for the next 1 or 2 days, given his high risk of suicide, even though patient denies current suicidal ideation. Risk Factors Assessment Male: Yes : Yes Do You Have Access To A Gun?: No Health Problems: Yes Mental Health Diagnoses: No Substance Use Disorders: No Previous Attempt: No Family History of Suicide: No Previous Psychiatric Hospitalization: No Hopelessness: Yes Smoker: No Protective Factors Assessment Judaism Beliefs: Yes : No Responsible for Young Children: No Employed: No Stable Relationships: No Supportive Family: No Psych History Identifying Data 59-year-old male admitted medically on August 15, 2019 after presenting to the ED after overdose with prescribed medications, including narcotics, Percocet, OxyContin, oxybutynin, levothyroxine, and Lorazepam. Patient was admitted medically for ongoing metastatic cancer and suicidal ideation with overdose. Psychiatric consultation was requested to evaluate the patient for suicidal ideation. Chief Complaint "Now I have my family back in my life and I have a reason to ". History of Present Illness Patient is a 59-year-old male admitted medically on August 15, 2019 after presenting to the ED s/p OD with handful amount of prescribed medications. Patient was admitted to the medical floor for ongoing metastatic cancer and suicidal ideation. PMH is significant for bladder carcinoma metastatic to bone. Patient is cooperative with the psychiatric evaluation today. Patient states that he was brought in to ED for OD with prescribed medications from the hospice care, including narcotics, with suicidal ideation yesterday. He was told that his life expectancy was about 6 to 12 months about 3 months ago due to metastatic bladder cancer. He felt he lost everything when he could not ambula te well about 3 weeks ago, and hid his prescribed medications for the past 2 weeks. Then he took all his pocketed medications yesterday morning to end his life because he could not see any point of his living. However he denies any current suicidal ideation because he will see his daughter and a 12-year-old granddaughter this Thursday for the first time after they haven't seen each other for the past 12 years due to family dynamics. He says, "I had my family back in my life and I do not have a reason to . "He is looking forward to seeing them and feels more future oriented after talking to his granddaughter virtually during the hospital stay. He also said he might move close to his daughter's in [place] after discharge. He endorses depressive symptoms including poor sleep and no appetite for the past 3 weeks and Ativan 1 mg twice a day was given with temporary relief. Denies any significant psych history in the past. Pt denies SI, HI, SIB, A/V hallucinations, paranoia, kathryn/hypomania, other symptoms more suggestive of a bipolar presentation, OCD, PTSD, eating disorder, and other specific psychiatric symptoms. Past Psychiatric History Previous Psych History: none Current Psychiatric Diagnosis: depression Previous Psych Admissions: none Do You Have Access To A Gun?: No History of Previous Suicide Attempt: No Past Medication Trials: Ativan 1 g BID for the past 3 weeks Allergies Allergy/AdvReac Type Severity Reaction Status Date / Time morphine Allergy Severe ANAPHYLAXIS Verified 08/15/19 13:24 Penicillins Allergy Intermediate HIVES Verified 08/15/19 13:24 ketorolac [From Toradol] AdvReac Intermediate Unknown Verified 08/15/19 13:24 Home Medications Home Medications Medication Instructions Recorded Confirmed Type levothyroxine 100 mcg PO DAILY@0500 12/24/18 08/15/19 History polyethylene glycol 3350 [Miralax] 17 g PO DAILY PRN 12/24/18 08/15/19 History acetaminophen 650 mg PO Q6 PRN MDD 3gm/24hr 06/08/19 08/15/19 History alum-mag hydroxide-simeth [Maalox 15 ml PO Q4 PRN 06/08/19 08/15/19 History Advanced] fluticasone furoate-vilanterol 1 inh INHALATION DAILY@0800 06/08/19 08/15/19 History [Breo Ellipta] ondansetron HCl 8 mg PO Q8H PRN 06/08/19 08/15/19 History oxybutynin chloride 5 mg PO Q6 PRN 06/08/19 08/15/19 History oxycodone [OxyContin] 80 mg PO BID 06/08/19 08/15/19 History prochlorperazine maleate 10 mg PO Q6H PRN 06/08/19 08/15/19 History sennosides [senna] 8.6 mg PO BID 06/08/19 08/15/19 History lorazepam 1 mg tablet 1 mg PO TID 06/30/19 08/15/19 History oxycodone-acetaminophen 10 mg-325 1 tab PO Q4H PRN 06/30/19 08/15/19 History mg tablet acetaminophen 650 mg PO Q6 PRN MDD 3gm 07/18/19 08/15/19 History buspirone 5 mg PO TID 07/18/19 08/15/19 History Family History no significant psychiatric FHx Substance Abuse History none Personal History Living Arrangements: hospice care Born In: [place] Childhood: Normal childhood food Highest Grade Completed: High School Graduate Employment Status: Retired Marital Status: Beliefs That Will Affect Care: None History of Legal Problems: none Psychological Trauma History Comment: none Patient History Medical History Acute UTI (Inactive) MIKIE (acute kidney injury) Alcoholic pancreatitis Anemia CHRONIC; BASELINE HGB 8-9 RANGE PER CHART REVIEW Asthma (08/31/12) Back pain Bladder cancer Blindness of right eye BPH (benign prostatic hyperplasia) Cancer of kidney Cancer related pain Chronic anemia Coronary artery disease (08/31/12) STENTS X 2 (1+ YEARS AGO) Encounter for pre-operative examination Hematuria (Inactive) Hepatitis C History of chemotherapy Finished 10/08/2018 - Carboplatin/Gemcitabine x 2 cycles Hydroureter Hydroureter on left Hyperlipidemia Hypothyroidism (08/31/12) Inferior pubic ramus fracture Intractable pain (Inactive) Kidney stones Lower abdominal pain (Inactive) Myocardial Infarction Pathological fracture of pelvis (Inactive) Pulmonary nodule Screening for colon cancer UTI (urinary tract infection) Surgical History History of transurethral destruction of bladder lesion S/P cholecystectomy S/P colonoscopy S/P hernia repair Family History Mother , age 69 [place] No problems noted. Father , age 75 diab. comp No problems noted. Brother , age 45 drug overdose No problems noted. Brother , age 34 No problems noted. Sister Kidney disease Sister No problems noted. Daughter No problems noted. Daughter No problems noted. Son No problems noted. Son No problems noted. Son No problems noted. Son No problems noted. Son No problems noted. Son No problems noted. Other Coronary heart disease Diabetes Social History Preferred Language: Welsh Communication Ability: Effective Visual Impairment: No Limitations Safety Compliance Specialist Required: No Beliefs That Will Affect Care: None marital status: Current Living Situation: [facility] Current Living Situation Comment: [facility] current occupational status: unemployed current occupation: [employer] Feels Safe at Home: Yes Safety Concerns: Feels Safe At This Time Smoking Status: Former smoker Tobacco Type: cigarettes ; Age Started Using Tobacco: 13 ; packs per day: 1 ; Cigarettes Per Day: 0-3 ; Second Hand Exposure: No ; Hx Alcohol Use: Yes Hx Substance Use: Yes substance use type: painkillers Substance Use Type Other:: percocet, oxycontin Last Used Substance: Unknown Childhood Exposure to Second-Hand Smoke: Yes caffeine: Yes (one cup ) during the past year weight has: other Dental Care, Regularly: No Physical Activity Frequency: Does not Exercise Seatbelt Use: always Sunscreen Use: Yes Physical Exam Psychiatric: Orientation: alert and oriented x 3 Apperance: appropriately dressed and appropriately groomed in hospital gown Eye Contact: good eye contact Motor Behavior: no abnormal motor movements Pt tensed up when he was in severe pain occasionally. Speech: normal rate/rhythm/volume of speech Affect: + depressed affect and + tearful affect Mood: + depressed mood Thought Process: goal directed thought process, linear/logical thought process and clear/coherent thought process Thought Content: reality based without delusions Suicidal Thoughts: denies suicidal thoughts Homicidal Thoughts: denies homicidal thoughts Hallucinations: no auditory hallucinations and no visual hallucinations Cognition: recent memory grossly intact Estimated Intelligence: consistent with education level Insight: good insight Judgement: good judgement Vital Signs (Past 24 Hours): Last Vital Signs Temp 37.3 C 08/16/19 11:02 Pulse 104 H 08/16/19 11:02 Resp 18 08/16/19 11:02 BP 109/71 08/16/19 11:02 Pulse Ox 95 08/16/19 11:02 Review of Systems Psychiatric: as per Subjective / HPI Results & Data (PSY) Medications Administered Lorazepam (Ativan) 0.5 mg in 1 mls @ 1 mls/min IV Q4H PRN PRN Reason: TREMORS, ANXIETY Stop: 09/14/19 18:19 Last Admin: 08/16/19 09:15 Dose: 1 mls/min Documented by: [id number] Daptomycin 300 mg/ Syringe 6 mls @ 3 mls/min IV Q24H TRAV Stop: 08/25/19 18:59 Last Admin: 08/15/19 20:27 Dose: 3 mls/min Documented by: [id number] Sodium Chloride (Nss 1000ml) 1,000 mls @ 125 mls/hr IV .Q8H TRAV Stop: 09/14/19 22:44 Last Admin: 08/16/19 08:03 Dose: 125 mls/hr Documented by: [id number] Infusion: 08/16/19 07:29 Dose: 0 mls/hr Documented by: [id number] Admin: 08/15/19 23:29 Dose: 125 mls/hr Documented by: [id number] Oxycodone HCl (Roxicodone Immediate Rel) 5 - 10 mg PO Q6H PRN PRN Reason: Pain Stop: 08/29/19 20:06 Last Admin: 08/16/19 11:04 Dose: 5 mg Documented by: [id number] Admin: 08/16/19 04:56 Dose: 5 mg Documented by: [id number] Coding Level of Care Code 69827 [facility] Intl Hosp Care Lvl 2
[2019-08-16] MEDS: cefTRIAXone SODIUM 2,000 MG in DEXTROSE 5% 50 ML IV SCH (13:06)
[2019-08-16] MEDS: OXYCODONE/ACETAMINOPHEN 10-325 TAB PO PRN ×2 (15:28→20:55)
--- NOTE | 2019-08-16 15:49 | Hospitalist Progress Note ---
Date of Service August 16, 2019 Assessment & Plan (1) Medication overdose: (2) Suicidal ideation: Patient is a 59 yr male with H/O Metastatic bladder cancer S/P radiation and chemotherapy, CAD status post stent placement, and other problems noted below presenting with Intentional drug overdose. Medication overdose, Intentional Suicidal attempt Patient reports taking handful of his home meds at the assisted (Percocet, OxyContin, oxybutynin, levothyroxine, risperidone, lo razepam) Poison control center contacted: Recommends conservative management Tylenol level, CPK, LFTs,INR : normal Monitor QTC with daily EKG Appreciate Psychiatry/Palliative Care Input TSH:6.2 Free T4 level: normal Sitter at bedside Pain control Resume home medications as able Patient's Primary goal is comfort He is aware of his condition and his prognosis is very poor Bladder cancer with metastasis to the thoracic and lumbar spine, pelvis S/P Palliative radiation and chemo Follows with Dr. Mon for oncology Enrolled in hospice services 2 weeks ago Palliative care following Complicated UTI H/O UTI H/O Right ureteral stent placement, with nephrostomy tube, hematuria, MRSA UTI Urine cultures: Gram-negative bacilli Continue Daptomycin and ceftriaxone Day#2 Adjust medications as needed H/O CAD denies chest pain, Dyspnea CKD stage III-IV Baseline Cr: 1.6-1.8 Monitor renal function Hypothyroidism TSH mildly elevated Free T4 levels:normal Resume levothyroxine as able H/O Hepatitis C Untreated DVT Px: SCDs H/O Hematuria CODE STATUS DNI/DNR as per my discussion with patient and palliative care Disposition Plan to discharge back to [facility] with hospice service as able Admission and Anticipated Discharge Date Admission Date: August 15, 2019 Subjective Patient is seen and examined at bedside Complains of significant bone pain and bladder spasms Discussed with palliative care and patient in detail Patient preferred to be DNI/DNR Pain medications will be adjusted to control his pain Sitter at bedside Denies any chest pain, shortness of breath, dizziness, nausea, abdominal pain. Review of Systems Review of Systems: All systems reviewed & are unremarkable except as noted in HPI & below Physical Exam Physical Exam: Physical Exam: Vitals signs as noted above General Appearance:Moderately built and nourished, no apparent distress Head: normocephalic, Atraumatic Eyes: normal inspection, EOMI Neck: supple, Trachea midline Respiratory/Chest: Normal breath sounds, CTA Cardiovascular: S1, S2, No murmur Abdomen/GI:Soft, Non tender, Bowel sounds present, +Nephrostomy tubes Extremities/Musculoskelatal:normal inspection, no edema Neurologic/Psych:Alert, awake, grossly no focal neurological deficits Skin: normal color, warm Results & Data Results & Data ([facility]) Vital Signs (Past 12 Hours) Vital Signs Temp Pulse Pulse Resp BP Pulse Ox 08/16/19 15:42 37.0 C 98 H 18 108/76 94 08/16/19 14:54 100 H 08/16/19 11:02 37.3 C 104 H 18 109/71 95 08/16/19 09:17 109 H 20 128/81 08/16/19 07:00 98 H 08/16/19 03:52 95 H Laboratory Results Short CBC 08/16/19 Range/Units 05:40 WBC 8.36 (4.8-10.8) K/uL Hgb 9.3 L (14.0-18.0) g/dL Hct 30.4 L (42-52) % Plt Count 93 L (130-400) K/uL BMP 08/16/19 05:40 Sodium 139 Potassium 4.0 Chloride 107 Carbon Dioxide 27 BUN 25 H Creatinine 1.73 H Glucose 151 H Calcium 9.1 Cardiac Enzymes 08/15/19 08/16/19 Range/Units 19:13 05:40 Total Creatine Kinase 44 44 (39-308) U/L Liver Function 08/15/19 08/16/19 Range/Units 19:13 05:40 Total Bilirubin 0.3 0.2 (0.2-1) mg/dl Direct Bilirubin < 0.1 < 0.1 (0-0.2) mg/dl AST 21 17 (15-37) U/L ALT 25 23 (12-78) U/L Alkaline Phosphatase 538 H 532 H (45-117) U/L Albumin 2.2 L 2.1 L (3.4-5.0) gm/dl (1) Medication overdose Encounter type: initial encounter Injury intent: intentional self-harm Qualified Code(s): T50.902A - Poisoning by unspecified drugs, medicaments and biological substances, intentional self-harm, initial encounter
[2019-08-16] MEDS: HYDROmorphone INJ 1 MG/ML SYRINGE IV PRN ×3 (16:29→22:41)
--- NOTE | 2019-08-16 16:54 | Electrocardiogram Report ---
Test Reason : Blood Pressure : / mmHG Vent. Rate : 104 BPM Atrial Rate : 104 BPM P-R Int : 142 ms QRS Dur : 098 ms QT Int : 370 ms P-R-T Axes : 037 001 019 degrees QTc Int : 486 ms Sinus tachycardia Prolonged QT When compared with ECG of 15-AUG-2019 11:35, No significant change was found Confirmed by Genaro Zamarripa ([id number]) on 08/16/2019 4:53:32 PM Referred By: REFERRED SELF Confirmed By:Genaro Zamarripa
[2019-08-16] MEDS: DAPTOmycin 300 MG in SYRINGE 0 ML IV SCH (18:27)
[2019-08-17] MEDS: HYDROmorphone INJ 1 MG/ML SYRINGE IV PRN ×5 (01:45→15:13)
[2019-08-17] MEDS: OXYCODONE/ACETAMINOPHEN 10-325 TAB PO PRN ×5 (02:40→20:15)
[2019-08-17 05:44] LABS: Codeine Urine NEGATIVE ng/mL (<50); Hydrocodone Urine NEGATIVE ng/mL (<50); Hydromor Urine NEGATIVE ng/mL (<50); Morphine Urine NEGATIVE ng/mL (<50); Norhydrocodone Conf Ur NEGATIVE ng/mL (<50); Noroxycodone Urine 2210 ng/mL (<50); Oxycodone Urine 1930 ng/mL (<50); Oxymorph Urine >10000 ng/mL (<50)
[2019-08-17 06:15] LABS: Hematocrit (blood only) 26.2 % (42-52); Hemoglobin 8.6 g/dL (14.0-18.0); Mean Corpuscular Hemoglobin 26.8 pg (25-34); Mean Corpuscular Hgb Conc 32.8 g/dL (32-36); Mean Corpuscular Volume 81.6 fL (80-100); RDW Coefficient of Variation 15.4 % (11.5-14.5); RDW Standard Deviation 45.9 fL (36.4-46.3); Red Blood Count 3.21 M/uL (4.7-6.1)
[2019-08-17 06:17] LABS: Mean Platelet Volume 7.8 fL (7.4-10.4); Platelet Count 90 K/uL (130-400)
[2019-08-17 06:25] LABS: INR 1.1 (0.9-1.1); Prothrombin Time 11.4 Seconds (9.0-12.0)
[2019-08-17 06:38] LABS: Basophils # (auto) 0.02 K/uL (0-0.2); Basophils % (auto) 0.3 %; Eosinophils % (auto) 3.3 %; Immature Granulocytes # (auto) 0.07 K/uL (0.00-0.02); Immature Granulocytes % (auto) 1.1 %; Lymphocytes # (auto) 1.04 K/uL (1.2-3.4); Monocytes # (auto) 0.57 K/uL (0.11-0.59); Monocytes % (auto) 9.3 %; RBC Morphology Unremarkable
[2019-08-17 06:41] LABS: Albumin Level 1.9 gm/dl (3.4-5.0); Aspartate Aminotransferase 17 U/L (15-37); BUN Creatinine Ratio 14.4 (10-20); Bilirubin Direct < 0.1 mg/dl (0-0.2); Blood Urea Nitrogen 19 mg/dl (7-18); Calcium 8.1 mg/dl (8.5-10.1); Carbon Dioxide 24 mmol/L (21-32); Chloride 114 mmol/L (98-107); Creatinine Clr Calc Pharmacy 68.7 ml/min; Est GFR (African American) 65.8; Est GFR (Non-African American) 56.8; Glucose 83 mg/dl (70-99); Potassium 4.1 mmol/L (3.5-5.1); Sodium 141 mmol/L (136-145)
[2019-08-17 06:56] LABS: Alanine Aminotransferase 21 U/L (12-78); Alkaline Phosphatase 443 U/L (45-117); Bilirubin,Total 0.3 mg/dl (0.2-1); T4 Free Thyroxine 1.05 ng/dl (0.8-1.6); Total Protein 6.6 gm/dl (6.4-8.2)
[2019-08-17] MEDS: SODIUM CHLORIDE 0.9% 1000ML 1,000 ML IV SCH ×3 (08:09→21:12)
[2019-08-17] MEDS: FLUTICASONE/VILANTEROL 200/25MCG 14 PUFFS/INHALER INH SCH (08:10)
--- NOTE | 2019-08-17 12:10 | Hospitalist Progress Note ---
Date of Service August 17, 2019 Assessment & Plan (1) Medication overdose: (2) Suicidal ideation: Patient is a 59 yr male with H/O Metastatic bladder cancer S/P radiation and chemotherapy, CAD status post stent placement, and other problems noted below presenting with Intentional drug overdose. Intentional medication overdose likely suicidal ideation Has been on one-to-one sitter-cleared as of 08/17/2019 Appreciate psychiatry input and recommendation; does not have any more suicidal ideation and he is clear from psychiatrist Complains of more pain and denies any other symptoms except weakness Cancer pain Due to metastasis in bones Has been requiring considerable amount of pain medication to keep the pain under control Appreciate palliative care input and recommendation Like to go back to a hospice facility within the next few days Bladder cancer with metastasis to the thoracic and lumbar spine, pelvis S/P Palliative radiation and chemo-no more chemo and/or radiation treatment Follows with Dr. Mon for oncology Enrolled in hospice services 2 weeks ago Like to be transferred to hospice facility within the next few days Prognosis remains extremely poor Complicated UTI H/O UTI H/O Right ureteral stent placement, with nephrostomy tube, hematuria, MRSA UTI Urine cultures: Gram-negative bacilli Continue Daptomycin and ceftriaxone Day#3 Urine is growing E. coli which is pansensitive Discontinue daptomycin continue IV ceftriaxone for now H/O CAD denies chest pain, Dyspnea CKD stage III-IV Baseline Cr: 1.6-1.8 Monitor renal function Hypothyroidism TSH mildly elevated Free T4 levels:normal Resume levothyroxine as able H/O Hepatitis C Untreated DVT Px: SCDs No more hematuria and will start subcu heparin twice daily CODE STATUS DNI/DNR as per my discussion with patient and palliative care Disposition Plan to discharge back to [facility] with hospice service as able Awaiting family members to visit him on coming Thursday Like to be discharged from hospital on Thursday Admission and Anticipated Discharge Date Admission Date: August 15, 2019 Subjective The patient was seen and examined in the medical floor He complains to have ongoing pain involving multiple areas on the back Denies any shortness of breath and/or palpitation, any abdominal pain, distention, nausea and or vomiting Review of Systems Review of Systems: All systems reviewed and are unremarkable except as noted below Constitutional: + malaise and + weakness Respiratory: no dyspnea Cardiovascular: no chest pain Gastrointestinal: no abdominal pain and no bloating Musculoskeletal: Severe pain at the back Physical Exam Physical Exam: Lying in bed with moderate pain involving mainly the back Constitutional: + acute distress and + ill appearing Eyes: PERRL, conjunctivae normal, anicteric sclerae ENMT: external ear and nose normal, oropharynx normal Neck: trachea midline, no thyromegaly Respiratory: normal respiratory effort; no respiratory distress Auscultation: lungs clear to auscultation bilaterally Cardiovascular: Rate/Rhythm: regular rate and regular rhythm Gastrointestinal (Abdomen): Inspection/Auscultation: abdomen normal to inspection and normal bowel sounds Percussion/Palpation: abdomen soft; abdomen nontender Neurologic: moves all extremities; no focal motor deficits Psychiatric: Orientation: alert and oriented x 3 Mood: + depressed mood Lymphatic: no cervical or axillary lymphadenopathy Results & Data Results & Data ([facility]) Vital Signs (Past 12 Hours) Vital Signs Temp Pulse Pulse Resp BP Pulse Ox 08/17/19 07:52 87 08/17/19 07:43 36.5 C 85 18 164/82 H 98 08/17/19 04:13 36.6 C 85 18 127/80 94 Laboratory Results Short CBC 08/17/19 Range/Units 05:47 WBC 6.10 (4.8-10.8) K/uL Hgb 8.6 L (14.0-18.0) g/dL Hct 26.2 L (42-52) % Plt Count 90 L (130-400) K/uL BMP 08/17/19 05:47 Sodium 141 Potassium 4.1 Chloride 114 H Carbon Dioxide 24 BUN 19 H Creatinine 1.34 D Glucose 83 Calcium 8.1 L Liver Function 08/17/19 Range/Units 05:47 Total Bilirubin 0.3 (0.2-1) mg/dl Direct Bilirubin < 0.1 (0-0.2) mg/dl AST 17 (15-37) U/L ALT 21 (12-78) U/L Alkaline Phosphatase 443 H (45-117) U/L Albumin 1.9 L (3.4-5.0) gm/dl Medications Administered Current Inpatient Medications Al Hydrox/Mg Hydrox/Simethicone (Maalox Max) 15 ml PO Q4 PRN PRN Reason: GI UPSET Stop: 09/14/19 18:24 Fluticasone/Vilanterol (Breo Ellipta 200/25 Mcg Inh) 1 puffs INH DAILY@0800 [facility] Stop: 09/16/19 07:59 Last Admin: 08/17/19 08:10 Dose: 1 puffs Documented by: Heparin Sodium (Porcine) (Heparin Sodium (Porcine)) 5,000 units SQ Q12 TRAV Stop: 09/16/19 20:59 Hydralazine HCl (Hydralazine Hcl) 5 mg IV Q6H PRN PRN Reason: HYPERTENSION Stop: 09/14/19 18:19 Hydromorphone HCl (Dilaudid) 1 mg IV Q3H PRN PRN Reason: Pain Stop: 08/30/19 15:01 Last Admin: 08/17/19 11:23 Dose: 1 mg Documented by: Lorazepam (Ativan) 0.5 mg in 1 mls @ 1 mls/min IV Q4H PRN PRN Reason: TREMORS, ANXIETY Stop: 09/14/19 18:19 Last Admin: 08/16/19 23:42 Dose: 1 mls/min Documented by: Ceftriaxone Sodium 2,000 mg/ (Dextrose) 70 mls @ 140 mls/hr IV Q24H TRAV Stop: 08/24/19 14:29 Last Infusion: 08/16/19 13:36 Dose: Infused Documented by: Sodium Chloride (Nss 1000ml) 1,000 mls @ 125 mls/hr IV .Q8H [facility] Stop: 09/14/19 22:44 Last Admin: 08/17/19 08:09 Dose: 125 mls/hr Documented by: Oxycodone/Acetaminophen (Percocet 10/325mg) 1 tab PO Q4H PRN PRN Reason: pain rated 4-10 Stop: 08/30/19 14:59 Last Admin: 08/17/19 10:49 Dose: 1 tab Documented by: Phenazopyridine HCl (Pyridium) 100 mg PO BID PRN PRN Reason: Bladder pain Stop: 09/15/19 06:35 Last Admin: 08/16/19 22:44 Dose: 100 mg Documented by: Polyethylene Glycol (Miralax Powder Packet) 17 gm PO DAILY PRN PRN Reason: Constipation Stop: 09/15/19 08:03 (1) Medication overdose Encounter type: initial encounter Injury intent: intentional self-harm Qualified Code(s): T50.902A - Poisoning by unspecified drugs, medicaments and biological substances, intentional self-harm, initial encounter
[2019-08-17] MEDS: LORazepam 0.5 MG/1 ML VIAL IV PRN (14:03)
[2019-08-17] MEDS: cefTRIAXone SODIUM 2,000 MG in DEXTROSE 5% 50 ML IV SCH (14:07)
[2019-08-17] MEDS: HYDROmorphone INJ 2 MG/ML SYR/VIAL IV PRN ×2 (17:00→21:12)
[2019-08-17] MEDS: HEPARIN SOD 5,000 UNIT/0.5 ML VIAL SQ SCH (21:12)
[2019-08-18] MEDS: OXYCODONE/ACETAMINOPHEN 10-325 TAB PO PRN ×6 (00:07→22:39)
[2019-08-18] MEDS: LORazepam 0.5 MG/1 ML VIAL IV PRN (00:31)
[2019-08-18] MEDS: HYDROmorphone INJ 2 MG/ML SYR/VIAL IV PRN ×4 (01:13→17:56)
[2019-08-18] MEDS: SODIUM CHLORIDE 0.9% 1000ML 1,000 ML IV SCH ×3 (04:55→21:55)
--- NOTE | 2019-08-18 05:48 | Electrocardiogram Report ---
Test Reason : Blood Pressure : / mmHG Vent. Rate : 085 BPM Atrial Rate : 085 BPM P-R Int : 142 ms QRS Dur : 098 ms QT Int : 398 ms P-R-T Axes : 019 006 009 degrees QTc Int : 473 ms Normal sinus rhythm Cannot rule out Anterior infarct , age undetermined Abnormal ECG When compared with ECG of 16-AUG-2019 06:38, No significant change was found Confirmed by Genaro Zamarripa ([id number]) on 08/18/2019 5:47:58 AM Referred By: REFERRED SELF Confirmed By:Genaro Zamarripa
[2019-08-18 06:10] LABS: Hematocrit (blood only) 26.7 % (42-52); Hemoglobin 8.3 g/dL (14.0-18.0); Mean Corpuscular Hemoglobin 25.2 pg (25-34); Mean Corpuscular Hgb Conc 31.1 g/dL (32-36); Mean Corpuscular Volume 81.2 fL (80-100); RDW Coefficient of Variation 15.2 % (11.5-14.5); RDW Standard Deviation 44.6 fL (36.4-46.3); Red Blood Count 3.29 M/uL (4.7-6.1); White Blood Count 5.09 K/uL (4.8-10.8)
[2019-08-18 06:20] LABS: Mean Platelet Volume 7.7 fL (7.4-10.4); Platelet Count 91 K/uL (130-400)
[2019-08-18 06:47] LABS: Alanine Aminotransferase 22 U/L (12-78); Aspartate Aminotransferase 19 U/L (15-37); BUN Creatinine Ratio 12.3 (10-20); Bilirubin Direct < 0.1 mg/dl (0-0.2); Blood Urea Nitrogen 16 mg/dl (7-18); Calcium 8.3 mg/dl (8.5-10.1); Carbon Dioxide 25 mmol/L (21-32); Chloride 112 mmol/L (98-107); Creatinine Clr Calc Pharmacy 73.6 ml/min; Est GFR (African American) 68.9; Est GFR (Non-African American) 59.4; Glucose 79 mg/dl (70-99); Potassium 4.2 mmol/L (3.5-5.1); Sodium 140 mmol/L (136-145); Total Protein 6.7 gm/dl (6.4-8.2)
[2019-08-18 06:51] LABS: Alkaline Phosphatase 467 U/L (45-117); Bilirubin,Total 0.2 mg/dl (0.2-1); T4 Free Thyroxine 0.95 ng/dl (0.8-1.6)
[2019-08-18 07:04] LABS: Basophils # (auto) 0.01 K/uL (0-0.2); Basophils % (auto) 0.2 %; Eosinophils # (auto) 0.24 K/uL (0-0.5); Eosinophils % (auto) 4.7 %; Immature Granulocytes # (auto) 0.06 K/uL (0.00-0.02); Immature Granulocytes % (auto) 1.2 %; Lymphocytes # (auto) 0.82 K/uL (1.2-3.4); Lymphocytes % (auto) 16.1 %; Monocytes # (auto) 0.35 K/uL (0.11-0.59); Monocytes % (auto) 6.9 %; Neutrophils # (auto) 3.61 K/uL (1.4-6.5); Neutrophils % (auto) 70.9 %
[2019-08-18] MEDS: FLUTICASONE/VILANTEROL 200/25MCG 14 PUFFS/INHALER INH SCH (08:29)
[2019-08-18] MEDS: HEPARIN SOD 5,000 UNIT/0.5 ML VIAL SQ SCH ×2 (08:30→21:56)
[2019-08-18] MEDS: HEPARIN 100 UNIT/ML 5ML FLUSH FLUSH PRN (09:36)
--- NOTE | 2019-08-18 11:52 | Hospitalist Progress Note ---
Date of Service August 18, 2019 Assessment & Plan (1) Medication overdose: (2) Suicidal ideation: Patient is a 59 yr male with H/O Metastatic bladder cancer S/P radiation and chemotherapy, CAD status post stent placement, and other problems noted below presenting with Intentional drug overdose. Intentional medication overdose likely suicidal ideation Has been on one-to-one sitter-cleared as of 08/17/2019 Appreciate psychiatry input and recommendation; does not have any more suicidal ideation and he is cleared from psychiatrist Complains of more pain and denies any other symptoms except weakness Cancer pain Due to metastasis in bones Has been requiring considerable amount of pain medication to keep the pain under control Appreciate palliative care input and recommendation Like to go back to a hospice facility within the next few days Dilaudid has been increased to 2 mg intravenously every 4 hourly He was on OxyContin 80 mg twice daily as an outpatient on top of as needed medication Will start with 40 mg OxyContin twice daily on discharge whenever he is accepted to [facility] Bladder cancer with metastasis to the thoracic and lumbar spine, pelvis S/P Palliative radiation and chemo-no more chemo and/or radiation treatment Follows with Dr. Mon for oncology Enrolled in hospice services 2 weeks ago Like to be transferred to hospice facility within the next few days Prognosis remains extremely poor He will be going to a facility with hospice care Complicated UTI H/O UTI H/O Right ureteral stent placement, with nephrostomy tube, hematuria, MRSA UTI Urine cultures: Gram-negative bacilli Continue Daptomycin and ceftriaxone Day#3 Urine is growing E. coli which is pansensitive Discontinue daptomycin continue IV ceftriaxone for now We will continue ceftriaxone for now and prescribed oral Keflex to finish the course on discharge H/O CAD denies chest pain, Dyspnea CKD stage III-IV Baseline Cr: 1.6-1.8 Monitor renal function Hypothyroidism TSH mildly elevated Free T4 levels:normal Resume levothyroxine as able H/O Hepatitis C Untreated DVT Px: SCDs No more hematuria and will start subcu heparin twice daily CODE STATUS DNI/DNR as per my discussion with patient and palliative care Disposition Plan to discharge back to [facility] with hospice service as able Awaiting family members to visit him Discharge when placement is finalized Admission and Anticipated Discharge Date Admission Date: August 15, 2019 Subjective The patient was seen and examined in the medical floor He complains to have ongoing pain involving multiple areas on the back Denies any shortness of breath and/or palpitation, any abdominal pain, distention, nausea and or vomiting 08/18/2019 The patient was seen and examined in medical floor His pain has been controlled with increasing dose of Dilaudid since yesterday He denies any significant symptoms except pain this morning He was told that he will be given his usual doses of pain medications on discharge Review of Systems Review of Systems: All systems reviewed and are unremarkable except as noted below Constitutional: + malaise and + weakness Musculoskeletal: Pain since recovered current dose of medication Physical Exam Physical Exam: Lying in bed with moderate pain involving mainly the back Constitutional: + ill appearing; no acute distress Eyes: PERRL, conjunctivae normal, anicteric sclerae ENMT: external ear and nose normal, oropharynx normal Neck: trachea midline, no thyromegaly Respiratory: normal respiratory effort; no respiratory distress Auscultation: lungs clear to auscultation bilaterally Cardiovascular: Rate/Rhythm: regular rate and regular rhythm Gastrointestinal (Abdomen): Inspection/Auscultation: abdomen normal to inspection and normal bowel sounds Percussion/Palpation: abdomen soft; abdomen nontender Neurologic: moves all extremities; no focal motor deficits Psychiatric: Orientation: alert and oriented x 3 Mood: + depressed mood Lymphatic: no cervical or axillary lymphadenopathy Results & Data Results & Data ([facility]) Vital Signs (Past 12 Hours) Vital Signs Temp Pulse Pulse Resp BP Pulse Ox 08/18/19 10:53 36.8 C 90 20 128/81 97 08/18/19 07:59 36.6 C 81 20 133/83 96 08/18/19 07:09 83 08/18/19 03:37 36.4 C L 86 18 166/96 H 97 Laboratory Results Short CBC 08/18/19 Range/Units 05:46 WBC 5.09 (4.8-10.8) K/uL Hgb 8.3 L (14.0-18.0) g/dL Hct 26.7 L (42-52) % Plt Count 91 L (130-400) K/uL BMP 08/18/19 05:46 Sodium 140 Potassium 4.2 Chloride 112 H Carbon Dioxide 25 BUN 16 Creatinine 1.29 Glucose 79 Calcium 8.3 L Liver Function 08/18/19 Range/Units 05:46 Total Bilirubin 0.2 (0.2-1) mg/dl Direct Bilirubin < 0.1 (0-0.2) mg/dl AST 19 (15-37) U/L ALT 22 (12-78) U/L Alkaline Phosphatase 467 H (45-117) U/L Albumin 2.0 L (3.4-5.0) gm/dl Medications Administered Current Inpatient Medications Al Hydrox/Mg Hydrox/Simethicone (Maalox Max) 15 ml PO Q4 PRN PRN Reason: GI UPSET Stop: 09/14/19 18:24 Fluticasone/Vilanterol (Breo Ellipta 200/25 Mcg Inh) 1 puffs INH DAILY@0800 [facility] Stop: 09/16/19 07:59 Last Admin: 08/18/19 08:29 Dose: 1 puffs Documented by: Heparin Sodium (Porcine) (Heparin Sodium (Porcine)) 5,000 units SQ Q12 TRAV Stop: 09/16/19 20:59 Last Admin: 08/18/19 08:30 Dose: 5,000 units Documented by: Heparin Sodium (Porcine) (Heparin Sod 100 Unit/Ml Flush) 5 ml FLUSH PRN PRN PRN Reason: Flush Stop: 09/16/19 23:14 Last Admin: 08/18/19 09:36 Dose: 5 ml Documented by: Hydralazine HCl (Hydralazine Hcl) 5 mg IV Q6H PRN PRN Reason: HYPERTENSION Stop: 09/14/19 18:19 Hydromorphone HCl (Dilaudid) 2 mg IV Q4H PRN PRN Reason: Pain Stop: 08/31/19 16:59 Last Admin: 08/18/19 09:35 Dose: 2 mg Documented by: Lorazepam (Ativan) 0.5 mg in 1 mls @ 1 mls/min IV Q4H PRN PRN Reason: TREMORS, ANXIETY Stop: 09/14/19 18:19 Last Admin: 08/18/19 00:31 Dose: 1 mls/min Documented by: Ceftriaxone Sodium 2,000 mg/ (Dextrose) 70 mls @ 140 mls/hr IV Q24H TRAV Stop: 08/24/19 14:29 Last Infusion: 08/17/19 14:37 Dose: Infused Documented by: Sodium Chloride (Nss 1000ml) 1,000 mls @ 125 mls/hr IV .Q8H TRAV Stop: 09/14/19 22:44 Last Admin: 08/18/19 04:55 Dose: 125 mls/hr Documented by: Oxycodone HCl (Oxycontin) 40 mg PO Q12H TRAV Stop: 09/01/19 11:29 Oxycodone/Acetaminophen (Percocet 10/325mg) 1 tab PO Q4H PRN PRN Reason: pain rated 4-10 Stop: 08/30/19 14:59 Last Admin: 08/18/19 08:30 Dose: 1 tab Documented by: Phenazopyridine HCl (Pyridium) 100 mg PO BID PRN PRN Reason: Bladder pain Stop: 09/15/19 06:35 Last Admin: 08/16/19 22:44 Dose: 100 mg Documented by: Polyethylene Glycol (Miralax Powder Packet) 17 gm PO DAILY PRN PRN Reason: Constipation Stop: 09/15/19 08:03 Last Admin: 08/17/19 23:28 Dose: 17 gm Documented by: (1) Medication overdose Encounter type: initial encounter Injury intent: intentional self-harm Qualified Code(s): T50.902A - Poisoning by unspecified drugs, medicaments and biological substances, intentional self-harm, initial encounter
--- NOTE | 2019-08-18 13:26 | Palliative Care Progress Note ---
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 Patient reports taking a "handful" of his medications that he had been hoarding for several days, which included Percocet. He states he did this to end his life, in light of his terminal cancer. Apparently patient had entered hospice care about two weeks ago. Patient is also known to the palliative care service from several previous hospital admissions when we saw him for intractable pain due to his metastatic cancer. Patient is admitted for observation of overdose symptoms and suicide watch. Psychiatry is consulted. Palliative care is consulted for goals of care. -Patient was last seen in April 2019. We got his pain under control with Oxycontin 60mg TID and Percocet 10/325 Q4h PRN breakthrough pain. He was discharged back to the [facility] and planned to pursue chemotherapy. -Patient has to have started chemo on 04/22, but he was admitted to the hospital during that time. Patient did receive XRT for his bone pain-did not tolerate, was discontinued after 2 treatments. -Patient changed his CODE STATUS on 08/15 to DO NOT RESUSCITATE. -Patient to speak with his daughter and granddaughter when they arrived today regarding possible discharge option of home with them. Otherwise we will continue to pursue placement at [facility] with hospice. -Discussed with patient he needs to get off his IV pain medication in order for discharge. (2) Suicidal ideation: (3) Medication overdose: (4) Cancer related pain: Subjective Patient awake and alert, no acute distress at rest. Patient was started on OxyContin 40 mg every 12 at 11 AM today, Dilaudid was increased to 2 mg as needed. Patient received 6 Percocet at 10/325 and 24 hours +12 mg of IV Dilaudid. His IV Dilaudid and PRN Percocet together approximately equivalent to 220 mg of oxycodone in a 24-hour period. Collaborated with attending physician Dr. Fritz. Patient states his daughter and granddaughter are on their way to visit. They are approximately an hour and a half away. He plans to discuss with them the possibility of living with him with hospice care. Daughter lives in [facility]. If daughter agrees, we will have case management work on making a referral to a hospice agency near where she lives. Review of Systems Review of Systems: Positive for back pain Negative for fever, chills, chest pain, shortness of breath Physical Exam Physical Exam: PE: Patient awake, alert and oriented, not drowsy. HEENT: EOMI, hearing within normal limits Respirations: Unlabored, clear breath sounds CV: Regular rate Abdomen: Soft nontender, patient states he moved his bowels earlier today. Results & Data Vital Signs (Past 12 Hours) Vital Signs Temp Pulse Pulse Resp BP Pulse Ox 08/18/19 10:53 98.2 F 90 20 128/81 97 08/18/19 07:59 97.9 F 81 20 133/83 96 08/18/19 07:09 83 08/18/19 03:37 97.5 F L 86 18 166/96 H 97 PG Care Time/CCT Total # of Minutes Spent Total Time Spent with Patient: Total time spent 35 minutes with greater than 50% of the time spent at bedside assessing patient's current level of comfort and discussing goals of care. Coding Level of Care Code 45295 Subseq Hosp Care Lvl 3 Diagnoses Goals of care, counseling/discussion Z71.89 Suicidal ideation R45.851 Medication overdose T50.902A Encounter type: initial encounter Injury intent: intentional self-harm Cancer related pain G89.3 Time Spent (min) 35 (1) Medication overdose Encounter type: initial encounter Injury intent: intentional self-harm Qualified Code(s): T50.902A - Poisoning by unspecified drugs, medicaments and biological substances, intentional self-harm, initial encounter
[2019-08-18] MEDS: OXYCODONE HCL 40 MG TABCR (OXYCONTIN) PO SCH ×2 (13:43→23:58)
[2019-08-18] MEDS: cefTRIAXone SODIUM 2,000 MG in DEXTROSE 5% 50 ML IV SCH (13:43)
[2019-08-19] MEDS: HydrALAZINE HCL 20 MG/ML VIAL IV PRN ×2 (00:18→07:25)
[2019-08-19] MEDS: LORazepam 0.5 MG/1 ML VIAL IV PRN ×2 (00:32→10:30)
[2019-08-19] MEDS: HYDROmorphone INJ 2 MG/ML SYR/VIAL IV PRN ×2 (02:35→07:26)
[2019-08-19] MEDS: OXYCODONE/ACETAMINOPHEN 10-325 TAB PO PRN ×4 (04:27→20:49)
[2019-08-19] MEDS ORDERED: cloNIDine HCL 0.1 MG TAB PO ONE ×2 (04:57→08:54)
[2019-08-19] MEDS: SODIUM CHLORIDE 0.9% 1000ML 1,000 ML IV SCH ×3 (05:22→22:01)
[2019-08-19 06:21] LABS: Basophils # (auto) 0.01 K/uL (0-0.2); Basophils % (auto) 0.2 %; Eosinophils # (auto) 0.22 K/uL (0-0.5); Eosinophils % (auto) 3.9 %; Hematocrit (blood only) 28.7 % (42-52); Immature Granulocytes # (auto) 0.09 K/uL (0.00-0.02); Immature Granulocytes % (auto) 1.6 %; Lymphocytes # (auto) 0.86 K/uL (1.2-3.4); Lymphocytes % (auto) 15.2 %; Mean Corpuscular Hgb Conc 31.4 g/dL (32-36); Mean Corpuscular Volume 79.7 fL (80-100); Mean Platelet Volume 7.5 fL (7.4-10.4); Monocytes # (auto) 0.38 K/uL (0.11-0.59); Monocytes % (auto) 6.7 %; Neutrophils # (auto) 4.09 K/uL (1.4-6.5); Neutrophils % (auto) 72.4 %; Platelet Count 103 K/uL (130-400); RDW Coefficient of Variation 15.3 % (11.5-14.5); RDW Standard Deviation 44.4 fL (36.4-46.3); White Blood Count 5.65 K/uL (4.8-10.8)
[2019-08-19 06:58] LABS: Alanine Aminotransferase 24 U/L (12-78); Albumin Level 2.2 gm/dl (3.4-5.0); Aspartate Aminotransferase 18 U/L (15-37); Bilirubin Direct < 0.1 mg/dl (0-0.2); Blood Urea Nitrogen 12 mg/dl (7-18); Calcium 8.6 mg/dl (8.5-10.1); Carbon Dioxide 23 mmol/L (21-32); Chloride 114 mmol/L (98-107); Creatinine Clr Calc Pharmacy 71.1 ml/min; Est GFR (African American) 65.8; Est GFR (Non-African American) 56.8; Glucose 106 mg/dl (70-99); Potassium 4.3 mmol/L (3.5-5.1); Sodium 142 mmol/L (136-145)
[2019-08-19 07:00] LABS: Alkaline Phosphatase 569 U/L (45-117); Bilirubin,Total 0.3 mg/dl (0.2-1); Total Protein 7.3 gm/dl (6.4-8.2)
[2019-08-19] MEDS: HEPARIN SOD 5,000 UNIT/0.5 ML VIAL SQ SCH ×2 (07:25→20:49)
[2019-08-19] MEDS: FLUTICASONE/VILANTEROL 200/25MCG 14 PUFFS/INHALER INH SCH (07:26)
[2019-08-19] MEDS: cloNIDine HCL 0.1 MG TAB PO SCH ×2 (09:15→20:49)
--- NOTE | 2019-08-19 11:23 | Hospitalist Progress Note ---
Date of Service August 19, 2019 Assessment & Plan (1) Medication overdose: (2) Suicidal ideation: Patient is a 59 yr male with H/O Metastatic bladder cancer S/P radiation and chemotherapy, CAD status post stent placement, and other problems noted below presenting with Intentional drug overdose. Intentional medication overdose likely suicidal ideation Has been on one-to-one sitter-cleared as of 08/17/2019 Appreciate psychiatry input and recommendation; does not have any more suicidal ideation and he is cleared from psychiatrist Complains of more pain and denies any other symptoms except weakness Cancer pain Due to metastasis in bones Has been requiring considerable amount of pain medication to keep the pain under control Appreciate palliative care input and recommendation Like to go back to a hospice facility within the next few days Dilaudid has been increased to 2 mg intravenously every 4 hourly He was on OxyContin 80 mg twice daily as an outpatient on top of as needed medication Will start with 40 mg OxyContin twice daily on discharge whenever he is accepted to [facility] Pain has not been controlled with intravenous Dilaudid and oral OxyContin and oxycodone Will add fentanyl patch today and decrease IV pain medications Awaiting to be placed Bladder cancer with metastasis to the thoracic and lumbar spine, pelvis S/P Palliative radiation and chemo-no more chemo and/or radiation treatment Follows with Dr. Mon for oncology Enrolled in hospice services 2 weeks ago Like to be transferred to hospice facility within the next few days Prognosis remains extremely poor He will be going to a facility with hospice care Complicated UTI H/O UTI H/O Right ureteral stent placement, with nephrostomy tube, hematuria, MRSA UTI Urine cultures: Gram-negative bacilli Continue Daptomycin and ceftriaxone Day#3 Urine is growing E. coli which is pansensitive Discontinue daptomycin continue IV ceftriaxone for now We will continue ceftriaxone for now and prescribed oral Keflex to finish the course on discharge No acute urinary symptom H/O CAD denies chest pain, Dyspnea CKD stage III-IV Baseline Cr: 1.6-1.8 Monitor renal function Hypothyroidism TSH mildly elevated Free T4 levels:normal Resume levothyroxine as able H/O Hepatitis C Untreated DVT Px: SCDs No more hematuria and will start subcu heparin twice daily CODE STATUS DNI/DNR as per my discussion with patient and palliative care Disposition Plan to discharge back to [facility] with hospice service as able Discussed with the daughter and [id number], he will not be going back home but in a facility with hospice care Medically stable to go when approved Admission and Anticipated Discharge Date Admission Date: August 15, 2019 Subjective The patient was seen and examined in the medical floor He complains to have ongoing pain involving multiple areas on the back Denies any shortness of breath and/or palpitation, any abdominal pain, distention, nausea and or vomiting 08/18/2019 The patient was seen and examined in medical floor His pain has been controlled with increasing dose of Dilaudid since yesterday He denies any significant symptoms except pain this morning He was told that he will be given his usual doses of pain medications on discharge 08/19/2019 The patient was seen and examined in medical floor He has been complaining of more pain generalized and at the back Not been eating and does not feel like eating Denies any abdominal pain, nausea and or vomiting Review of Systems Review of Systems: All systems reviewed and are unremarkable except as noted below Constitutional: + malaise and + weakness Musculoskeletal: Pain since recovered current dose of medication Physical Exam Physical Exam: Lying in bed with moderate pain involving mainly the back Constitutional: well developed, well nourished, + ill appearing and + obese; no acute distress Eyes: PERRL, conjunctivae normal, anicteric sclerae ENMT: external ear and nose normal, oropharynx normal Neck: trachea midline, no thyromegaly Respiratory: normal respiratory effort; no respiratory distress Auscultation: lungs clear to auscultation bilaterally Cardiovascular: Rate/Rhythm: regular rate and regular rhythm Heart Sounds: no murmur Gastrointestinal (Abdomen): Inspection/Auscultation: abdomen normal to inspe ction and normal bowel sounds Percussion/Palpation: abdomen soft; abdomen nontender Has nephrostomy tube in place Musculoskeletal: Generalized aches and pains but no acute arthritis in any joint Neurologic: moves all extremities; no focal motor deficits Looks depressed Psychiatric: Orientation: alert and oriented x 3 Mood: + depressed mood Lymphatic: no cervical or axillary lymphadenopathy Results & Data Results & Data ([facility]) Vital Signs (Past 12 Hours) Vital Signs Temp Pulse Pulse Resp BP BP Pulse Ox 08/19/19 11:16 36.4 C L 99 H 20 108/73 99 08/19/19 08:33 164/92 H 08/19/19 07:24 168/99 H 08/19/19 07:21 36.7 C 101 H 20 167/108 H 95 08/19/19 07:20 99 H 08/19/19 05:16 101 H 08/19/19 04:30 36.5 C 106 H 20 178/108 H 95 08/19/19 00:06 36.5 C 102 H 18 171/102 H 97 Laboratory Results Short CBC 08/19/19 Range/Units 05:53 WBC 5.65 (4.8-10.8) K/uL Hgb 9.0 L (14.0-18.0) g/dL Hct 28.7 L (42-52) % Plt Count 103 L (130-400) K/uL BMP 08/19/19 05:53 Sodium 142 Potassium 4.3 Chloride 114 H Carbon Dioxide 23 BUN 12 Creatinine 1.34 Glucose 106 H Calcium 8.6 Liver Function 08/19/19 Range/Units 05:53 Total Bilirubin 0.3 (0.2-1) mg/dl Direct Bilirubin < 0.1 (0-0.2) mg/dl AST 18 (15-37) U/L ALT 24 (12-78) U/L Alkaline Phosphatase 569 H (45-117) U/L Albumin 2.2 L (3.4-5.0) gm/dl Medications Administered Current Inpatient Medications Al Hydrox/Mg Hydrox/Simethicone (Maalox Max) 15 ml PO Q4 PRN PRN Reason: GI UPSET Stop: 09/14/19 18:24 Clonidine HCl (Catapres) 0.1 mg PO BID [facility] Stop: 09/18/19 08:59 Last Admin: 08/19/19 09:15 Dose: Not Given Documented by: Fentanyl (Duragesic) 25 mcg TD Q3D@1130 [facility] Stop: 09/02/19 11:29 Fluticasone/Vilanterol (Breo Ellipta 200/25 Mcg Inh) 1 puffs INH DAILY@0800 [facility] Stop: 09/16/19 07:59 Last Admin: 08/19/19 07:26 Dose: 1 puffs Documented by: Heparin Sodium (Porcine) (Heparin Sodium (Porcine)) 5,000 units SQ Q12 [facility] Stop: 09/16/19 20:59 Last Admin: 08/19/19 07:25 Dose: Not Given Documented by: Heparin Sodium (Porcine) (Heparin Sod 100 Unit/Ml Flush) 5 ml FLUSH PRN PRN PRN Reason: Flush Stop: 09/16/19 23:14 Last Admin: 08/18/19 09:36 Dose: 5 ml Documented by: Hydralazine HCl (Hydralazine Hcl) 5 mg IV Q6H PRN PRN Reason: HYPERTENSION Stop: 09/14/19 18:19 Last Admin: 08/19/19 07:25 Dose: 5 mg Documented by: Hydromorphone HCl (Dilaudid) 2 mg IV Q6H PRN PRN Reason: Pain Stop: 08/31/19 12:59 Lorazepam (Ativan) 0.5 mg in 1 mls @ 1 mls/min IV Q4H PRN PRN Reason: TREMORS, ANXIETY Stop: 09/14/19 18:19 Last Admin: 08/19/19 10:30 Dose: 1 mls/min Documented by: Ceftriaxone Sodium 2,000 mg/ (Dextrose) 70 mls @ 140 mls/hr IV Q24H [facility] Stop: 08/24/19 14:29 Last Infusion: 08/18/19 14:13 Dose: Infused Documented by: Sodium Chloride (Nss 1000ml) 1,000 mls @ 125 mls/hr IV .Q8H [facility] Stop: 09/14/19 22:44 Last Admin: 08/19/19 05:22 Dose: 125 mls/hr Documented by: Miscellaneous (Fentanyl Patch Remove & Waste) 1 ea N/A Q3D@1129 [facility] Stop: 09/21/19 11:28 Miscellaneous (Fentanyl Patch Check Placement) 1 ea N/A QS [facility] Stop: 09/18/19 15:59 Oxycodone HCl (Oxycontin) 40 mg PO Q12H [facility] Stop: 09/01/19 11:29 Last Admin: 08/18/19 23:58 Dose: 40 mg Documented by: Oxycodone/Acetaminophen (Percocet 10/325mg) 1 tab PO Q4H PRN PRN Reason: pain rated 4-10 Stop: 08/30/19 14:59 Last Admin: 08/19/19 10:31 Dose: 1 tab Documented by: Phenazopyridine HCl (Pyridium) 100 mg PO BID PRN PRN Reason: Bladder pain Stop: 09/15/19 06:35 Last Admin: 08/16/19 22:44 Dose: 100 mg Documented by: Polyethylene Glycol (Miralax Powder Packet) 17 gm PO DAILY PRN PRN Reason: Constipation Stop: 09/15/19 08:03 Last Admin: 08/17/19 23:28 Dose: 17 gm Documented by: (1) Medication overdose Encounter type: initial encounter Injury intent: intentional self-harm Qualified Code(s): T50.902A - Poisoning by unspecified drugs, medicaments and biological substances, intentional self-harm, initial encounter
[2019-08-19] MEDS ORDERED: fentaNYL 25 MCG/HR TDSY TD SCH (11:30)
[2019-08-19] MEDS: OXYCODONE HCL 40 MG TABCR (OXYCONTIN) PO SCH (11:38)
[2019-08-19] MEDS ORDERED: HYDROmorphone INJ 2 MG/ML SYR/VIAL IV PRN (13:00)
[2019-08-19] MEDS: cefTRIAXone SODIUM 2,000 MG in DEXTROSE 5% 50 ML IV SCH (13:31)
[2019-08-19] MEDS ORDERED: CHECK FENTANYL PATCH PLACEMENT SCH (16:00)
[2019-08-20] MEDS: OXYCODONE HCL 40 MG TABCR (OXYCONTIN) PO SCH ×2 (00:46→11:18)
[2019-08-20] MEDS: OXYCODONE/ACETAMINOPHEN 10-325 TAB PO PRN ×3 (02:57→14:28)
[2019-08-20] MEDS: HydrALAZINE HCL 20 MG/ML VIAL IV PRN (02:57)
[2019-08-20] MEDS: SODIUM CHLORIDE 0.9% 1000ML 1,000 ML IV SCH (05:35)
[2019-08-20] MEDS ORDERED: HYDROmorphone INJ 1 MG/ML SYRINGE IV STA (05:51)
[2019-08-20] MEDS: LORazepam 0.5 MG/1 ML VIAL IV PRN ×2 (06:10→11:20)
[2019-08-20 06:28] LABS: Basophils # (auto) 0.02 K/uL (0-0.2); Basophils % (auto) 0.2 %; Eosinophils # (auto) 0.15 K/uL (0-0.5); Eosinophils % (auto) 1.8 %; Hematocrit (blood only) 30.9 % (42-52); Hemoglobin 9.9 g/dL (14.0-18.0); Immature Granulocytes # (auto) 0.09 K/uL (0.00-0.02); Immature Granulocytes % (auto) 1.1 %; Lymphocytes # (auto) 0.97 K/uL (1.2-3.4); Lymphocytes % (auto) 11.7 %; Mean Corpuscular Hemoglobin 25.4 pg (25-34); Mean Corpuscular Volume 79.4 fL (80-100); Mean Platelet Volume 7.8 fL (7.4-10.4); Monocytes # (auto) 0.52 K/uL (0.11-0.59); Monocytes % (auto) 6.3 %; Neutrophils # (auto) 6.52 K/uL (1.4-6.5); Neutrophils % (auto) 78.9 %; Platelet Count 120 K/uL (130-400); RDW Coefficient of Variation 15.7 % (11.5-14.5); RDW Standard Deviation 45.1 fL (36.4-46.3); Red Blood Count 3.89 M/uL (4.7-6.1); White Blood Count 8.27 K/uL (4.8-10.8)
[2019-08-20 07:01] LABS: Alanine Aminotransferase 23 U/L (12-78); Albumin Level 2.4 gm/dl (3.4-5.0); Aspartate Aminotransferase 21 U/L (15-37); BUN Creatinine Ratio 8.6 (10-20); Bilirubin Direct < 0.1 mg/dl (0-0.2); Blood Urea Nitrogen 13 mg/dl (7-18); Calcium 8.9 mg/dl (8.5-10.1); Carbon Dioxide 22 mmol/L (21-32); Chloride 113 mmol/L (98-107); Est GFR (African American) 59.3; Est GFR (Non-African American) 51.2; Glucose 98 mg/dl (70-99); Potassium 4.3 mmol/L (3.5-5.1); Sodium 141 mmol/L (136-145)
[2019-08-20 07:04] LABS: Alkaline Phosphatase 603 U/L (45-117); Bilirubin,Total 0.4 mg/dl (0.2-1); Total Protein 7.6 gm/dl (6.4-8.2)
[2019-08-20] MEDS: cloNIDine HCL 0.1 MG TAB PO SCH (10:35)
[2019-08-20] MEDS: FLUTICASONE/VILANTEROL 200/25MCG 14 PUFFS/INHALER INH SCH (10:35)
[2019-08-20] MEDS: HEPARIN SOD 5,000 UNIT/0.5 ML VIAL SQ SCH (10:36)
[2019-08-20] MEDS ORDERED: HYDROmorphone INJ 0.5 MG/0.5 ML SYR IV STA (11:22)
[2019-08-20] MEDS ORDERED: OXYCODONE HCL 40 MG TABCR (OXYCONTIN) PO SCH (11:49)
--- NOTE | 2019-08-20 13:05 | Hospitalist Progress Note ---
Date of Service August 20, 2019 Assessment & Plan (1) Medication overdose: (2) Suicidal ideation: Patient is a 59 yr male with H/O Metastatic bladder cancer S/P radiation and chemotherapy, CAD status post stent placement, and other problems noted below presenting with Intentional drug overdose. Intentional medication overdose likely suicidal ideation Has been on one-to-one sitter-cleared as of 08/17/2019 Appreciate psychiatry input and recommendation; does not have any more suicidal ideation and he is cleared from psychiatrist Complains of more pain and denies any other symptoms except weakness Cancer pain Due to metastasis in bones Has been requiring considerable amount of pain medication to keep the pain under control Appreciate palliative care input and recommendation Like to go back to a hospice facility within the next few days Dilaudid has been increased to 2 mg intravenously every 4 hourly He was on OxyContin 80 mg twice daily as an outpatient on top of as needed medication Will start with 40 mg OxyContin twice daily on discharge whenever he is accepted to [facility] Did not tolerate fentanyl patch 08/19/2019 Reviewed palliative care note and will be given OxyContin 60 mg every 8 hourly 1 [facility] to [facility] today He will be getting his usual dose of oxycodone as he was taking before These were explained to him clearly and he is okay with it Bladder cancer with metastasis to the thoracic and lumbar spine, pelvis S/P Palliative radiation and chemo-no more chemo and/or radiation treatment Appreciate radiation oncology input and recommendation in the chart Follows with Dr. Mon for oncology Enrolled in hospice services 2 weeks ago No more radiation and/or chemotherapy Prognosis remains extremely poor He will be going to a facility with hospice care Complicated UTI H/O UTI H/O Right ureteral stent placement, with nephrostomy tube, hematuria, MRSA UTI Urine cultures: Gram-negative bacilli Continue Daptomycin and ceftriaxone Day#3 Urine is growing E. coli which is pansensitive Discontinue daptomycin continue IV ceftriaxone for now We will continue ceftriaxone for now and prescribed oral Keflex to finish the course on discharge No acute urinary symptom H/O CAD denies chest pain, Dyspnea CKD stage III-IV Baseline Cr: 1.6-1.8 Monitor renal function Hypothyroidism TSH mildly elevated Free T4 levels:normal Resume levothyroxine as able H/O Hepatitis C Untreated DVT Px: SCDs No more hematuria and will start subcu heparin twice daily CODE STATUS DNI/DNR as per my discussion with patient and palliative care Disposition Plan to discharge back to [facility] with hospice service as able Discussed with the daughter and [id number], he will not be going back home but in a facility with hospice care Medically stable to go when approved He will be discharged to [facility] this afternoon Admission and Anticipated Discharge Date Admission Date: August 15, 2019 Subjective The patient was seen and examined in the medical floor He complains to have ongoing pain involving multiple areas on the back Denies any shortness of breath and/or palpitation, any abdominal pain, distention, nausea and or vomiting 08/18/2019 The patient was seen and examined in medical floor His pain has been controlled with increasing dose of Dilaudid since yesterday He denies any significant symptoms except pain this morning He was told that he will be given his usual doses of pain medications on discharge 08/19/2019 The patient was seen and examined in medical floor He has been complaining of more pain generalized and at the back Not been eating and does not feel like eating Denies any abdominal pain, nausea and or vomiting 08/20/2019 The patient was seen and examined in medical floor He has been complaining of more pain at the back seen this morning He denies any other symptoms associated with it Remains extremely weak and tired Review of Systems Review of Systems: All systems reviewed and are unremarkable except as noted below Constitutional: + malaise and + weakness Musculoskeletal: Ongoing pain involving the back mainly Physical Exam Physical Exam: Lying in bed with moderate pain involving mainly the back Constitutional: well developed, well nourished and + ill appearing; no acute distress Eyes: PERRL, conjunctivae normal, anicteric sclerae ENMT: external ear and nose normal, oropharynx normal Neck: trachea midline, no thyromegaly Respiratory: normal respiratory effort; no respiratory distress Auscultation: lungs clear to auscultation bilaterally Cardiovascular: Rate/Rhythm: regular rate and regular rhythm Heart Sounds: no murmur Chest (Breasts): Additional Comments: Had a port in the left upper chest wall Gastrointestinal (Abdomen): Inspection/Auscultation: abdomen normal to inspection and normal bowel sounds Percussion/Palpation: abdomen soft; abdomen nontender Musculoskeletal: Complains back pain and pelvic pain Neurologic: moves all extremities; no focal motor deficits Remains weak and lethargic but alert,awake and oriented x3 Psychiatric: Orientation: alert and oriented x 3 Mood: + depressed mood Lymphatic: no cervical or axillary lymphadenopathy Results & Data Results & Data ([facility]) Vital Signs (Past 12 Hours) Vital Signs Temp Pulse Resp BP BP Pulse Ox 08/20/19 11:37 36.6 C 102 H 18 121/78 99 08/20/19 07:06 37.0 C 100 H 20 110/75 99 08/20/19 06:09 36.9 C 123 H 23 141/95 H 96 08/20/19 05:35 140/100 08/20/19 03:14 36.3 C L 110 H 21 174/106 H 95 (1) Medication overdose Encounter type: initial encounter Injury intent: intentional self-harm Qualified Code(s): T50.902A - Poisoning by unspecified drugs, medicaments and biological substances, intentional self-harm, initial encounter
[2019-08-20] MEDS: cefTRIAXone SODIUM 2,000 MG in DEXTROSE 5% 50 ML IV SCH (13:10)
[2019-08-20] MEDS: HEPARIN 100 UNIT/ML 5ML FLUSH FLUSH PRN (14:12)
[2019-08-20] MEDS ORDERED: OXYCODONE HCL 20 MG TABCR (OXYCONTIN) PO SCH (20:00)
--- NOTE | 2019-08-21 07:38 | Discharge Summary ---
Date of Service August 21, 2019 Admission HPI Per Admitting Provider 59-year-old male with history of bladder cancer with bone mets to the thoracic/lumbar spine, and pelvis, Status post positive radiation and chemotherapy, CAD status post stent placement, and other problems noted below presenting with Intentional drug overdose. He is a resident of [facility]. History obtained from staff at [facility]. Patient recently enrolled under hospice services about 2 weeks ago for bladder cancer with bone metastasis to the thoracic and lumbar spine, and pelvis. Apparently radiation and chemotherapy are not recommended at this time anymore. As per skilled nursing staff, the patient was noted to be behaving strangely this morning, more paranoid and anxious. Upon interview, the patient admitted to have taken a handful of pills, mostly his Percocet that he has been hiding for the past few days. He was then brought to the ER for evaluation. At the ER, the patient was received hypertensive and tachycardic. He was given IV Ativan and labetalol with improvement. Urine drug screen positive for opiates, rest of the screen pending. Tylenol level , aspirin level, alcohol level undetectable. On exam, the patient is seen with RN at the bedside. He is awake alert oriented x3, answers questions appropriately. He reports taking a handful of his regular medications which she has been hiding for the past few days-includes Percocet and OxyContin among others. Admits doing this to end his life, as his cancer is already incurable. He denies having any problems with his family. On exam, the patient states that he feels fine overall except for pain on the thoracic region which is chronic. Denies headache, dizziness, change in vision, chest pain, shortness of breath, abdominal pain, nausea vomiting. Denies any other symptoms. Primary Care Provider: [facility] Admission Exam Per Admitting Provider Physical Exam: General- oriented x 3, not in distress, speaks in sentences with no effort or accessory muscle use Head- atraumatic Eyes- PERRL, EOMI, anicteric ENT- oropharynx clear Neck- supple, no JVD, no adenopathy, no thyromegaly; carotids +2/2, no bruits appreciated Lungs- clear to auscultation bilaterally, no rales/wheezes Heart- normal rate, regular rhythm; no murmur, no gallop, no rub appreciated Abdomen- normal bowel sounds, nondistended, soft, nontender, no masses or hepatosplenomegaly Extremities- no pretibial edema, no calf tenderness; peripheral pulses intact Neuro- alert, oriented x 3; CN 2-12 grossly intact; motor 5/5 bilaterally;sensation 100% on all extremities; no other gross focal neurologic deficits Skin- warm & dry Principal Diagnosis Metastatic urinary bladder cancer, cancer related pain, narcotic medication overdose, UTI Discharge Exam Constitutional well developed, well nourished and + ill appearing; no acute distress Eyes PERRL, conjunctivae normal, anicteric sclerae ENMT external ear and nose normal, oropharynx normal Neck trachea midline, no thyromegaly Respiratory normal respiratory effort; no respiratory distress Auscultation: lungs clear to auscultation bilaterally Cardiovascular Rate/Rhythm: regular rate and regular rhythm Heart Sounds: no murmur Gastrointestinal (Abdomen) Inspection/Auscultation: abdomen normal to inspection and normal bowel sounds Percussion/Palpation: abdomen soft; abdomen nontender Neurologic moves all extremities; no focal motor deficits Psychiatric Orientation: alert and oriented x 3 Mood: + depressed mood Lymphatic no cervical or axillary lymphadenopathy Discharge Data Allergies Allergy/AdvReac Type Severity Reaction Status Date / Time morphine Allergy Severe ANAPHYLAXIS Verified 08/15/19 13:24 Penicillins Allergy Intermediate HIVES Verified 08/15/19 13:24 ketorolac [From Toradol] AdvReac Intermediate Unknown Verified 08/15/19 13:24 Consultations 08/15/19 13:30 ED Decision to Admit Stat 08/15/19 18:20 Consult Palliative Care Stat Consult Psychiatry Stat 08/15/19 19:18 Consult Behavioral Health Liaison Routine Hospital Course (1) Medication overdose: (2) Suicidal ideation: Patient is a 59 yr male with H/O Metastatic bladder cancer S/P radiation and chemotherapy, CAD status post stent placement, and other problems noted below presenting with Intentional drug overdose. Intentional medication overdose likely suicidal ideation Has been on one-to-one sitter-cleared as of 08/17/2019 Appreciate psychiatry input and recommendation; does not have any more suicidal ideation and he is cleared from psychiatrist Complains of more pain and denies any other symptoms except weakness Cancer pain Due to metastasis in bones Has been requiring considerable amount of pain medication to keep the pain under control Appreciate palliative care input and recommendation Like to go back to a hospice facility within the next few days Dilaudid has been increased to 2 mg intravenously every 4 hourly He was on OxyContin 80 mg twice daily as an outpatient on top of as needed medication Will start with 40 mg OxyContin twice daily on discharge whenever he is accepted to [facility] Did not tolerate fentanyl patch 08/19/2019 Reviewed palliative care note and will be given OxyContin 60 mg every 8 hourly 1 discharge to [facility] today He will be getting his usual dose of oxycodone as he was taking before These were explained to him clearly and he is okay with it Bladder cancer with metastasis to the thoracic and lumbar spine, pelvis S/P Palliative radiation and chemo-no more chemo and/or radiation treatment Appreciate radiation oncology input and recommendation in the chart Follows with Dr. Mon for oncology Enrolled in hospice services 2 weeks ago No more radiation and/or chemotherapy Prognosis remains extremely poor He will be going to a facility with hospice care Complicated UTI H/O UTI H/O Right ureteral stent placement, with nephrostomy tube, hematuria, MRSA UTI Urine cultures: Gram-negative bacilli Continue Daptomycin and ceftriaxone Day#3 Urine is growing E. coli which is pansensitive Discontinue daptomycin continue IV ceftriaxone for now We will continue ceftriaxone for now and prescribed oral Keflex to finish the course on discharge No acute urinary symptom H/O CAD denies chest pain, Dyspnea CKD stage III-IV Baseline Cr: 1.6-1.8 Monitor renal function Hypothyroidism TSH mildly elevated Free T4 levels:normal Resume levothyroxine as able H/O Hepatitis C Untreated DVT Px: SCDs No more hematuria and will start subcu heparin twice daily CODE STATUS DNI/DNR as per my discussion with patient and palliative care Disposition Plan to discharge back to [facility] with hospice service as able Discussed with the daughter and [id number], he will not be going back home but in a facility with hospice care Medically stable to go when approved He will be discharged to [facility] this afternoon Total Time Total Time Spent Total Time Spent (In Minutes): 35 minutes Total Time Includes: Examination of the Patient, Discharge Planning, Medication Reconciliation and Communication With Other Providers Discharge Plan Discharge Items Patient Disposition[facility] Reason For Visit: PERCOCET OVERDOSE,INTENTIONAL Discharge Diagnosis: Metastatic urinary bladder cancer, cancer related pain, narcotic medication overdose, UTI Condition on Discharge: Fair Activity: Resume your previous activity Non-emergency contact: Primary Care Provider Call non-emergency contact if: you have any medication questions and your symptoms worsen Follow-up/Referrals: Hussein Piña [Primary Care Provider] - (As per hospice care) Diet: Regular Addtl Attending Provider Instructions: Please take precaution to avoid falls Your pain medications have been adjusted as per palliative care Pain medications should be given under supervision Please do not take a few doses together to get better benefit Pending Studies at Discharge: No Stand-Alone Forms: My [facility] Skilled Items Patient informed of condition?: Yes DNR: Yes Discharge Level of Care: Other Communicable Disease: No Discharge Prognosis: Stable Lines: None Urinary Catheter: Yes (Has nephrostomy tube) Medications and DC Order Prescriptions: New clonidine HCl 0.1 mg Tablet 0.1 mg PO BID 30 Days Qty: 60 RF: 0 oxycodone [OxyContin] 20 mg Tablet,Oral Only,Ext.Rel.12 Hr 60 mg PO Q8 2 Days Qty: 18 RF: 0 cephalexin [Keflex] 500 mg capsule 500 mg PO Q8H 5 Days Qty: 15 RF: 0 Continued lorazepam [Ativan] 1 mg tablet 1 mg PO TID RF: 0 polyethylene glycol 3350 [Miralax] 17 gram Powder In Packet 17 g PO DAILY PRN (Reason: Constipation) RF: 0 levothyroxine 100 mcg Tablet 100 mcg PO DAILY@0500 RF: 0 Breo Ellipta 200-25 mcg/dose Blister With Device 1 inh INHALATION DAILY@0800 RF: 0 sennosides [senna] 8.6 mg Tablet 8.6 mg PO BID RF: 0 acetaminophen 325 mg Tablet 650 mg PO Q6 MDD 3gm/24hr PRN (Reason: temp>101) RF: 0 prochlorperazine maleate 10 mg Tablet 10 mg PO Q6H PRN (Reason: Nausea) RF: 0 alum-mag hydroxide-simeth [Maalox Advanced] 200-200-20 mg/5 mL Suspension 15 ml PO Q4 PRN (Reason: Indigestion) RF: 0 oxybutynin chloride 5 mg Tablet 5 mg PO Q6 PRN (Reason: Bladder Spasms) RF: 0 ondansetron HCl 8 mg Tablet 8 mg PO Q8H PRN (Reason: Nausea) RF: 0 buspirone 5 mg Tablet 5 mg PO TID RF: 0 acetaminophen 325 mg Tablet 650 mg PO Q6 MDD 3gm PRN (Reason: Pain) RF: 0 oxycodone-acetaminophen [Percocet] 10-325 mg tablet 1 tab PO Q4H PRN (Reason: pain rated 4-10) 3 Days Qty: 10 RF: 0 Discontinued oxycodone [OxyContin] 80 mg Tablet,Oral Only,Ext.Rel.12 Hr 80 mg PO BID RF: 0 Discharge Orders: Discharge Order (Routine); Ordered 08/20/19 Ordered By: Ayan Fritz Admission Data Admit Date/Time: 08/15/19 15:08 Attending Provider: Ayan Fritz Admit Provider: Milton Rodriguez Primary Care Provider: Hussein Piña Other Providers: Milton Rodriguez ; Salome Murdock ; Tenzin Topete ; Carmen Healy ; Jeffery Espinosa ; Omar Lobo ; Derick De La Paz ; Kelli Signh ; Anthony Ramírez ; Dinaa Gaviria ; Chapis Strauss ; Verena Benavides ; Eve Anthony ; Renato Andujar I. ; Gina Jackson ; Nereyda Arguello ; Vivian Galvan ; Narciso Waters ; [place], ; Spencer Goldstein ; [place] Other Interventions: Discharge Summary Assessment (RN) Last Done: 08/20/19 13:18 DC Date/Time DO NOT enter until pt leaves facility: 08/20/19 15:22
== END 2019-08-20 15:22 | DRG 918 ==
LOC: ED 11:20 → SUATTDRO 15:08 → 2N 15:08

== ENCOUNTER 2019-08-31 02:30 | Inpatient (IN) ==
[2019-08-31] MEDS ORDERED: fentaNYL citrate 100 MCG/2 ML VIAL IV STA (02:48)
[2019-08-31 03:01] LABS: Basophils # (auto) 0.02 K/uL (0-0.2); Basophils % (auto) 0.3 %; Eosinophils # (auto) 0.22 K/uL (0-0.5); Eosinophils % (auto) 3.1 %; Hematocrit (blood only) 31.1 % (42-52); Hemoglobin 9.5 g/dL (14.0-18.0); Immature Granulocytes # (auto) 0.04 K/uL (0.00-0.02); Immature Granulocytes % (auto) 0.6 %; Lymphocytes # (auto) 1.13 K/uL (1.2-3.4); Lymphocytes % (auto) 15.8 %; Mean Corpuscular Hemoglobin 25.1 pg (25-34); Mean Corpuscular Hgb Conc 30.5 g/dL (32-36); Mean Corpuscular Volume 82.3 fL (80-100); Mean Platelet Volume 7.8 fL (7.4-10.4); Neutrophils # (auto) 5.23 K/uL (1.4-6.5); Neutrophils % (auto) 73.2 %; Platelet Count 106 K/uL (130-400); RDW Coefficient of Variation 16.3 % (11.5-14.5); RDW Standard Deviation 49.3 fL (36.4-46.3); Red Blood Count 3.78 M/uL (4.7-6.1); White Blood Count 7.14 K/uL (4.8-10.8)
[2019-08-31 03:19] LABS: Albumin Level 2.7 gm/dl (3.4-5.0); BUN Creatinine Ratio 12.4 (10-20); Calcium 9.2 mg/dl (8.5-10.1); Est GFR (African American) 45.1; Est GFR (Non-African American) 38.9; Potassium 4.5 mmol/L (3.5-5.1)
[2019-08-31 03:22] LABS: Albumin Globulin Ratio 0.5 (0.9-2); Bilirubin,Total 0.2 mg/dl (0.2-1); Total Protein 7.7 gm/dl (6.4-8.2)
[2019-08-31 03:23] LABS: Appearance Urine Cloudy (Clear); Bacteria Urine Automated 4+ (Negative); Bilirubin Urine Negative (Negative); Blood Urine 2+ (Negative); Color Urine Yellow; Glucose Urine UA Negative (Negative); Ketones Urine Negative (Negative); Leukocyte Esterase Urine 3+ (Negative); Nitrite Urine Positive (Negative); Protein Urine 2+ (Negative); Specific Gravity Urine 1.012 (1.000-1.030); Urobilinogen Urine Negative (Negative); WBC Urine Automated >30 /hpf (0-5)
--- NOTE | 2019-08-31 04:04 | Emergency Department Note ---
History of Present Illness General Chief complaint: Flank Pain Stated complaint: KIDNEY PAIN History of Present Illness Maximum Pain Intensity: 8 This 59-year-old on hospice for metastatic carcinoma presents to the ER complaining of abdominal pain Location: Mid abdomen Quality: Painful Severity: Moderate Duration: Tonight Timing: Tonight Context: Patient wants to know why he is having pain and came in Modifying factors: better with nothing; worse with activity Patient is on hospice care. He states he would like labs and imaging tonight. He does have a urostomy bag to the left kidney. Patient denies chest pain, dyspnea, flulike illness. The urostomy bag is draining normally. Home Medications Home Medications Medication Instructions Recorded Confirmed Type levothyroxine 100 mcg PO DAILY@0500 12/24/18 08/31/19 History polyethylene glycol 3350 [Miralax] 17 g PO DAILY PRN 12/24/18 08/31/19 History Breo Ellipta 1 inh INHALATION DAILY@0800 06/08/19 08/31/19 History acetaminophen 650 mg PO Q6 PRN MDD 3gm/24hr 06/08/19 08/31/19 History alum-mag hydroxide-simeth [Maalox 15 ml PO Q4 PRN 06/08/19 08/31/19 History Advanced] ondansetron HCl 8 mg PO Q8H PRN 06/08/19 08/31/19 History oxybutynin chloride 5 mg PO Q6 PRN 06/08/19 08/31/19 History prochlorperazine maleate 10 mg PO Q6H PRN 06/08/19 08/31/19 History sennosides [senna] 8.6 mg PO BID 06/08/19 08/31/19 History lorazepam 1 mg tablet 1 mg PO Q6H 06/30/19 08/31/19 History buspirone 5 mg PO TID 07/18/19 08/31/19 History clonidine HCl 0.1 mg PO BID 30 Days #60 tab 08/20/19 08/31/19 Rx 2 Santosh Suppliment 1 dose PO TID 08/31/19 08/31/19 History magnesium hydroxide [Milk of 30 ml PO DAILY PRN 08/31/19 08/31/19 History Magnesia] oxycodone [OxyContin] 80 mg PO Q12H 08/31/19 08/31/19 History oxycodone-acetaminophen [Percocet] 2 tab PO Q4H PRN 08/31/19 08/31/19 History Allergies Allergy/AdvReac Type Severity Reaction Status Date / Time morphine Allergy Severe ANAPHYLAXIS Verified 08/31/19 03:29 Penicillins Allergy Intermediate HIVES Verified 08/31/19 03:29 ketorolac [From Toradol] AdvReac Unknown Unknown Verified 08/31/19 03:29 Past Med/Surg History Medical History Acute UTI (Inactive) MIKIE (acute kidney injury) Alcoholic pancreatitis Anemia CHRONIC; BASELINE HGB 8-9 RANGE PER CHART REVIEW Asthma (08/31/12) Back pain Bladder cancer Blindness of right eye BPH (benign prostatic hyperplasia) Cancer of kidney Cancer related pain Chronic anemia Coronary artery disease (08/31/12) STENTS X 2 (1+ YEARS AGO) Encounter for pre-operative examination Hematuria (Inactive) Hepatitis C History of chemotherapy Finished 10/08/2018 - Carboplatin/Gemcitabine x 2 cycles Hydroureter Hydroureter on left Hyperlipidemia Hypothyroidism (08/31/12) Inferior pubic ramus fracture Intractable pain (Inactive) Kidney stones Lower abdominal pain (Inactive) Myocardial Infarction Pathological fracture of pelvis (Inactive) Pulmonary nodule Screening for colon cancer UTI (urinary tract infection) Surgical History History of transurethral destruction of bladder lesion S/P cholecystectomy S/P colonoscopy S/P hernia repair Family History Mother , age 69 [place] No problems noted. Father , age 75 diab. comp No problems noted. Brother , age 45 drug overdose No problems noted. Brother , age 34 No problems noted. Sister Kidney disease Sister No problems noted. Daughter No problems noted. Daughter No problems noted. Son No problems noted. Son No problems noted. Son No problems noted. Son No problems noted. Son No problems noted. Son No problems noted. Other Coronary heart disease Diabetes Social History Preferred Language: [place] Communication Ability: Effective Visual Impairment: No Limitations Table Games Manager Required: No Beliefs That Will Affect Care: None marital status: Current Living Situation: Detention Current Living Situation Comment: [facility] current occupational status: unemployed current occupation: [employer] Feels Safe at Home: Yes Smoking Status: Never smoker Tobacco Type: cigarettes ; Age Started Using Tobacco: 13 ; packs per day: 1 ; Cigarettes Per Day: 0-3 ; Second Hand Exposure: No ; Hx Alcohol Use: Yes Hx Substance Use: Yes substance use type: painkillers Substance Use Type Other: : percocet, oxycontin Last Used Substance: Unknown Childhood Exposure to Second-Hand Smoke: Yes caffeine: Yes (one cup ) during the past year weight has: other Dental Care, Regularly: No Physical Activity Frequency: Does not Exercise Seatbelt Use: always Sunscreen Use: Yes Review of Systems A total of 10 systems reviewed and were otherwise negative Physical Exam Vital Signs Vital Signs - 24 hr 08/31/19 02:36 08/31/19 02:58 08/31/19 03:41 Temperature 36.9 C Temperature Source Oral Pulse Rate 115 H Pulse Rate [Finger] 99 H Respiratory Rate 16 20 Respiratory Effort / Characteristics Non-Labored Spontaneous Respiratory Depth Normal Blood Pressure 138/86 Blood Pressure [Right Arm] 134/85 Blood Pressure Mean 103 Blood Pressure Mean [Right Arm] 101 Blood Pressure Position Lying Pulse Oximetry 94 96 94 Oxygen Delivery Method Room Air Room Air Room Air Sepsis Recent Fever Within 48 Hours No Sepsis New/Unexplained Change in Mental Status No Sepsis Action Taken by Nursing No Action Required 08/31/19 04:30 08/31/19 05:37 Temperature Temperature Source Pulse Rate Pulse Rate [Finger] 98 H 91 H Respiratory Rate 20 20 Respiratory Effort / Characteristics Non-Labored Spontaneous Respiratory Depth Normal Blood Pressure Blood Pressure [Right Arm] 146/91 H 154/84 H Blood Pressure Mean Blood Pressure Mean [Right Arm] 109 107 Blood Pressure Position Pulse Oximetry 99 93 Oxygen Delivery Method Room Air Room Air Sepsis Recent Fever Within 48 Hours Sepsis New/Unexplained Change in Mental Status Sepsis Action Taken by Nursing VITALS: Vitals are noted on the nurse's note and reviewed by myself. Vital signs stable. GENERAL: White male, in no acute distress, nondiaphoretic, well-developed well- nourished. SKIN: Capillary reflex less than 2 seconds. HEENT: Normocephalic. PERRLA. EOMI. Nares patent. Mucous membranes moist. Neck is supple without nuchal rigidity. HEART: Regular rate and rhythm LUNGS: Clear to auscultation bilaterally without wheezes, rales or rhonchi. No retractions or accessory muscle use. ABDOMEN: Positive bowel sounds x 4. Normal tympanic percussion. Soft, diffusely tender to palpation, without masses or organomegaly. Balbuena sign negative. No guarding or rebound tenderness. No CVA tenderness. Left urostomy tube in place without signs of infection actively draining. MUSCULOSKELETAL: No gross musculoskeletal defects. NEURO: Patient was alert and oriented to person place and time. Normal sensation to light and sharp touch. Deep tendon reflexes 2+[]. No focal neurological deficits. Course Administered Medications Discontinued Medications Fentanyl Citrate (Fentanyl Citrate) 50 mcg IV NOW STA Stop: 08/31/19 02:49 Last Admin: 08/31/19 02:57 Dose: 50 mcg Documented by: [id number] Hydromorphone HCl (Dilaudid) 0.5 mg IV NOW STA Stop: 08/31/19 04:23 Last Admin: 08/31/19 04:27 Dose: 0.5 mg Documented by: [id number] Hydromorphone HCl (Dilaudid) 1 mg IV NOW STA Stop: 08/31/19 05:28 Last Admin: 08/31/19 05:36 Dose: 1 mg Documented by: [id number] Sodium Chloride (Nss 1000ml) 500 mls @ 999 mls/hr IV .Q31M ONE Stop: 08/31/19 04:36 Last Infusion: 08/31/19 04:59 Dose: 0 mls/hr Documented by: [id number] Admin: 08/31/19 04:27 Dose: 999 mls/hr Documented by: [id number] Ceftriaxone Sodium (Rocephin) 2,000 mg in 70 mls @ 140 mls/hr IV NOW STA Stop: 08/31/19 04:45 Last Infusion: 08/31/19 05:01 Dose: 0 mls/hr Documented by: [id number] Admin: 08/31/19 04:30 Dose: 140 mls/hr Documented by: [id number] Medical Decision Making Medical Records Attestation: I reviewed the patient's medical records. Home Medications Current Medication List: was personally reviewed by me Laboratory Data Attestation: I reviewed the patient's lab results. Result diagrams: 08/31/19 02:47 08/31/19 02:47 Lab Results 08/31/19 08/31/19 08/31/19 Range/Units 02:47 02:47 02:47 WBC 7.14 (4.8-10.8) K/uL RBC 3.78 L (4.7-6.1) M/uL Hgb 9.5 L (14.0-18.0) g/dL Hct 31.1 L (42-52) % MCV 82.3 (80-100) fL MCH 25.1 (25-34) pg MCHC 30.5 L (32-36) g/dL RDW Std Deviation 49.3 H (36.4-46.3) fL RDW Coeff of Fareed 16.3 H (11.5-14.5) % Plt Count 106 L (130-400) K/uL MPV 7.8 (7.4-10.4) fL Immature Gran % (Auto) 0.6 % Neut % (Auto) 73.2 % Lymph % (Auto) 15.8 % [place] % (Auto) 7.0 % Eos % (Auto) 3.1 % Baso % (Auto) 0.3 % Neut # (Auto) 5.23 (1.4-6.5) K/uL Lymph # (Auto) 1.13 L (1.2-3.4) K/uL [place] # (Auto) 0.50 (0.11-0.59) K/uL Eos # (Auto) 0.22 (0-0.5) K/uL Baso # (Auto) 0.02 (0-0.2) K/uL Immature Gran # (Auto) 0.04 H (0.00-0.02) K/uL Sodium 139 (136-145) mmol/L Potassium 4.5 (3.5-5.1) mmol/L Chloride 107 (98-107) mmol/L Carbon Dioxide 25 (21-32) mmol/L Anion Gap 7.0 (3-11) BUN 23 H (7-18) mg/dl Creatinine 1.83 H (0.6-1.4) mg/dl Est Cr Clr Drug Dosing 46.0 ml/min Est GFR ( Amer) 45.1 Est GFR (Non-Af Amer) 38.9 BUN/Creatinine Ratio 12.4 (10-20) Glucose 99 (70-99) mg/dl Calcium 9.2 (8.5-10.1) mg/dl Magnesium (1.8-2.4) mg/dl Total Bilirubin 0.2 (0.2-1) mg/dl AST 20 (15-37) U/L ALT 17 (12-78) U/L Alkaline Phosphatase 709 H (45-117) U/L Total Protein 7.7 (6.4-8.2) gm/dl Albumin 2.7 L (3.4-5.0) gm/dl Globulin 5.0 H (2.5-4.0) gm/dl Albumin/Globulin Ratio 0.5 L (0.9-2) Lipase 211 (73-393) U/L Urine Color Yellow Urine Appearance Cloudy A (Clear) Urine pH 6.0 (4.5-7.5) Ur Specific [place] 1.012 (1.000-1.030) Urine Protein 2+ H (Negative) Urine Glucose (UA) Negative (Negative) Urine Ketones Negative (Negative) Urine Blood 2+ H (Negative) Urine Nitrite Positive A (Negative) Urine Bilirubin Negative (Negative) Urine Urobilinogen Negative (Negative) Ur Leukocyte Esterase 3+ H (Negative) Urine WBC (Auto) >30 H (0-5) /hpf Urine RBC (Auto) 5-10 H (0-4) /hpf U Hyaline Cast (Auto) 1-5 (0-5) /lpf U Epithel Cells (Auto) 10-20 H (0-5) /lpf Urine Bacteria (Auto) 4+ H (Negative) Urine Yeast Not Reportable 08/31/19 Range/Units 02:47 WBC (4.8-10.8) K/uL RBC (4.7-6.1) M/uL Hgb (14.0-18.0) g/dL Hct (42-52) % MCV (80-100) fL MCH (25-34) pg MCHC (32-36) g/dL RDW Std Deviation (36.4-46.3) fL RDW Coeff of Fareed (11.5-14.5) % Plt Count (130-400) K/uL MPV (7.4-10.4) fL Immature Gran % (Auto) % Neut % (Auto) % Lymph % (Auto) % [place] % (Auto) % Eos % (Auto) % Baso % (Auto) % Neut # (Auto) (1.4-6.5) K/uL Lymph # (Auto) (1.2-3.4) K/uL [place] # (Auto) (0.11-0.59) K/uL Eos # (Auto) (0-0.5) K/uL Baso # (Auto) (0-0.2) K/uL Immature Gran # (Auto) (0.00-0.02) K/uL Sodium (136-145) mmol/L Potassium (3.5-5.1) mmol/L Chloride (98-107) mmol/L Carbon Dioxide (21-32) mmol/L Anion Gap (3-11) BUN (7-18) mg/dl Creatinine (0.6-1.4) mg/dl Est Cr Clr Drug Dosing ml/min Est GFR ( Amer) Est GFR (Non-Af Amer) BUN/Creatinine Ratio (10-20) Glucose (70-99) mg/dl Calcium (8.5-10.1) mg/dl Magnesium 1.9 (1.8-2.4) mg/dl Total Bilirubin (0.2-1) mg/dl AST (15-37) U/L ALT (12-78) U/L Alkaline Phosphatase (45-117) U/L Total Protein (6.4-8.2) gm/dl Albumin (3.4-5.0) gm/dl Globulin (2.5-4.0) gm/dl Albumin/Globulin Ratio (0.9-2) Lipase (73-393) U/L Urine Color Urine Appearance (Clear) Urine pH (4.5-7.5) Ur Specific [place] (1.000-1.030) Urine Protein (Negative) Urine Glucose (UA) (Negative) Urine Ketones (Negative) Urine Blood (Negative) Urine Nitrite (Negative) Urine Bilirubin (Negative) Urine Urobilinogen (Negative) Ur Leukocyte Esterase (Negative) Urine WBC (Auto) (0-5) /hpf Urine RBC (Auto) (0-4) /hpf U Hyaline Cast (Auto) (0-5) /lpf U Epithel Cells (Auto) (0-5) /lpf Urine Bacteria (Auto) (Negative) Urine Yeast Imaging Data Attestation: I personally reviewed and interpreted this imaging study as follows: Blood Pressure Blood Pressure Findings: Normal blood pressure MDM Narrative Prior records/ancillary studies reviewed. Triage Nursing notes reviewed. Additional history obtained from EMS. The patient's history was concerning for abdominal pain. Differential diagnosis: Etiologies such as progression of his cancer, appendicitis, diverticulitis, PUD, biliary pathology, UTI, pancreatitis, obstruction, mesenteric ischemia, aortic pathology, infections, inflammatory bowel disease, renal colic, as well as others were entertained. Physical examination findings: As above. ER treatment provided: An order was placed for continuous cardiac monitoring. The monitor shows a rate of 60-120 with a normal sinus rhythm. Fentanyl, Dilaudid. Patient states he takes this daily without issue. Rocephin for UTI and culture was reviewed On reassessment the patient felt better. Diagnostics interpreted by me: The labs revealed no leukocytosis, stable anemia Creatinine 1.83 Urine concerning for infection and sent for culture; last urine culture was sensitive to Rocephin Imaging studies: CT ABDOMEN & PELVIS Without Contrast: Mucosal mass within the bladder. Left nephrostomy tube in place. No hydronephrosis on the left. Right double-J nephroureteral stent in place with moderate hydronephrosis. Numerous metastatic pulmonary nodules at the lung bases. Incompletely characterized low-attenuation lesion within the right hepatic lobe measuring 2 cm, potentially metastatic lesion. Infrarenal abdominal aortic aneurysm measuring 3 cm with atherosclerotic calcifications. Hiatal hernia. Extensive osseous metastatic disease within the pelvis and spine. Pathologic compression fractures at L4 and L5. Radiologist: Chintan Nazario MD Consultation: A consultation was placed with the hospitalist, Dr. Valero. The case was dis cussed and diagnostics were reviewed. The patient was evaluated in the ER for further treatment. Exam and history seem consistent with UTI and intractable cancer pain. Urine culture was reviewed. It is sensitive to Rocephin. Patient has been on Keflex. Medicine was consulted. Patient is requesting to stay. By the evaluation outlined above emergent etiologies such as appendicitis, diverticulitis, PUD, biliary pathology, pancreatitis, obstruction, mesenteric ischemia, aortic pathology, inflammatory bowel disease, renal colic, as well as others were deemed relatively unlikely. The pt informed about the findings as listed above. All questions were answered and pleased with the treatment. The chart was completed utilizing [employer] Speech voice recognition software. Grammatical errors, random word insertions, pronoun errors, and incomplete sentences are an occassional consequence of this system due to software limitations, ambient noise, and hardware issues. Any formal questions or concerns about the content, text, or information contained within the body of this dictation should be directly addressed to the physician recycling assistant for clarification. 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, Acute UTI, Cancer related pain Patient Disposition: Being Evaluated by Hospitalist Condition: Fair Forms Stand Alone Forms: [facility] Prescriptions Prescriptions: No Action lorazepam [Ativan] 1 mg tablet 1 mg PO Q6H RF: 0 polyethylene glycol 3350 [Miralax] 17 gram Powder In Packet 17 g PO DAILY PRN (Reason: Constipation) RF: 0 levothyroxine 100 mcg Tablet 100 mcg PO DAILY@0500 RF: 0 Breo Ellipta 200-25 mcg/dose Blister With Device 1 inh INHALATION DAILY@0800 RF: 0 sennosides [senna] 8.6 mg Tablet 8.6 mg PO BID RF: 0 acetaminophen 325 mg Tablet 650 mg PO Q6 MDD 3gm/24hr PRN (Reason: FEVER/PAIN) RF: 0 prochlorperazine maleate 10 mg Tablet 10 mg PO Q6H PRN (Reason: Nausea) RF: 0 alum-mag hydroxide-simeth [Maalox Advanced] 200-200-20 mg/5 mL Suspension 15 ml PO Q4 PRN (Reason: Indigestion) RF: 0 oxybutynin chloride 5 mg Tablet 5 mg PO Q6 PRN (Reason: Bladder Spasms) RF: 0 ondansetron HCl 8 mg Tablet 8 mg PO Q8H PRN (Reason: Nausea) RF: 0 buspirone 5 mg Tablet 5 mg PO TID RF: 0 clonidine HCl 0.1 mg Tablet 0.1 mg PO BID 30 Days Qty: 60 RF: 0 2 Santosh Suppliment 1 dose PO TID RF: 0 magnesium hydroxide [Milk of Magnesia] 400 mg/5 mL Suspension 30 ml PO DAILY PRN (Reason: Constipation) RF: 0 oxycodone [OxyContin] 80 mg Tablet,Oral Only,Ext.Rel.12 Hr 80 mg PO Q12H RF: 0 oxycodone-acetaminophen [Percocet] 10-325 mg tablet 2 tab PO Q4H PRN (Reason: pain rated 4-10) RF: 0 Referrals Referrals: Evens Piña [Primary Care Provider] -
[2019-08-31] MEDS ORDERED: SODIUM CHLORIDE 0.9% 1000ML 500 ML IV ONE (04:06)
[2019-08-31] MEDS ORDERED: cefTRIAXone SODIUM 2,000 MG/70 ML BAG IV STA (04:16)
[2019-08-31] MEDS ORDERED: HYDROmorphone INJ 0.5 MG/0.5 ML SYR IV STA (04:22)
[2019-08-31] MEDS ORDERED: HYDROmorphone INJ 1 MG/ML SYRINGE IV STA (05:27)
--- NOTE | 2019-08-31 06:35 | History & Physical Report ---
Date of Service August 31, 2019 Assessment & Plan (1) Abdominal pain: Multifactorial : Cancer pain, metastatic bladder cancer status post surgery and chemoradiation on chronic pain rx, progressive disease Narcotic induced constipation Complicated UTI, no sepsis chronic systolic heart failure (EF 45%, TTE 2018), equivocal volume status ARF secondary to illness Hypertension, elevated secondary discomfort CAD sp stent COPD as per records, pulmonary status at baseline hx chronic HCV infection, treatment precluded by patient's terminal malignancy hypothyroidism, TSH slightly elevated a few weeks ago chronic anemia, hemoglobin at baseline past tobacco/alcohol abuse as per records Medical telemetry Continue home RTC OxyContin, Dilaudid PRN, Lidoderm patch ? Add Fentanyl patch to regimen once with bowel movement Palliative care consult RE uncontrolled cancer pain ? Consult Radiation Oncology for cancer pain if patient amenable (patient refused additional radiotherapy as per note.) Augment bowel regimen, lactulose 1 dose now, methylnaltrexone 1 dose IV albumin given equivocal volume status, follow renal function Following cultures, IV Ceftriaxone Facilitate home clonidine, may need dose titration DVT prophylaxis. SCDs RE intermittent hematuria as per records DNR Text document was generated using [employer] voice recognition software. It may contain grammatical or spelling errors. Kindly contact undersigned for clarification of any documentation item in questi on. History of Present Illness Chief Complaint: Worsening flank pain Primary Care Provider: [facility] History obtained from patient and records. Medical history significant for chronic systolic heart failure (EF 45%, TTE 201 8), CAD sp stent, COPD as per records, chronic HCV infection, metastatic bladder cancer status post surgery and chemoradiation on chronic pain rx, HTN, hypothyroidism, chronic anemia (baseline hemoglobin of 9), past tobacco/alcohol abuse as per records, drug-seeking behavior as per records. Last confinement 2 weeks ago for Percocet overdose. As per account, patient took a handful of Percocet pills (that he had been hiding from jail staff) with a desire to end his life as his cancer was incurable. Patient seen by palliative care during confinement. Patient discharged back to the [facility] for hospice care. Patient underwent exchange of left nephrostomy catheter by IR at [facility] last week. As per patient, worsening abdominal/flank pain since discharge from the hospital 2 weeks ago. Dysuria symptoms as per patient. No BM for 4 days. No chest pain, no S OB. At the ER, patient received IV ceftriaxone for UTI. Patient refusing discharge back to the [facility] because of intractable pain. Medical History as above Surgical History : Cystoscopy, ureteral stent placement, bladder tumor fulguration, vascular procedure, nephrostomy tube placement, TURP, thoracotomy Family History : Heart disease, seizure disorder, MS Personal/Social history : Past tobacco/alcohol abuse, jail resident on hospice care Allergies Allergy/AdvReac Type Severity Reaction Status Date / Time morphine Allergy Severe ANAPHYLAXIS Verified 08/31/19 03:29 Penicillins Allergy Intermediate HIVES Verified 08/31/19 03:29 ketorolac [From Toradol] AdvReac Unknown Unknown Verified 08/31/19 03:29 Home Medications Home Medications Medication Instructions Recorded Confirmed Type levothyroxine 100 mcg PO DAILY@0500 12/24/18 08/31/19 History polyethylene glycol 3350 [Miralax] 17 g PO DAILY PRN 12/24/18 08/31/19 History Breo Ellipta 1 inh INHALATION DAILY@0800 06/08/19 08/31/19 History acetaminophen 650 mg PO Q6 PRN MDD 3gm/24hr 06/08/19 08/31/19 History alum-mag hydroxide-simeth [Maalox 15 ml PO Q4 PRN 06/08/19 08/31/19 History Advanced] ondansetron HCl 8 mg PO Q8H PRN 06/08/19 08/31/19 History oxybutynin chloride 5 mg PO Q6 PRN 06/08/19 08/31/19 History prochlorperazine maleate 10 mg PO Q6H PRN 06/08/19 08/31/19 History sennosides [senna] 8.6 mg PO BID 06/08/19 08/31/19 History lorazepam 1 mg tablet 1 mg PO Q6H 06/30/19 08/31/19 History buspirone 5 mg PO TID 07/18/19 08/31/19 History clonidine HCl 0.1 mg PO BID 30 Days #60 tab 08/20/19 08/31/19 Rx 2 Santosh Suppliment 1 dose PO TID 08/31/19 08/31/19 History magnesium hydroxide [Milk of 30 ml PO DAILY PRN 08/31/19 08/31/19 History Magnesia] oxycodone [OxyContin] 80 mg PO Q12H 08/31/19 08/31/19 History oxycodone-acetaminophen [Percocet] 2 tab PO Q4H PRN 08/31/19 08/31/19 History Past Med/Surg History Medical History Acute UTI (Inactive) MIKIE (acute kidney injury) Alcoholic pancreatitis Anemia CHRONIC; BASELINE HGB 8-9 RANGE PER CHART REVIEW Asthma (08/31/12) Back pain Bladder cancer Blindness of right eye BPH (benign prostatic hyperplasia) Cancer of kidney Cancer related pain Chronic anemia Coronary artery disease (08/31/12) STENTS X 2 (1+ YEARS AGO) Encounter for pre-operative examination Hematuria (Inactive) Hepatitis C History of chemotherapy Finished 10/08/2018 - Carboplatin/Gemcitabine x 2 cycles Hydroureter Hydroureter on left Hyperlipidemia Hypothyroidism (08/31/12) Inferior pubic ramus fracture Intractable pain (Inactive) Kidney stones Lower abdominal pain (Inactive) Myocardial Infarction Pathological fracture of pelvis (Inactive) Pulmonary nodule Screening for colon cancer UTI (urinary tract infection) Surgical History History of transurethral destruction of bladder lesion S/P cholecystectomy S/P colonoscopy S/P hernia repair Family History Mother , age 69 [place] No problems noted. Father , age 75 diab. comp No problems noted. Brother , age 45 drug overdose No problems noted. Brother , age 34 No problems noted. Sister Kidney disease Sister No problems noted. Daughter No problems noted. Daughter No problems noted. Son No problems noted. Son No problems noted. Son No problems noted. Son No problems noted. Son No problems noted. Son No problems noted. Other Coronary heart disease Diabetes Social History Preferred Language: [place] Communication Ability: Effective Visual Impairment: No Limitations Acid Tank Cleaner Required: No Beliefs That Will Affect Care: None marital status: Current Living Situation: Long-Term Current Living Situation Comment: [facility] current occupational status: unemployed current occupation: [employer] Other Information That Helps Us Care for You: No Feels Safe at Home: Yes Smoking Status: Former smoker Tobacco Type: cigarettes ; Age Started Using Tobacco: 13 ; packs per day: 1 ; Cigarettes Per Day: 0-3 ; Do You Dip or Chew Tobacco: No ; Second Hand Exposure: No ; Tobacco Cessation Education Requested by Patient: No Hx Alcohol Use: Yes Hx Substance Use: Yes substance use type: painkillers Substance Use Type Other:: percocet, oxycontin Last Used Substance: Unknown Childhood Exposure to Second-Hand Smoke: Yes caffeine: Yes (one cup ) during the past year weight has: other Dental Care, Regularly: No Physical Activity Frequency: Does not Exercise Seatbelt Use: always Sunscreen Use: Yes Review of Systems Review of Systems: As per HPI, all 10 systems reviewed, all other ROS negative Physical Exam Physical Exam: GENERAL: uncomfortable, anxious, obese, no respiratory distress SKIN: Pallor, warm HEENT: Alopecia, bespectacled, pale palpebral conjunctivae, no ptosis, dry buccal mucosa NECK : Supple, short neck, no tenderness CHEST : Decreased breath sounds , no tenderness HEART : RRR, no obvious murmurs ABDOMEN: Some distention, hypogastric tenderness EXTREMITIES : Minimal LE swelling, no LE tenderness, no other conspicuous deformities noted NEUROLOGIC : Coherent, no facial asymmetry, no other gross focality Results & Data Results & Data ([facility]) Vital Signs (Past 12 Hours) Vital Signs Temp Pulse Pulse Resp BP BP Pulse Ox 08/31/19 05:37 91 H 20 154/84 H 93 08/31/19 04:30 98 H 20 146/91 H 99 08/31/19 03:41 99 H 20 134/85 94 08/31/19 02:58 96 08/31/19 02:36 36.9 C 115 H 16 138/86 94 Laboratory Results Laboratory Results WBC 7.14 K/uL (4.8-10.8) 08/31/19 02:47 RBC 3.78 M/uL (4.7-6.1) L 08/31/19 02:47 Hgb 9.5 g/dL (14.0-18.0) L 08/31/19 02:47 Hct 31.1 % (42-52) L 08/31/19 02:47 MCV 82.3 fL (80-100) 08/31/19 02:47 MCH 25.1 pg (25-34) 08/31/19 02:47 MCHC 30.5 g/dL (32-36) L 08/31/19 02:47 RDW Std Deviation 49.3 fL (36.4-46.3) H 08/31/19 02:47 RDW Coeff of Fareed 16.3 % (11.5-14.5) H 08/31/19 02:47 Plt Count 106 K/uL (130-400) L 08/31/19 02:47 MPV 7.8 fL (7.4-10.4) 08/31/19 02:47 Immature Gran % (Auto) 0.6 % 08/31/19 02:47 Neut % (Auto) 73.2 % 08/31/19 02:47 Lymph % (Auto) 15.8 % 08/31/19 02:47 [place] % (Auto) 7.0 % 08/31/19 02:47 Eos % (Auto) 3.1 % 08/31/19 02:47 Baso % (Auto) 0.3 % 08/31/19 02:47 Neut # (Auto) 5.23 K/uL (1.4-6.5) 08/31/19 02:47 Lymph # (Auto) 1.13 K/uL (1.2-3.4) L 08/31/19 02:47 [place] # (Auto) 0.50 K/uL (0.11-0.59) 08/31/19 02:47 Eos # (Auto) 0.22 K/uL (0-0.5) 08/31/19 02:47 Baso # (Auto) 0.02 K/uL (0-0.2) 08/31/19 02:47 Immature Gran # (Auto) 0.04 K/uL (0.00-0.02) H 08/31/19 02:47 Sodium 139 mmol/L (136-145) 08/31/19 02:47 Potassium 4.5 mmol/L (3.5-5.1) 08/31/19 02:47 Chloride 107 mmol/L (98-107) 08/31/19 02:47 Carbon Dioxide 25 mmol/L (21-32) 08/31/19 02:47 Anion Gap 7.0 (3-11) 08/31/19 02:47 BUN 23 mg/dl (7-18) H 08/31/19 02:47 Creatinine 1.83 mg/dl (0.6-1.4) H 08/31/19 02:47 Est Cr Clr Drug Dosing 46.0 ml/min 08/31/19 02:47 Est GFR ( Amer) 45.1 08/31/19 02:47 Est GFR (Non-Af Amer) 38.9 08/31/19 02:47 BUN/Creatinine Ratio 12.4 (10-20) 08/31/19 02:47 Glucose 99 mg/dl (70-99) 08/31/19 02:47 Calcium 9.2 mg/dl (8.5-10.1) 08/31/19 02:47 Magnesium 1.9 mg/dl (1.8-2.4) 08/31/19 02:47 Total Bilirubin 0.2 mg/dl (0.2-1) 08/31/19 02:47 AST 20 U/L (15-37) 08/31/19 02:47 ALT 17 U/L (12-78) 08/31/19 02:47 Alkaline Phosphatase 709 U/L (45-117) H 08/31/19 02:47 Total Protein 7.7 gm/dl (6.4-8.2) 08/31/19 02:47 Albumin 2.7 gm/dl (3.4-5.0) L 08/31/19 02:47 Globulin 5.0 gm/dl (2.5-4.0) H 08/31/19 02:47 Albumin/Globulin Ratio 0.5 (0.9-2) L 08/31/19 02:47 Lipase 211 U/L (73-393) 08/31/19 02:47 Urine Color Yellow 08/31/19 02:47 Urine Appearance Cloudy (Clear) A 08/31/19 02:47 Urine pH 6.0 (4.5-7.5) 08/31/19 02:47 Ur Specific [place] 1.012 (1.000-1.030) 08/31/19 02:47 Urine Protein 2+ (Negative) H 08/31/19 02:47 Urine Glucose (UA) Negative (Negative) 08/31/19 02:47 Urine Ketones Negative (Negative) 08/31/19 02:47 Urine Blood 2+ (Negative) H 08/31/19 02:47 Urine Nitrite Positive (Negative) A 08/31/19 02:47 Urine Bilirubin Negative (Negative) 08/31/19 02:47 Urine Urobilinogen Negative (Negative) 08/31/19 02:47 Ur Leukocyte Esterase 3+ (Negative) H 08/31/19 02:47 Urine WBC (Auto) >30 /hpf (0-5) H 08/31/19 02:47 Urine RBC (Auto) 5-10 /hpf (0-4) H 08/31/19 02:47 U Hyaline Cast (Auto) 1-5 /lpf (0-5) 08/31/19 02:47 U Epithel Cells (Auto) 10-20 /lpf (0-5) H 08/31/19 02:47 Urine Bacteria (Auto) 4+ (Negative) H 08/31/19 02:47 Urine Yeast Not Reportable 08/31/19 02:[address] abdomen pelvis initial read: Mucosal mass within bladder. Left nephrostomy tube in place. No hydronephrosis on the left. Right double-J nephroureteral stent in place with moderate hydronephrosis. Numerous metastatic pulmonary nodules at the lung bases. Potential metastatic right liver lesion. Infrarenal AAA measuring 3 cm with atherosclerotic calcifications. Hiatal hernia. Extensive osseous metastatic disease within pelvis and spine. Pathologic compression fracture L4-L5. Chest x-ray as per my interpretation : Minimal congestion, bilateral pulmonary nodules, elevated right hemidiaphragm
[2019-08-31] MEDS: HYDROmorphone INJ 1 MG/ML SYRINGE IV PRN ×5 (07:40→23:22)
[2019-08-31] MEDS: LIDOCAINE 5% 1 PATCH TD SCH (07:40)
--- NOTE | 2019-08-31 08:01 | XRay Report ---
XR chest 1V portable HISTORY: renal failure COMPARISON: Chest 08/15/2019. FINDINGS: No pneumothorax. No pleural effusions. Chronic elevation the right hemidiaphragm. The heart is normal in size. Bilateral pulmonary nodules are again noted. The largest in the left upper lobe m easures 3 cm. There is mild central pulmonary vascular congestion without overt edema. There are low lung volumes. Right jugular Port-A-Cath remains unchanged in position. IMPRESSION: 1. No significant change compared to the prior study. 2. Mild central pulmonary vascular congestion without overt edema. 3. Pulmonary metastatic disease is again noted. ACT 112: Negative or not required by law. Electronically signed by: Otf Dietz M.D. 08/31/2019 8:00 AM
--- NOTE | 2019-08-31 08:03 | CT Scan Report ---
CT abd pelvis wo con CT DOSE: 763.93 mGy.cm HISTORY: Bladder carcinoma mid abd pain, bladder CA w/ mets TECHNIQUE: Multiaxial CT images of the abdomen and pelvis were performed without contrast. A dose lo wering technique was utilized adhering to the principles of ALARA. COMPARISON STUDY: 07/17/2019 FINDINGS: Lung bases are unremarkable for multifocal nodular changes. This is consistent with that of metastatic disease. There is trace amount of pleural fluid left lung base. Prior cholecystectomy. Hyperdensity within the right hepatic lobe measuring 2 cm suggestive of metast atic deposit. Spleen and pancreas are grossly unremarkable. There is a right ureteral stent. There is a left-sided nephrostomy. There are soft tissue masses within the anterior and posterior aspects bladder wall. The adrenal glands show minimal hyperplastic change. The bowel pattern is nonobstructive. 2.5 cm soft tissue density origin left inguinal region. Diffuse bony metastatic change throughout. Compression deformity considered pathologic at L4 and L5 m ost likely unchanged compared to the prior exam. Additional diffuse lytic and blastic changes throughout IMPRESSION: 1. Diffuse pulmonary metastatic change. 2. Bladder masses as described presumably neoplastic. 3. Hepatic metastatic disease. 4. Soft tissue mass within the left lateral pelvic region. 5. Diffuse bony metastatic change with evidence for pathologic compression deformities of L4 and L5. ACT 112: Negative or not required by law. The above report was generated using voice recognition software. It may contain grammatical, syntax or spelling errors. Electronically signed by: Benito Patel M.D. 08/31/2019 8:02 AM
[2019-08-31] MEDS ORDERED: PROMETHAZINE HCL 12.5 MG in SODIUM CHLORIDE 0.9% 50 ML IV PRN (08:22)
[2019-08-31] MEDS ORDERED: OXYBUTYNIN CHLORIDE 5 MG TAB PO PRN (08:22)
[2019-08-31] MEDS ORDERED: LACTULOSE SYRUP 20 GM/30 ML UDC PO STA (08:22)
[2019-08-31] MEDS ORDERED: METHYLNALTREXONE BROMIDE 12 MG/0.6 ML VIAL SQ STA (08:22)
[2019-08-31] MEDS ORDERED: ACETAMINOPHEN 325 MG TAB PO PRN (08:22)
[2019-08-31] MEDS ORDERED: ALBUMIN 25% 50 ML IV ONE (08:22)
[2019-08-31] MEDS: DOCUSATE SODIUM/SENNA 50/8.6MG TAB PO SCH ×2 (10:03→20:19)
[2019-08-31] MEDS: FLUTICASONE/VILANTEROL 200/25MCG 14 PUFFS/INHALER INH SCH (10:04)
[2019-08-31] MEDS: cloNIDine HCL 0.1 MG TAB PO SCH ×2 (10:04→19:27)
[2019-08-31] MEDS: OXYCODONE HCL 40 MG TABCR (OXYCONTIN) PO SCH ×2 (10:17→20:20)
--- NOTE | 2019-08-31 11:52 | Palliative Care Consultation ---
Date of Consultation August 31, 2019 Assessment & Plan (1) Goals of care, counseling/discussion: 59 year old male patient known to Palliative Care service presented to the [facility] from [facility] with abdominal pain. 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 The patient has been admitted twice over the past month with a variety of issues, including an intentional overdose. He states he did this to end his life, in light of his terminal cancer. Apparently patient had entered hospice care but has had a difficult transition with this and has revoked twice. Patient is also known to the palliative care service from several previous hospital admissions when we saw him for intractable pain due to his metastatic cancer. Palliative care is consulted for goals of care. -I met with the patient in room 287-1. The patient was awake, looking at his p dao and in no apparent distress. -Numerous discussions held with this patient over the past few months regarding his terminal condition and goals of care. The patient did receive chemotherapy in the past, along with radiation; however, he did not complete the fractions, 05/16 and decided to forgo any future treatments. Patient sees Dr. Mon from [facility] heme/onc. -Patient has been transitioned to a DNR/DNI as of 08/16/2019. -I spoke with his daughter, Jennifer on the phone , who called to talk to nursing when I was sitting at the nurses station. -Jennifer reiterated that her and her Aunt, Katherine, really want him to return to [facility] on Hospice. It appears that this gentleman has emotional pain in addition to visceral cancer pain as well. -During my conversation, he struggled with eye/hand coordination trying to attach his cell phone cord. -Patient describes pain as "kidney pain" on both sides, consistent with no radiation to abdomen. He denies all other pain. -The patient is currently being treated for a UTI, which could explain some of his delirium and confusion, but I have a low threshold to think that he may have brain metastasis, which of course would only be identified with imaging, which would not change his overall goals; however, could provide more guidance and clarification of goals of care to be dealt with through his daughter as no other person has been legally identified as decision maker. -Patient did reiterate that he does not want to pursue any additional chemotherapy/radiation. -I do feel that some of this fluctuation could be emotional pain/anxiety due to him being young with a terminal diagnosis. -Currently, his pain regimen is Oxycontin 80 mg po Q 12, Dilaudid 1mg IV Q3 (received ONE dose in the past 24 hours), Ativan 0.5 mg IV Q4 PRN (ZERO doses over the past 24 hours). -This patient has had a Fentanyl patch on previous admissions but did not tolerate, but was unable to express why it didnt help. For now, I think we need to assess his PRN opioid use to make appropriate changes. -For now, continue to assess pain needs. Will need to determine if patient has increased IV Dilaudid use over the next 12-24 hours. -Ultimately, a goal is for him to return to [facility] with Hospice services. A POLST would be helpful prior to discharge WITH the written communication that no future hospitalizations occur without family clearance. 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 with increased abdominal pain. The patient has been admitted twice over the past month with a variety of issues, including an intentional overdose. He states he did this to end his life, in light of his terminal cancer. Apparently patient had entered hospice care but has had a difficult transition with this. Patient is also known to the palliative care service from several previous hospital admissions when we saw him for intractable pain due to his metastatic cancer. Palliative care is consulted for goals of care. Thank you kindly for involving the palliative care team with this patient. - Allergies Allergy/AdvReac Type Severity Reaction Status Date / Time morphine Allergy Severe ANAPHYLAXIS Verified 08/31/19 03:29 Penicillins Allergy Intermediate HIVES Verified 08/31/19 03:29 ketorolac [From Toradol] AdvReac Unknown Unknown Verified 08/31/19 03:29 Home Medications Home Medications Medication Instructions Recorded Confirmed Type levothyroxine 100 mcg PO DAILY@0500 12/24/18 08/31/19 History polyethylene glycol 3350 [Miralax] 17 g PO DAILY PRN 12/24/18 08/31/19 History Breo Ellipta 1 inh INHALATION DAILY@0800 06/08/19 08/31/19 History acetaminophen 650 mg PO Q6 PRN MDD 3gm/24hr 06/08/19 08/31/19 History alum-mag hydroxide-simeth [Maalox 15 ml PO Q4 PRN 06/08/19 08/31/19 History Advanced] ondansetron HCl 8 mg PO Q8H PRN 06/08/19 08/31/19 History oxybutynin chloride 5 mg PO Q6 PRN 06/08/19 08/31/19 History prochlorperazine maleate 10 mg PO Q6H PRN 06/08/19 08/31/19 History sennosides [senna] 8.6 mg PO BID 06/08/19 08/31/19 History lorazepam 1 mg tablet 1 mg PO Q6H 06/30/19 08/31/19 History buspirone 5 mg PO TID 07/18/19 08/31/19 History clonidine HCl 0.1 mg PO BID 30 Days #60 tab 08/20/19 08/31/19 Rx 2 Santosh Suppliment 1 dose PO TID 08/31/19 08/31/19 History magnesium hydroxide [Milk of 30 ml PO DAILY PRN 08/31/19 08/31/19 History Magnesia] oxycodone [OxyContin] 80 mg PO Q12H 08/31/19 08/31/19 History oxycodone-acetaminophen [Percocet] 2 tab PO Q4H PRN 08/31/19 08/31/19 History Patient History Medical History Acute UTI (Inactive) MIKIE (acute kidney injury) Alcoholic pancreatitis Anemia CHRONIC; BASELINE HGB 8-9 RANGE PER CHART REVIEW Asthma (08/31/12) Back pain Bladder cancer Blindness of right eye BPH (benign prostatic hyperplasia) Cancer of kidney Cancer related pain Chronic anemia Coronary artery disease (08/31/12) STENTS X 2 (1+ YEARS AGO) Encounter for pre-operative examination Hematuria (Inactive) Hepatitis C History of chemotherapy Finished 10/08/2018 - Carboplatin/Gemcitabine x 2 cycles Hydroureter Hydroureter on left Hyperlipidemia Hypothyroidism (08/31/12) Inferior pubic ramus fracture Intractable pain (Inactive) Kidney stones Lower abdominal pain (Inactive) Myocardial Infarction Pathological fracture of pelvis (Inactive) Pulmonary nodule Screening for colon cancer UTI (urinary tract infection) Surgical History History of transurethral destruction of bladder lesion S/P cholecystectomy S/P colonoscopy S/P hernia repair Family History Mother , age 69 MT No problems noted. Father , age 75 diab. comp No problems noted. Brother , age 45 drug overdose No problems noted. Brother , age 34 No problems noted. Sister Kidney disease Sister No problems noted. Daughter No problems noted. Daughter No problems noted. Son No problems noted. Son No problems noted. Son No problems noted. Son No problems noted. Son No problems noted. Son No problems noted. Other Coronary heart disease Diabetes Social History Preferred Language: Gu[place]an Communication Ability: Effective Visual Impairment: No Limitations Claims Configuration Analyst Required: No Beliefs That Will Affect Care: None marital status: Current Living Situation: Correction Current Living Situation Comment: [facility] current occupational status: unemployed current occupation: [employer] Other Information That Helps Us Care for You: No Feels Safe at Home: Yes Smoking Status: Former smoker Tobacco Type: cigarettes ; Age Started Using Tobacco: 13 ; packs per day: 1 ; Cigarettes Per Day: 0-3 ; Do You Dip or Chew Tobacco: No ; Second Hand Exposure: No ; Tobacco Cessation Education Requested by Patient: No Hx Alcohol Use: Yes Hx Substance Use: Yes substance use type: painkillers Substance Use Type Other:: percocet, oxycontin Last Used Substance: Unknown Childhood Exposure to Second-Hand Smoke: Yes caffeine: Yes (one cup ) during the past year weight has: other Dental Care, Regularly: No Physical Activity Frequency: Does not Exercise Seatbelt Use: always Sunscreen Use: Yes Review of Systems Review of Systems: General: Patient reports constant pain in his lower back HEENT: Pt denies GRAJEDA, visual changes, dizziness CV: Pt denies chest pain Resp: Pt denies SOB GI: Pt denies abdominal pain. Reports + bowel movements : pt denies difficulty with urination Skin: Pt denies skin breakdown Physical Exam Constitutional: healthy appearing and cooperative Eyes: PERRL, conjunctivae normal, anicteric sclerae ENMT: external ear and nose normal, oropharynx normal Neck: trachea midline, no thyromegaly Respiratory: normal respiratory effort, lungs clear to auscultation Cardiovascular: RRR, no murmur, no edema Gastrointestinal (Abdomen): abdomen large, tender, non distended Skin: no rashes, warm and dry Psychiatric: awake, alert, oriented to self, location and situation. appears to have some difficulty with recalling medical details Genitourinary: left abdomen urostomy. draining clear yellow Lymphatic: no cervical or axillary lymphadenopathy Results & Data Vital Signs (Past 12 Hours) Vital Signs Temp Pulse Pulse Resp BP BP Pulse Ox 08/31/19 11:26 36.7 C 107 H 18 196/101 H 96 08/31/19 10:45 111 H 18 164/99 H 96 08/31/19 10:15 107 H 18 189/106 H 95 08/31/19 08:23 36.7 C 91 H 95 H 20 141/94 H 95 08/31/19 05:37 91 H 20 154/84 H 93 08/31/19 04:30 98 H 20 146/91 H 99 08/31/19 03:41 99 H 20 134/85 94 08/31/19 02:58 96 08/31/19 02:36 36.9 C 115 H 16 138/86 94 PG Care Time/CCT Total # of Minutes Spent Total Time Spent with Patient: Total time spent is greater than 50% in coordination of care (as documented) at patient's floor/unit and/or counseling patient: 100 Coding Level of Care Code 46570 Inpt Consult Level 4 Diagnoses Goals of care, counseling/discussion Z71.89 Abdominal pain R10.9 Cancer related pain G89.3 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
[2019-08-31] MEDS ORDERED: HEPARIN 100 UNIT/ML 5ML FLUSH ONE ×2 (15:53→23:21)
--- NOTE | 2019-08-31 17:23 | CT Scan Report ---
CT SCAN OF THE BRAIN WITHOUT IV CONTRAST CLINICAL HISTORY: Bladder cancer. Metastatic assessment. COMPARISON STUDY: No priors. TECHNIQUE: Unenhanced axial CT scan of the brain is performed from the vertex to the skull base. A do se lowering technique was utilized adhering to the principles of ALARA. Note that the examination was performed in suboptimal fashion without IV contrast for the stated clinical history. CT DOSE: 614.27 mGy.cm FINDINGS: Brain parenchyma: There is mild subcortical and periventricular microangiopathic disease. There is no hemorrhage, mass effect, or evidence of acute territorial ischemia by CT criteria. A small chronic l acunar infarct is noted in the left thalamus. [place]-white matter differentiation is preserved. No extr a-axial fluid collection is seen. Ventricles, sulci, cisterns: Normal in configuration. Intracranial vasculature: There is advanced atherosclerotic calcification of the cavernous carotid an d vertebral arteries. Calvarium: No destructive calvarial lesion is identified. Sinuses and mastoids: The visualized paranasal sinuses are clear. The mastoid air cells are well pneu matized. Orbits: The bony orbits are grossly intact. IMPRESSION: There is no hemorrhage, mass effect, or evidence of acute territorial ischemia by CT courtney daniel. ACT 112: Negative or not required by law. Electronically signed by: Ceasar Cheung M.D. 08/31/2019 5:22 PM
[2019-09-01] MEDS ORDERED: HydrALAZINE HCL 20 MG/ML VIAL ONE (03:01)
[2019-09-01] MEDS: HYDROmorphone INJ 1 MG/ML SYRINGE IV PRN ×5 (03:20→23:35)
[2019-09-01] MEDS: cefTRIAXone SODIUM 1,000 MG in DEXTROSE 5% 50 ML IV SCH (04:14)
[2019-09-01] MEDS: HEPARIN 100 UNIT/ML 5ML FLUSH FLUSH PRN ×3 (04:14→23:58)
[2019-09-01] MEDS: LORazepam 0.5 MG/1 ML VIAL IV PRN ×2 (04:14→23:55)
[2019-09-01 06:28] LABS: Hematocrit (blood only) 27.8 % (42-52); Hemoglobin 8.7 g/dL (14.0-18.0); Mean Corpuscular Hemoglobin 25.1 pg (25-34); Mean Corpuscular Hgb Conc 31.3 g/dL (32-36); Mean Corpuscular Volume 80.1 fL (80-100); RDW Coefficient of Variation 16.2 % (11.5-14.5); RDW Standard Deviation 47.6 fL (36.4-46.3); Red Blood Count 3.47 M/uL (4.7-6.1); White Blood Count 5.33 K/uL (4.8-10.8)
[2019-09-01 06:59] LABS: Mean Platelet Volume 7.9 fL (7.4-10.4); Platelet Count 72 K/uL (130-400)
[2019-09-01 07:00] LABS: Basophils # (auto) 0.01 K/uL (0-0.2); Basophils % (auto) 0.2 %; Eosinophils # (auto) 0.13 K/uL (0-0.5); Eosinophils % (auto) 2.4 %; Immature Granulocytes # (auto) 0.02 K/uL (0.00-0.02); Immature Granulocytes % (auto) 0.4 %; Lymphocytes # (auto) 0.99 K/uL (1.2-3.4); Lymphocytes % (auto) 18.6 %; Microcytosis Present; Monocytes # (auto) 0.45 K/uL (0.11-0.59); Monocytes % (auto) 8.4 %; Neutrophils # (auto) 3.73 K/uL (1.4-6.5); Platelet Estimate Decreased (Normal)
[2019-09-01 07:01] LABS: BUN Creatinine Ratio 9.1 (10-20); Calcium 9.1 mg/dl (8.5-10.1); Creatinine Clr Calc Pharmacy 57.1 ml/min; Est GFR (African American) 59.3; Est GFR (Non-African American) 51.2; Potassium 4.5 mmol/L (3.5-5.1)
[2019-09-01] MEDS: LEVOTHYROXINE SODIUM 100 MCG TABLET PO SCH (08:01)
[2019-09-01] MEDS: OXYCODONE HCL 40 MG TABCR (OXYCONTIN) PO SCH ×3 (09:19→20:33)
[2019-09-01] MEDS: DOCUSATE SODIUM/SENNA 50/8.6MG TAB PO SCH ×2 (09:20→20:27)
[2019-09-01] MEDS: POLYETHYLENE (MIRALAX) 17 GM PACK PO PRN (09:20)
[2019-09-01] MEDS: FLUTICASONE/VILANTEROL 200/25MCG 14 PUFFS/INHALER INH SCH (09:22)
[2019-09-01] MEDS: cloNIDine HCL 0.1 MG TAB PO SCH ×2 (09:22→20:26)
[2019-09-01] MEDS: LIDOCAINE 5% 1 PATCH TD SCH (09:23)
--- NOTE | 2019-09-01 14:41 | Hospitalist Progress Note ---
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: No further treatment Will be back to hospice care (3) Abdominal pain: Multifactorial : Cancer pain, metastatic bladder cancer status post surgery and chemoradiation on chronic pain rx, progressive disease Narcotic induced constipation Complicated UTI, no sepsis Urine culture is growing gram-negative bacilli full sensitivity has been pending Continue with current IV ceftriaxone Chronic systolic heart failure (EF 45%, TTE 2018), equivocal volume status ARF secondary to illness Advised to drink more fluids up to 1500 mL a day Hypertension, elevated secondary discomfort CAD sp stent COPD as per records, pulmonary status at baseline hx chronic HCV infection, treatment precluded by patient's terminal malignancy Hypothyroidism, TSH slightly elevated a few weeks ago Chronic anemia, hemoglobin at baseline Past tobacco/alcohol abuse as per records DVT prophylaxis. SCDs RE intermittent hematuria as per records DNR (4) Acute UTI: As above Continue intravenous ceftriaxone Await urine culture and sensitivity Admission and Anticipated Discharge Date Admission Date: August 31, 2019 Subjective The patient was seen and examined in the medical floor He complains to have pain mostly at the back but denies any shortness of breath and/or palpitation He denies any urinary symptoms No fever and/or chills Review of Systems Review of Systems: All systems reviewed and are unremarkable except as noted below Constitutional: + chills, + body aches, + fatigue, + weakness, + anorexia and + weight loss Genitourinary: no dysuria Musculoskeletal: Severe back pain with any movement Physical Exam Physical Exam: Lying in bed without any acute symptoms Constitutional: well developed, well nourished, + ill appearing and + obese; no acute distress Eyes: PERRL, conjunctivae normal, anicteric sclerae ENMT: external ear and nose normal, oropharynx normal Neck: trachea midline, no thyromegaly Respiratory: normal respiratory effort; no respiratory distress Auscultation: lungs clear to auscultation bilaterally Cardiovascular: Rate/Rhythm: regular rate and regular rhythm Heart Sounds: no murmur Gastrointestinal (Abdomen): Inspection/Auscultation: abdomen normal to inspection and normal bowel sounds; abdomen not distended Percussion/Palpation: + abdomen tender and abdomen soft Musculoskeletal: No acute arthritis but has severe back pain with movement without radiculopathy Neurologic: moves all extremities; no focal motor deficits Lymphatic: no cervical or axillary lymphadenopathy Results & Data Results & Data ([facility]) Vital Signs (Past 12 Hours) Vital Signs Temp Pulse Pulse Resp BP Pulse Ox 09/01/19 11:11 36.6 C 82 18 134/81 97 09/01/19 07:22 72 09/01/19 07:10 36.8 C 88 18 117/74 99 09/01/19 04:20 139/89 09/01/19 03:25 36.5 C 88 18 168/91 H 100 Laboratory Results Short CBC 09/01/19 Range/Units 06:14 WBC 5.33 (4.8-10.8) K/uL Hgb 8.7 L (14.0-18.0) g/dL Hct 27.8 L (42-52) % Plt Count 72 L (130-400) K/uL BMP 09/01/19 06:14 Sodium 140 Potassium 4.5 Chloride 107 Carbon Dioxide 27 BUN 13 Creatinine 1.46 H D Glucose 103 H Calcium 9.1 Medications Administered Current Inpatient Medications Acetaminophen (Tylenol) 650 mg PO Q6 PRN PRN Reason: FEVER/PAIN Stop: 09/30/19 08:21 Buspirone HCl (Buspar) 5 mg PO TID [facility] Stop: 09/30/19 08:59 Last Admin: 09/01/19 13:28 Dose: 5 mg Documented by: Clonidine HCl (Catapres) 0.1 mg PO BID [facility] Stop: 09/30/19 08:59 Last Admin: 09/01/19 09:22 Dose: 0.1 mg Documented by: Fluticasone/Vilanterol (Breo Ellipta 200/25 Mcg Inh) 1 puffs INH DAILY@0800 [facility] Stop: 09/30/19 08:21 Last Admin: 09/01/19 09:22 Dose: Not Given Documented by: Heparin Sodium (Porcine) (Heparin Sod 100 Unit/Ml Flush) 5 ml FLUSH PRN PRN PRN Reason: Flush Stop: 09/30/19 23:10 Last Admin: 09/01/19 09:42 Dose: 5 ml Documented by: Hydromorphone HCl (Dilaudid) 2 mg IV Q4HWA PRN PRN Reason: Pain Stop: 09/14/19 05:42 Last Admin: 09/01/19 13:28 Dose: 1 mg Documented by: Lorazepam (Ativan) 0.5 mg in 1 mls @ 1 mls/min IV Q4H PRN PRN Reason: Anxiety/Agitation Stop: 09/30/19 08:21 Last Admin: 09/01/19 04:14 Dose: 1 mls/min Documented by: Promethazine HCl 12.5 mg/ (Sodium Chloride) 50.5 mls @ 202 mls/hr IV Q6H PRN PRN Reason: Nausea And Vomiting Stop: 09/30/19 08:21 Ceftriaxone Sodium 1,000 mg/ (Dextrose) 50 mls @ 100 mls/hr IV Q24H [facility]; Protocol Stop: 09/11/19 04:29 Last Infusion: 09/01/19 05:03 Dose: Infused Documented by: Levothyroxine Sodium (Synthroid) 100 mcg PO DAILY@0500 [facility] Stop: 10/01/19 04:59 Last Admin: 09/01/19 08:01 Dose: 100 mcg Documented by: Lidocaine (Lidoderm 5%) 1 patch TD QAM [facility] Stop: 09/30/19 07:24 Last Admin: 09/01/19 09:23 Dose: 1 patch Documented by: Miscellaneous (Remove Lidoderm Patch) 1 ea N/A DAILY@2100 [facility] Stop: 09/30/19 20:59 Last Admin: 08/31/19 19:29 Dose: Not Given Documented by: Oxybutynin Chloride (Ditropan) 5 mg PO Q6 PRN PRN Reason: Bladder Spasms Stop: 09/30/19 08:21 Oxycodone HCl (Oxycontin) 80 mg PO Q12 [facility] Stop: 09/14/19 09:59 Last Admin: 09/01/19 09:19 Dose: 80 mg Documented by: Polyethylene Glycol (Miralax Powder Packet) 17 gm PO DAILY PRN PRN Reason: Constipation Stop: 09/30/19 08:21 Last Admin: 09/01/19 09:20 Dose: 17 gm Documented by: Senna/Docusate Sodium (Senokot S) 2 tab PO BID [facility] Stop: 09/30/19 08:59 Last Admin: 09/01/19 09:20 Dose: 2 tab Documented by:
[2019-09-02] MEDS: HYDROmorphone INJ 1 MG/ML SYRINGE IV PRN ×5 (03:41→22:07)
[2019-09-02] MEDS: HEPARIN 100 UNIT/ML 5ML FLUSH FLUSH PRN (03:47)
[2019-09-02] MEDS: LORazepam 0.5 MG/1 ML VIAL IV PRN ×2 (03:47→19:39)
[2019-09-02] MEDS: cefTRIAXone SODIUM 1,000 MG in DEXTROSE 5% 50 ML IV SCH (05:13)
[2019-09-02] MEDS: LEVOTHYROXINE SODIUM 100 MCG TABLET PO SCH (05:15)
[2019-09-02] MEDS: DOCUSATE SODIUM/SENNA 50/8.6MG TAB PO SCH ×2 (09:38→21:35)
[2019-09-02] MEDS: cloNIDine HCL 0.1 MG TAB PO SCH ×2 (09:38→21:34)
[2019-09-02] MEDS: OXYCODONE HCL 40 MG TABCR (OXYCONTIN) PO SCH ×2 (09:38→21:34)
[2019-09-02] MEDS: FLUTICASONE/VILANTEROL 200/25MCG 14 PUFFS/INHALER INH SCH (09:39)
[2019-09-02] MEDS: LIDOCAINE 5% 1 PATCH TD SCH (09:40)
--- NOTE | 2019-09-02 14:41 | Hospitalist Progress Note ---
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: No further treatment Will be back to hospice care likely tomorrow (3) Abdominal pain: Multifactorial : Cancer pain, metastatic bladder cancer status post surgery and chemoradiation on chronic pain rx, progressive disease Narcotic induced constipation Complicated UTI, no sepsis Urine culture is growing gram-negative bacilli full sensitivity has been pending Continue with current IV ceftriaxone Urine culture is growing Pseudomonas and is sensitive to current antibiotic Will change to oral Keflex Chronic systolic heart failure (EF 45%, TTE 2018), equivocal volume status ARF secondary to illness Advised to drink more fluids up to 1500 mL a day Hypertension, elevated secondary discomfort CAD sp stent COPD as per records, pulmonary status at baseline hx chronic HCV infection, treatment precluded by patient's terminal malignancy Hypothyroidism, TSH slightly elevated a few weeks ago Chronic anemia, hemoglobin at baseline Past tobacco/alcohol abuse as per records DVT prophylaxis. SCDs RE intermittent hematuria as per records DNR Likely discharge tomorrow when the pain is reasonably controlled and the pain medications have been adjusted (4) Acute UTI: As above Continue intravenous ceftriaxone Await urine culture and sensitivity Admission and Anticipated Discharge Date Admission Date: August 31, 2019 Subjective The patient was seen and examined in the medical floor He complains to have pain mostly at the back but denies any shortness of breath and/or palpitation He denies any urinary symptoms No fever and/or chills 09/02/2019 The patient was seen and examined in medical floor He complains of a lot of back and flank pain Denies any shortness of breath, chest pain or palpitation, any nausea and/or vomiting Review of Systems Review of Systems: All systems reviewed and are unremarkable except as noted below Constitutional: + chills, + body aches, + fatigue, + weakness, + anorexia and + weight loss Musculoskeletal: Severe back pain with any movement Physical Exam Physical Exam: Lying in bed with moderate to severe pain Constitutional: well developed, well nourished, + ill appearing and + obese; no acute distress Eyes: PERRL, conjunctivae normal, anicteric sclerae ENMT: external ear and nose normal, oropharynx normal Neck: trachea midline, no thyromegaly Respiratory: normal respiratory effort; no respiratory distress Auscultation: lungs clear to auscultation bilaterally Cardiovascular: Rate/Rhythm: regular rate and regular rhythm Heart Sounds: no murmur Gastrointestinal (Abdomen): Inspection/Auscultation: abdomen normal to inspection and normal bowel sounds; abdomen not distended Percussion/Palpation: + abdomen tender and abdomen soft Musculoskeletal: Severe back pain without radiation Neurologic: moves all extremities; no focal motor deficits Alert, awake and oriented times Lymphatic: no cervical or axillary lymphadenopathy Results & Data Results & Data ([facility]) Vital Signs (Past 12 Hours) Vital Signs Temp Pulse Pulse Resp BP BP Pulse Ox 09/02/19 12:00 36.7 C 90 18 128/70 93 09/02/19 08:00 36.6 C 83 86 18 127/83 95 09/02/19 03:24 36.7 C 109 H 20 171/96 H 95 Medications Administered Current Inpatient Medications Acetaminophen (Tylenol) 650 mg PO Q6 PRN PRN Reason: FEVER/PAIN Stop: 09/30/19 08:21 Buspirone HCl (Buspar) 5 mg PO TID [facility] Stop: 09/30/19 08:59 Last Admin: 09/02/19 14:23 Dose: 5 mg Documented by: Clonidine HCl (Catapres) 0.1 mg PO BID [facility] Stop: 09/30/19 08:59 Last Admin: 09/02/19 09:38 Dose: 0.1 mg Documented by: Fluticasone/Vilanterol (Breo Ellipta 200/25 Mcg Inh) 1 puffs INH DAILY@0800 [facility] Stop: 09/30/19 08:21 Last Admin: 09/02/19 09:39 Dose: 1 puffs Documented by: Heparin Sodium (Porcine) (Heparin Sod 100 Unit/Ml Flush) 5 ml FLUSH PRN PRN PRN Reason: Flush Stop: 09/30/19 23:10 Last Admin: 09/02/19 03:47 Dose: 5 ml Documented by: Hydromorphone HCl (Dilaudid) 2 mg IV Q4HWA PRN PRN Reason: Pain Stop: 09/14/19 05:42 Last Admin: 09/02/19 14:22 Dose: 2 mg Documented by: Lorazepam (Ativan) 0.5 mg in 1 mls @ 1 mls/min IV Q4H PRN PRN Reason: Anxiety/Agitation Stop: 09/30/19 08:21 Last Admin: 09/02/19 03:47 Dose: 1 mls/min Documented by: Promethazine HCl 12.5 mg/ (Sodium Chloride) 50.5 mls @ 202 mls/hr IV Q6H PRN PRN Reason: Nausea And Vomiting Stop: 09/30/19 08:21 Ceftriaxone Sodium 1,000 mg/ (Dextrose) 50 mls @ 100 mls/hr IV Q24H [facility]; Protocol Stop: 09/11/19 04:29 Last Infusion: 09/02/19 07:33 Dose: Infused Documented by: Levothyroxine Sodium (Synthroid) 100 mcg PO DAILY@0500 [facility] Stop: 10/01/19 04:59 Last Admin: 09/02/19 05:15 Dose: 100 mcg Documented by: Lidocaine (Lidoderm 5%) 1 patch TD QAM [facility] Stop: 09/30/19 07:24 Last Admin: 09/02/19 09:40 Dose: Not Given Documented by: Miscellaneous (Remove Lidoderm Patch) 1 ea N/A DAILY@2100 [facility] Stop: 09/30/19 20:59 Last Admin: 09/01/19 20:33 Dose: 1 ea Documented by: Oxybutynin Chloride (Ditropan) 5 mg PO Q6 PRN PRN Reason: Bladder Spasms Stop: 09/30/19 08:21 Oxycodone HCl (Oxycontin) 80 mg PO Q12 [facility] Stop: 09/14/19 09:59 Last Admin: 09/02/19 09:38 Dose: 80 mg Documented by: Polyethylene Glycol (Miralax Powder Packet) 17 gm PO DAILY PRN PRN Reason: Constipation Stop: 09/30/19 08:21 Last Admin: 09/01/19 09:20 Dose: 17 gm Documented by: Senna/Docusate Sodium (Senokot S) 2 tab PO BID [facility] Stop: 09/30/19 08:59 Last Admin: 09/02/19 09:38 Dose: 2 tab Documented by:
[2019-09-02] MEDS: OXYCODONE/ACETAMINOPHEN 5mg/325mg TAB PO PRN (19:45)
[2019-09-03] MEDS: LEVOTHYROXINE SODIUM 100 MCG TABLET PO SCH (05:08)
[2019-09-03] MEDS: OXYCODONE/ACETAMINOPHEN 5mg/325mg TAB PO PRN ×4 (05:24→20:02)
[2019-09-03] MEDS: HEPARIN 100 UNIT/ML 5ML FLUSH FLUSH PRN ×2 (08:32→21:11)
[2019-09-03] MEDS: OXYCODONE HCL 40 MG TABCR (OXYCONTIN) PO SCH ×2 (08:50→21:14)
[2019-09-03] MEDS: HYDROmorphone INJ 1 MG/ML SYRINGE IV PRN ×4 (08:50→21:10)
[2019-09-03] MEDS: FLUTICASONE/VILANTEROL 200/25MCG 14 PUFFS/INHALER INH SCH (08:50)
[2019-09-03] MEDS: DOCUSATE SODIUM/SENNA 50/8.6MG TAB PO SCH ×2 (08:51→20:03)
[2019-09-03] MEDS: cloNIDine HCL 0.1 MG TAB PO SCH ×2 (08:51→20:03)
[2019-09-03] MEDS: LIDOCAINE 5% 1 PATCH TD SCH (08:52)
[2019-09-03 08:53] LABS: Hematocrit (blood only) 32.7 % (42-52); Hemoglobin 10.1 g/dL (14.0-18.0); Mean Corpuscular Hemoglobin 24.9 pg (25-34); Mean Corpuscular Hgb Conc 30.9 g/dL (32-36); Mean Corpuscular Volume 80.5 fL (80-100); RDW Coefficient of Variation 16.3 % (11.5-14.5); RDW Standard Deviation 47.6 fL (36.4-46.3); Red Blood Count 4.06 M/uL (4.7-6.1); White Blood Count 6.69 K/uL (4.8-10.8)
[2019-09-03 08:55] LABS: Mean Platelet Volume 8.4 fL (7.4-10.4); Platelet Count 96 K/uL (130-400)
[2019-09-03 09:17] LABS: Basophils # (auto) 0.01 K/uL (0-0.2); Basophils % (auto) 0.1 %; Eosinophils # (auto) 0.24 K/uL (0-0.5); Eosinophils % (auto) 3.6 %; Immature Granulocytes # (auto) 0.05 K/uL (0.00-0.02); Immature Granulocytes % (auto) 0.7 %; Lymphocytes # (auto) 1.55 K/uL (1.2-3.4); Lymphocytes % (auto) 23.2 %; Monocytes # (auto) 0.71 K/uL (0.11-0.59); Monocytes % (auto) 10.6 %; Neutrophils # (auto) 4.13 K/uL (1.4-6.5); Neutrophils % (auto) 61.8 %
[2019-09-03 09:28] LABS: BUN Creatinine Ratio 7.9 (10-20); Calcium 9.4 mg/dl (8.5-10.1); Creatinine Clr Calc Pharmacy 45.1 ml/min; Est GFR (African American) 45.4; Est GFR (Non-African American) 39.2; Potassium 4.3 mmol/L (3.5-5.1)
--- NOTE | 2019-09-03 13:28 | Hospitalist Progress Note ---
Date of Service September 03, 2019 Assessment & Plan (1) Cancer related pain: History of bladder cancer with metastasis to bones and other areas Has been under care of palliative care and hospice services Complain more pain in the abdomen and also in the bilateral flank area Pain is worse due to UTI with possible pyelonephritis Appreciate palliative care input and recommendation Current pain medications have not been improving his pain Await palliative care evaluation and recommendation Pain is not yet well controlled His usual oral short-acting pain medications have been started We will continue current regimen and possible discharge on Thursday (2) 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: No further treatment Not yet ready to be discharged Likely discharge on Thursday (3) Abdominal pain: Multifactorial : Cancer pain, metastatic bladder cancer status post surgery and chemoradiation on chronic pain rx, progressive disease Narcotic induced constipation Complicated UTI, no sepsis Urine culture is growing gram-negative bacilli full sensitivity has been pending Continue with current IV ceftriaxone Urine culture is growing Pseudomonas and is sensitive to current antibiotic Urine culture seems to be colonization Will DC antibiotic Chronic systolic heart failure (EF 45%, TTE 2018), equivocal volume status ARF secondary to illness Advised to drink more fluids up to 1500 mL a day Hypertension, elevated secondary discomfort CAD sp stent COPD as per records, pulmonary status at baseline hx chronic HCV infection, treatment precluded by patient's terminal malignancy Hypothyroidism, TSH slightly elevated a few weeks ago Chronic anemia, hemoglobin at baseline Past tobacco/alcohol abuse as per records DVT prophylaxis. SCDs RE intermittent hematuria as per records DNR Pain is not controlled Pain medications have been adjusted Likely discharge on Thursday (4) Acute UTI: As above Continue intravenous ceftriaxone Await urine culture and sensitivity Urine is growing Pseudomonas and that is not sensitive to ceftriaxone The patient does not have any symptoms of UTI, no fever, no frequency. No white count He does not look any sicker Antibiotic will be discontinued Admission and Anticipated Discharge Date Admission Date: August 31, 2019 Subjective The patient was seen and examined in the medical floor He complains to have pain mostly at the back but denies any shortness of breath and/or palpitation He denies any urinary symptoms No fever and/or chills 09/02/2019 The patient was seen and examined in medical floor He complains of a lot of back and flank pain Denies any shortness of breath, chest pain or palpitation, any nausea and/or vomiting 09/03/2019 The patient is seen and examined in the medical floor Still complains of severe pain at the back Denies any chest pain and/or palpitation, no shortness of breath, no nausea and/or vomiting Review of Systems Review of Systems: All systems reviewed and are unremarkable except as noted below Constitutional: + chills, + body aches, + fatigue, + weakness, + anorexia and + weight loss Musculoskeletal: Severe back pain with any movement Physical Exam Physical Exam: Lying in bed with moderate to severe pain Constitutional: well developed, well nourished, + ill appearing and + obese; no acute distress Eyes: PERRL, conjunctivae normal, anicteric sclerae ENMT: external ear and nose normal, oropharynx normal Neck: trachea midline, no thyromegaly Respiratory: normal respiratory effort; no respiratory distress Auscultation: lungs clear to auscultation bilaterally Cardiovascular: Rate/Rhythm: regular rate and regular rhythm Heart Sounds: no murmur Gastrointestinal (Abdomen): Inspection/Auscultation: abdomen normal to inspection and normal bowel sounds; abdomen not distended Percussion/Palpation: + abdomen tender and abdomen soft Bilateral flank pain and tenderness Musculoskeletal: Severe back pain. No acute pain involving any other joints Neurologic: moves all extremities; no focal motor deficits Lymphatic: no cervical or axillary lymphadenopathy Results & Data Results & Data ([facility]) Vital Signs (Past 12 Hours) Vital Signs Temp Pulse Pulse Resp BP BP Pulse Ox 09/03/19 11:12 36.4 C L 64 18 115/74 98 09/03/19 07:52 66 09/03/19 07:13 36.9 C 73 18 114/74 95 09/03/19 03:29 36.8 C 85 14 96/61 L 97 Laboratory Results Short CBC 09/03/19 Range/Units 08:32 WBC 6.69 (4.8-10.8) K/uL Hgb 10.1 L (14.0-18.0) g/dL Hct 32.7 L (42-52) % Plt Count 96 L (130-400) K/uL BMP 09/03/19 08:32 Sodium 138 Potassium 4.3 Chloride 106 Carbon Dioxide 25 BUN 14 Creatinine 1.82 H Glucose 90 Calcium 9.4 Medications Administered Current Inpatient Medications Acetaminophen (Tylenol) 650 mg PO Q6 PRN PRN Reason: FEVER/PAIN Stop: 09/30/19 08:21 Buspirone HCl (Buspar) 5 mg PO TID [facility] Stop: 09/30/19 08:59 Last Admin: 09/03/19 13:00 Dose: 5 mg Documented by: Clonidine HCl (Catapres) 0.1 mg PO BID [facility] Stop: 09/30/19 08:59 Last Admin: 09/03/19 08:51 Dose: 0.1 mg Documented by: Fluticasone/Vilanterol (Breo Ellipta 200/25 Mcg Inh) 1 puffs INH DAILY@0800 [facility] Stop: 09/30/19 08:21 Last Admin: 09/03/19 08:50 Dose: 1 puffs Documented by: Heparin Sodium (Porcine) (Heparin Sod 100 Unit/Ml Flush) 5 ml FLUSH PRN PRN PRN Reason: Flush Stop: 09/30/19 23:10 Last Admin: 09/03/19 08:32 Dose: 5 ml Documented by: Hydromorphone HCl (Dilaudid) 2 mg IV Q4HWA PRN PRN Reason: Pain Stop: 09/14/19 05:42 Last Admin: 09/03/19 13:00 Dose: 2 mg Documented by: Lorazepam (Ativan) 0.5 mg in 1 mls @ 1 mls/min IV Q4H PRN PRN Reason: Anxiety/Agitation Stop: 09/30/19 08:21 Last Admin: 09/02/19 19:39 Dose: 1 mls/min Documented by: Promethazine HCl 12.5 mg/ (Sodium Chloride) 50.5 mls @ 202 mls/hr IV Q6H PRN PRN Reason: Nausea And Vomiting Stop: 09/30/19 08:21 Levothyroxine Sodium (Synthroid) 100 mcg PO DAILY@0500 [facility] Stop: 10/01/19 04:59 Last Admin: 09/03/19 05:08 Dose: 100 mcg Documented by: Lidocaine (Lidoderm 5%) 1 patch TD QAM [facility] Stop: 09/30/19 07:24 Last Admin: 09/03/19 08:52 Dose: Not Given Documented by: Miscellaneous (Remove Lidoderm Patch) 1 ea N/A DAILY@2100 [facility] Stop: 09/30/19 20:59 Last Admin: 09/02/19 21:35 Dose: 1 ea Documented by: Oxybutynin Chloride (Ditropan) 5 mg PO Q6 PRN PRN Reason: Bladder Spasms Stop: 09/30/19 08:21 Oxycodone HCl (Oxycontin) 80 mg PO Q12 [facility] Stop: 09/14/19 09:59 Last Admin: 09/03/19 08:50 Dose: 80 mg Documented by: Oxycodone/Acetaminophen (Percocet 5mg/325mg) 2 tab PO Q4H PRN PRN Reason: Pain Stop: 09/16/19 17:32 Last Admin: 09/03/19 11:02 Dose: 2 tab Documented by: Polyethylene Glycol (Miralax Powder Packet) 17 gm PO DAILY PRN PRN Reason: Constipation Stop: 09/30/19 08:21 Last Admin: 09/01/19 09:20 Dose: 17 gm Documented by: Senna/Docusate Sodium (Senokot S) 2 tab PO BID [facility] Stop: 09/30/19 08:59 Last Admin: 09/03/19 08:51 Dose: 2 tab Documented by:
[2019-09-03] MEDS: POLYETHYLENE (MIRALAX) 17 GM PACK PO PRN (17:13)
[2019-09-03] MEDS: LORazepam 0.5 MG/1 ML VIAL IV PRN (22:59)
[2019-09-04] MEDS: HYDROmorphone INJ 1 MG/ML SYRINGE IV PRN ×5 (03:11→21:01)
[2019-09-04] MEDS: HEPARIN 100 UNIT/ML 5ML FLUSH FLUSH PRN ×3 (03:14→16:41)
[2019-09-04] MEDS: LEVOTHYROXINE SODIUM 100 MCG TABLET PO SCH (05:50)
[2019-09-04] MEDS: FLUTICASONE/VILANTEROL 200/25MCG 14 PUFFS/INHALER INH SCH (07:54)
[2019-09-04] MEDS: LIDOCAINE 5% 1 PATCH TD SCH (07:54)
[2019-09-04] MEDS: cloNIDine HCL 0.1 MG TAB PO SCH ×2 (07:54→19:48)
[2019-09-04] MEDS: DOCUSATE SODIUM/SENNA 50/8.6MG TAB PO SCH ×2 (07:54→19:48)
[2019-09-04] MEDS: OXYCODONE HCL 40 MG TABCR (OXYCONTIN) PO SCH ×2 (07:54→20:59)
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
[2019-09-04] MEDS: OXYCODONE/ACETAMINOPHEN 5mg/325mg TAB PO PRN (13:46)
[2019-09-05] MEDS: HYDROmorphone INJ 1 MG/ML SYRINGE IV PRN ×6 (01:07→20:24)
[2019-09-05] MEDS: OXYCODONE/ACETAMINOPHEN 5mg/325mg TAB PO PRN ×3 (03:10→19:41)
[2019-09-05] MEDS: HEPARIN 100 UNIT/ML 5ML FLUSH FLUSH PRN (04:12)
[2019-09-05] MEDS: LEVOTHYROXINE SODIUM 100 MCG TABLET PO SCH (05:27)
[2019-09-05] MEDS: FLUTICASONE/VILANTEROL 200/25MCG 14 PUFFS/INHALER INH SCH (08:27)
[2019-09-05] MEDS: LIDOCAINE 5% 1 PATCH TD SCH (08:27)
[2019-09-05] MEDS: cloNIDine HCL 0.1 MG TAB PO SCH ×2 (08:28→20:28)
[2019-09-05] MEDS: DOCUSATE SODIUM/SENNA 50/8.6MG TAB PO SCH ×2 (08:31→20:29)
[2019-09-05] MEDS: OXYCODONE HCL 40 MG TABCR (OXYCONTIN) PO SCH ×2 (09:41→21:56)
[2019-09-05] MEDS ORDERED: risperiDONE 0.5 MG TABLET PO PRN (12:54)
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
--- NOTE | 2019-09-05 14:55 | Electrocardiogram Report ---
Test Reason : Blood Pressure : / mmHG Vent. Rate : 086 BPM Atrial Rate : 086 BPM P-R Int : 156 ms QRS Dur : 102 ms QT Int : 396 ms P-R-T Axes : 043 002 032 degrees QTc Int : 473 ms Normal sinus rhythm Incomplete right bundle branch block Borderline ECG When compared with ECG of 17-AUG-2019 07:28, No significant change was found Confirmed by Manuel Nunez ([id number]) on 09/05/2019 2:54:29 PM Referred By: [facility] Confirmed By:Manuel Nunez
[2019-09-05] MEDS: LORazepam 0.5 MG/1 ML VIAL IV PRN (19:58)
[2019-09-06] MEDS: LEVOTHYROXINE SODIUM 100 MCG TABLET PO SCH (04:25)
[2019-09-06] MEDS: HYDROmorphone INJ 1 MG/ML SYRINGE IV PRN ×3 (04:26→12:21)
[2019-09-06] MEDS: LORazepam 0.5 MG/1 ML VIAL IV PRN (04:26)
[2019-09-06] MEDS: OXYCODONE/ACETAMINOPHEN 5mg/325mg TAB PO PRN ×2 (07:15→11:14)
[2019-09-06] MEDS: FLUTICASONE/VILANTEROL 200/25MCG 14 PUFFS/INHALER INH SCH (08:21)
[2019-09-06] MEDS: DOCUSATE SODIUM/SENNA 50/8.6MG TAB PO SCH (08:22)
[2019-09-06] MEDS: LIDOCAINE 5% 1 PATCH TD SCH (08:23)
[2019-09-06] MEDS: cloNIDine HCL 0.1 MG TAB PO SCH (08:23)
[2019-09-06] MEDS: OXYCODONE HCL 40 MG TABCR (OXYCONTIN) PO SCH (08:28)
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
[2019-09-06] MEDS: HEPARIN 100 UNIT/ML 5ML FLUSH FLUSH PRN (12:21)
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
--- NOTE | 2019-09-13 11:31 | Coding Query ---
CODING QUERY To promote full compliance with coding requirements relating to patient care, provider participation is requested in all cases of outpatient physical therapist assistant uncertainty. Please assist us with the question(s) below: Coding Question(s): 1. There is documentation of intractable pain with documentation in the record and on Discharge Summary of cancer related pain and bladder carcinoma metastatic to bone. Please specify, below in your clinical opinion, regarding the cancer that is causing the intractable pain. ( ) Bladder Cancer ( ) Metastatic Cancer of Bones ( ) Both Bladder Cancer and Metastatic Bone Cancer ( + ) Other: Please Specify__Metastatic Urinary Bladder Cancer ans Cancer Pain are same entity. 2. There is documentation of Acute UTI and antibiotic is discontinued. It is not clear if UTI was ruled-out or if the patient was treated for possible UTI. Please clarify below, in your clinical opinion, regarding the UTI. ( + ) Possible UTI was treated ( ) UTI was Ruled-Out ( ) Other: Please Specify 3. The Psychiatric Consultation on 09/04/19 documents, "Obviously the narcotics that he is receiving to control his cancer related pain can contribute to encephalopathy and will need to continue to keep the balance in mind regarding adequate treatment of pain while minimizing deliriogenic effects". Please specify below, in your clinical opinion, regarding Encephalopathy. ( ) Encephalopathy due to narcotic ( + ) No Encephalopathy ( ) Other: Please Specify Physician's Response(s): Thank you Eusebia Ramos Principal Diagnosis: "that condition established after study, to be chiefly responsible for occasioning the admission of the patient to the hospital for care." Co-Existing Principal Diagnosis: "when two or more diagnoses equally meet the criteria for principal diagnosis as determined by the circumstances of admission, diagnostic work up, and/or therapy provided, and the Alphabetic Index, Tabular List, or another coding guideline does not provide sequencing direction, any one of the diagnoses may be sequenced first." "When the physician has documented what appears to be a current diagnosis in the body of the record, but has not included the diagnosis in the final diagnostic statement, the physician should be asked whether the diagnosis should be added." (Source Coding [facility] 2 QTR90. p3-4) LOU
== END 2019-09-06 13:39 | disposition hospice, inpatient (51) | DRG 687 ==
LOC: ED 02:30 → 2N 06:41 → SUATTDRO 06:41 → 2N 07:13